=== PATIENT | male | born 1990 ===

== ENCOUNTER 2021-11-15 22:27 | Emergency (ER) | payer MEDICAID, SELFPAY ==
--- NOTE | ~2021-11-15 | XR_ITS ---
EXAMINATION: XR FOOT, RIGHT CLINICAL INFORMATION: Pain. Rule out osteomyelitis. COMPARISON: None TECHNIQUE: AP, lateral, and oblique views of the right foot. FINDINGS: No fracture or malalignment. Soft tissue swelling is evident at the fourth toe in the first. No radiographic findings of acute osteomyelitis. Bone mineralization is normal. Joint spaces are well-preserved. No radiodense foreign bodies. XR/XR foot RT min 3V IMPRESSION: No acute osseous findings. No radiographic findings of acute osteomyelitis.
[2021-11-15 22:41] VITALS: BP 135/72; PULSE 81; RESP 17; TEMP 36.7; O2SAT 96; BMI 26.9
--- NOTE | 2021-11-16 00:49 | ED_ITS ---
HPI - Extremity Problem General Chief complaint: Extremity Problem Stated complaint: foot inj Time Seen by Provider: 11/16/21 00:14 Source: patient Mode of arrival: ambulatory History of Present Illness HPI Narrative: 30-year-old male with past medical history of AFib presenting to the ED complaining of swollen, sore feet with open sores to 4-5th toes x weeks from shoes being a size too small and walking around for long periods of time in wet socks. Patient reports he is homeless & walking around a lot and feet always getting wet. Denies fever, chills, numbness/tingling, drainage from area MD Complaint: extremity pain Onset (ago): week(s) Pain Consistency: constant Related Data Previous Rx's Medication Instructions Recorded cephalexin 500 mg capsule 500 mg PO QID 7 Days #28 cap 11/16/21 Allergies Allergy/AdvReac Type Severity Reaction Status Date / Time amoxicillin [AMOXICILLIN] Allergy Severe HIVES Unverified 05/12/20 15:58 Penicillins [PENICILLINS] Allergy Severe HIVES Unverified 05/12/20 15:58 acetaminophen [From TYLENOL] Allergy Unknown LIVER Unverified 05/12/20 15:58 PROBLEMS Review of Systems Review of Systems: Constitutional: No Weight loss, No Fever, No Chills ENT/Mouth: No Ear Pain, No Nasal Congestion, No sore throat, No Rhinorrhea, No Swallowing Difficulty Cardiovascular: No Chest Pain, No SOB Respiratory: No Cough, No Sputum, No Wheezing Gastrointestinal: No Nausea, No Vomiting, No Diarrhea, No Constipation, No Abdominal pain Genitourinary: No Hematuria, No Urinary Incontinence, No Flank Pain Musculoskeletal: + joint pain, No Myalgias, + Joint Swelling Skin: + Skin Lesions, No rash Neuro: No Weakness, No Numbness, No Paresthesias Yes all other systems are reviewed and are negative [facility] Past Medical History Attestation statement: The following information was validated with the patient. Medical History A-fib Social History Social History Advance Directives: No Advance Directives Information Provided: Yes Physical Exam Vital Signs: Vital Signs: Last Vital Signs Temp 98.1 F 11/15/21 22:41 Pulse 81 11/15/21 22:41 Resp 17 11/15/21 22:41 BP 135/72 11/15/21 22:41 Pulse Ox 96 11/15/21 22:41 BMI result Body Mass Index 26.9 Const: General: cooperative, healthy appearing and no acute distress Orientation/consciousness: patient oriented x3 Limitations: no limitations HEENT: Head: Yes normal to inspection and Yes atraumatic Ears: hearing maxi ssly normal bilaterally General nose exam: Normal external nose present Face and sinus: Yes normal facial exam Eyes: General: appearance normal, both eyes and all related structures EOM: EOMs intact bilaterally Neck: Neck: Yes normal visual inspection Resp: Effort & Inspection: normal respiratory effort and no respiratory distress Auscultation: clear to auscultation bilaterally Cardio: Rate: regular rate Heart sounds: S1 normal heart sound present and S2 normal heart sound present Peripheral pulses: dorsalis pedis present Skin: Rashes: no rashes Neuro: General: patient oriented x3 Gait exam (Neuro): Normal gait present Extrem: Other: Bilateral feet with malodor, swelling, and skin breakdown to 4th and 5th toes. +open wounds/pressure wounds between 4/5th toes bilaterally worse on the right. Appear clean, no erythema, no warmth, no drainage. NV intact Course Course Course Narrative: -99--ED care transferred to [facility]al[facility] pending x-ray and dispo per results MDM - Extremity (Nontraumatic) MDM Narrative Medical decision making narrative: 30-year-old male with past medical history of AFib presenting to the ED complaining of swollen, sore feet with open sores to 4-5th toes x weeks from shoes being a size too small and walking around. On exam VSS, NAD, physical exam as above consistent with pressure wounds/ulcerations to bilateral feet. No evidence of active cellulitis. No drainage from wounds. Lower concern for osteomyelitis but will obtain XR to right foot due to depth of ulcer Plan: Foot x-ray, apply dressing for barrier & give dry socks Medical Records Attestation: I reviewed the patient's medical records. Lab Data Attestation: I reviewed the patient's lab results. Discharge Plan Discharge Clinical Impression: Pressure ulcer Patient Disposition: Home, Self-Care Instructions: Pressure Injury (ED) Additional Instructions: You need to keep you feet dry and clean Change socks daily Keep a barrier between 4th and 5th toes to prevent skin breakdown Please follow-up with your primary care doctor Please also follow-up with wound care Keflex as an antibiotic please take as prescribed If symptoms persist or worsen, he develops redness, drainage from area, fever please return to the ED Prescriptions: New cephalexin 500 mg capsule 500 mg PO QID 7 Days Qty: 28 0RF Referrals: [facility]Outside] - 2 days [facility] [Primary Care Provider] - 2 days
== END 2021-11-16 02:03 | disposition home or self-care (01) ==
PROVIDERS: Emergency Provider Emergency Medicine
DX: L89.891 Pressure ulcer of other site, stage 1 (principal); M79.672 Pain in left foot; M79.671 Pain in right foot; I48.91 Unspecified atrial fibrillation
CPT/HCPCS: 73630; 99283

== ENCOUNTER 2022-05-04 23:57 | Inpatient (IN) | payer OTHER, SELFPAY ==
--- NOTE | 2022-05-05 | ECG_ITS ---
Test Reason : med clearance Blood Pressure : / mmHG Vent. Rate : 073 BPM Atrial Rate : 073 BPM P-R Int : 140 ms QRS Dur : 114 ms QT Int : 396 ms P-R-T Axes : 020 059 041 degrees QTc Int : 436 ms Normal sinus rhythm Incomplete right bundle branch block Borderline ECG When compared with ECG of 23-MAR-2020 00:48, No significant change was found Referred By: Bolivar Villagomez Electronically Signed By:JULIETTE MINAYA
--- NOTE | 2022-05-05 00:18 | ED_ITS ---
HPI - Psych General Chief Complaint: Psychiatric Symptoms Stated Complaint: crisis Time Seen by Provider: 05/05/22 00:17 Source: patient Mode of arrival: ambulatory Limitations: no limitations History of Present Illness MD complaint: feels depressed, anxiety, substance abuse and hallucinations Onset (ago): week(s) Duration: getting worse History of same: Yes Relieving factors: none Exacerbating factors: drug use Context: recent drug abuse and not taking psychiatric medications Associated psychiatric symptoms: depression and auditory hallucinations Associated symptoms: denies other symptoms Treatments prior to arrival: none If self harm: admits thoughts of self harm Related Data Home Medications Medication Instructions Recorded Confirmed buprenorphine 8 mg-naloxone 2 mg 1 strip sublingual BID 05/05/22 05/05/22 sublingual film (Suboxone) Allergies Allergy/AdvReac Type Severity Reaction Status Date / Time amoxicillin [AMOXICILLIN] Allergy Severe HIVES Unverified 05/12/20 15:58 Penicillins [PENICILLINS] Allergy Severe HIVES Unverified 05/12/20 15:58 acetaminophen [From TYLENOL] Allergy Unknown LIVER Unverified 05/12/20 15:58 PROBLEMS Review of Systems Review of Systems: Constitutional : No Fever, No Chills ENT/Mouth : No Ear Pain, No Nasal Congestion, No sore throat Eyes: No Eye Pain, No Swelling, No Redness Cardiovascular : No Chest Pain, No SOB Respiratory : No Cough, No Sputum, No Dyspnea Gastrointestinal : No Nausea, No Vomiting, No Diarrhea, No Hematochezia, No Melena Genitourinary : No Dysuria, No Urinary Frequency, No Hematuria Musculoskeletal : No Myalgias Skin : No Skin Lesions, No rash Neuro : No Weakness, No Numbness, No Paresthesias, No Dizziness, No Headache Psych : positive Anxiety, positive Depression, no SI/HI, pos AH, no VH Heme/Lymph: No Lymphadenopathy Endocrine : No Polyuria, No Polydipsia All other systems reviewed and are negative [facility] Past Medical History Attestation statement: The following information was validated with the patient. Medical History A-fib Depression Opiate abuse, continuous Social History Social History (Updated 05/05/22 @ 00:27 by Genna Davila DO) Patient Tobacco Use Status: Current everyday Tobacco user Substance Use Type: Crack/Cocaine and Heroin Advance Directives: No Advance Directives Information Provided: No Physical Exam Vital Signs: Vital Signs: Last Vital Signs Temp 97.8 F 05/05/22 00:21 Pulse 65 05/05/22 00:21 Resp 17 05/05/22 00:21 BP 104/58 L 05/05/22 00:21 Pulse Ox 98 05/05/22 00:21 O2 Del Method 05/05/22 00:21 BMI result Body Mass Index 24.3 Appearance: Alert. Oriented X3. No acute distress. Eyes: Pupils equal, round and reactive to light. ENT: Pharynx normal. Neck: Normal inspection. Neck supple. CVS: Normal heart rate and rhythm. Pulses normal. Respiratory: No respiratory distress. Breath sounds normal. Abdomen: Soft and nontender. Skin: Skin warm and dry. Normal skin color. Normal skin turgor. Extremities: No lower extremity edema. No calf ttp Neuro: Oriented X 3. No motor deficit. No sensory deficit. CN2-12 intact Course Course Course Narrative: Physician observation started at 2am. Patient placed in physician observation because the patient needed more time for [facility] to assess r the need for psych admission. At the time observation was started the patient's vitals were stable, patient is alert and oriented, Neuro: nonfocal, CV RRR, Lungs clear MDM - Psych MDM Narrative Medical decision making narrative: 31 yo male with hx of depression, OUD on suboxone, also reports he is schizophrenic presents with depression, AH, drug abuse, not taking his medications and some vague thoughts of self harm. At this time will obtain labs, COVID swab and refer to N. He denies medical complaints. Lab Data Labs: Lab Results 05/05/22 05/05/22 Range/Units 01:15 01:15 Urine Opiates Screen POSITIVE H (Not Detect) Urine Fentanyl Screen POSITIVE H (Not Detect) Ur Barbiturates Screen Not Detected (Not Detect) Ur Phencyclidine Scrn Not Detected (Not Detect) Ur Amphetamines Screen Not Detected (Not Detect) U Benzodiazepines Scrn Not Detected (Not Detect) Urine Cocaine Screen POSITIVE H (Not Detect) U Marijuana (THC) Screen POSITIVE H (Not Detect) COVID-19 ([facility]) Negative (Negative) COVID-19 Clin Com See Note Discharge Plan Discharge Clinical Impression: Polysubstance abuse Depression Qualifiers: Depression Type: unspecified Qualified Code(s): F32.A - Depression, unspecified Patient Disposition: Still a Patient Prescriptions: No Action buprenorphine-naloxone [Suboxone] 8-2 mg film 1 strip sublingual BID
[2022-05-05 00:21] VITALS: BP 104/58; PULSE 65; RESP 17; TEMP 36.6; O2SAT 98; BMI 24.3
[2022-05-05 01:46] LABS: Amphetamine Screen Urine Not Detected (Not Detect); Barbiturates, Urine Not Detected (Not Detect); Benzodiazepines Screen Urine Not Detected (Not Detect); Cannabinoid Screen Urine POSITIVE (Not Detect); Cocaine Screen Urine POSITIVE (Not Detect); Fentanyl, urine POSITIVE (Not Detect); Opiate Screen Urine POSITIVE (Not Detect); Phencyclidine Screen Urine Not Detected (Not Detect)
[2022-05-05 01:54] LABS: COVID-19 Test Negative (Negative)
[2022-05-05 02:32] LABS: MANUAL DIFF FLAG NO
[2022-05-05 02:35] LABS: Basophils Percent Auto 0.3 % (0-2); Eosinophils Absolute Auto 0.2 X10*3/uL (0.0-0.4); Eosinophils Percent Auto 2.5 % (0-4); Hematocrit 37.7 % (42.0-52.0); Imm Gran Abs Auto 0.01 X10*3/uL (0.00-0.03); Imm Gran Pct Auto 0.2 % (0.0-0.4); Lymphocytes Absolute Auto 3.3 X10*3/uL (1.2-4.9); Lymphocytes Percent Auto 55.8 % (20-40); Mean Corpuscular HGB Conc 31.8 g/dl (31.0-36.0); Mean Corpuscular Hemoglobin 24.6 pg (27.0-33.0); Mean Corpuscular Volume 77.3 fL (80.0-98.0); Mean Platelet Volume 10.7 fL (9.4-12.4); Monocytes Absolute Auto 0.5 X10*3/uL (0.1-1.2); Monocytes Percent Auto 8.7 % (2-11); Neutrophils Absolute Auto 1.9 x10*3/uL (2.0-8.3); Neutrophils Percent Auto 32.5 % (45-73); Platelet Count 170 X10*3/uL (160-400); Red Blood Count 4.88 X10*6/uL (4.60-5.80); Red Cell Distribution Width 14.1 % (11.0-16.0)
[2022-05-05 02:51] LABS: Alanine Aminotransferase 23 U/L (0-40); Alkaline Phosphatase 73 U/L (39-117); Anion Gap 13 (12-20); Aspartate Amino Transferase 20 U/L (5-37); Bilirubin Direct 0.2 mg/dL (0.0-0.5); Bilirubin Total 0.5 mg/dL (0.0-1.0); Blood Urea Nitrogen 17 mg/dL (9-16); Calcium 9.1 mg/dL (8.4-10.2); Carbon Dioxide 30 mmol/L (22-29); Chloride 103 mmol/L (96-108); Creatinine Clr Calc Pharmacy 135.4; Estimated Glomerular Filt Rate > 60; Ethanol < 10 mg/dL; Glucose Random 108 mg/dL (60-115); Potassium 3.4 mmol/L (3.3-5.1); Sodium 143 mmol/L (135-145); Total Protein 6.9 g/dL (6.5-8.0)
--- NOTE | 2022-05-05 06:44 | PC.NURSE ---
Patient slept through the night, no distress observed/reported, behavior appropriate and non concerning, med rec completed, patient is currently on Suboxone, only, meds ready to be dispensed, [facility] referral completed/confirmed/pending ETA, will continue to monitor.
--- NOTE | 2022-05-05 07:04 | PC.NURSE ---
patient appeared to remain at rest at present respirations are even and unlabored patient appears in no distress.
[2022-05-05 18:02] VITALS: BP 121/72; PULSE 72; RESP 16; TEMP 37.2; O2SAT 100
--- NOTE | 2022-05-05 21:20 | PC.ADMIT ---
Kevan is a 31-year-old male admitted from [facility] after self-presenting with AH, depression and SI with plan to OD. CV signed. Pt has a hx of polysubstance use and endorses daily cocaine/heroin use. Tox screen positive for opiates, fentanyl, THC, cocaine. Pt reports pending legal charges due to a theft and high pursuit ted. He's also been incarcerated for drug related charges. Crisis eval states that pt lives with the mother of his children, however pt states that he's homeless and doesn't have anywhere to go. Pt reports getting my kids taken away from me last year has been a stressor for him. During admission assessment, pt was alert, oriented, pleasant and cooperative but appeared anxious. Mood is depressed and hopeless with congruent affect. Pt would often avoid eye contact and look at the ground. Pt's affect was flat and he was short with his responses. Pt currently denies SI/HI/VH but does endorse AH all the time. Per crisis eval, pt presents with paranoia and believes that people are following him to kill him. Pt states he feels safe on the unit and will reach out to staff if negative thoughts occur.
[2022-05-06 06:00] VITALS: BP 134/91; PULSE 78; RESP 18; TEMP 36.9; O2SAT 98
[2022-05-06] MEDS: Buprenorphine/Naloxone 8/2 mg FILM 1 FILM SUBLINGUAL ×2 (08:31→20:08)
[2022-05-06] MEDS: OLANZapine 5 MG TABLET PO ×2 (11:21→20:08)
[2022-05-06] MEDS: Sertraline HCL 50 MG TABLET PO (11:21)
--- NOTE | 2022-05-06 11:45 | HO.PSYADMNOT ---
[facility] Date of Service: 05/06/22 Chief Complaint: depression and hallucinations Sources of Information: patient interviewed, chart reviewed and crisis/core team assessment reviewed HPI Subjective Notes: Conditional Voluntary Narrative: Patient self presented to the ED with suicidal thoughts. Reports the last year has been very difficult with associated depression and hallucinations and suicidal thoughts of overdosing. Reports things got worse in the context of illegal case and DCF. Reported driving with his children and there being a high-speed ted. Reported being arrested and next hearing is in May which he hopes will be a plea deal for probation and time served. Reports that the mother of his children who are aged 2 and 5, has started to do the right things and go to rehab so she can have the children. He is unable to live with her and has been homeless for the last 1 year. Reports low mood, poor sleep, poor energy, poor appetite no motivation. Suicidal thoughts. Intermittent substance and relapses with opiates, fentanyl and cocaine. Last used day of admission. Is on Suboxone through [facility] for the last 3-4 months. Social alcohol use. Reports wanting help with mood, hallucinations that have been present since teenage years that can be command in nature. Did have some paranoia prior to admission he is being followed or chased rib. Also open to rehab, which he is never completed in the past. Past psychiatric history 1st inpatient admission. To suicide attempts age 15 and 17. Reports being on Zoloft and Vistaril in the past which was helpful. Socially homeless for the last 1 year. Active legal issues as above. 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 Discussed treatment with Zoloft 50 mg, Vistaril as needed and Zyprexa 5 mg twice daily for hallucinations, poor sleep and anxiety. Risks and benefits discussed including metabolic side effects. Past Psychiatric History: Past psychiatric history 1st inpatient admission. To suicide attempts age 15 and 17. Reports being on Zoloft and Vistaril in the past which was helpful. Medical Evaluation Reviewed: Yes [facility] Medical History A-fib Depression Opiate abuse, continuous Social History: homeless for the last 1 year. Active legal issues as above. 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 Substance History: Opioid and cocaine dependence. Has been in detox in the past. No rehabs. Interested in same now. Diagnostics Vital Signs (24Hr): Vital Signs - 24 hr 05/05/22 18:02 05/06/22 06:00 Temperature 98.9 F 98.5 F Pulse Rate 72 78 Respiratory Rate 16 18 Blood Pressure 121/72 134/91 H Pulse Oximetry 100 98 Oxygen Delivery Method Room Air Room Air BMI result Body Mass Index 24.3 Labs Results: 05/05/22 02:20 05/05/22 02:20 Labs: Laboratory Results - last 48 hr 05/05/22 05/05/22 05/05/22 01:15 01:15 02:20 WBC RBC Hgb Hct MCV MCH MCHC RDW Plt Count MPV Immature Gran % (Auto) Neut % (Auto) Lymph % (Auto) Carroll % (Auto) Eos % (Auto) Baso % (Auto) Lymph # (Auto) Carroll # (Auto) Eos # (Auto) Baso # (Auto) Abs Immat Gran (auto) Absolute Neuts (auto) Absolute Nucleated RBC Nucleated RBC % (auto) Sodium 143 Potassium 3.4 Chloride 103 Carbon Dioxide 30 H Anion Gap 13 BUN 17 H Creatinine 0.91 Estim Creat Clear Calc 135.4 Estimated GFR > 60 Random Glucose 108 Calcium 9.1 Total Bilirubin 0.5 Direct Bilirubin 0.2 AST 20 ALT 23 Alkaline Phosphatase 73 Total Protein 6.9 Albumin 4.0 Urine Opiates Screen POSITIVE H Urine Fentanyl Screen POSITIVE H Ur Barbiturates Screen Not Detected Ur Phencyclidine Scrn Not Detected Ur Amphetamines Screen Not Detected U Benzodiazepines Scrn Not Detected Urine Cocaine Screen POSITIVE H U Marijuana (THC) Screen POSITIVE H Ethyl Alcohol < 10 COVID-19 ([facility]) Negative COVID-19 Clin Com See Note 05/05/22 02:20 WBC 6.0 RBC 4.88 Hgb 12.0 L Hct 37.7 L MCV 77.3 L MCH 24.6 L MCHC 31.8 RDW 14.1 Plt Count 170 MPV 10.7 Immature Gran % (Auto) 0.2 Neut % (Auto) 32.5 L Lymph % (Auto) 55.8 H Carroll % (Auto) 8.7 Eos % (Auto) 2.5 Baso % (Auto) 0.3 Lymph # (Auto) 3.3 Carroll # (Auto) 0.5 Eos # (Auto) 0.2 Baso # (Auto) 0.0 Abs Immat Gran (auto) 0.01 Absolute Neuts (auto) 1.9 L Absolute Nucleated RBC 0.000 Nucleated RBC % (auto) 0.0 Sodium Potassium Chloride Carbon Dioxide Anion Gap BUN Creatinine Estim Creat Clear Calc Estimated GFR Random Glucose Calcium Total Bilirubin Direct Bilirubin AST ALT Alkaline Phosphatase Total Protein Albumin Urine Opiates Screen Urine Fentanyl Screen Ur Barbiturates Screen Ur Phencyclidine Scrn Ur Amphetamines Screen U Benzodiazepines Scrn Urine Cocaine Screen U Marijuana (THC) Screen Ethyl Alcohol COVID-19 ([facility]) COVID-19 Clin Com Meds/Allergies Meds Home Medications Medication Instructions Recorded Confirmed Type buprenorphine 8 mg-naloxone 2 mg 1 strip sublingual BID 05/05/22 05/05/22 History sublingual film (Suboxone) Allergies Allergies Allergy/AdvReac Type Severity Reaction Status Date / Time amoxicillin [AMOXICILLIN] Allergy Severe HIVES Unverified 05/12/20 15:58 Penicillins [PENICILLINS] Allergy Severe HIVES Unverified 05/12/20 15:58 acetaminophen [From TYLENOL] Allergy Unknown LIVER Unverified 05/12/20 15:58 PROBLEMS Mental Status Exam Mental Status Exam Narrative: Pleasant. Engaged. Organized. Depressed. SI. No current plans. Feels supported. Negative auditory hallucinations that are demeaning with occasional commands. No HI. No aggression or agitation. Some paranoia pre-admission. None now. Insight and judgment fair Assessment & Plan Assessment & Plan (1) Polysubstance abuse: Status: Acute Code(s): F19.10 - Other psychoactive substance abuse, uncomplicated (2) Major depression with psychotic features: Status: Acute Code(s): F32.3 - Major depressive disorder, single episode, severe with psychotic features Plan Overall presents with psychosis and depression and opioid dependence. Significant psychosocial stressors. First inpatient admission. Will start Zoloft 50 mg, olanzapine 5 mg twice daily and 5 mg as needed and Vistaril as needed. Risk benefits discussed. Also interested in rehab programming. Patient educated on: diagnosis and medication risk/benefits Informed Consent: understands Reason for continued inpatient stay Substantial Risk for: harm to self
[2022-05-06] MEDS: Buprenorphine/Naloxone 4/1 mg FILM 1 FILM SUBLINGUAL (17:41)
[2022-05-06 18:00] VITALS: BP 142/85; PULSE 58; RESP 16; TEMP 37.5; O2SAT 99
[2022-05-06] MEDS: traZODone HCL 50 MG TABLET PO ×2 (20:08→21:08)
[2022-05-06] MEDS: Magnesium Hydrox/Alum Hydrox 30 ML ORAL.SUSP PO (21:08)
[2022-05-07 06:00] VITALS: BP 132/87; PULSE 63; RESP 16; TEMP 37; O2SAT 100
[2022-05-07] MEDS: Buprenorphine/Naloxone 8/2 mg FILM 1 FILM SUBLINGUAL ×2 (07:57→21:05)
[2022-05-07] MEDS: Sertraline HCL 50 MG TABLET PO (07:57)
[2022-05-07] MEDS: OLANZapine 5 MG TABLET PO (07:57)
--- NOTE | 2022-05-07 16:36 | P.PNPSI_ITS ---
Subjective Subjective Date of Service: 05/07/22 Reason For Visit: depression and hallucinations Interim History: I spoke to pt and his team. Per pt, im having a lot of anxiety, meds havent helped. Sleeps only a couple hours a night, energy is so so. Has nightmares. Sleep is poor, intermittently wakes up. Says in the past he was prescribed xanax and then he was self medicating since it was discontinued with heroin and xanax he buys on the streets. Discussed benzos and heroin withdrawal. He reports lack of efficacy on clonidine. Has withdrawal sx of throwing up yesterday, diarrhea, feels hot and cold, feels crampy. He was taking three suboxone a day on the street- will place addiction consult. Says his depression has been bad. Started on zyprexa, helps a little bit, for AH he reports onset at age 17, hears his friends voices and they conversate about the day and talk about what I should do with my life. The voices bother him and says when he uses heroin he doesnt hear them. Denies SI, feels safe. Medication Compliance: Yes Side effects from medications: No Attending Groups: No Review of Systems Acute medical concerns: No Medical Review of Systems: unchanged Mental Status Exam Mental Status Exam Narrative: Pleasant.? Engaged.? Organized.? Depressed.? SI.? No current plans.? Feels supported.? Negative auditory hallucinations that are demeaning with occasional commands.? No HI.? No aggression or agitation.? Some paranoia pre-admission.? None now.? Insight and judgment fair Diagnostics Vital Signs (24Hr): Vital Signs - 24 hr 05/06/22 18:00 05/07/22 06:00 Temperature 99.5 F 98.6 F Pulse Rate 58 63 Respiratory Rate 16 16 Blood Pressure 142/85 H 132/87 Pulse Oximetry 99 100 Oxygen Delivery Method Room Air BMI result Body Mass Index 24.3 Labs Results: 05/05/22 02:20 05/05/22 02:20 Medications Medications Current Medications Al Hydroxide/Mg Hydroxide (Magnesium Hydrox/Alum Hydrox 30 Ml Oral.Susp) 30 ml PO Q6H PRN PRN Reason: Heartburn/Nausea Last Admin: 05/06/22 21:08 Dose: 30 ml Buprenorphine/Naloxone (Buprenorphine/Naloxone 8/2 Mg Film) 1 film SUBLINGUAL BID COUNT INCLUDES THE [facility] Last Admin: 05/07/22 07:57 Dose: 1 film Hydroxyzine HCl (Hydroxyzine Hcl 50 Mg Tablet) 50 mg PO Q6H PRN PRN Reason: Anxiety Magnesium Hydroxide (Milk Of Magnesia 30 Ml Oral.Susp) 30 ml PO DAILY PRN PRN Reason: Constipation Nicotine (Nicotine 21 Mg Patch.Td24) 21 mg TRANSDERMA DAILY COUNT INCLUDES THE [facility] Last Admin: 05/07/22 11:13 Dose: Not Given Nicotine Polacrilex (Nicotine Polacrilex Lozenge 4 Mg Lozenge) 4 mg BUCCAL Q2H PRN PRN Reason: Nicotine Cravings Olanzapine (Olanzapine 5 Mg Tablet) 5 mg PO BID COUNT INCLUDES THE [facility] Last Admin: 05/07/22 07:57 Dose: 5 mg Olanzapine (Olanzapine 5 Mg Tablet) 5 mg PO Q4H PRN PRN Reason: Psychosis Sertraline HCl (Sertraline Hcl 50 Mg Tablet) 50 mg PO DAILY COUNT INCLUDES THE [facility] Last Admin: 05/07/22 07:57 Dose: 50 mg Trazodone HCl (Trazodone Hcl 50 Mg Tablet) 50 mg PO BEDTIME PRN PRN Reason: Insomnia Last Admin: 05/06/22 21:08 Dose: 50 mg Allergies Allergies Allergy/AdvReac Type Severity Reaction Status Date / Time amoxicillin [AMOXICILLIN] Allergy Severe HIVES Unverified 05/12/20 15:58 Penicillins [PENICILLINS] Allergy Severe HIVES Unverified 05/12/20 15:58 acetaminophen [From TYLENOL] Allergy Unknown LIVER Unverified 05/12/20 15:58 PROBLEMS Assessment & Plan Assessment & Plan (1) Polysubstance abuse: Status: Acute Code(s): F19.10 - Other psychoactive substance abuse, uncomplicated (2) Major depression with psychotic features: Status: Acute Code(s): F32.3 - Major depressive disorder, single episode, severe with psychotic features Plan Overall presents with psychosis and depression and opioid dependence. Significant psychosocial stressors. First inpatient admission. Will start Zoloft 50 mg, olanzapine 5 mg twice daily and 5 mg as needed and Vistaril as needed. Risk benefits discussed. Also interested in rehab programming. 05/07: reports continued anxiety, AH. Will start PRN thorazine 25 mg Q6H PRN and increase vistaril to 50 mg, add comfort meds for withdrawal, place addiction consult I spent minutes with the patient and/or on the patient floor today, greater than?50% of which was spent counseling/coordinating care. Patient educated on: medication risk/benefits and therapeutic strategies Reason for contiued inpatient stay Substantial Risk for: med/psych decompensation
[2022-05-07] MEDS: Loperamide HCl 2 MG CAPSULE 4 MG PO (20:57)
[2022-05-07] MEDS: OLANZapine 10 MG TABLET PO (20:58)
[2022-05-07] MEDS: chlorproMAZINE HCl 25 MG TABLET PO (21:05)
[2022-05-07] MEDS: traZODone HCL 50 MG TABLET PO (21:05)
[2022-05-07] MEDS: Nicotine Polacrilex Lozenge 4 MG LOZENGE BUCCAL (21:20)
[2022-05-08 06:00] VITALS: BP 136/85; PULSE 67; RESP 16; TEMP 36.7; O2SAT 100
[2022-05-08] MEDS: Buprenorphine/Naloxone 8/2 mg FILM 1 FILM SUBLINGUAL ×2 (09:34→20:54)
[2022-05-08] MEDS: Sertraline HCL 50 MG TABLET PO (09:35)
[2022-05-08] MEDS: Nicotine Polacrilex Lozenge 4 MG LOZENGE BUCCAL ×2 (10:15→19:45)
[2022-05-08] MEDS: chlorproMAZINE HCl 25 MG TABLET PO (10:15)
[2022-05-08] MEDS: OLANZapine 5 MG TABLET PO (11:21)
[2022-05-08] MEDS: hydrOXYzine HCL 50 MG TABLET PO (12:48)
--- NOTE | 2022-05-08 17:00 | HO.PSYCHPN ---
Subjective Subjective Date of Service: 05/08/22 Reason For Visit: depression and hallucinations Interim History: I spoke with pt and his team. Says he is feeling better with suboxone increase. Says thorazine helps a lot but it only lasts a couple hours, says his anxiety is bad again. Thorazine and vistaril were increased to 75 mg today by daytime provider but still anxious. Says zyprexa helps a little with voices but not too much with anxiety. Has insomnia but this is a longstanding chronic issue, hx of waking up in the night. Mood is okay. Went to one of the groups today, this is his first day of going. Feels safe. Appetite is good. Diarrhea is resolved. Medication Compliance: Yes Side effects from medications: No Attending Groups: Intermittent Review of Systems Acute medical concerns: No Medical Review of Systems: unchanged Mental Status Exam Mental Status Exam Narrative: Pleasant.? Engaged.? Organized.? Depressed.? SI.? No current plans.? Feels supported.? Negative auditory hallucinations that are demeaning with occasional commands.? No HI.? No aggression or agitation.? Some paranoia pre-admission.? None now.? Insight and judgment fair Diagnostics Vital Signs (24Hr): Vital Signs - 24 hr 05/08/22 06:00 Temperature 98.0 F Pulse Rate 67 Respiratory Rate 16 Blood Pressure 136/85 Pulse Oximetry 100 BMI result Body Mass Index 24.3 Labs Results: 05/05/22 02:20 05/05/22 02:20 Medications Medications Current Medications Al Hydroxide/Mg Hydroxide (Magnesium Hydrox/Alum Hydrox 30 Ml Oral.Susp) 30 ml PO Q6H PRN PRN Reason: Heartburn/Nausea Last Admin: 05/06/22 21:08 Dose: 30 ml Buprenorphine/Naloxone (Buprenorphine/Naloxone 8/2 Mg Film) 1 film SUBLINGUAL BID RICARDO Last Admin: 05/08/22 09:34 Dose: 1 film Buprenorphine/Naloxone (Buprenorphine/Naloxone 4/1 Mg Film) 1 film SUBLINGUAL ONCE ONE Stop: 05/08/22 17:00 Chlorpromazine HCl (Chlorpromazine Hcl 25 Mg Tablet) 50 mg PO Q6H PRN PRN Reason: anxiety, sleep Hydroxyzine HCl (Hydroxyzine Hcl 25 Mg Tablet) 75 mg PO Q6H PRN PRN Reason: Anxiety Loperamide HCl (Loperamide Hcl 2 Mg Capsule) 2 mg PO Q6H PRN PRN Reason: diarrhea Magnesium Hydroxide (Milk Of Magnesia 30 Ml Oral.Susp) 30 ml PO DAILY PRN PRN Reason: Constipation Nicotine (Nicotine 21 Mg Patch.Td24) 21 mg TRANSDERMA DAILY [facility] Last Admin: 05/08/22 09:34 Dose: Not Given Nicotine Polacrilex (Nicotine Polacrilex Lozenge 4 Mg Lozenge) 4 mg BUCCAL Q2H PRN PRN Reason: Nicotine Cravings Last Admin: 05/08/22 10:15 Dose: 4 mg Olanzapine (Olanzapine 10 Mg Tablet) 10 mg PO BEDTIME [facility] Last Admin: 05/07/22 20:58 Dose: 10 mg Olanzapine (Olanzapine 5 Mg Tablet) 5 mg PO Q6H PRN PRN Reason: Psychosis Last Admin: 05/08/22 11:21 Dose: 5 mg Ondansetron HCl (Ondansetron Odt 4 Mg Tab.Rapdis) 4 mg TRANSLINGU Q8H PRN PRN Reason: nausea Sertraline HCl (Sertraline Hcl 50 Mg Tablet) 50 mg PO DAILY [facility] Last Admin: 05/08/22 09:35 Dose: 50 mg Trazodone HCl (Trazodone Hcl 50 Mg Tablet) 50 mg PO BEDTIME PRN PRN Reason: Insomnia Last Admin: 05/07/22 21:05 Dose: 50 mg Allergies Allergies Allergy/AdvReac Type Severity Reaction Status Date / Time amoxicillin [AMOXICILLIN] Allergy Severe HIVES Unverified 05/12/20 15:58 Penicillins [PENICILLINS] Allergy Severe HIVES Unverified 05/12/20 15:58 acetaminophen [From TYLENOL] Allergy Unknown LIVER Unverified 05/12/20 15:58 PROBLEMS Assessment & Plan Assessment & Plan (1) Polysubstance abuse: Status: Acute Code(s): F19.10 - Other psychoactive substance abuse, uncomplicated (2) Major depression with psychotic features: Status: Acute Code(s): F32.3 - Major depressive disorder, single episode, severe with psychotic features Plan Overall presents with psychosis and depression and opioid dependence. Significant psychosocial stressors. First inpatient admission. Will start Zoloft 50 mg, olanzapine 5 mg twice daily and 5 mg as needed and Vistaril as needed.? Risk benefits discussed.? Also interested in rehab programming. 05/07: reports continued anxiety, AH. Will start PRN thorazine 25 mg Q6H PRN and increase vistaril to 50 mg, add comfort meds for withdrawal, place addiction consult 05/08: PRN thorazine and vistaril increased to 75 mg, seen by mechanical service specialist and suboxone increased, much appreciated. Will increase zyprexa to 15 mg HS for AH, poor sleep. I spent minutes with the patient and/or on the patient floor today, greater than?50% of which was spent counseling/coordinating care. Patient educated on: medication risk/benefits and therapeutic strategies Reason for contiued inpatient stay Substantial Risk for: med/psych decompensation
[2022-05-08] MEDS: Buprenorphine/Naloxone 4/1 mg FILM 1 FILM SUBLINGUAL (18:05)
[2022-05-08 20:45] VITALS: BP 121/66; PULSE 87; TEMP 36.2; O2SAT 98
[2022-05-08] MEDS: OLANZapine 7.5 MG TABLET 15 MG PO (20:54)
[2022-05-08] MEDS: chlorproMAZINE HCl 25 MG TABLET 50 MG PO (20:54)
[2022-05-09 07:30] VITALS: BP 106/60; PULSE 77; RESP 16; TEMP 36.8; O2SAT 96
[2022-05-09] MEDS: Sertraline HCL 50 MG TABLET PO (08:19)
[2022-05-09] MEDS: Buprenorphine/Naloxone 8/2 mg FILM 1 FILM SUBLINGUAL ×3 (08:19→19:59)
[2022-05-09] MEDS: Nicotine Polacrilex Lozenge 4 MG LOZENGE BUCCAL ×3 (09:08→18:21)
[2022-05-09] MEDS: chlorproMAZINE HCl 25 MG TABLET 50 MG PO ×2 (09:08→17:20)
[2022-05-09] MEDS: OLANZapine 5 MG TABLET PO (10:02)
--- NOTE | 2022-05-09 18:10 | P.PNPSI_ITS ---
Subjective Subjective Date of Service: 05/09/22 Reason For Visit: depression and hallucinations Interim History: I spoke with pt's team and the pt. Says the PRNs have helped but after 1-2 hours his anxiety returns, still wakes up throughout the night. Says he will try to ask for PRNs if wakes up, as he has not been doing this. Says his hallucinations are getting better a little bit. Asks to trial an increase in thorazine, does not want a benzo. Says he is in a good mood today but overall up and down. Medication Compliance: Yes Side effects from medications: No Attending Groups: Intermittent Review of Systems Acute medical concerns: No Medical Review of Systems: unchanged Mental Status Exam Mental Status Exam Narrative: Pleasant.? Engaged.? Organized.? Depressed.? Denies SI, feels safe.? Feels supported.? Negative auditory hallucinations that are demeaning with occasional commands.? No HI.? No aggression or agitation.? Some paranoia pre-admission.? None now.? Insight and judgment fair Diagnostics Vital Signs (24Hr): Vital Signs - 24 hr 05/08/22 20:45 05/09/22 07:30 Temperature 97.2 F 98.2 F Pulse Rate 87 77 Respiratory Rate 16 Blood Pressure 121/66 106/60 Pulse Oximetry 98 96 Oxygen Delivery Method Room Air Room Air BMI result Body Mass Index 24.3 Labs Results: 05/05/22 02:20 05/05/22 02:20 Medications Medications Current Medications Al Hydroxide/Mg Hydroxide (Magnesium Hydrox/Alum Hydrox 30 Ml Oral.Susp) 30 ml PO Q6H PRN PRN Reason: Heartburn/Nausea Last Admin: 05/06/22 21:08 Dose: 30 ml Buprenorphine/Naloxone (Buprenorphine/Naloxone 8/2 Mg Film) 1 film SUBLINGUAL TID RICARDO Last Admin: 05/09/22 14:58 Dose: 1 film Chlorpromazine HCl (Chlorpromazine Hcl 25 Mg Tablet) 50 mg PO Q6H PRN PRN Reason: anxiety, sleep Last Admin: 05/09/22 17:20 Dose: 50 mg Hydroxyzine HCl (Hydroxyzine Hcl 25 Mg Tablet) 75 mg PO Q6H PRN PRN Reason: Anxiety Loperamide HCl (Loperamide Hcl 2 Mg Capsule) 2 mg PO Q6H PRN PRN Reason: diarrhea Magnesium Hydroxide (Milk Of Magnesia 30 Ml Oral.Susp) 30 ml PO DAILY PRN PRN Reason: Constipation Nicotine (Nicotine 21 Mg Patch.Td24) 21 mg TRANSDERMA DAILY [facility] Last Admin: 05/09/22 08:20 Dose: Not Given Nicotine Polacrilex (Nicotine Polacrilex Lozenge 4 Mg Lozenge) 4 mg BUCCAL Q2H PRN PRN Reason: Nicotine Cravings Last Admin: 05/09/22 16:18 Dose: 4 mg Olanzapine (Olanzapine 5 Mg Tablet) 5 mg PO Q6H PRN PRN Reason: Psychosis Last Admin: 05/09/22 10:02 Dose: 5 mg Olanzapine (Olanzapine 7.5 Mg Tablet) 15 mg PO BEDTIME [facility] Last Admin: 05/08/22 20:54 Dose: 15 mg Ondansetron HCl (Ondansetron Odt 4 Mg Tab.Rapdis) 4 mg TRANSLINGU Q8H PRN PRN Reason: nausea Sertraline HCl (Sertraline Hcl 50 Mg Tablet) 50 mg PO DAILY [facility] Last Admin: 05/09/22 08:19 Dose: 50 mg Trazodone HCl (Trazodone Hcl 50 Mg Tablet) 50 mg PO BEDTIME PRN PRN Reason: Insomnia Last Admin: 05/07/22 21:05 Dose: 50 mg Allergies Allergies Allergy/AdvReac Type Severity Reaction Status Date / Time amoxicillin [AMOXICILLIN] Allergy Severe HIVES Unverified 05/12/20 15:58 Penicillins [PENICILLINS] Allergy Severe HIVES Unverified 05/12/20 15:58 acetaminophen [From TYLENOL] Allergy Unknown LIVER Unverified 05/12/20 15:58 PROBLEMS Assessment & Plan Assessment & Plan (1) Polysubstance abuse: Status: Acute Code(s): F19.10 - Other psychoactive substance abuse, uncomplicated (2) Major depression with psychotic features: Status: Acute Code(s): F32.3 - Major depressive disorder, single episode, severe with psychotic features Plan Overall presents with psychosis and depression and opioid dependence. Significant psychosocial stressors. First inpatient admission. Will start Zoloft 50 mg, olanzapine 5 mg twice daily and 5 mg as needed and Vistaril as needed.? Risk benefits discussed.? Also interested in rehab [facility]. 05/07: reports continued anxiety, AH. Will start PRN thorazine 25 mg Q6H PRN and increase vistaril to 50 mg, add comfort meds for withdrawal, place addiction consult 05/08: PRN thorazine and vistaril increased to 75 mg, seen by collection support specialist and suboxone increased, much appreciated. Will increase zyprexa to 15 mg HS for AH, poor sleep. 05/09: Increase thorazine to 100 mg PRN I spent minutes with the patient and/or on the patient floor today, gre ater than?50% of which was spent counseling/coordinating care. Patient educated on: medication risk/benefits and therapeutic strategies Reason for contiued inpatient stay Substantial Risk for: med/psych decompensation
[2022-05-09] MEDS: OLANZapine 7.5 MG TABLET 15 MG PO (19:59)
[2022-05-09 20:10] VITALS: BP 115/64; PULSE 92; TEMP 36.4; O2SAT 98
--- NOTE | 2022-05-09 21:47 | HO.ADDICTCON ---
History of Present Illness Date of Service: 05/09/2022 Chief Complaint: depression and hallucinations Reason for Consult: increase in buprenorphine Requesting physician: Meredith Salazar HPI Narrative: Patient with OUD and currently prescribed suboxone 8mg BID. Currently admitted to unit with worsening depression. Consult requested as patient was reporting ongoing withdrawal sx and requesting increase in suboxone dose. Patient seen on M5. Awake, alert, and engaged in interview. Yesterday dose was increased by 4mg to total of 20mg. Patient reports this increase helped. He states he was taking up to 24mg of suboxone daily and often would run out of medication early due to taking more than prescribed. He reports he had been vomiting, experiencing chills, nausea, loose stools and worsening anxiety. He reports that prior to admission he was using btwn one to 2 bundles of heroin daily--chu if he was out of suboxone He recently engaged in care at [facility], and plans to continue his care there. Past Psychiatric History: Past psychiatric history 1st inpatient admission. To suicide attempts age 15 and 17. Reports being on Zoloft and Vistaril in the past which was helpful. Review of Systems Constitutional: Reports as per HPI Diagnostics Vital Signs (24Hr): Vital Signs - 24 hr 05/09/22 07:30 05/09/22 20:10 Temperature 98.2 F 97.6 F Pulse Rate 77 92 Respiratory Rate 16 Blood Pressure 106/60 115/64 Pulse Oximetry 96 98 Oxygen Delivery Method Room Air Room Air BMI result Body Mass Index 24.3 Labs Results: 05/05/22 02:20 05/05/22 02:20 Mental Status Exam Mental Status Exam Patient Appearance: Appropriate (blanket wrapped around him) Patient Behavior: Guarded and Cooperative Mood Description: Anxious Affect Description: Anxious Thought Process: Goal Oriented Thought Content: positive for Goal Oriented Judgement: Fair Medications Medications Current Medications Al Hydroxide/Mg Hydroxide (Magnesium Hydrox/Alum Hydrox 30 Ml Oral.Susp) 30 ml PO Q6H PRN PRN Reason: Heartburn/Nausea Last Admin: 05/06/22 21:08 Dose: 30 ml Buprenorphine/Naloxone (Buprenorphine/Naloxone 8/2 Mg Film) 1 film SUBLINGUAL TID RICARDO Last Admin: 05/09/22 19:59 Dose: 1 film Chlorpromazine HCl (Chlorpromazine Hcl 100 Mg Tablet) 100 mg PO Q6H PRN PRN Reason: anxiety, sleep Hydroxyzine HCl (Hydroxyzine Hcl 25 Mg Tablet) 75 mg PO Q6H PRN PRN Reason: Anxiety Loperamide HCl (Loperamide Hcl 2 Mg Capsule) 2 mg PO Q6H PRN PRN Reason: diarrhea Magnesium Hydroxide (Milk Of Magnesia 30 Ml Oral.Susp) 30 ml PO DAILY PRN PRN Reason: Constipation Nicotine (Nicotine 21 Mg Patch.Td24) 21 mg TRANSDERMA DAILY [facility] Last Admin: 05/09/22 08:20 Dose: Not Given Nicotine Polacrilex (Nicotine Polacrilex Lozenge 4 Mg Lozenge) 4 mg BUCCAL Q2H PRN PRN Reason: Nicotine Cravings Last Admin: 05/09/22 18:21 Dose: 4 mg Olanzapine (Olanzapine 5 Mg Tablet) 5 mg PO Q6H PRN PRN Reason: Psychosis Last Admin: 05/09/22 10:02 Dose: 5 mg Olanzapine (Olanzapine 7.5 Mg Tablet) 15 mg PO BEDTIME [facility] Last Admin: 05/09/22 19:59 Dose: 15 mg Ondansetron HCl (Ondansetron Odt 4 Mg Tab.Rapdis) 4 mg TRANSLINGU Q8H PRN PRN Reason: nausea Sertraline HCl (Sertraline Hcl 50 Mg Tablet) 50 mg PO DAILY [facility] Last Admin: 05/09/22 08:19 Dose: 50 mg Trazodone HCl (Trazodone Hcl 50 Mg Tablet) 50 mg PO BEDTIME PRN PRN Reason: Insomnia Last Admin: 05/07/22 21:05 Dose: 50 mg Allergies Allergies Allergy/AdvReac Type Severity Reaction Status Date / Time amoxicillin [AMOXICILLIN] Allergy Severe HIVES Unverified 05/12/20 15:58 Penicillins [PENICILLINS] Allergy Severe HIVES Unverified 05/12/20 15:58 acetaminophen [From TYLENOL] Allergy Unknown LIVER Unverified 05/12/20 15:58 PROBLEMS Assessment & Plan Assessment & Plan (1) Opioid use disorder: Status: Acute Code(s): F11.90 - Opioid use, unspecified, uncomplicated Assessment and Plan: Additional 8mg suboxone in the middle of the day for total of 24mg total daily risk reduction discussion no follow up needed--continue with [facility] once discharged I spent _35____ minutes with the patient and/or on the patient floor today, greater than?50% of which was spent counseling/coordinating care. [facility] Past Medical History Medical History A-fib Depression Opiate abuse, continuous Social History Social History (Updated 05/05/22 @ 00:27 by Genna Davila DO) Household Members: None Housing: Homeless Do you presently have visiting nurse or other home services: No Patient Tobacco Use Status: Current everyday Tobacco user Tobacco use type: Cigarette Cigarette Packs Per Day: 1 Cigarettes Per Day: 20.0 Smoked in Last 30 Days: Yes Frequency of e-Cigarette/Vaping Use: daily Patient Interested in Nicotine Replacement: Yes Patient Given Instructions on How to Stop Smoking: Yes Date Education Initiated: 05/05/22 Second Hand Smoke Exposure: No Use of substances other than those prescribed or required for medical reasons: Yes Substance Use Type: Crack/Cocaine and Heroin Substance Use Frequency: Daily Last Used Substance: Just Prior to Admission Currently Displaying Signs/Symptoms of Drug Intoxication Withdrawal: No Any prior treatment program specific to substance use: No Have you been hit, kicked, punched, or otherwise hurt by someone within the past year? If so, by whom?: No Do you feel safe in your current relationship?: No Current Relationship Is there a partner from a previous relationship who is making you feel unsafe now?: No Are you made to feel afraid or neglected: No Advance Directives: No Advance Directives Information Provided: No Do you have thoughts of harming others: None Do you have a plan to hurt others: No Plan Recently lost weight without trying: No Nutrition Risks: No Nutritional Risk Poor oral hygiene: No service: No Sexual orientation: Straight/Heterosexual
[2022-05-10] MEDS: chlorproMAZINE HCl 100 MG TABLET PO ×3 (04:29→18:58)
[2022-05-10 07:00] VITALS: BMI 24.6
[2022-05-10 08:00] VITALS: BP 100/57; PULSE 74; TEMP 36.8
[2022-05-10] MEDS: Sertraline HCL 50 MG TABLET PO (08:21)
[2022-05-10] MEDS: Buprenorphine/Naloxone 8/2 mg FILM 1 FILM SUBLINGUAL ×3 (08:21→20:37)
[2022-05-10] MEDS: Nicotine Polacrilex Lozenge 4 MG LOZENGE BUCCAL ×2 (09:13→18:58)
[2022-05-10] MEDS: OLANZapine 5 MG TABLET PO (13:59)
[2022-05-10 18:00] VITALS: BP 104/55; PULSE 91; RESP 16; TEMP 36.2; O2SAT 98
--- NOTE | 2022-05-10 18:35 | P.PNPSI_ITS ---
Subjective Subjective Date of Service: 05/10/22 Reason For Visit: depression and hallucinations Interim History: I spoke with pt's team. Per pt, he has VH of the end of world since age 17, thinks this is due to using LSD, sees images of it but denies that this bothers him as he uses distraction. He hasnt had nightmares in past few days. Says his AH are not bothersome. Reports good effect on thorazine, asks to use it more frequently, lasts 3-4 hours at most. Will obtain new EKG. Sleep is okay, waking up at night but PRNs are helping. Mood is good, feels a little bit better. SW is looking into [facility] referral. Medication Compliance: Yes Side effects from medications: No Attending Groups: Intermittent Review of Systems Acute medical concerns: No Medical Review of Systems: unchanged Mental Status Exam Mental Status Exam Narrative: Pleasant.? Engaged.? Organized.? Depressed.? SI.? No current plans.? Feels supported.? Negative auditory hallucinations that are demeaning with occasional commands.? No HI.? No aggression or agitation.? Some paranoia pre-admission.? None now.? Insight and judgment fair Diagnostics Vital Signs (24Hr): Vital Signs - 24 hr 05/09/22 20:10 05/10/22 08:00 05/10/22 18:00 Temperature 97.6 F 98.2 F 97.2 F Pulse Rate 92 74 91 Respiratory Rate 16 Blood Pressure 115/64 100/57 L 104/55 L Pulse Oximetry 98 98 Oxygen Delivery Method Room Air Room Air BMI result Body Mass Index 24.6 Labs Results: 05/05/22 02:20 05/05/22 02:20 Medications Medications Current Medications Al Hydroxide/Mg Hydroxide (Magnesium Hydrox/Alum Hydrox 30 Ml Oral.Susp) 30 ml PO Q6H PRN PRN Reason: Heartburn/Nausea Last Admin: 05/06/22 21:08 Dose: 30 ml Buprenorphine/Naloxone (Buprenorphine/Naloxone 8/2 Mg Film) 1 film SUBLINGUAL TID RICARDO Last Admin: 05/10/22 16:56 Dose: 1 film Chlorpromazine HCl (Chlorpromazine Hcl 100 Mg Tablet) 100 mg PO Q6H PRN PRN Reason: anxiety, sleep Last Admin: 05/10/22 10:36 Dose: 100 mg Hydroxyzine HCl (Hydroxyzine Hcl 25 Mg Tablet) 75 mg PO Q6H PRN PRN Reason: Anxiety Loperamide HCl (Loperamide Hcl 2 Mg Capsule) 2 mg PO Q6H PRN PRN Reason: diarrhea Magnesium Hydroxide (Milk Of Magnesia 30 Ml Oral.Susp) 30 ml PO DAILY PRN PRN Reason: Constipation Nicotine (Nicotine 21 Mg Patch.Td24) 21 mg TRANSDERMA DAILY [facility] Last Admin: 05/10/22 08:22 Dose: Not Given Nicotine Polacrilex (Nicotine Polacrilex Lozenge 4 Mg Lozenge) 4 mg BUCCAL Q2H PRN PRN Reason: Nicotine Cravings Last Admin: 05/10/22 09:13 Dose: 4 mg Olanzapine (Olanzapine 5 Mg Tablet) 5 mg PO Q6H PRN PRN Reason: Psychosis Last Admin: 05/10/22 13:59 Dose: 5 mg Olanzapine (Olanzapine 7.5 Mg Tablet) 15 mg PO BEDTIME [facility] Last Admin: 05/09/22 19:59 Dose: 15 mg Ondansetron HCl (Ondansetron Odt 4 Mg Tab.Rapdis) 4 mg TRANSLINGU Q8H PRN PRN Reason: nausea Sertraline HCl (Sertraline Hcl 50 Mg Tablet) 50 mg PO DAILY [facility] Last Admin: 05/10/22 08:21 Dose: 50 mg Trazodone HCl (Trazodone Hcl 50 Mg Tablet) 50 mg PO BEDTIME PRN PRN Reason: Insomnia Last Admin: 05/07/22 21:05 Dose: 50 mg Allergies Allergies Allergy/AdvReac Type Severity Reaction Status Date / Time amoxicillin [AMOXICILLIN] Allergy Severe HIVES Unverified 05/12/20 15:58 Penicillins [PENICILLINS] Allergy Severe HIVES Unverified 05/12/20 15:58 acetaminophen [From TYLENOL] Allergy Unknown LIVER Unverified 05/12/20 15:58 PROBLEMS Assessment & Plan Assessment & Plan (1) Opioid use disorder: Status: Acute Code(s): F11.90 - Opioid use, unspecified, uncomplicated Assessment and Plan: * Additional 8mg suboxone in the middle of the day for total of 24mg total daily * risk reduction discussion * no follow up needed--continue with [facility] once discharged Plan Overall presents with psychosis and depression and opioid dependence.? Significant psychosocial stressors.? First inpatient admission.? Will start Zoloft 50 mg, olanzapine 5 mg twice daily and 5 mg as needed and Vistaril as needed.? Risk benefits discussed.? Also interested in rehab programming. 05/07: reports continued anxiety, AH. Will start PRN thorazine 25 mg Q6H PRN and increase vistaril to 50 mg, add comfort meds for withdrawal, place addiction consult 05/08: PRN thorazine and vistaril increased to 75 mg, seen by drilling fluids specialist and suboxone increased, much appreciated. Will increase zyprexa to 15 mg HS for AH, poor sleep. 05/09: Increase thorazine to 100 mg PRN 05/10: Increase thorazine PRN to Q4H, obtain new EKG I spent minutes with the patient and/or on the patient floor today, greater than?50% of which was spent counseling/coordinating care. Patient educated on: diagnosis, medication risk/benefits and therapeutic st rategies Reason for contiued inpatient stay Substantial Risk for: inability to function and med/psych decompensation
[2022-05-10] MEDS: OLANZapine 7.5 MG TABLET 15 MG PO (20:36)
[2022-05-10] MEDS: traZODone HCL 50 MG TABLET PO (20:37)
[2022-05-11 06:00] VITALS: BP 103/61; PULSE 79; RESP 16; TEMP 36.6; O2SAT 98
--- NOTE | 2022-05-11 09:00 | ECG_ITS ---
Test Reason : check qtc Blood Pressure : / mmHG Vent. Rate : 072 BPM Atrial Rate : 072 BPM P-R Int : 136 ms QRS Dur : 102 ms QT Int : 362 ms P-R-T Axes : 031 049 046 degrees QTc Int : 396 ms Normal sinus rhythm Normal ECG When compared with ECG of 05-MAY-2022 18:24, Incomplete right bundle branch block is no longer Present Referred By: Meredith Salazar Electronically Signed By:JULIETTE MINAYA
[2022-05-11] MEDS: chlorproMAZINE HCl 100 MG TABLET PO ×3 (09:11→19:26)
[2022-05-11] MEDS: Sertraline HCL 50 MG TABLET PO (09:11)
[2022-05-11] MEDS: Nicotine Polacrilex Lozenge 4 MG LOZENGE BUCCAL ×5 (09:11→21:22)
[2022-05-11] MEDS: Buprenorphine/Naloxone 8/2 mg FILM 1 FILM SUBLINGUAL ×3 (09:11→21:22)
[2022-05-11] MEDS: OLANZapine 5 MG TABLET PO ×2 (10:11→16:32)
[2022-05-11] MEDS: hydrOXYzine HCL 25 MG TABLET 75 MG PO (16:32)
[2022-05-11 16:54] VITALS: BP 120/64; PULSE 94; RESP 18; TEMP 36.6; O2SAT 97
--- NOTE | 2022-05-11 17:10 | HO.PSYCHPN ---
Subjective Subjective Date of Service: 05/11/22 Reason For Visit: depression and hallucinations Interim History: Pt still has some anxiety but says thorazine helps with both sleep and anxiety. Says his voices are on and off, can ignore them. [facility] referral in the works. Denies SI/SIB, feels safe. Went to group. Medication Compliance: Yes Side effects from medications: No Attending Groups: Yes Review of Systems Acute medical concerns: No Medical Review of Systems: unchanged Mental Status Exam Mental Status Exam Narrative: Pleasant.? Engaged.? Organized.? Depressed.? Denies SI, feels safe.? Feels supported.? Negative auditory hallucinations that are demeaning with occasional commands.? No HI.? No aggression or agitation.? Some paranoia pre-admission.? None now.? Insight and judgment fair Diagnostics Vital Signs (24Hr): Vital Signs - 24 hr 05/10/22 18:00 05/11/22 06:00 05/11/22 16:54 Temperature 97.2 F 97.8 F 97.8 F Pulse Rate 91 79 94 Respiratory Rate 16 16 18 Blood Pressure 104/55 L 103/61 120/64 Pulse Oximetry 98 98 97 Oxygen Delivery Method Room Air Room Air Room Air BMI result Body Mass Index 24.6 Labs Results: 05/05/22 02:20 05/05/22 02:20 Medications Medications Current Medications Al Hydroxide/Mg Hydroxide (Magnesium Hydrox/Alum Hydrox 30 Ml Oral.Susp) 30 ml PO Q6H PRN PRN Reason: Heartburn/Nausea Last Admin: 05/06/22 21:08 Dose: 30 ml Buprenorphine/Naloxone (Buprenorphine/Naloxone 8/2 Mg Film) 1 film SUBLINGUAL TID RIC[facility]O Last Admin: 05/11/22 15:03 Dose: 1 film Chlorpromazine HCl (Chlorpromazine Hcl 100 Mg Tablet) 100 mg PO Q4H PRN PRN Reason: anxiety, sleep Last Admin: 05/11/22 13:23 Dose: 100 mg Hydroxyzine HCl (Hydroxyzine Hcl 25 Mg Tablet) 75 mg PO Q6H PRN PRN Reason: Anxiety Last Admin: 05/11/22 16:32 Dose: 75 mg Loperamide HCl (Loperamide Hcl 2 Mg Capsule) 2 mg PO Q6H PRN PRN Reason: diarrhea Magnesium Hydroxide (Milk Of Magnesia 30 Ml Oral.Susp) 30 ml PO DAILY PRN PRN Reason: Constipation Nicotine (Nicotine 21 Mg Patch.Td24) 21 mg TRANSDERMA DAILY [facility] Last Admin: 05/11/22 09:49 Dose: Not Given Nicotine Polacrilex (Nicotine Polacrilex Lozenge 4 Mg Lozenge) 4 mg BUCCAL Q2H PRN PRN Reason: Nicotine Cravings Last Admin: 05/11/22 16:32 Dose: 4 mg Olanzapine (Olanzapine 5 Mg Tablet) 5 mg PO Q6H PRN PRN Reason: Psychosis Last Admin: 05/11/22 16:32 Dose: 5 mg Olanzapine (Olanzapine 7.5 Mg Tablet) 15 mg PO BEDTIME [facility] Last Admin: 05/10/22 20:36 Dose: 15 mg Ondansetron HCl (Ondansetron Odt 4 Mg Tab.Rapdis) 4 mg TRANSLINGU Q8H PRN PRN Reason: nausea Sertraline HCl (Sertraline Hcl 50 Mg Tablet) 50 mg PO DAILY [facility] Last Admin: 05/11/22 09:11 Dose: 50 mg Trazodone HCl (Trazodone Hcl 50 Mg Tablet) 50 mg PO BEDTIME PRN PRN Reason: Insomnia Last Admin: 05/10/22 20:37 Dose: 50 mg Allergies Allergies Allergy/AdvReac Type Severity Reaction Status Date / Time amoxicillin [AMOXICILLIN] Allergy Severe HIVES Unverified 05/12/20 15:58 Penicillins [PENICILLINS] Allergy Severe HIVES Unverified 05/12/20 15:58 acetaminophen [From TYLENOL] Allergy Unknown LIVER Unverified 05/12/20 15:58 PROBLEMS Assessment & Plan Assessment & Plan (1) Opioid use disorder: Status: Acute Code(s): F11.90 - Opioid use, unspecified, uncomplicated Assessment and Plan: Additional 8mg suboxone in the middle of the day for total of 24mg total daily risk reduction discussion no follow up needed--continue with [facility] once discharged Plan Overall presents with psychosis and depression and opioid dependence. Significant psychosocial stressors. First inpatient admission. Will start Zoloft 50 mg, olanzapine 5 mg twice daily and 5 mg as needed and Vistaril as needed.? Risk benefits discussed.? Also interested in rehab programming. 05/07: reports continued anxiety, AH. Will start PRN thorazine 25 mg Q6H PRN and increase vistaril to 50 mg, add comfort meds for withdrawal, place addiction consult 05/08: PRN thorazine and vistaril increased to 75 mg, seen by process control specialist and suboxone increased, much appreciated. Will increase zyprexa to 15 mg HS for AH, poor sleep. 05/09: Increase thorazine to 100 mg PRN 05/10: Increase thorazine PRN to Q4H, obtain new EKG 05/11: Continue meds due to reported benefit I spent minutes with the patient and/or on the patient floor today, greater than?50% of which was spent counseling/coordinating care. Patient educated on: therapeutic strategies Reason for contiued inpatient stay Substantial Risk for: med/psych decompensation
[2022-05-11] MEDS: OLANZapine 7.5 MG TABLET 15 MG PO (21:21)
[2022-05-12 06:00] VITALS: BP 107/59; PULSE 105; RESP 16; TEMP 36.4; O2SAT 98
[2022-05-12] MEDS: chlorproMAZINE HCl 100 MG TABLET PO ×3 (06:01→19:12)
[2022-05-12] MEDS: Sertraline HCL 50 MG TABLET PO (10:06)
[2022-05-12] MEDS: Buprenorphine/Naloxone 8/2 mg FILM 1 FILM SUBLINGUAL ×3 (10:06→19:11)
[2022-05-12] MEDS: Nicotine Polacrilex Lozenge 4 MG LOZENGE BUCCAL ×3 (11:06→19:12)
[2022-05-12] MEDS: OLANZapine 5 MG TABLET PO (13:55)
[2022-05-12 18:00] VITALS: BP 109/64; PULSE 67; RESP 16; TEMP 36.4; O2SAT 99
--- NOTE | 2022-05-12 18:56 | HO.PSYCHPN ---
Subjective Subjective Date of Service: 05/12/22 Reason For Visit: depression and hallucinations Interim History: Patient seen and discussed with RN. He is generally doing well. He is still reporting some AH. Signed a 3 day. He is isolative.Thorazine helps with both sleep and anxiety. Says his voices are on and off, can ignore them. [facility] referral in the works. Denies SI/SIB, feels safe. Went to group. Review of Systems Review of Systems Constitutional : No Fever, No Chills ENT/Mouth : No Ear Pain, No Nasal Congestion, No sore throat Eyes: No Eye Pain, No Swelling, No Redness Cardiovascular : No Chest Pain, No SOB Respiratory : No Cough, No Sputum, No Dyspnea Gastrointestinal : No Nausea, No Vomiting, No Diarrhea, No Hematochezia, No Melena Genitourinary : No Dysuria, No Urinary Frequency, No Hematuria Musculoskeletal : No Myalgias Skin : No Skin Lesions, No rash Neuro : No Weakness, No Numbness, No Paresthesias, No Dizziness, No Headache Psych : positive Anxiety, positive Depression, no SI/HI, pos AH, no VH Heme/Lymph: No Lymphadenopathy Endocrine : No Polyuria, No Polydipsia All other systems reviewed and are negative Constitutional: Reports as per HPI Mental Status Exam Mental Status Exam Narrative: Pleasant.? Engaged.? Organized.? Depressed.? Denies SI, feels safe.? Feels supported.? Negative auditory hallucinations that are demeaning with occasional commands.? No HI.? No aggression or agitation.? Some paranoia pre-admission.? None now.? Insight and judgment fair Patient Appearance: Appropriate (blanket wrapped around him) Patient Behavior: Guarded and Cooperative Mood Description: Anxious Affect Description: Anxious Diagnostics Vital Signs (24Hr): Vital Signs - 24 hr 05/12/22 06:00 Temperature 97.6 F Pulse Rate 105 H Respiratory Rate 16 Blood Pressure 107/59 L Pulse Oximetry 98 BMI result Body Mass Index 24.6 Labs Results: 05/05/22 02:20 05/05/22 02:20 Medications Medications Current Medications Al Hydroxide/Mg Hydroxide (Magnesium Hydrox/Alum Hydrox 30 Ml Oral.Susp) 30 ml PO Q6H PRN PRN Reason: Heartburn/Nausea Last Admin: 05/06/22 21:08 Dose: 30 ml Buprenorphine/Naloxone (Buprenorphine/Naloxone 8/2 Mg Film) 1 film SUBLINGUAL TID [facility] Last Admin: 05/12/22 14:18 Dose: 1 film Chlorpromazine HCl (Chlorpromazine Hcl 100 Mg Tablet) 100 mg PO Q4H PRN PRN Reason: anxiety, sleep Last Admin: 05/12/22 10:06 Dose: 100 mg Hydroxyzine HCl (Hydroxyzine Hcl 25 Mg Tablet) 75 mg PO Q6H PRN PRN Reason: Anxiety Last Admin: 05/11/22 16:32 Dose: 75 mg Loperamide HCl (Loperamide Hcl 2 Mg Capsule) 2 mg PO Q6H PRN PRN Reason: diarrhea Magnesium Hydroxide (Milk Of Magnesia 30 Ml Oral.Susp) 30 ml PO DAILY PRN PRN Reason: Constipation Nicotine (Nicotine 21 Mg Patch.Td24) 21 mg TRANSDERMA DAILY [facility] Last Admin: 05/12/22 10:08 Dose: Not Given Nicotine Polacrilex (Nicotine Polacrilex Lozenge 4 Mg Lozenge) 4 mg BUCCAL Q2H PRN PRN Reason: Nicotine Cravings Last Admin: 05/12/22 13:55 Dose: 4 mg Olanzapine (Olanzapine 5 Mg Tablet) 5 mg PO Q6H PRN PRN Reason: Psychosis Last Admin: 05/12/22 13:55 Dose: 5 mg Olanzapine (Olanzapine 7.5 Mg Tablet) 15 mg PO BEDTIME [facility] Last Admin: 05/11/22 21:21 Dose: 15 mg Ondansetron HCl (Ondansetron Odt 4 Mg Tab.Rapdis) 4 mg TRANSLINGU Q8H PRN PRN Reason: nausea Sertraline HCl (Sertraline Hcl 50 Mg Tablet) 50 mg PO DAILY [facility] Last Admin: 05/12/22 10:06 Dose: 50 mg Trazodone HCl (Trazodone Hcl 50 Mg Tablet) 50 mg PO BEDTIME PRN PRN Reason: Insomnia Last Admin: 05/10/22 20:37 Dose: 50 mg Allergies Allergies Allergy/AdvReac Type Severity Reaction Status Date / Time amoxicillin [AMOXICILLIN] Allergy Severe HIVES Unverified 05/12/20 15:58 Penicillins [PENICILLINS] Allergy Severe HIVES Unverified 05/12/20 15:58 acetaminophen [From TYLENOL] Allergy Unknown LIVER Unverified 05/12/20 15:58 PROBLEMS Assessment & Plan Assessment & Plan (1) Opioid use disorder: Status: Acute Code(s): F11.90 - Opioid use, unspecified, uncomplicated Assessment and Plan: Additional 8mg suboxone in the middle of the day for total of 24mg total daily risk reduction discussion no follow up needed--continue with [facility] once discharged Plan Overall presents with psychosis and depression and opioid dependence. Significant psychosocial stressors. First inpatient admission. Will start Zoloft 50 mg, olanzapine 5 mg twice daily and 5 mg as needed and Vistaril as needed.? Risk benefits discussed.? Also interested in rehab programming. 05/07: reports continued anxiety, AH. Will start PRN thorazine 25 mg Q6H PRN and increase vistaril to 50 mg, add comfort meds for withdrawal, place addiction consult 05/08: PRN thorazine and vistaril increased to 75 mg, seen by resident program specialist and suboxone increased, much appreciated. Will increase zyprexa to 15 mg HS for AH, poor sleep. 05/09: Increase thorazine to 100 mg PRN 05/10: Increase thorazine PRN to Q4H, obtain new EKG 05/11: Continue meds due to reported benefit 05/12: Continue current treatment plan. I spent minutes with the patient and/or on the patient floor today, greater than?50% of which was spent counseling/coordinating care. Reason for contiued inpatient stay Substantial Risk for: harm to self, inability to function and rapid decompensation
[2022-05-12] MEDS: OLANZapine 7.5 MG TABLET 15 MG PO (19:11)
--- NOTE | 2022-05-13 | ECG_ITS ---
Test Reason : cp Blood Pressure : / mmHG Vent. Rate : 084 BPM Atrial Rate : 084 BPM P-R Int : 132 ms QRS Dur : 104 ms QT Int : 358 ms P-R-T Axes : 037 044 040 degrees QTc Int : 423 ms Normal sinus rhythm Normal ECG When compared with ECG of 11-MAY-2022 13:45, No significant change was found Referred By: Silvestre Stephenson Electronically Signed By:JULIETTE MINAYA
[2022-05-13] MEDS: chlorproMAZINE HCl 100 MG TABLET PO ×4 (01:38→19:24)
[2022-05-13] MEDS: Nicotine Polacrilex Lozenge 4 MG LOZENGE BUCCAL ×6 (01:38→20:45)
[2022-05-13] MEDS: traZODone HCL 50 MG TABLET PO ×2 (01:38→20:45)
[2022-05-13 06:00] VITALS: BP 110/62; PULSE 96; RESP 16; TEMP 36.6; O2SAT 98
[2022-05-13] MEDS: Buprenorphine/Naloxone 8/2 mg FILM 1 FILM SUBLINGUAL ×3 (08:27→20:05)
[2022-05-13] MEDS: Sertraline HCL 50 MG TABLET PO (08:27)
[2022-05-13] MEDS: OLANZapine 5 MG TABLET PO (10:53)
--- NOTE | 2022-05-13 14:11 | HO.PSYCHPN ---
Subjective Subjective Date of Service: 05/13/22 Reason For Visit: depression and hallucinations Interim History: Patient seen and discussed with RN. Mostly isolative. He says he is feeling pretty good . He is hoping be able to find a program for substance use once he is discharged from the hospital. when asked about hallucinations he says not today . He denies suicidal ideation. He feels safe in the hospital. attending some groups Signed a 3 day. .Thorazine helps with both sleep and anxiety. Review of Systems Review of Systems Constitutional : No Fever, No Chills ENT/Mouth : No Ear Pain, No Nasal Congestion, No sore throat Eyes: No Eye Pain, No Swelling, No Redness Cardiovascular : No Chest Pain, No SOB Respiratory : No Cough, No Sputum, No Dyspnea Gastrointestinal : No Nausea, No Vomiting, No Diarrhea, No Hematochezia, No Melena Genitourinary : No Dysuria, No Urinary Frequency, No Hematuria Musculoskeletal : No Myalgias Skin : No Skin Lesions, No rash Neuro : No Weakness, No Numbness, No Paresthesias, No Dizziness, No Headache Psych : positive Anxiety, positive Depression, no SI/HI, pos AH, no VH Heme/Lymph: No Lymphadenopathy Endocrine : No Polyuria, No Polydipsia All other systems reviewed and are negative Constitutional: Reports as per HPI Mental Status Exam Mental Status Exam Narrative: Pleasant.? Engaged.? Organized.? Depressed.? Denies SI, feels safe.? Feels supported.? Negative auditory hallucinations that are demeaning with occasional commands.? No HI.? No aggression or agitation.? Some paranoia pre-admission.? None now.? Insight and judgment fair Patient Appearance: Appropriate (blanket wrapped around him) Patient Behavior: Guarded and Cooperative Mood Description: Anxious Affect Description: Anxious Diagnostics Vital Signs (24Hr): Vital Signs - 24 hr 05/13/22 06:00 Temperature 97.8 F Pulse Rate 96 Respiratory Rate 16 Blood Pressure 110/62 Pulse Oximetry 98 BMI result Body Mass Index 24.6 Labs Results: 05/05/22 02:20 05/05/22 02:20 Medications Medications Current Medications Al Hydroxide/Mg Hydroxide (Magnesium Hydrox/Alum Hydrox 30 Ml Oral.Susp) 30 ml PO Q6H PRN PRN Reason: Heartburn/Nausea Last Admin: 05/06/22 21:08 Dose: 30 ml Buprenorphine/Naloxone (Buprenorphine/Naloxone 8/2 Mg Film) 1 film SUBLINGUAL TID [facility] Last Admin: 05/13/22 14:29 Dose: 1 film Chlorpromazine HCl (Chlorpromazine Hcl 100 Mg Tablet) 100 mg PO Q4H PRN PRN Reason: anxiety, sleep Last Admin: 05/13/22 14:44 Dose: 100 mg Hydroxyzine HCl (Hydroxyzine Hcl 25 Mg Tablet) 75 mg PO Q6H PRN PRN Reason: Anxiety Last Admin: 05/11/22 16:32 Dose: 75 mg Loperamide HCl (Loperamide Hcl 2 Mg Capsule) 2 mg PO Q6H PRN PRN Reason: diarrhea Magnesium Hydroxide (Milk Of Magnesia 30 Ml Oral.Susp) 30 ml PO DAILY PRN PRN Reason: Constipation Nicotine (Nicotine 21 Mg Patch.Td24) 21 mg TRANSDERMA DAILY [facility] Last Admin: 05/13/22 08:29 Dose: Not Given Nicotine Polacrilex (Nicotine Polacrilex Lozenge 4 Mg Lozenge) 4 mg BUCCAL Q2H PRN PRN Reason: Nicotine Cravings Last Admin: 05/13/22 18:38 Dose: 4 mg Olanzapine (Olanzapine 5 Mg Tablet) 5 mg PO Q6H PRN PRN Reason: Psychosis Last Admin: 05/13/22 10:53 Dose: 5 mg Olanzapine (Olanzapine 7.5 Mg Tablet) 15 mg PO BEDTIME [facility] Last Admin: 05/12/22 19:11 Dose: 15 mg Ondansetron HCl (Ondansetron Odt 4 Mg Tab.Rapdis) 4 mg TRANSLINGU Q8H PRN PRN Reason: nausea Sertraline HCl (Sertraline Hcl 50 Mg Tablet) 50 mg PO DAILY [facility] Last Admin: 05/13/22 08:27 Dose: 50 mg Trazodone HCl (Trazodone Hcl 50 Mg Tablet) 50 mg PO BEDTIME PRN PRN Reason: Insomnia Last Admin: 05/13/22 01:38 Dose: 50 mg Allergies Allergies Allergy/AdvReac Type Severity Reaction Status Date / Time amoxicillin [AMOXICILLIN] Allergy Severe HIVES Unverified 05/12/20 15:58 Penicillins [PENICILLINS] Allergy Severe HIVES Unverified 05/12/20 15:58 acetaminophen [From TYLENOL] Allergy Unknown LIVER Unverified 05/12/20 15:58 PROBLEMS Assessment & Plan Assessment & Plan (1) Opioid use disorder: Status: Acute Code(s): F11.90 - Opioid use, unspecified, uncomplicated Assessment and Plan: Additional 8mg suboxone in the middle of the day for total of 24mg total daily risk reduction discussion no follow up needed--continue with [facility] once discharged Plan Overall presents with psychosis and depression and opioid dependence. Significant psychosocial stressors. First inpatient admission. Will start Zoloft 50 mg, olanzapine 5 mg twice daily and 5 mg as needed and Vistaril as needed.? Risk benefits discussed.? Also interested in rehab programming. 05/07: reports continued anxiety, AH. Will start PRN thorazine 25 mg Q6H PRN and increase vistaril to 50 mg, add comfort meds for withdrawal, place addiction consult 05/08: PRN thorazine and vistaril increased to 75 mg, seen by radiation control specialist and suboxone increased, much appreciated. Will increase zyprexa to 15 mg HS for AH, poor sleep. 05/09: Increase thorazine to 100 mg PRN 05/10: Increase thorazine PRN to Q4H, obtain new EKG 05/11: Continue meds due to reported benefit 05/12: Continue current treatment plan. 05/13: Continue current treatment plan. I spent minutes with the patient and/or on the patient floor today, greater than?50% of which was spent counseling/coordinating care. Reason for contiued inpatient stay Substantial Risk for: inability to function and rapid decompensation
[2022-05-13 18:00] VITALS: BP 90/54; PULSE 122; TEMP 36.8; O2SAT 98
[2022-05-13] MEDS: OLANZapine 7.5 MG TABLET 15 MG PO (20:05)
--- NOTE | 2022-05-13 21:14 | PC.NURSE ---
Pt had elevated pulses ranging from 120's to 150's when assessing VS at 1925. Pulses were difficult to palpate manually. Pt had BP 90/54 w/ O2 98% on RA. Pt reported to this medical technical writer having a history of afibrillation and said had been on Cardizem for this. Pt denied chest pain or SOB. Dr Stephenson was informed and an order was obtained for an EKG/Urgent, which showed NSR.
[2022-05-14] MEDS: hydrOXYzine HCL 25 MG TABLET 75 MG PO (03:36)
[2022-05-14] MEDS: Nicotine Polacrilex Lozenge 4 MG LOZENGE BUCCAL ×6 (03:36→20:55)
[2022-05-14] MEDS: chlorproMAZINE HCl 100 MG TABLET PO ×4 (03:36→18:55)
[2022-05-14 06:00] VITALS: BP 97/59; PULSE 109; RESP 16; TEMP 36.6; O2SAT 99
[2022-05-14] MEDS: Sertraline HCL 50 MG TABLET PO (09:03)
[2022-05-14] MEDS: Buprenorphine/Naloxone 8/2 mg FILM 1 FILM SUBLINGUAL ×3 (09:03→20:42)
[2022-05-14] MEDS: OLANZapine 5 MG TABLET PO (10:32)
[2022-05-14 16:13] VITALS: BP 118/59; PULSE 78; TEMP 36.6; O2SAT 95
--- NOTE | 2022-05-14 17:17 | HO.PSYCHPN ---
Subjective Subjective Date of Service: 05/14/22 Reason For Visit: depression and hallucinations Subjective Notes: Reid Warning Interim History: I spoke with pt and his team. Per pt, I think im doing good. Pt is now advocating to discharge home to a female friend of his, says she's like a mom to me. Says he wants to leave because, I have to catch up with DCF, money is important, wants to get back to his life. Does not want med changes. Medication Compliance: Yes Side effects from medications: No Attending Groups: Intermittent Review of Systems Acute medical concerns: No Medical Review of Systems: unchanged Mental Status Exam Mental Status Exam Narrative: Pleasant.? Engaged.? Organized.? Depressed.? Denies SI, feels safe.? Feels supported.? Negative auditory hallucinations that are demeaning with occasional commands.? No HI.? No aggression or agitation.? Some paranoia pre-admission.? None now.? Insight and judgment fair Diagnostics Vital Signs (24Hr): Vital Signs - 24 hr 05/13/22 18:00 05/14/22 06:00 05/14/22 16:13 Temperature 98.2 F 97.9 F 97.9 F Pulse Rate 122 H 109 H 78 Respiratory Rate 16 Blood Pressure 90/54 L 97/59 L 118/59 L Pulse Oximetry 98 99 95 Oxygen Delivery Method Room Air Room Air BMI result Body Mass Index 24.6 Labs Results: 05/05/22 02:20 05/05/22 02:20 Medications Medications Current Medications Al Hydroxide/Mg Hydroxide (Magnesium Hydrox/Alum Hydrox 30 Ml Oral.Susp) 30 ml PO Q6H PRN PRN Reason: Heartburn/Nausea Last Admin: 05/06/22 21:08 Dose: 30 ml Buprenorphine/Naloxone (Buprenorphine/Naloxone 8/2 Mg Film) 1 film SUBLINGUAL TID [facility] Last Admin: 05/14/22 14:22 Dose: 1 film Chlorpromazine HCl (Chlorpromazine Hcl 100 Mg Tablet) 100 mg PO Q4H PRN PRN Reason: anxiety, sleep Last Admin: 05/14/22 13:48 Dose: 100 mg Hydroxyzine HCl (Hydroxyzine Hcl 25 Mg Tablet) 75 mg PO Q6H PRN PRN Reason: Anxiety Last Admin: 05/14/22 03:36 Dose: 75 mg Loperamide HCl (Loperamide Hcl 2 Mg Capsule) 2 mg PO Q6H PRN PRN Reason: diarrhea Magnesium Hydroxide (Milk Of Magnesia 30 Ml Oral.Susp) 30 ml PO DAILY PRN PRN Reason: Constipation Nicotine (Nicotine 21 Mg Patch.Td24) 21 mg TRANSDERMA DAILY [facility] Last Admin: 05/14/22 09:06 Dose: Not Given Nicotine Polacrilex (Nicotine Polacrilex Lozenge 4 Mg Lozenge) 4 mg BUCCAL Q2H PRN PRN Reason: Nicotine Cravings Last Admin: 05/14/22 13:48 Dose: 4 mg Olanzapine (Olanzapine 5 Mg Tablet) 5 mg PO Q6H PRN PRN Reason: Psychosis Last Admin: 05/14/22 10:32 Dose: 5 mg Olanzapine (Olanzapine 7.5 Mg Tablet) 15 mg PO BEDTIME [facility] Last Admin: 05/13/22 20:05 Dose: 15 mg Ondansetron HCl (Ondansetron Odt 4 Mg Tab.Rapdis) 4 mg TRANSLINGU Q8H PRN PRN Reason: nausea Sertraline HCl (Sertraline Hcl 50 Mg Tablet) 50 mg PO DAILY [facility] Last Admin: 05/14/22 09:03 Dose: 50 mg Trazodone HCl (Trazodone Hcl 50 Mg Tablet) 50 mg PO BEDTIME PRN PRN Reason: Insomnia Last Admin: 05/13/22 20:45 Dose: 50 mg Allergies Allergies Allergy/AdvReac Type Severity Reaction Status Date / Time amoxicillin [AMOXICILLIN] Allergy Severe HIVES Unverified 05/12/20 15:58 Penicillins [PENICILLINS] Allergy Severe HIVES Unverified 05/12/20 15:58 acetaminophen [From TYLENOL] Allergy Unknown LIVER Unverified 05/12/20 15:58 PROBLEMS Assessment & Plan Assessment & Plan (1) Opioid use disorder: Status: Inactive Code(s): F11.90 - Opioid use, unspecified, uncomplicated Assessment and Plan: Additional 8mg suboxone in the middle of the day for total of 24mg total daily risk reduction discussion no follow up needed--continue with [facility] once discharged Plan Overall presents with psychosis and depression and opioid dependence. Significant psychosocial stressors. First inpatient admission. Will start Zoloft 50 mg, olanzapine 5 mg twice daily and 5 mg as needed and Vistaril as needed.? Risk benefits discussed.? Also interested in rehab programming. 05/07: reports continued anxiety, AH. Will start PRN thorazine 25 mg Q6H PRN and increase vistaril to 50 mg, add comfort meds for withdrawal, place addiction consult 05/08: PRN thorazine and vistaril increased to 75 mg, seen by community support specialist and suboxone increased, much appreciated. Will increase zyprexa to 15 mg HS for AH, poor sleep. 05/09: Increase thorazine to 100 mg PRN 05/10: Increase thorazine PRN to Q4H, obtain new EKG 05/11: Continue meds due to reported benefit 05/12: Continue current treatment plan. 05/13: Continue current treatment plan. 05/14: Continue current treatment plan. I spent minutes with the patient and/or on the patient floor today, greater than?50% of which was spent counseling/coordinating care. Patient educated on: therapeutic strategies Reason for contiued inpatient stay Substantial Risk for: med/psych decompensation
[2022-05-14] MEDS: traZODone HCL 50 MG TABLET PO (18:55)
[2022-05-14] MEDS: OLANZapine 7.5 MG TABLET 15 MG PO (20:42)
--- NOTE | 2022-05-15 | ECG_ITS ---
Test Reason : elevated hr Blood Pressure : / mmHG Vent. Rate : 080 BPM Atrial Rate : 080 BPM P-R Int : 152 ms QRS Dur : 102 ms QT Int : 370 ms P-R-T Axes : 025 055 040 degrees QTc Int : 426 ms Normal sinus rhythm Normal ECG When compared with ECG of 13-MAY-2022 19:57, No significant change was found Referred By: Mars Mason Electronically Signed By:JULIETTE MINAYA
--- NOTE | 2022-05-15 01:23 | PC.NURSE ---
Patient had signed a 3 day notice on 05/13/22 which will be up 05/16/22.
[2022-05-15] MEDS: chlorproMAZINE HCl 100 MG TABLET PO ×4 (05:08→19:15)
[2022-05-15] MEDS: Nicotine Polacrilex Lozenge 4 MG LOZENGE BUCCAL ×5 (05:08→19:24)
[2022-05-15 05:46] VITALS: BP 99/58; PULSE 135; RESP 18; TEMP 36.6; O2SAT 98
--- NOTE | 2022-05-15 05:52 | PC.NURSE ---
Patient up to request Thorazine and Nicorette lozenge at 0508 a.m. Vitals were taken at that time. T 97.6 BP 88/54 O2 98% P 146. Patient was given meds and returned to room. Vitals taken again at 0545. BP 99/58 and P 135. Patient INAD. Encouraged to increase fluid intake. Will continue to monitor.
[2022-05-15] MEDS: Sertraline HCL 50 MG TABLET PO (08:36)
[2022-05-15] MEDS: Buprenorphine/Naloxone 8/2 mg FILM 1 FILM SUBLINGUAL ×3 (08:36→19:15)
[2022-05-15 10:34] VITALS: BP 100/58; PULSE 119; TEMP 36.3
[2022-05-15] MEDS: OLANZapine 5 MG TABLET PO (11:08)
[2022-05-15 18:00] VITALS: BP 118/82; PULSE 88; RESP 16; TEMP 35.9; O2SAT 98
[2022-05-15] MEDS: OLANZapine 7.5 MG TABLET 15 MG PO (19:15)
--- NOTE | 2022-05-15 19:25 | P.PNPSI_ITS ---
Subjective Subjective Date of Service: 05/15/22 Reason For Visit: depression and hallucinations Interim History: I spoke with pt and his team. Per pt, he is going home tomorrow. Says hydrox yzine helps with sleep, olanzapine helps with anxiety throughout the day, thorazine helps with both anxiety and sleep and in fact helps more than the other PRNs- says he uses zyprexa more for breakthrough anxiety. Reviewed EKG, wnl. Says he will follow up with OP referrals at [facility] Medication Compliance: Yes Side effects from medications: No Attending Groups: Intermittent Review of Systems Acute medical concerns: No Medical Review of Systems: unchanged Mental Status Exam Mental Status Exam Narrative: Pleasant.? Engaged.? Organized.? Depressed.? Denies SI, feels safe.? Feels supported.? Negative auditory hallucinations that are demeaning with occasional commands.? No HI.? No aggression or agitation.? Some paranoia pre-admission.? None now.? Insight and judgment fair Diagnostics Vital Signs (24Hr): Vital Signs - 24 hr 05/15/22 05:46 05/15/22 10:34 Temperature 97.8 F 97.4 F Pulse Rate 135 H 119 H Respiratory Rate 18 Blood Pressure 99/58 L 100/58 L Pulse Oximetry 98 Oxygen Delivery Method Room Air BMI result Body Mass Index 24.6 Labs Results: 05/05/22 02:20 05/05/22 02:20 Medications Medications Current Medications Al Hydroxide/Mg Hydroxide (Magnesium Hydrox/Alum Hydrox 30 Ml Oral.Susp) 30 ml PO Q6H PRN PRN Reason: Heartburn/Nausea Last Admin: 05/06/22 21:08 Dose: 30 ml Buprenorphine/Naloxone (Buprenorphine/Naloxone 8/2 Mg Film) 1 film SUBLINGUAL TID RICARDO Last Admin: 05/15/22 19:15 Dose: 1 film Chlorpromazine HCl (Chlorpromazine Hcl 100 Mg Tablet) 100 mg PO Q4H PRN PRN Reason: anxiety, sleep Last Admin: 05/15/22 19:15 Dose: 100 mg Hydroxyzine HCl (Hydroxyzine Hcl 25 Mg Tablet) 75 mg PO Q6H PRN PRN Reason: Anxiety Last Admin: 05/14/22 03:36 Dose: 75 mg Loperamide HCl (Loperamide Hcl 2 Mg Capsule) 2 mg PO Q6H PRN PRN Reason: diarrhea Magnesium Hydroxide (Milk Of Magnesia 30 Ml Oral.Susp) 30 ml PO DAILY PRN PRN Reason: Constipation Nicotine (Nicotine 21 Mg Patch.Td24) 21 mg TRANSDERMA DAILY [facility] Last Admin: 05/15/22 09:11 Dose: Not Given Nicotine Polacrilex (Nicotine Polacrilex Lozenge 4 Mg Lozenge) 4 mg BUCCAL Q2H PRN PRN Reason: Nicotine Cravings Last Admin: 05/15/22 19:24 Dose: 4 mg Olanzapine (Olanzapine 5 Mg Tablet) 5 mg PO Q6H PRN PRN Reason: Psychosis Last Admin: 05/15/22 11:08 Dose: 5 mg Olanzapine (Olanzapine 7.5 Mg Tablet) 15 mg PO BEDTIME [facility] Last Admin: 05/15/22 19:15 Dose: 15 mg Ondansetron HCl (Ondansetron Odt 4 Mg Tab.Rapdis) 4 mg TRANSLINGU Q8H PRN PRN Reason: nausea Sertraline HCl (Sertraline Hcl 50 Mg Tablet) 50 mg PO DAILY [facility] Last Admin: 05/15/22 08:36 Dose: 50 mg Trazodone HCl (Trazodone Hcl 50 Mg Tablet) 50 mg PO BEDTIME PRN PRN Reason: Insomnia Last Admin: 05/14/22 18:55 Dose: 50 mg Allergies Allergies Allergy/AdvReac Type Severity Reaction Status Date / Time amoxicillin [AMOXICILLIN] Allergy Severe HIVES Unverified 05/12/20 15:58 Penicillins [PENICILLINS] Allergy Severe HIVES Unverified 05/12/20 15:58 acetaminophen [From TYLENOL] Allergy Unknown LIVER Unverified 05/12/20 15:58 PROBLEMS Assessment & Plan Assessment & Plan (1) Opioid use disorder: Status: Inactive Code(s): F11.90 - Opioid use, unspecified, uncomplicated Assessment and Plan: * Additional 8mg suboxone in the middle of the day for total of 24mg total daily * risk reduction discussion * no follow up needed--continue with [facility] once discharged Plan Overall presents with psychosis and depression and opioid dependence. Signifi cant psychosocial stressors. First inpatient admission. Will start Zoloft 50 mg, olanzapine 5 mg twice daily and 5 mg as needed and Vistaril as needed.? Risk benefits discussed.? Also interested in rehab programming. 05/07: reports continued anxiety, AH. Will start PRN thorazine 25 mg Q6H PRN and increase vistaril to 50 mg, add comfort meds for withdrawal, place addiction consult 05/08: PRN thorazine and vistaril increased to 75 mg, seen by [employer] senior specialist and suboxone increased, much appreciated. Will increase zyprexa to 15 mg HS for AH, poor sleep. 05/09: Increase thorazine to 100 mg PRN 05/10: Increase thorazine PRN to Q4H, obtain new EKG 05/11: Continue meds due to reported benefit 05/12: Continue current treatment plan. 05/13: Continue current treatment plan. 05/14: Continue current treatment plan. 05/15: No med changes I spent minutes with the patient and/or on the patient floor today, greater than?50% of which was spent counseling/coordinating care. Patient educated on: therapeutic strategies Reason for contiued inpatient stay Substantial Risk for: med/psych decompensation
[2022-05-15] MEDS: traZODone HCL 50 MG TABLET PO (20:18)
[2022-05-16] MEDS: chlorproMAZINE HCl 100 MG TABLET PO ×2 (04:43→09:05)
[2022-05-16 05:23] VITALS: BP 110/65; PULSE 100; RESP 16; TEMP 37.1; O2SAT 96
--- NOTE | 2022-05-16 06:37 | PM.PSYDC ---
DS: Providers Provider Date of Service: 05/16/22 Date of admission: 05/05/22 20:00 Date of discharge: 05/16/22 Primary care physician: None Physician Admitting clinician: Ta Fletcher Attending physician on admission: Ta Fletcher Consults: 05/07/22 18:37 Addiction Medicine Routine Consulting Provider: Cassandra Zaragoza Reason for consultation: was using three suboxone [address], asking for increase Attending physician on discharge: Norris Coburn Discharging clinician: Meredith Salazar DS: Diagnosis Discharge Diagnosis (1) Opioid use disorder: Status: Inactive DS: Medications Discharge Medications Home Medications: Previous Rx's Medication Instructions Recorded chlorpromazine 100 mg tablet 100 mg PO Q4H PRN anxiety, sleep 05/16/22 #120 tabs hydroxyzine HCl 25 mg tablet 75 mg PO Q6H PRN Anxiety #90 tabs 05/16/22 nicotine (polacrilex) 4 mg buccal 4 mg buccal Q2H PRN Nicotine 05/16/22 lozenge Cravings #24 ea olanzapine 5 mg tablet 5 mg PO Q6H PRN Psychosis #60 tabs 05/16/22 olanzapine 7.5 mg tablet 15 mg PO BEDTIME #60 tabs 05/16/22 sertraline 50 mg tablet 50 mg PO DAILY #30 tabs 05/16/22 trazodone 50 mg tablet 50 mg PO BEDTIME PRN Insomnia #30 05/16/22 tabs Mental Status Exam Mental Status Exam Narrative: Pleasant.? Engaged.? Organized.? Depressed.? Denies SI, feels safe.? Feels supported.? Negative auditory hallucinations that are demeaning with occasional commands.? No HI.? No aggression or agitation.? Some paranoia pre-admission.? None now.? Insight and judgment fair DS: Summary Hospital Course Hospital Course: Patient self presented to the ED with suicidal thoughts.? Reports the last year has been very difficult with associated depression and hallucinations and suicidal thoughts of overdosing.? Reports things got worse in the context of illegal case and DCF.? Reported driving with his children and there being a high-speed ted.? Reported being arrested and next hearing is in May which he hopes will be a plea deal for probation and time served.? Reports that the mother of his children who are aged 2 and 5, has started to do the right things and go to rehab so she can have the children.? He is unable to live with her and has been homeless for the last 1 year.? Reports low mood, poor sleep, poor energy, poor appetite no motivation.? Suicidal thoughts.? Intermittent substance and relapses with opiates, fentanyl and cocaine.? Last used day of admission.? Is on Suboxone through [facility] for the last 3-4 months.? Social alcohol use.? Reports wanting help with mood, hallucinations that have been present since teenage years that can be command in nature.? Did have some paranoia prior to admission he is being followed or chased rib.? Also open to rehab, which he is never completed in the past. Past psychiatric history 1st inpatient admission.? To suicide attempts age 15 and 17.? Reports being on Zoloft and Vistaril in the past which was helpful. Socially homeless for the last 1 year.? Active legal issues as above.? Six children in total ranging in age from 2 years old to 12 years old.? 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 GED group. Discussed treatment with Zoloft 50 mg, Vistaril as needed and Zyprexa 5 mg twice daily for hallucinations, poor sleep and anxiety.? Risks and benefits discussed including metabolic side effects. Overall presents with psychosis and depression and opioid dependence. Significant psychosocial stressors. First inpatient admission. 05/06: Will start Zoloft 50 mg, olanzapine 5 mg twice daily and 5 mg as needed and Vistaril as needed.? Risk benefits discussed.? Also interested in rehab programming. 05/07: reports continued anxiety, AH. Will start PRN thorazine 25 mg Q6H PRN and increase vistaril to 50 mg, add comfort meds for withdrawal, place addiction consult 05/08: PRN thorazine and vistaril increased to 75 mg, seen by community education specialist and suboxone increased, much appreciated. Will increase zyprexa to 15 mg HS for AH, poor sleep. 05/09: Increase thorazine to 100 mg PRN 05/10: Increase thorazine PRN to Q4H, obtain new EKG 05/11: Continue meds due to reported benefit 05/12: Continue current treatment plan. 05/13: Continue current treatment plan. 05/14: Continue current treatment plan. 05/15: No med changes, pt is stable and progressing to baseline 05/16: stable for discharge Time spent discussing smoking cessation with patient: 3 to 10 minutes Status at Discharge Functional status at discharge: independent ambulation Overall status at discharge: patient is back to baseline Time Spent with Patient Time attestation: Total time spent providing and/or coordinating discharge services: Time spent: Less than 30 minutes Discharge Plan Discharge Anticipated Discharge Date/Time: 05/17/22 10:00 Patient Disposition: Home, Self-Care Discharge Diagnosis: MDD with psychotic features Opioid Use DO Referrals: Mishel Bhatt [Other] - 05/18/22 11:00 am (Initial Diagnostic Evaluation for therapy and Psychiatry (medication management) through [facility] [place]. Patient needs to attend initial intake to receive medication management services. If you do not attend appointment case may be closed.) [facility] [Other] - 05/17/22 2:15 pm (Follow-up discharge appointment for medication assisted treatment (Suboxone) ) Discharge Medications: New nicotine (polacrilex) 4 mg Lozenge 4 mg buccal Q2H PRN (Reason: Nicotine Cravings) Qty: 24 0RF chlorpromazine 100 mg Tablet 100 mg PO Q4H PRN (Reason: anxiety, sleep) Qty: 120 0RF hydroxyzine HCl 25 mg Tablet 75 mg PO Q6H PRN (Reason: Anxiety) Qty: 90 0RF olanzapine 5 mg Tablet 5 mg PO Q6H PRN (Reason: Psychosis) Qty: 60 0RF olanzapine 7.5 mg Tablet 15 mg PO BEDTIME Qty: 60 0RF sertraline 50 mg Tablet 50 mg PO DAILY Qty: 30 0RF trazodone 50 mg Tablet 50 mg PO BEDTIME PRN (Reason: Insomnia) Qty: 30 0RF Discontinued buprenorphine-naloxone [Suboxone] 8-2 mg film 1 strip sublingual BID Discharge Orders: Discharge Order (Routine); Ordered 05/16/22 Ordered By: Meredith Salazar Diet: Advance to usual diet Activity on Discharge: As tolerated Stand Alone Forms: Patient Portal Discharge page, Community Support Care Plan Goals: Continue psychiatric medications as prescribed and follow up with outpatient referrals and PCP. Health Concerns: Sobriety Depression Anxiety Plan of Treatment: Attend follow up appointments with OP psych services and PCP Patient will continue on psychotropic medication regimen for mood stability and sobriety Take medications as directed A one month supply of medication has been sent to your pharmacy Crisis Team if needed [phone] Call and or return if needed Assessment: Risk assessment at time of discharge:? Patient was interviewed prior to discharge and found to be fully oriented and without any SI or HI. Patient has insight and demonstrates good judgment in terms of wanting to pursue treatment. Patient is not in imminent risk of harm to self or others and has a safety plan that includes presenting to the closest ER or calling 911 if feeling unsafe.? Patient has been observed closely by nursing and unit staff throughout admission; patient has not engaged in any behaviors that suggest dangerousness to self or others and has demonstrated appropriate behaviors and impulse control Discharge Date/Time: 05/16/22 10:17
[2022-05-16] MEDS: Sertraline HCL 50 MG TABLET PO (08:14)
[2022-05-16] MEDS: Buprenorphine/Naloxone 8/2 mg FILM 1 FILM SUBLINGUAL (08:14)
== END 2022-05-16 10:17 | disposition home or self-care (01) | DRG 751 ==
LOC: HO.ED 05-05 01:44 → HO.PM5 05-05 20:08
PROVIDERS: Admitting Provider Psychiatry & Neurology Psychiatry; Emergency Provider Emergency Medicine; Visit Provider Registered Nurse
DX: F32.3 Major depressive disorder, single episode, severe with psychotic features (principal); F11.20 Opioid dependence, uncomplicated; I48.91 Unspecified atrial fibrillation; F17.210 Nicotine dependence, cigarettes, uncomplicated; Z20.822 Contact with and (suspected) exposure to COVID-19; Z71.6 Tobacco abuse counseling; Z88.0 Allergy status to penicillin; Z88.5 Allergy status to narcotic agent; Z79.899 Other long term (current) drug therapy
CPT/HCPCS: 36415; 80048; 80076; 80307; 82077; 85025; 87635; 93005; 99285

== ENCOUNTER 2022-06-16 11:24 | Inpatient (IN) | payer OTHER, SELFPAY ==
--- NOTE | 2022-06-16 | ECG_ITS ---
Test Reason : CHEST PAIN Blood Pressure : / mmHG Vent. Rate : 081 BPM Atrial Rate : 081 BPM P-R Int : 160 ms QRS Dur : 102 ms QT Int : 370 ms P-R-T Axes : 024 063 031 degrees QTc Int : 429 ms Normal sinus rhythm RSR' or QR pattern in V1 suggests right ventricular conduction delay Intra-ventricular conduction delay Borderline ECG When compared with ECG of 15-MAY-2022 11:30, No significant change was found Referred By: Genna Davila Electronically Signed By:CHRISTINE PEREZ MD
--- NOTE | ~2022-06-16 | XR_ITS ---
EXAMINATION: XR CHEST CLINICAL INFORMATION: Chest pain. COMPARISON: 09/14/2019 chest radiograph. TECHNIQUE: Frontal view of the chest was obtained. FINDINGS: No significant abnormality is noted involving the heart, lungs, mediastinum, bony thorax or soft tissues. XR/XR chest 1V IMPRESSION: No acute cardiopulmonary process.
--- NOTE | ~2022-06-16 | CT_ITS ---
EXAMINATION: CT ANGIOGRAM OF THE CHEST WITH AND WITHOUT CONTRAST (CT PULMONARY ANGIOGRAM FOR PE) CLINICAL INFORMATION: Reason for Exam pleuritic chest pain COMPARISON: None TECHNIQUE: Prior to contrast administration, noncontrast localization images were obtained. Subsequently, multidetector volumetric imaging was performed from the thoracic inlet to below the diaphragms following the administration of 80 mL Omnipaque 350 intravenous contrast. No contrast reaction reported Sagittal, coronal, and MIP oblique sagittal reformatted images were obtained on the CT workstation, uploaded to PACS, and reviewed. This CT examination was performed using dose optimization techniques as appropriate, variously including the following: *Automated exposure control *Adjustment of mA and/or kV according to patient size (this includes techniques or standardized protocols for targeted exams where dose is matched to indication/reason for exam; i.e. extremities or head) *Use of iterative reconstruction technique Total exam dose-length product 381 mGy-cm FINDINGS: QUALITY OF STUDY/CONTRAST BOLUS: Satisfactory. PULMONARY ARTERIES: No central or segmental pulmonary emboli. Misregistration artifact distally limits assessment but no gross subsegmental pulmonary emboli. THORACIC AORTA: No aneurysm or dissection. LUNG: No focal consolidation, nodules or masses. PLEURA: No pleural effusion or pneumothorax. MEDIASTINUM: Normal heart size. No pericardial effusion. No hilar or mediastinal lymphadenopathy. No evidence of septal bowing or right heart strain. CHEST WALL/AXILLA: No axillary or internal mammary lymphadenopathy. OSSEOUS STRUCTURES: No acute or suspicious osseous abnormality. UPPER ABDOMEN: Unremarkable. No reflux of contrast into the hepatic veins to suggest elevated right heart pressures. CT/CT angio chest PE protocol IMPRESSION: No evidence for any pulmonary embolism. VTE: negative
[2022-06-16 11:36] VITALS: BP 111/68; BP 142/80; PULSE 85; PULSE 90; RESP 18; TEMP 36.8; O2SAT 97; O2SAT 99; BMI 25.7
--- NOTE | 2022-06-16 11:51 | ED_ITS ---
HPI - Chest Pain General Chief Complaint: Chest Pain Stated Complaint: CP,DIFF BREATHING 97% Time Seen by Provider: 06/16/22 11:29 Source: patient Mode of arrival: EMS Limitations: no limitations History of Present Illness HPI narrative: 31 yo male with hx of IVDA - heroin and cocaine normally on suboxone 8/2 TID last used 12 hours ago notes onset of sharp pleuritic chest pain yesterday at rest with mild cough. No fever no other symptoms MD complaint: chest pain Onset (ago): hour(s) (> 12) Timing of current episode: constant Prior episodes: No Onset: during rest Pain location: left chest and right chest Pain radiation: none Severity: moderate Quality: sharp Relieving factors: nothing Exacerbating factors: inspiration Associated symptoms: dyspnea Treatment prior to arrival: none Related Data Previous Rx's Medication Instructions Recorded chlorpromazine 100 mg tablet 100 mg PO Q4H PRN anxiety, sleep 05/16/22 #120 tabs hydroxyzine HCl 25 mg tablet 75 mg PO Q6H PRN Anxiety #90 tabs 05/16/22 nicotine (polacrilex) 4 mg buccal 4 mg buccal Q2H PRN Nicotine 05/16/22 lozenge Cravings #24 ea olanzapine 5 mg tablet 5 mg PO Q6H PRN Psychosis #60 tabs 05/16/22 olanzapine 7.5 mg tablet 15 mg PO BEDTIME #60 tabs 05/16/22 sertraline 50 mg tablet 50 mg PO DAILY #30 tabs 05/16/22 trazodone 50 mg tablet 50 mg PO BEDTIME PRN Insomnia #30 05/16/22 tabs Allergies Allergy/AdvReac Type Severity Reaction Status Date / Time amoxicillin [AMOXICILLIN] Allergy Severe HIVES Unverified 05/12/20 15:58 Penicillins [PENICILLINS] Allergy Severe HIVES Unverified 05/12/20 15:58 acetaminophen [From TYLENOL] Allergy Unknown LIVER Unverified 05/12/20 15:58 PROBLEMS Review of Systems Review of Systems: Constitutional : No Weight loss, No Fever, No Chills ENT/Mouth : No sore throat, No Rhinorrhea Eyes: No Eye Pain, No Swelling Cardiovascular : pos Chest Pain, pos SOB, no Dyspnea on Exertion, No Orthopnea, No Edema, No Palpitations Respiratory : No Cough, No Sputum Gastrointestinal : no Nausea, No Vomiting, No Diarrhea, No abdominal Pain, No Hematochezia, No Melena Genitourinary : No Dysuria, No Urinary Frequency Musculoskeletal : No joint pain, No Myalgias, No Joint Swelling Skin : No Skin Lesions, No rash Neuro : No Weakness, No Numbness, No Dizziness, No Headache Psych : No Anxiety/Panic, No Depression Heme/Lymph: No Bruising, No Lymphadenopathy Endocrine : No Polyuria, No Polydipsia All other systems reviewed and are negative PMFSH Past Medical History Attestation statement: The following information was validated with the patient. Medical History A-fib Depression Depression Major depression with psychotic features Opiate abuse, continuous Opioid use disorder Polysubstance abuse Social History Social History Household Members: None Housing: Homeless Do you presently have visiting nurse or other home services: No Patient Tobacco Use Status: Current everyday Tobacco user Tobacco use type: Cigarette Cigarette Packs Per Day: 1 Cigarettes Per Day: 20.0 Smoked in Last 30 Days: Yes Second Hand Smoke Exposure: No Use of substances other than those prescribed or required for medical reasons: Yes Substance Use Type: Crack/Cocaine, Heroin and IV Drugs Advance Directives: No Advance Directives Information Provided: Yes service: No Sexual orientation: Straight/Heterosexual Physical Exam Vital Signs: Vital Signs: Last Vital Signs Temp 98.2 F 06/16/22 15:21 Pulse 79 06/16/22 15:21 Resp 16 06/16/22 15:21 BP 107/56 L 06/16/22 15:21 Pulse Ox 96 06/16/22 15:21 O2 Del Method 06/16/22 15:21 BMI result Body Mass Index 25.7 Appearance: Alert. Oriented X3. No acute distress. Eyes: Pupils equal, round and reactive to light. ENT: Pharynx normal. Neck: Normal inspection. Neck supple. CVS: Normal heart rate and rhythm. Pulses normal. I do not hear a murmur Respiratory: No respiratory distress. Breath sounds normal. Abdomen: Soft and nontender. Skin: Skin warm and dry. Normal skin color. Normal skin turgor. Extremities: No lower extremity edema. No calf ttp Neuro: Oriented X 3. No motor deficit. No sensory deficit. Course Course Course Narrative: trop negative, no WBC count, COVID negative, CRP mildly elevated, plts negative, procalcitonin negative, if CTA negative for PE can be DC home - endocarditis seems unlikely given labs, VS. CTA negative at this time stable for DC can be sent home on discharge patient now wants to talk to crisis and states he is suicidal physician observation started for [facility] consult 411pm. MDM - Chest Pain MDM Narrative Medical decision making narrative: 31 yo male with hx of substance abuse and mental illness, prior afib here with c/o pleuritic chest pain he denies fevers - at this time symptoms seem atypical for ACS, will need labs, infl markers, cultures, ddimer for PE, CXR for pneumonia, endocarditis would be on list given IVDA but no fevers and without increase in CBC or CRP/ESR may be unlikely. Dispo per results and findings. Lab Data Result diagrams: 06/16/22 11:55 06/16/22 13:53 Labs: Lab Results 06/16/22 06/16/22 06/16/22 Range/Units 11:43 11:55 11:55 WBC 6.3 (4.8-10.8) X10*3/uL RBC 5.18 (4.60-5.80) X10*6/uL Hgb 12.7 L (14.0-18.0) g/dl Hct 40.3 L (42.0-52.0) % MCV 77.8 L (80.0-98.0) fL MCH 24.5 L (27.0-33.0) pg MCHC 31.5 (31.0-36.0) g/dl RDW 14.7 (11.0-16.0) % Plt Count 222 D (160-400) X10*3/uL MPV 9.9 (9.4-12.4) fL Immature Gran % (Auto) 0.2 (0.0-0.4) % Neut % (Auto) 58.2 (45-73) % Lymph % (Auto) 30.2 (20-40) % Ritchie % (Auto) 8.7 (2-11) % Eos % (Auto) 2.2 (0-4) % Baso % (Auto) 0.5 (0-2) % Lymph # (Auto) 1.9 (1.2-4.9) X10*3/uL Ritchie # (Auto) 0.6 (0.1-1.2) X10*3/uL Eos # (Auto) 0.1 (0.0-0.4) X10*3/uL Baso # (Auto) 0.0 (0.0-0.2) X10*3/uL Abs Immat Gran (auto) 0.01 (0.00-0.03) X10*3/uL Absolute Neuts (auto) 3.7 (2.0-8.3) x10*3/uL Absolute Nucleated RBC 0.000 (0.0-0.012) X10*3/uL Nucleated RBC % (auto) 0.0 (0.0-0.2) /100WBC ESR 4 (0-15) MM/HR D-Dimer High Sensitivty NG/ML Sodium (135-145) mmol/L Potassium (3.3-5.1) mmol/L Chloride (96-108) mmol/L Carbon Dioxide (22-29) mmol/L Anion Gap (12-20) BUN (9-16) mg/dL Creatinine (0.5-1.4) mg/dL Estim Creat Clear Calc Estimated GFR Random Glucose (60-115) mg/dL Lactic Acid (0.5-2.0) mmol/L Calcium (8.4-10.2) mg/dL Magnesium (1.6-2.6) mg/dL Total Bilirubin (0.0-1.0) mg/dL Direct Bilirubin (0.0-0.5) mg/dL AST (5-37) U/L ALT (0-40) U/L Alkaline Phosphatase (39-117) U/L Troponin I High Sens (<3.5-35.0) ng/L C-Reactive Protein (< or = 0.50) mg/dL Total Protein (6.5-8.0) g/dL Albumin (3.5-5.0) g/dL Procalcitonin ng/mL COVID-19 ([facility]) Negative (Negative) COVID-19 Clin Com See Note 06/16/22 06/16/22 06/16/22 Range/Units 11:55 11:55 11:55 WBC (4.8-10.8) X10*3/uL RBC (4.60-5.80) X10*6/uL Hgb (14.0-18.0) g/dl Hct (42.0-52.0) % MCV (80.0-98.0) fL MCH (27.0-33.0) pg MCHC (31.0-36.0) g/dl RDW (11.0-16.0) % Plt Count (160-400) X10*3/uL MPV (9.4-12.4) fL Immature Gran % (Auto) (0.0-0.4) % Neut % (Auto) (45-73) % Lymph % (Auto) (20-40) % Ritchie % (Auto) (2-11) % Eos % (Auto) (0-4) % Baso % (Auto) (0-2) % Lymph # (Auto) (1.2-4.9) X10*3/uL Ritchie # (Auto) (0.1-1.2) X10*3/uL Eos # (Auto) (0.0-0.4) X10*3/uL Baso # (Auto) (0.0-0.2) X10*3/uL Abs Immat Gran (auto) (0.00-0.03) X10*3/uL Absolute Neuts (auto) (2.0-8.3) x10*3/uL Absolute Nucleated RBC (0.0-0.012) X10*3/uL Nucleated RBC % (auto) (0.0-0.2) /100WBC ESR (0-15) MM/HR D-Dimer High Sensitivty 293 NG/ML Sodium (135-145) mmol/L Potassium (3.3-5.1) mmol/L Chloride (96-108) mmol/L Carbon Dioxide (22-29) mmol/L Anion Gap (12-20) BUN (9-16) mg/dL Creatinine (0.5-1.4) mg/dL Estim Creat Clear Calc Estimated GFR Random Glucose (60-115) mg/dL Lactic Acid 1.2 (0.5-2.0) mmol/L Calcium (8.4-10.2) mg/dL Magnesium (1.6-2.6) mg/dL Total Bilirubin (0.0-1.0) mg/dL Direct Bilirubin (0.0-0.5) mg/dL AST (5-37) U/L ALT (0-40) U/L Alkaline Phosphatase (39-117) U/L Troponin I High Sens < 3.5 (<3.5-35.0) ng/L C-Reactive Protein (< or = 0.50) mg/dL Total Protein (6.5-8.0) g/dL Albumin (3.5-5.0) g/dL Procalcitonin ng/mL COVID-19 ([facility]) (Negative) COVID-19 Clin Com 06/16/22 06/16/22 Range/Units 11:55 13:53 WBC (4.8-10.8) X10*3/uL RBC (4.60-5.80) X10*6/uL Hgb (14.0-18.0) g/dl Hct (42.0-52.0) % MCV (80.0-98.0) fL MCH (27.0-33.0) pg MCHC (31.0-36.0) g/dl RDW (11.0-16.0) % Plt Count (160-400) X10*3/uL MPV (9.4-12.4) fL Immature Gran % (Auto) (0.0-0.4) % Neut % (Auto) (45-73) % Lymph % (Auto) (20-40) % Ritchie % (Auto) (2-11) % Eos % (Auto) (0-4) % Baso % (Auto) (0-2) % Lymph # (Auto) (1.2-4.9) X10*3/uL Ritchie # (Auto) (0.1-1.2) X10*3/uL Eos # (Auto) (0.0-0.4) X10*3/uL Baso # (Auto) (0.0-0.2) X10*3/uL Abs Immat Gran (auto) (0.00-0.03) X10*3/uL Absolute Neuts (auto) (2.0-8.3) x10*3/uL Absolute Nucleated RBC (0.0-0.012) X10*3/uL Nucleated RBC % (auto) (0.0-0.2) /100WBC ESR (0-15) MM/HR D-Dimer High Sensitivty NG/ML Sodium 140 (135-145) mmol/L Potassium 4.6 D (3.3-5.1) mmol/L Chloride 107 (96-108) mmol/L Carbon Dioxide 24 (22-29) mmol/L Anion Gap 14 (12-20) BUN 19 H (9-16) mg/dL Creatinine 0.82 (0.5-1.4) mg/dL Estim Creat Clear Calc 150.3 Estimated GFR > 60 Random Glucose 131 H (60-115) mg/dL Lactic Acid (0.5-2.0) mmol/L Calcium 8.9 (8.4-10.2) mg/dL Magnesium 1.9 (1.6-2.6) mg/dL Total Bilirubin 0.4 (0.0-1.0) mg/dL Direct Bilirubin < 0.2 (0.0-0.5) mg/dL AST 27 (5-37) U/L ALT 27 (0-40) U/L Alkaline Phosphatase 67 (39-117) U/L Troponin I High Sens (<3.5-35.0) ng/L C-Reactive Protein 0.55 H (< or = 0.50) mg/dL Total Protein 6.6 (6.5-8.0) g/dL Albumin 3.8 (3.5-5.0) g/dL Procalcitonin 0.02 ng/mL COVID-19 ([facility]) (Negative) COVID-19 Clin Com ECG Data ECG #1: Attestation: I personally reviewed and interpreted this ECG as follows: ECG interpretation date: 06/16/22 ECG interpretation time: 11:57 Interpretation: Rate: 81 Rhythm: NSR [place]: normal Normal P waves. Normal JOVANNA. Normal QRS complex. ST T wave : normal no WALLY qTC: normal prior studies: no acute ischemia The study has been interpreted contemporaneously by me. . Discharge Plan Discharge Clinical Impression: Chest pain, pleuritic, Suicidal ideation Patient Disposition: Still a Patient Additional Instructions: return to ED for any worsening symptoms or concerns tests for heart normal, CT scan of chest negative for pneumonia and blood clot Prescriptions: No Action nicotine (polacrilex) 4 mg Lozenge 4 mg buccal Q2H PRN (Reason: Nicotine Cravings) Qty: 24 0RF chlorpromazine 100 mg Tablet 100 mg PO Q4H PRN (Reason: anxiety, sleep) Qty: 120 0RF hydroxyzine HCl 25 mg Tablet 75 mg PO Q6H PRN (Reason: Anxiety) Qty: 90 0RF olanzapine 5 mg Tablet 5 mg PO Q6H PRN (Reason: Psychosis) Qty: 60 0RF olanzapine 7.5 mg Tablet 15 mg PO BEDTIME Qty: 60 0RF sertraline 50 mg Tablet 50 mg PO DAILY Qty: 30 0RF trazodone 50 mg Tablet 50 mg PO BEDTIME PRN (Reason: Insomnia) Qty: 30 0RF
[2022-06-16] MEDS: 0.9 % Sodium Chloride 1,000 ML 999 ML IVCONT (12:05)
[2022-06-16] MEDS: Ketorolac Tromethamine 15 MG/ML VIAL 30 MG IVPUSH (12:05)
[2022-06-16 12:07] LABS: MANUAL DIFF FLAG NO
[2022-06-16 12:08] LABS: Basophils Percent Auto 0.5 % (0-2); Eosinophils Absolute Auto 0.1 X10*3/uL (0.0-0.4); Eosinophils Percent Auto 2.2 % (0-4); Hematocrit 40.3 % (42.0-52.0); Hemoglobin 12.7 g/dl (14.0-18.0); Imm Gran Abs Auto 0.01 X10*3/uL (0.00-0.03); Imm Gran Pct Auto 0.2 % (0.0-0.4); Lymphocytes Absolute Auto 1.9 X10*3/uL (1.2-4.9); Lymphocytes Percent Auto 30.2 % (20-40); Mean Corpuscular HGB Conc 31.5 g/dl (31.0-36.0); Mean Corpuscular Hemoglobin 24.5 pg (27.0-33.0); Mean Corpuscular Volume 77.8 fL (80.0-98.0); Mean Platelet Volume 9.9 fL (9.4-12.4); Monocytes Absolute Auto 0.6 X10*3/uL (0.1-1.2); Monocytes Percent Auto 8.7 % (2-11); Neutrophils Absolute Auto 3.7 x10*3/uL (2.0-8.3); Neutrophils Percent Auto 58.2 % (45-73); Platelet Count 222 X10*3/uL (160-400); Red Blood Count 5.18 X10*6/uL (4.60-5.80); Red Cell Distribution Width 14.7 % (11.0-16.0); White Blood Count 6.3 X10*3/uL (4.8-10.8)
[2022-06-16 12:22] LABS: D Dimer High Sensitivity 293 NG/ML
[2022-06-16 12:23] LABS: Lactic Acid 1.2 mmol/L (0.5-2.0)
[2022-06-16 12:24] LABS: COVID-19 Test Negative (Negative)
[2022-06-16 12:37] LABS: Troponin-I High Sensitivity < 3.5 ng/L (<3.5-35.0)
[2022-06-16 12:58] LABS: Procalcitonin 0.02 ng/mL
[2022-06-16 13:28] LABS: Erythrocyte Sedimentation Rate 4 MM/HR (0-15)
[2022-06-16 15:13] LABS: Alanine Aminotransferase 27 U/L (0-40); Albumin Level 3.8 g/dL (3.5-5.0); Alkaline Phosphatase 67 U/L (39-117); Anion Gap 14 (12-20); Aspartate Amino Transferase 27 U/L (5-37); Bilirubin Direct < 0.2 mg/dL (0.0-0.5); Bilirubin Total 0.4 mg/dL (0.0-1.0); Blood Urea Nitrogen 19 mg/dL (9-16); C Reactive Protein 0.55 mg/dL (< or = 0.50); Calcium 8.9 mg/dL (8.4-10.2); Carbon Dioxide 24 mmol/L (22-29); Chloride 107 mmol/L (96-108); Creatinine Clr Calc Pharmacy 150.3; Estimated Glomerular Filt Rate > 60; Glucose Random 131 mg/dL (60-115); Magnesium 1.9 mg/dL (1.6-2.6); Potassium 4.6 mmol/L (3.3-5.1); Sodium 140 mmol/L (135-145); Total Protein 6.6 g/dL (6.5-8.0)
[2022-06-16 15:21] VITALS: BP 107/56; PULSE 79; RESP 16; TEMP 36.8; O2SAT 96
[2022-06-16] MEDS: iohexoL 350 MG/ML 100 ML INFUS..BTL 65 ML IV (15:45)
[2022-06-16 17:06] LABS: Amphetamine Screen Urine Not Detected (Not Detect); Barbiturates, Urine Not Detected (Not Detect); Benzodiazepines Screen Urine Not Detected (Not Detect); Cannabinoid Screen Urine Not Detected (Not Detect); Cocaine Screen Urine POSITIVE (Not Detect); Fentanyl, urine Not Detected (Not Detect); Opiate Screen Urine POSITIVE (Not Detect); Phencyclidine Screen Urine Not Detected (Not Detect)
[2022-06-16 18:43] VITALS: BP 120/66; PULSE 88; RESP 18; TEMP 36.9; O2SAT 98
[2022-06-17 00:13] VITALS: BP 143/86; PULSE 94; RESP 18; TEMP 36.4; O2SAT 99
--- NOTE | 2022-06-17 00:55 | PC.ADMIT ---
31 y/o male admitted to M5 from [facility] emergency BH POD. He came to ED expressing chest pain. Upon arrival he stated he was experiencing suicidal ideation secondary to life circumstances, including having two of his seven children taken into DCF custody. He denies having a plan. According to H he has a history of on previous suicide attempt, as a teenager: by drinking bleach. He further stated that he has no mental health providers nor does he have a PCP. He has a recent history of medication assisted treatment for his substance abuse. He said that hears voices of a female and sometimes a male. He says he is not sure if they are auditory hallucinations. Upon arrival he refused to participate in the formal admission process vital signs were taken and patient went to bed.
[2022-06-17 06:00] VITALS: BP 148/99; PULSE 93; RESP 18; TEMP 36.8; O2SAT 99
[2022-06-17] MEDS: Buprenorphine/Naloxone 8/2 mg FILM 1 FILM SUBLINGUAL ×3 (09:25→20:31)
[2022-06-17] MEDS: chlorproMAZINE HCl 25 MG TABLET 50 MG PO ×2 (09:25→14:14)
[2022-06-17] MEDS: Nicotine Polacrilex Lozenge 4 MG LOZENGE BUCCAL ×3 (10:08→15:15)
[2022-06-17] MEDS: hydrOXYzine HCL 25 MG TABLET 75 MG PO (10:08)
--- NOTE | 2022-06-17 13:04 | HO.PSYADMNOT ---
HPI Date of Service: 06/17/22 Chief Complaint: Depression Sources of Information: patient interviewed, chart reviewed and crisis/core team assessment reviewed HPI Subjective Notes: Reid Warning and Conditional Voluntary Healthcare Proxy: No Guardianship: No Medical Problems Affecting Mental Status: No Narrative: Kevan is a 31 y.o. Male who carries a dx of opioid use disorder, schizoaffective disorder depressive type. Pt presented to [facility] ED 06/16/2022 via EMS due to experiencing chest pain. EKG showed NSR, QTc 429. He then endorsed SI without plan and worsening depression, AH. Precipitating fx include that 2 of his children were removed by DCF. Also has legal issues. Recently admitted to [facility] M5 05/15 due to similar presentation. He does not have current OP psych providers, as he did not follow up with referrals. Utox positive for opiates and cocaine. Pt reports he ended up relapsing upon discharge, unable to say why, says he stopped taking his suboxone and sold it. Does not want to take thorazine anymore due to sunburn. Has been med adherent, taking the zoloft and zyprexa. Still says zyprexa is helping a little bit with voices, hears them on and off. Says the voices are bothering him a good amount. Has court on the 16th, feeling good about it. Sleep is not good, however this is a long standing issue. Trazodone does not help. Appetite is higher on zyprexa. Has been able to eat and drink. Denies being in withdrawal, reports benefit on suboxone. Says zoloft has helped with depression, interested in increasing it. Anxiety has been bad. Daytime energy is good. Denies SI/SIB. Feels safe. Past Psychiatric History: -Per chart, pt had 2 suicide attempts in adolescence, once by drinking bleach -Hx of IPLOC, last admission 04/2022 on M5 due to similar presentation. -Past med trials: vistaril, zoloft, thorazine, zyprexa Medical Evaluation Reviewed: Yes [facility] Medical History (Updated 06/18/22 @ 01:00 by Meredith Salazar NP) A-fib Depression Depression Major depression with psychotic features Opiate abuse, continuous Opioid use disorder Polysubstance abuse Social History: -Pt resides with Chika Vazquez, a close friend of his. Otherwise homeless x 1 year. -Receives [employer] [place] Assistance -Pt has 6 children in total from 2 relationships. DCF removed 2 of his children, the others reside with their mother. -Pt raised in [place], lived with his father for the first half of his life and then with his mother. Has siblings. -Has his GED. He has done juan/ construction work. -Legal: has upcoming court date 07/11/2022 due to larceny and high pursuit ted. Hx of incarceration for drug related charges. Substance History: -Heroin: onset age 17 -Cocaine: onset age 12 -Nicotine: 1 ppd -Hx of detox, [facility]. -Hx of MAT, on suboxone Diagnostics Vital Signs (24Hr): Vital Signs - 24 hr 06/16/22 15:21 06/16/22 18:43 06/17/22 00:13 Temperature 98.2 F 98.4 F 97.5 F Pulse Rate 79 88 94 Respiratory Rate 16 18 18 Blood Pressure 107/56 L 120/66 143/86 H Pulse Oximetry 96 98 99 Oxygen Delivery Method Room Air Room Air Room Air 06/17/22 06:00 Temperature 98.3 F Pulse Rate 93 Respiratory Rate 18 Blood Pressure 148/99 H Pulse Oximetry 99 Oxygen Delivery Method Room Air BMI result Body Mass Index 25.7 Labs Results: 06/16/22 11:55 06/16/22 13:53 Labs: Laboratory Results - last 48 hr 06/16/22 06/16/22 06/16/22 11:43 11:55 11:55 WBC 6.3 RBC 5.18 Hgb 12.7 L Hct 40.3 L MCV 77.8 L MCH 24.5 L MCHC 31.5 RDW 14.7 Plt Count 222 D MPV 9.9 Immature Gran % (Auto) 0.2 Neut % (Auto) 58.2 Lymph % (Auto) 30.2 [place] % (Auto) 8.7 Eos % (Auto) 2.2 Baso % (Auto) 0.5 Lymph # (Auto) 1.9 [place] # (Auto) 0.6 Eos # (Auto) 0.1 Baso # (Auto) 0.0 Abs Immat Gran (auto) 0.01 Absolute Neuts (auto) 3.7 Absolute Nucleated RBC 0.000 Nucleated RBC % (auto) 0.0 ESR 4 D-Dimer High Sensitivty Sodium Potassium Chloride Carbon Dioxide Anion Gap BUN Creatinine Estim Creat Clear Calc Estimated GFR Random Glucose Lactic Acid Calcium Magnesium Total Bilirubin Direct Bilirubin AST ALT Alkaline Phosphatase Troponin I High Sens C-Reactive Protein Total Protein Albumin Procalcitonin Urine Opiates Screen Urine Fentanyl Screen Ur Barbiturates Screen Ur Phencyclidine Scrn Ur Amphetamines Screen U Benzodiazepines Scrn Urine Cocaine Screen U Marijuana (THC) Screen COVID-19 ([facility]) Negative COVID-19 Clin Com See Note 06/16/22 06/16/22 06/16/22 11:55 11:55 11:55 WBC RBC Hgb Hct MCV MCH MCHC RDW Plt Count MPV Immature Gran % (Auto) Neut % (Auto) Lymph % (Auto) [place] % (Auto) Eos % (Auto) Baso % (Auto) Lymph # (Auto) [place] # (Auto) Eos # (Auto) Baso # (Auto) Abs Immat Gran (auto) Absolute Neuts (auto) Absolute Nucleated RBC Nucleated RBC % (auto) ESR D-Dimer High Sensitivty 293 Sodium Potassium Chloride Carbon Dioxide Anion Gap BUN Creatinine Estim Creat Clear Calc Estimated GFR Random Glucose Lactic Acid 1.2 Calcium Magnesium Total Bilirubin Direct Bilirubin AST ALT Alkaline Phosphatase Troponin I High Sens < 3.5 C-Reactive Protein Total Protein Albumin Procalcitonin Urine Opiates Screen Urine Fentanyl Screen Ur Barbiturates Screen Ur Phencyclidine Scrn Ur Amphetamines Screen U Benzodiazepines Scrn Urine Cocaine Screen U Marijuana (THC) Screen COVID-19 ([facility]) COVID-19 [employer] Com 06/16/22 06/16/22 06/16/22 11:55 13:53 16:45 WBC RBC Hgb Hct MCV MCH MCHC RDW Plt Count MPV Immature Gran % (Auto) Neut % (Auto) Lymph % (Auto) [place] % (Auto) Eos % (Auto) Baso % (Auto) Lymph # (Auto) [place] # (Auto) Eos # (Auto) Baso # (Auto) Abs Immat Gran (auto) Absolute Neuts (auto) Absolute Nucleated RBC Nucleated RBC % (auto) ESR D-Dimer High Sensitivty Sodium 140 Potassium 4.6 D Chloride 107 Carbon Dioxide 24 Anion Gap 14 BUN 19 H Creatinine 0.82 Estim Creat Clear Calc 150.3 Estimated GFR > 60 Random Glucose 131 H Lactic Acid Calcium 8.9 Magnesium 1.9 Total Bilirubin 0.4 Direct Bilirubin < 0.2 AST 27 ALT 27 Alkaline Phosphatase 67 Troponin I High Sens C-Reactive Protein 0.55 H Total Protein 6.6 Albumin 3.8 Procalcitonin 0.02 Urine Opiates Screen POSITIVE H Urine Fentanyl Screen Not Detected Ur Barbiturates Screen Not Detected Ur Phencyclidine Scrn Not Detected Ur Amphetamines Screen Not Detected U Benzodiazepines Scrn Not Detected Urine Cocaine Screen POSITIVE H U Marijuana (THC) Screen Not Detected COVID-19 ([facility]) COVID-19 Clin Com Imaging Radiology Impressions: ITS Impressions Chest X-Ray 06/16/22 12:02 IMPRESSION: No acute cardiopulmonary process. Chest CTA 06/16/22 15:46 IMPRESSION: No evidence for any pulmonary embolism. VTE: negative Meds/Allergies Meds Home Medications Medication Instructions Recorded Confirmed Type olanzapine 5 mg tablet 1 tab PO Q6H PRN psychosis 06/16/22 06/16/22 History olanzapine 7.5 mg tablet 2 tab PO BEDTIME 06/16/22 06/16/22 History Allergies Allergies Allergy/AdvReac Type Severity Reaction Status Date / Time amoxicillin [AMOXICILLIN] Allergy Severe HIVES Unverified 05/12/20 15:58 Penicillins [PENICILLINS] Allergy Severe HIVES Unverified 05/12/20 15:58 acetaminophen [From TYLENOL] Allergy Unknown LIVER Unverified 05/12/20 15:58 PROBLEMS Mental Status Exam Mental Status Exam Narrative: A&O. In hospital attire, unkempt. Poor eye contact, inattentive. No Tics or Tremors. No abnormal involuntary movements. Calm, guarded, difficult to engage. Non-pressured speech, spontaneous with regular rate and rhythm, normal volume and prosody. No prolonged speech latency or dysarthria. Mood is ?anxious,? depressed, affect is constricted. Denies SI/SIB/HI upon inquiry. Endorses AH. Denies VH. Appears internally preoccupied. Thoughts are distracted. No known cognitive or memory impairment. Insight/ Judgment fair and adequate. Assessment & Plan Assessment & Plan (1) Opioid use disorder: Status: Acute Code(s): F11.90 - Opioid use, unspecified, uncomplicated (2) Major depression with psychotic features: Status: Acute Code(s): F32.3 - Major depressive disorder, single episode, severe with psychotic features Jannette Mathur is a 31 y.o. Male who carries a dx of opioid use disorder, schizoaffective disorder depressive type. Pt presented to [facility] ED 06/16/2022 via EMS due to experiencing chest pain. EKG showed NSR, QTc 429. He then endorsed SI without plan and worsening depression, AH. Precipitating fx include that 2 of his children were removed by DCF. Also has legal issues. Recently admitted to [facility] M5 05/15 due to similar presentation. He does not have current OP psych providers, as he did not follow up with referrals. Utox positive for opiates and cocaine. Plan: Will increase zyprexa to 20 mg HS for AH, mood stability. Increase sertraline to 100 mg for depression, anxiety. Increase clonidine to 0.2 mg TID PRN for hyperarousal, anxiety. D/C thorazine. Will start klonopin 1 mg BID for anxiety, agitation as bridge for increase in sertraline and zyprexa. Q15 min safety checks, CV Monitor response to medications. Monitor for safety in the milieu. Discharge on stabilization. Patient seen. Chart reviewed. Discussed with team. Obtain collateral contact info?as needed Patient educated on: diagnosis, medication risk/benefits and therapeutic strategies Reason for continued inpatient stay Substantial Risk for: harm to self, rapid decompensation and med/psych decompensation
[2022-06-17] MEDS: OLANZapine 5 MG TABLET PO (13:06)
[2022-06-17] MEDS: Sertraline HCL 100 MG TABLET PO (15:15)
[2022-06-17] MEDS: cloNIDine HCL 0.2 MG TABLET PO (15:38)
[2022-06-17] MEDS: Ondansetron ODT 4 MG TAB.RAPDIS TRANSLINGU (15:41)
[2022-06-17 17:05] LABS: COVID-19 Test Negative (Negative); IDNOW Serial# 16C4AD1C
[2022-06-17 17:36] VITALS: BP 119/82; PULSE 98; TEMP 37.8; O2SAT 96
[2022-06-17] MEDS: clonazePAM 1 MG TABLET PO (20:31)
[2022-06-17] MEDS: OLANZapine 10 MG TABLET 20 MG PO (20:31)
[2022-06-18 06:00] VITALS: BP 136/92; PULSE 87; RESP 18
[2022-06-18] MEDS: Nicotine Polacrilex Lozenge 4 MG LOZENGE BUCCAL ×3 (08:19→16:41)
[2022-06-18] MEDS: HaloperidoL 5 MG TABLET PO (08:20)
[2022-06-18] MEDS: Sertraline HCL 100 MG TABLET PO (08:20)
[2022-06-18] MEDS: clonazePAM 1 MG TABLET PO ×2 (08:20→20:51)
[2022-06-18] MEDS: Buprenorphine/Naloxone 8/2 mg FILM 1 FILM SUBLINGUAL ×3 (08:20→20:51)
[2022-06-18] MEDS: OLANZapine 5 MG TABLET PO (14:19)
[2022-06-18] MEDS: cloNIDine HCL 0.2 MG TABLET PO (16:41)
[2022-06-18 16:43] VITALS: BP 122/67; PULSE 112; RESP 16; TEMP 37.2; O2SAT 97
--- NOTE | 2022-06-18 16:55 | P.PNPSI_ITS ---
Subjective Subjective Date of Service: 06/18/22 Reason For Visit: Depression Subjective Notes: Reid Warning and Conditional Voluntary Interim History: Discussed with team. Met with pt. Says his anxiety is not too bad, klonopin helps but I dont have anything in middle of the day. Says it has been helping me sleep. Says Zyprexa helps with anxiety, clonidine also helps a little bit. Sleep is a little better. Feels safe. Im feeling good with withdrawal. Un able to say why he is anxious.? Medication Compliance: Yes Side effects from medications: No Attending Groups: No Review of Systems Acute medical concerns: No Medical Review of Systems: unchanged Mental Status Exam Mental Status Exam Narrative: A&O. In hospital attire, unkempt. Poor eye contact, inattentive. No Tics or Tremors. No abnormal involuntary movements. Calm, guarded, difficult to engage. Non-pressured speech, spontaneous with regular rate and rhythm, normal volume and prosody. No prolonged speech latency or dysarthria. Mood is ?anxious,? depressed, affect is constricted. Denies SI/SIB/HI upon inquiry. Endorses AH. Denies VH. Appears internally preoccupied. Thoughts are distracted. No known cognitive or memory impairment. Insight/ Judgment fair and adequate. Diagnostics Vital Signs (24Hr): Vital Signs - 24 hr 06/17/22 17:36 06/18/22 06:00 06/18/22 16:43 Temperature 100.1 F 99.0 F Pulse Rate 98 87 112 H Respiratory Rate 18 16 Blood Pressure 119/82 136/92 H 122/67 Pulse Oximetry 96 97 Oxygen Delivery Method Room Air BMI result Body Mass Index 25.7 Labs Results: 06/16/22 11:55 06/16/22 13:53 Labs: Laboratory Results - last 48 hr 06/16/22 06/17/22 16:45 16:28 Urine Opiates Screen POSITIVE H Urine Fentanyl Screen Not Detected Ur Barbiturates Screen Not Detected Ur Phencyclidine Scrn Not Detected Ur Amphetamines Screen Not Detected U Benzodiazepines Scrn Not Detected Urine Cocaine Screen POSITIVE H U Marijuana (THC) Screen Not Detected COVID-19 ([facility]) Negative COVID-19 Clin Com See Note Imaging Radiology Impressions: ITS Impressions Chest X-Ray 06/16/22 12:02 IMPRESSION: No acute cardiopulmonary process. Chest CTA 06/16/22 15:46 IMPRESSION: No evidence for any pulmonary embolism. VTE: negative Medications Medications Current Medications Al Hydroxide/Mg Hydroxide (Magnesium Hydrox/Alum Hydrox 30 Ml Oral.Susp) 30 ml PO Q6H PRN PRN Reason: Heartburn/Nausea Buprenorphine/Naloxone (Buprenorphine/Naloxone 8/2 Mg Film) 1 film SUBLINGUAL TID [facility] Last Admin: 06/18/22 14:19 Dose: 1 film Clonazepam (Clonazepam 1 Mg Tablet) 1 mg PO BID [facility] Last Admin: 06/18/22 08:20 Dose: 1 mg Clonidine HCl (Clonidine Hcl 0.2 Mg Tablet) 0.2 mg PO TID PRN; Protocol PRN Reason: hyperarousal Last Admin: 06/18/22 16:41 Dose: 0.2 mg Haloperidol (Haloperidol 5 Mg Tablet) 5 mg PO DAILY [facility] Last Admin: 06/18/22 08:20 Dose: 5 mg Hydroxyzine HCl (Hydroxyzine Hcl 25 Mg Tablet) 75 mg PO Q6H PRN PRN Reason: Anxiety Last Admin: 06/17/22 10:08 Dose: 75 mg Magnesium Hydroxide (Milk Of Magnesia 30 Ml Oral.Susp) 30 ml PO DAILY PRN PRN Reason: Constipation Nicotine (Nicotine 14 Mg Patch.Td24) 14 mg TRANSDERMA DAILY PRN PRN Reason: anxiety/restlessness Nicotine Polacrilex (Nicotine Polacrilex Lozenge 4 Mg Lozenge) 4 mg BUCCAL Q2H PRN PRN Reason: Nicotine Cravings Last Admin: 06/18/22 16:41 Dose: 4 mg Olanzapine (Olanzapine 5 Mg Tablet) 5 mg PO Q6H PRN PRN Reason: psychosis Last Admin: 06/18/22 14:19 Dose: 5 mg Olanzapine (Olanzapine 10 Mg Tablet) 20 mg PO BEDTIME [facility] Last Admin: 06/17/22 20:31 Dose: 20 mg Ondansetron HCl (Ondansetron Odt 4 Mg Tab.Rapdis) 4 mg TRANSLINGU Q6H PRN PRN Reason: nausea Last Admin: 06/17/22 15:41 Dose: 4 mg Polyethylene Glycol (Polyethylene Glycol 3350 17 Gm Powd.Pack) 17 gm PO DAILY PRN PRN Reason: constipation Sertraline HCl (Sertraline Hcl 100 Mg Tablet) 100 mg PO DAILY [facility] Last Admin: 06/18/22 08:20 Dose: 100 mg Trazodone HCl (Trazodone Hcl 50 Mg Tablet) 50 mg PO BEDTIME PRN PRN Reason: Insomnia Allergies Allergies Allergy/AdvReac Type Severity Reaction Status Date / Time amoxicillin [AMOXICILLIN] Allergy Severe HIVES Unverified 05/12/20 15:58 Penicillins [PENICILLINS] Allergy Severe HIVES Unverified 05/12/20 15:58 acetaminophen [From TYLENOL] Allergy Unknown LIVER Unverified 05/12/20 15:58 PROBLEMS Assessment & Plan Assessment & Plan (1) Opioid use disorder: Status: Acute Code(s): F11.90 - Opioid use, unspecified, uncomplicated (2) Major depression with psychotic features: Status: Acute Code(s): F32.3 - Major depressive disorder, single episode, severe with psychotic features Plan Kevan is a 31 y.o. Male who carries a dx of opioid use disorder, schizoaffective disorder depressive type. Pt presented to [facility] ED 06/16/2022 via EMS due to experiencing chest pain. EKG showed NSR, QTc 429. He then endorsed SI without plan and worsening depression, AH. Precipitating fx include that 2 of his children were removed by DCF. Also has legal issues. Recently admitted to [facility] M5 05/15 due to similar presentation. He does not have current OP psych providers, as he did not follow up with referrals. Utox positive for opiates and cocaine. Plan: Will increase zyprexa to 20 mg HS for AH, mood stability. Increase sertraline to 100 mg for depression, anxiety. Increase clonidine to 0.2 mg TID PRN for hyperarousal, anxiety. D/C thorazine. Will start klonopin 1 mg BID for anxiety, agitation as bridge for increase in sertraline and zyprexa. 06/18: start buspar 20 mg at noon for anxiety, may increase to BID or TID as tolerated and if efficacious. Q15 min safety checks, CV Monitor response to medications. Monitor for safety in the milieu. Discharge on stabilization. Patient seen. Chart reviewed. Discussed with team. Obtain collateral contact info?as needed I spent minutes with the patient and/or on the patient floor today, greater than?50% of which was spent counseling/coordinating care. Patient educated on: diagnosis, medication risk/benefits and therapeutic strategies Reason for contiued inpatient stay Substantial Risk for: rapid decompensation and med/psych decompensation
[2022-06-18] MEDS: hydrOXYzine HCL 25 MG TABLET 75 MG PO (17:55)
[2022-06-18] MEDS: Ondansetron ODT 4 MG TAB.RAPDIS TRANSLINGU (17:55)
[2022-06-18] MEDS: OLANZapine 10 MG TABLET 20 MG PO (20:51)
[2022-06-19 08:09] VITALS: BP 107/72; PULSE 89; RESP 16; TEMP 37.2; O2SAT 96
[2022-06-19] MEDS: Sertraline HCL 100 MG TABLET PO (08:58)
[2022-06-19] MEDS: Buprenorphine/Naloxone 8/2 mg FILM 1 FILM SUBLINGUAL ×3 (08:58→19:26)
[2022-06-19] MEDS: clonazePAM 1 MG TABLET PO ×2 (08:58→19:26)
[2022-06-19] MEDS: HaloperidoL 5 MG TABLET PO (08:58)
[2022-06-19] MEDS: Nicotine Polacrilex Lozenge 4 MG LOZENGE BUCCAL ×6 (09:34→19:26)
[2022-06-19] MEDS: OLANZapine 5 MG TABLET PO (09:34)
[2022-06-19] MEDS: cloNIDine HCL 0.2 MG TABLET PO ×2 (11:37→15:57)
[2022-06-19] MEDS: busPIRone HCl 10 MG TABLET 20 MG PO (11:38)
[2022-06-19] MEDS: Ondansetron ODT 4 MG TAB.RAPDIS TRANSLINGU (13:21)
[2022-06-19 17:13] VITALS: BP 107/68; PULSE 107; RESP 16; TEMP 36.6; O2SAT 98
--- NOTE | 2022-06-19 18:30 | HO.PSYCHPN ---
Subjective Subjective Date of Service: 06/19/22 Reason For Visit: Depression Interim History: Discussed with team. Met with pt. Says he is tolerating buspar, it helps a little. Says the morning time meds seem to work the best for anxiety and voices. Asks to have haldol in the middle of the day. Sleep is not too bad. No physical health complaints. Going to groups. Daytime energy is better. No questions or concerns. Denies SI/SIB. Feels safe. Medication Compliance: Yes Side effects from medications: No Attending Groups: Intermittent Review of Systems Acute medical concerns: No Medical Review of Systems: unchanged Mental Status Exam Mental Status Exam Narrative: A&O. In hospital attire, unkempt. Poor eye contact, inattentive. No Tics or Tremors. No abnormal involuntary movements. Calm, guarded, difficult to engage. Non-pressured speech, spontaneous with regular rate and rhythm, normal volume and prosody. No prolonged speech latency or dysarthria. Mood is ?anxious,? affect is constricted. Denies SI/SIB/HI upon inquiry. Endorses AH. Denies VH. Appears internally preoccupied. Thoughts are distracted. No known cognitive or memory impairment. Insight/ Judgment fair and adequate. Diagnostics Vital Signs (24Hr): Vital Signs - 24 hr 06/19/22 08:09 06/19/22 17:13 Temperature 99 F 98 F Pulse Rate 89 107 H Respiratory Rate 16 16 Blood Pressure 107/72 107/68 Pulse Oximetry 96 98 Oxygen Delivery Method Room Air Room Air BMI result Body Mass Index 25.7 Labs Results: 06/16/22 11:55 06/16/22 13:53 Imaging Radiology Impressions: ITS Impressions Chest X-Ray 06/16/22 12:02 IMPRESSION: No acute cardiopulmonary process. Chest CTA 06/16/22 15:46 IMPRESSION: No evidence for any pulmonary embolism. VTE: negative Medications Medications Current Medications Al Hydroxide/Mg Hydroxide (Magnesium Hydrox/Alum Hydrox 30 Ml Oral.Susp) 30 ml PO Q6H PRN PRN Reason: Heartburn/Nausea Buprenorphine/Naloxone (Buprenorphine/Naloxone 8/2 Mg Film) 1 film SUBLINGUAL TID [facility] Last Admin: 06/19/22 14:52 Dose: 1 film Buspirone HCl (Buspirone Hcl 10 Mg Tablet) 20 mg PO DAILY@12 [facility] Last Admin: 06/19/22 11:38 Dose: 20 mg Clonazepam (Clonazepam 1 Mg Tablet) 1 mg PO BID [facility] Last Admin: 06/19/22 08:58 Dose: 1 mg Clonidine HCl (Clonidine Hcl 0.2 Mg Tablet) 0.2 mg PO TID PRN; Protocol PRN Reason: hyperarousal Last Admin: 06/19/22 15:57 Dose: 0.2 mg Haloperidol (Haloperidol 5 Mg Tablet) 5 mg PO DAILY [facility] Last Admin: 06/19/22 08:58 Dose: 5 mg Hydroxyzine HCl (Hydroxyzine Hcl 25 Mg Tablet) 75 mg PO Q6H PRN PRN Reason: Anxiety Last Admin: 06/18/22 17:55 Dose: 75 mg Magnesium Hydroxide (Milk Of Magnesia 30 Ml Oral.Susp) 30 ml PO DAILY PRN PRN Reason: Constipation Nicotine (Nicotine 14 Mg Patch.Td24) 14 mg TRANSDERMA DAILY PRN PRN Reason: anxiety/restlessness Nicotine Polacrilex (Nicotine Polacrilex Lozenge 4 Mg Lozenge) 4 mg BUCCAL Q2H PRN PRN Reason: Nicotine Cravings Last Admin: 06/19/22 17:27 Dose: 4 mg Olanzapine (Olanzapine 5 Mg Tablet) 5 mg PO Q6H PRN PRN Reason: psychosis Last Admin: 06/19/22 09:34 Dose: 5 mg Olanzapine (Olanzapine 10 Mg Tablet) 20 mg PO BEDTIME [facility] Last Admin: 06/18/22 20:51 Dose: 20 mg Ondansetron HCl (Ondansetron Odt 4 Mg Tab.Rapdis) 4 mg TRANSLINGU Q6H PRN PRN Reason: nausea Last Admin: 06/19/22 13:21 Dose: 4 mg Polyethylene Glycol (Polyethylene Glycol 3350 17 Gm Powd.Pack) 17 gm PO DAILY PRN PRN Reason: constipation Sertraline HCl (Sertraline Hcl 100 Mg Tablet) 100 mg PO DAILY [facility] Last Admin: 06/19/22 08:58 Dose: 100 mg Trazodone HCl (Trazodone Hcl 50 Mg Tablet) 50 mg PO BEDTIME PRN PRN Reason: Insomnia Allergies Allergies Allergy/AdvReac Type Severity Reaction Status Date / Time amoxicillin [AMOXICILLIN] Allergy Severe HIVES Unverified 05/12/20 15:58 Penicillins [PENICILLINS] Allergy Severe HIVES Unverified 05/12/20 15:58 acetaminophen [From TYLENOL] Allergy Unknown LIVER Unverified 05/12/20 15:58 PROBLEMS Assessment & Plan Assessment & Plan (1) Opioid use disorder: Status: Acute Code(s): F11.90 - Opioid use, unspecified, uncomplicated (2) Major depression with psychotic features: Status: Acute Code(s): F32.3 - Major depressive disorder, single episode, severe with psychotic features Plan Kevan is a 31 y.o. Male who carries a dx of opioid use disorder, schizoaffective disorder depressive type. Pt presented to [facility] [place] [facility] 06/16/2022 via EMS due to experiencing chest pain. EKG showed NSR, QTc 429. He then endorsed SI without plan and worsening depression, AH. Precipitating fx include that 2 of his children were removed by DCF. Also has legal issues. Recently admitted to [facility] [place] M5 05/15 due to similar presentation. He does not have current OP psych providers, as he did not follow up with referrals. Utox positive for opiates and cocaine. Plan: Will increase zyprexa to 20 mg HS for AH, mood stability. Increase sertraline to 100 mg for depression, anxiety. Increase clonidine to 0.2 mg TID PRN for hyperarousal, anxiety. D/C thorazine. Will start klonopin 1 mg BID for anxiety, agitation as bridge for increase in sertraline and zyprexa. 06/18: start buspar 20 mg at noon for anxiety, may increase to BID or TID as tolerated and if efficacious. 06/19: Continue buspar 20 mg at noon for anxiety and add haldol 5 mg at noon for AH due to reported benefit in the morning. Monitor for akathisia. Q15 min safety checks, CV Monitor response to medications. Monitor for safety in the milieu. Discharge on stabilization. Patient seen. Chart reviewed. Discussed with team. Obtain collateral contact info?as needed I spent minutes with the patient and/or on the patient floor today, greater than?50% of which was spent counseling/coordinating care. Patient educated on: diagnosis, medication risk/benefits and therapeutic strategies Reason for contiued inpatient stay Substantial Risk for: rapid decompensation and med/psych decompensation
[2022-06-19] MEDS: OLANZapine 10 MG TABLET 20 MG PO (19:26)
[2022-06-19] MEDS: traZODone HCL 50 MG TABLET PO (19:26)
[2022-06-20] MEDS: clonazePAM 1 MG TABLET PO ×2 (07:48→18:38)
[2022-06-20] MEDS: Sertraline HCL 100 MG TABLET PO (07:48)
[2022-06-20] MEDS: HaloperidoL 5 MG TABLET PO ×2 (07:48→11:44)
[2022-06-20] MEDS: Buprenorphine/Naloxone 8/2 mg FILM 1 FILM SUBLINGUAL ×3 (07:48→18:38)
[2022-06-20 08:16] VITALS: BP 110/70; PULSE 82; RESP 18; TEMP 37.1; O2SAT 98
[2022-06-20 09:27] LABS: Estimated Average Glucose 100 mg/dL; Hemoglobin A1c % 5.1 %
[2022-06-20 09:43] LABS: Cholesterol 151 mg/dL; HDL Cholesterol 34 mg/dL; LDL Cholesterol Calculated 85 mg/dl; Magnesium 1.9 mg/dL (1.6-2.6); Triglycerides 164 mg/dL
[2022-06-20 10:39] LABS: Folate 8.8 ng/mL (> or = 4.0); Vitamin B12 384 pg/mL (200-900)
[2022-06-20] MEDS: busPIRone HCl 10 MG TABLET 20 MG PO (11:44)
[2022-06-20] MEDS: OLANZapine 5 MG TABLET PO (11:54)
[2022-06-20] MEDS: Nicotine Polacrilex Lozenge 4 MG LOZENGE BUCCAL ×3 (11:54→18:38)
[2022-06-20] MEDS: cloNIDine HCL 0.2 MG TABLET PO (13:18)
[2022-06-20 13:21] VITALS: BP 106/64; PULSE 84
[2022-06-20] MEDS: hydrOXYzine HCL 25 MG TABLET 75 MG PO (14:37)
--- NOTE | 2022-06-20 16:58 | HO.PSYCHPN ---
Subjective Subjective Date of Service: 06/20/22 Reason For Visit: Depression Subjective Notes: Reid Warning Interim History: Discussed with team, met with pt. Says his meds are helping, I like them, no side effects. Sleep is a little better. No questions or concerns. Appetite is good. Says his voices are on and off, feeling better, able to ignore them. Mood is good. Anxiety is getting a little better. Feels safe. Medication Compliance: Yes Side effects from medications: No Attending Groups: Yes Review of Systems Acute medical concerns: No Medical Review of Systems: unchanged Mental Status Exam Mental Status Exam Narrative: A&O. In hospital attire, unkempt. Poor eye contact, inattentive. No Tics or Tremors. No abnormal involuntary movements. Calm, guarded, difficult to engage. Non-pressured speech, spontaneous with regular rate and rhythm, normal volume and prosody. No prolonged speech latency or dysarthria. Mood is ?better,? affect is constricted. Denies SI/SIB/HI upon inquiry. Endorses AH. Denies VH. Appears internally preoccupied. Thoughts are distracted. No known cognitive or memory impairment. Insight/ Judgment fair and adequate. Diagnostics Vital Signs (24Hr): Vital Signs - 24 hr 06/19/22 17:13 06/20/22 08:16 06/20/22 13:21 Temperature 98 F 98.8 F Pulse Rate 107 H 82 84 Respiratory Rate 16 18 Blood Pressure 107/68 110/70 106/64 Pulse Oximetry 98 98 Oxygen Delivery Method Room Air Room Air BMI result Body Mass Index 25.7 Labs Results: 06/16/22 11:55 06/16/22 13:53 Labs: Laboratory Results - last 48 hr 06/20/22 06/20/22 06/20/22 08:20 08:20 08:20 Estimat Average Glucose 100 Hemoglobin A1c % 5.1 Magnesium 1.9 Triglycerides 164 Cholesterol 151 LDL Cholesterol, Calc 85 HDL Cholesterol 34 Vitamin B12 384 Folate 8.8 Imaging Radiology Impressions: ITS Impressions Chest X-Ray 06/16/22 12:02 IMPRESSION: No acute cardiopulmonary process. Chest CTA 06/16/22 15:46 IMPRESSION: No evidence for any pulmonary embolism. VTE: negative Medications Medications Current Medications Al Hydroxide/Mg Hydroxide (Magnesium Hydrox/Alum Hydrox 30 Ml Oral.Susp) 30 ml PO Q6H PRN PRN Reason: Heartburn/Nausea Benztropine Mesylate (Benztropine Mesylate 0.5 Mg Tablet) 0.5 mg PO TID PRN PRN Reason: Extrapyramidal Effects Buprenorphine/Naloxone (Buprenorphine/Naloxone 8/2 Mg Film) 1 film SUBLINGUAL TID [facility] Last Admin: 06/20/22 14:27 Dose: 1 film Buspirone HCl (Buspirone Hcl 10 Mg Tablet) 20 mg PO DAILY@12 [facility] Last Admin: 06/20/22 11:44 Dose: 20 mg Clonazepam (Clonazepam 1 Mg Tablet) 1 mg PO BID [facility] Last Admin: 06/20/22 07:48 Dose: 1 mg Clonidine HCl (Clonidine Hcl 0.2 Mg Tablet) 0.2 mg PO TID PRN; Protocol PRN Reason: hyperarousal Last Admin: 06/20/22 13:18 Dose: 0.2 mg Haloperidol (Haloperidol 5 Mg Tablet) 5 mg PO DAILY [facility] Last Admin: 06/20/22 07:48 Dose: 5 mg Haloperidol (Haloperidol 5 Mg Tablet) 5 mg PO DAILY@12 [facility] Last Admin: 06/20/22 11:44 Dose: 5 mg Hydroxyzine HCl (Hydroxyzine Hcl 25 Mg Tablet) 75 mg PO Q6H PRN PRN Reason: Anxiety Last Admin: 06/20/22 14:37 Dose: 75 mg Magnesium Hydroxide (Milk Of Magnesia 30 Ml Oral.Susp) 30 ml PO DAILY PRN PRN Reason: Constipation Nicotine (Nicotine 14 Mg Patch.Td24) 14 mg TRANSDERMA DAILY PRN PRN Reason: anxiety/restlessness Nicotine Polacrilex (Nicotine Polacrilex Lozenge 4 Mg Lozenge) 4 mg BUCCAL Q2H PRN PRN Reason: Nicotine Cravings Last Admin: 06/20/22 14:37 Dose: 4 mg Olanzapine (Olanzapine 5 Mg Tablet) 5 mg PO Q6H PRN PRN Reason: psychosis Last Admin: 06/20/22 11:54 Dose: 5 mg Olanzapine (Olanzapine 10 Mg Tablet) 20 mg PO BEDTIME [facility] Last Admin: 06/19/22 19:26 Dose: 20 mg Ondansetron HCl (Ondansetron Odt 4 Mg Tab.Rapdis) 4 mg TRANSLINGU Q6H PRN PRN Reason: nausea Last Admin: 06/19/22 13:21 Dose: 4 mg Polyethylene Glycol (Polyethylene Glycol 3350 17 Gm Powd.Pack) 17 gm PO DAILY PRN PRN Reason: constipation Sertraline HCl (Sertraline Hcl 100 Mg Tablet) 100 mg PO DAILY [facility] Last Admin: 06/20/22 07:48 Dose: 100 mg Trazodone HCl (Trazodone Hcl 50 Mg Tablet) 50 mg PO BEDTIME PRN PRN Reason: Insomnia Last Admin: 06/19/22 19:26 Dose: 50 mg Allergies Allergies Allergy/AdvReac Type Severity Reaction Status Date / Time amoxicillin [AMOXICILLIN] Allergy Severe HIVES Unverified 05/12/20 15:58 Penicillins [PENICILLINS] Allergy Severe HIVES Unverified 05/12/20 15:58 acetaminophen [From TYLENOL] Allergy Unknown LIVER Unverified 05/12/20 15:58 PROBLEMS Assessment & Plan Assessment & Plan (1) Opioid use disorder: Status: Acute Code(s): F11.90 - Opioid use, unspecified, uncomplicated (2) Major depression with psychotic features: Status: Acute Code(s): F32.3 - Major depressive disorder, single episode, severe with psychotic features Plan Kevan is a 31 y.o. Male who carries a dx of opioid use disorder, schizoaffective disorder depressive type. Pt presented to [facility] [place] [facility] 06/16/2022 via EMS due to experiencing chest pain. EKG showed NSR, QTc 429. He then endorsed SI without plan and worsening depression, AH. Precipitating fx include that 2 of his children were removed by DCF. Also has legal issues. Recently admitted to [facility] [place] M5 05/15 due to similar presentation. He does not have current OP psych providers, as he did not follow up with referrals. Utox positive for opiates and cocaine. Plan: Will increase zyprexa to 20 mg HS for AH, mood stability. Increase sertraline to 100 mg for depression, anxiety. Increase clonidine to 0.2 mg TID PRN for hyperarousal, anxiety. D/C thorazine. Will start klonopin 1 mg BID for anxiety, agitation as bridge for increase in sertraline and zyprexa. 06/18: start buspar 20 mg at noon for anxiety, may increase to BID or TID as tolerated and if efficacious. 06/19: Continue buspar 20 mg at noon for anxiety and add haldol 5 mg at noon for AH due to reported benefit in the morning. Monitor for akathisia. 06/20: No med changes, pt is doing better with anxiety, depression, and AH are quieter, able to ignore. Sleep is better. Q15 min safety checks, CV Monitor response to medications. Monitor for safety in the milieu. Discharge on stabilization. Patient seen. Chart reviewed. Discussed with team. Obtain collateral contact info?as needed I spent minutes with the patient and/or on the patient floor today, greater than?50% of which was spent counseling/coordinating care. Patient educated on: diagnosis, medication risk/benefits and therapeutic strategies Reason for contiued inpatient stay Substantial Risk for: rapid decompensation and med/psych decompensation
[2022-06-20 18:00] VITALS: BP 131/75; PULSE 96; RESP 16
[2022-06-20] MEDS: traZODone HCL 50 MG TABLET PO (18:39)
[2022-06-21 07:00] VITALS: BMI 26.7
[2022-06-21 07:50] VITALS: BP 112/76; PULSE 109; RESP 18; TEMP 36.5; O2SAT 98
[2022-06-21] MEDS: Buprenorphine/Naloxone 8/2 mg FILM 1 FILM SUBLINGUAL ×3 (07:59→18:41)
[2022-06-21] MEDS: clonazePAM 1 MG TABLET PO ×2 (07:59→18:42)
[2022-06-21] MEDS: Sertraline HCL 100 MG TABLET PO (07:59)
[2022-06-21] MEDS: HaloperidoL 5 MG TABLET PO ×2 (07:59→11:27)
--- NOTE | 2022-06-21 09:10 | P.PNPSI_ITS ---
Subjective Subjective Date of Service: 06/21/22 Reason For Visit: Depression Interim History: Patient reports that he is feeling better than on admission. Still depressed but better. No SI and no HI. Still has intermittent auditory hallucinations but they are less bothersome. He continues to work on challenging psychotic symptoms with reality testing. Feels like this is due to Zyprexa. He agrees to discontinue extra Haldol doses in favor of adding extra Zyprexa during the day either scheduled or p.r.n.. Patient reports that he has significant social anxiety which is exacerbated by his schizophrenic paranoid thinking. He says he naturally is anxious around people however he'lll also have paranoid thoughts that they can read his mind which only makes it worse. On admission, Patient was started on clonazepam which he said has been very helpful. Strategy Consultant discussed risks of this medication including addiction and risk of combining it with substance abuse which patient understands but very much wants to remain on it saying he will be very careful. Strategy Consultant also discussed that this medication was initially started by admitting him provider with the understanding that as other medications become therapeutic this could be reduced. He agrees to increased in Zoloft dose. Patient reports sleeping well. Discussed substance abuse and patient says he has been on Suboxone before which was helpful. Discussed making it increased dose in the morning to better protect him throughout the day and he will consider. Mental Status Exam Mental Status Exam Narrative: Pt is alert and oriented; behavior is cooperative, calm; patient is not in distress; dressed in casual attire/hospital pants with unkempt hair but adequate hygiene; mood is described as ok and affect congruent blunted; eye contact a blank stare; Speech is slowed rate; normal volume and prosody and not pressured; psychomotor retardation present; thought process is goal directed; Thought content is on tx, challenging psychotic symptoms w/ reality testing; otherwise pertinent to relevant topics; intermittent delusional, paranoid ideations; denies any SI/HI. Intermittent AH; Patients insight and judgment are impaired but adequate Diagnostics Vital Signs (24Hr): Vital Signs - 24 hr 06/20/22 13:21 06/20/22 18:00 06/21/22 07:50 Temperature 97.7 F Pulse Rate 84 96 109 H Respiratory Rate 16 18 Blood Pressure 106/64 131/75 112/76 Pulse Oximetry 98 Oxygen Delivery Method Room Air BMI result Body Mass Index 26.7 Labs Results: 06/16/22 11:55 06/16/22 13:53 Labs: Laboratory Results - last 48 hr 06/20/22 06/20/22 06/20/22 08:20 08:20 08:20 Estimat Average Glucose 100 Hemoglobin A1c % 5.1 Magnesium 1.9 Triglycerides 164 Cholesterol 151 LDL Cholesterol, Calc 85 HDL Cholesterol 34 Vitamin B12 384 Folate 8.8 Imaging Radiology Impressions: ITS Impressions Chest X-Ray 06/16/22 12:02 IMPRESSION: No acute cardiopulmonary process. Chest CTA 06/16/22 15:46 IMPRESSION: No evidence for any pulmonary embolism. VTE: negative Medications Medications Current Medications Al Hydroxide/Mg Hydroxide (Magnesium Hydrox/Alum Hydrox 30 Ml Oral.Susp) 30 ml PO Q6H PRN PRN Reason: Heartburn/Nausea Benztropine Mesylate (Benztropine Mesylate 0.5 Mg Tablet) 0.5 mg PO TID PRN PRN Reason: Extrapyramidal Effects Buprenorphine/Naloxone (Buprenorphine/Naloxone 8/2 Mg Film) 1 film SUBLINGUAL TID [facility] Last Admin: 06/21/22 07:59 Dose: 1 film Buspirone HCl (Buspirone Hcl 10 Mg Tablet) 20 mg PO DAILY@12 [facility] Last Admin: 06/20/22 11:44 Dose: 20 mg Clonazepam (Clonazepam 1 Mg Tablet) 1 mg PO BID [facility] Last Admin: 06/21/22 07:59 Dose: 1 mg Clonidine HCl (Clonidine Hcl 0.2 Mg Tablet) 0.2 mg PO TID PRN; Protocol PRN Reason: hyperarousal Last Admin: 06/20/22 13:18 Dose: 0.2 mg Haloperidol (Haloperidol 5 Mg Tablet) 5 mg PO DAILY [facility] [place] Last Admin: 06/21/22 07:59 Dose: 5 mg Haloperidol (Haloperidol 5 Mg Tablet) 5 mg PO DAILY@12 [facility] Last Admin: 06/20/22 11:44 Dose: 5 mg Hydroxyzine HCl (Hydroxyzine Hcl 25 Mg Tablet) 75 mg PO Q6H PRN PRN Reason: Anxiety Last Admin: 06/20/22 14:37 Dose: 75 mg Magnesium Hydroxide (Milk Of Magnesia 30 Ml Oral.Susp) 30 ml PO DAILY PRN PRN Reason: Constipation Nicotine (Nicotine 14 Mg Patch.Td24) 14 mg TRANSDERMA DAILY PRN PRN Reason: anxiety/restlessness Nicotine Polacrilex (Nicotine Polacrilex Lozenge 4 Mg Lozenge) 4 mg BUCCAL Q2H PRN PRN Reason: Nicotine Cravings Last Admin: 06/20/22 18:38 Dose: 4 mg Olanzapine (Olanzapine 5 Mg Tablet) 5 mg PO Q6H PRN PRN Reason: psychosis Last Admin: 06/20/22 11:54 Dose: 5 mg Olanzapine (Olanzapine 10 Mg Tablet) 20 mg PO BEDTIME [facility] Last Admin: 06/20/22 19:53 Dose: Not Given Ondansetron HCl (Ondansetron Odt 4 Mg Tab.Rapdis) 4 mg TRANSLINGU Q6H PRN PRN Reason: nausea Last Admin: 06/19/22 13:21 Dose: 4 mg Polyethylene Glycol (Polyethylene Glycol 3350 17 Gm Powd.Pack) 17 gm PO DAILY PRN PRN Reason: constipation Sertraline HCl (Sertraline Hcl 100 Mg Tablet) 100 mg PO DAILY [facility] Last Admin: 06/21/22 07:59 Dose: 100 mg Trazodone HCl (Trazodone Hcl 50 Mg Tablet) 50 mg PO BEDTIME PRN PRN Reason: Insomnia Last Admin: 06/20/22 18:39 Dose: 50 mg Allergies Allergies Allergy/AdvReac Type Severity Reaction Status Date / Time amoxicillin [AMOXICILLIN] Allergy Severe HIVES Unverified 05/12/20 15:58 Penicillins [PENICILLINS] Allergy Severe HIVES Unverified 05/12/20 15:58 acetaminophen [From TYLENOL] Allergy Unknown LIVER Unverified 05/12/20 15:58 PROBLEMS Assessment & Plan Assessment & Plan (1) Schizoaffective disorder: Status: Acute Code(s): F25.9 - Schizoaffective disorder, unspecified (2) Opioid use disorder: Status: Acute Code(s): F11.90 - Opioid use, unspecified, uncomplicated Plan Kevan is a 31 y.o. Male who carries a dx of opioid use disorder, schizoaffective disorder depressive type. Pt presented [place] [facility] [place]/16/2022 via EMS due to experiencing chest pain. EKG showed NSR, QTc 429. He then endorsed SI without plan and worsening depression, AH. Precipitating fx include that 2 of his children were removed by DCF. Also has legal issues. Recently admitted [place] [facility] 05/15 due to similar presentation. He does not have current OP psych providers, as he did not follow up with referrals. Utox positive for opiates and cocaine. 06/21 patient reports that he is doing better, mood is better, no SI or HI. AH is lessening though still remains; patient challenges paranoid thinking with reality testing however it remains intermittently bothersome. Patient is open to medication adjustments and will DC Haldol in favor of maximizing Zyprexa to limit risks of TD. Discussed risks of benzodiazepines and the initial plan to use this only as a bridge mechanism for anxiety; however patient very much wants to remain on it. PLAN: Q15 min safety checks, CV -Discontinue Haldol; instead will add Zyprexa to see if this can help with breakthrough psychotic symptoms (Zyprexa has been effective; adding 2nd psychotic to regimen increases risk of TD) -Added Zyprexa p.r.n. for breakthrough symptoms; if patient does not need them he will not take them, but they are available -Increase Zoloft to 125 mg will most likely further titrate to 150 mg for anxiety/depression -Changed Klonopin 1 mg b.i.d. to morning and afternoon at patient's request; health technical writer wants to lower these medications as other meds increase effectiveness; patient wants to remain on them. It was started on admission. At this point health technical writer agrees to continue these medications as patient is getting significant benefit from it; of course it does carry risks both of addiction and if combined with substance abuse; patient understands risks -Discontinue clonidine for now. Patient says not helping that much; blood pressures are mostly within normal limits. Will monitor blood pressure -continue Suboxone 8/2 mg t.i.d.; patient likes it t.i.d.; health technical writer discussed potential benefits of making more of it in the morning which would cover more of patient's receptors throughout the day, lowering cravings/risks -Continue buspar Monitor response to medications. Monitor for safety in the milieu. Discharge on stabilization. Patient seen. Chart reviewed. Discussed with team. Obtain collateral contact info?as needed I spent minutes with the patient and/or on the patient floor today, greater than?50% of which was spent counseling/coordinating care. Patient educated on: diagnosis, medication risk/benefits and substance abuse Informed Consent: understands Reason for contiued inpatient stay Substantial Risk for: rapid decompensation
[2022-06-21] MEDS: Nicotine Polacrilex Lozenge 4 MG LOZENGE BUCCAL ×5 (09:26→18:42)
[2022-06-21] MEDS: OLANZapine 5 MG TABLET PO (09:26)
[2022-06-21] MEDS: hydrOXYzine HCL 25 MG TABLET 75 MG PO (10:43)
[2022-06-21] MEDS: busPIRone HCl 10 MG TABLET 20 MG PO (11:27)
[2022-06-21] MEDS: cloNIDine HCL 0.2 MG TABLET PO (13:48)
[2022-06-21] MEDS: Sertraline HCL 25 MG TABLET PO (16:12)
[2022-06-21 18:00] VITALS: BP 114/54; BP 114/64; PULSE 83; RESP 16; TEMP 36.6; O2SAT 97
[2022-06-21] MEDS: traZODone HCL 50 MG TABLET PO (18:42)
[2022-06-21] MEDS: OLANZapine 10 MG TABLET 20 MG PO (18:42)
--- NOTE | 2022-06-22 08:24 | HO.PSYCHPN ---
Subjective Subjective Date of Service: 06/22/22 Reason For Visit: Depression Interim History: Patient says that he is good that depression remains resolved and he denies any SI or HI. He says he has on and off auditory hallucinations but is able to ignore them. Anxiety is also down. He agrees to further titration of Zoloft. Patient would like to keep Suboxone at 8/2 mg t.i.d. he says he put in a 3 day notice and would like to leave next week either to a program or to his friend's house whichever comes 1st Mental Status Exam Mental Status Exam Narrative: Pt is alert and oriented; behavior is cooperative, calm; patient is not in distress; dressed in casual attire/hospital pants with unkempt hair, marginal hygiene; mood is described as ok and affect congruent blunted; eye contact appropriate; Speech is slowed rate; normal volume and prosody and not pressured; no psychomotor retardation; thought process is goal directed; Thought content is on tx, challenging psychotic symptoms w/ reality testing; otherwise pertinent to relevant topics; intermittent delusional, paranoid ideations; denies any SI/HI. Intermittent AH but able to be ignored; Patients insight and judgment are impaired but adequate Diagnostics Vital Signs (24Hr): Vital Signs - 24 hr 06/21/22 18:00 06/21/22 18:00 Temperature 98 F 98 F Pulse Rate 83 83 Respiratory Rate 16 Blood Pressure 114/64 114/54 L Pulse Oximetry 97 97 Oxygen Delivery Method Room Air Room Air BMI result Body Mass Index 26.7 Labs Results: 06/16/22 11:55 06/16/22 13:53 Labs: Laboratory Results - last 48 hr 06/20/22 06/20/22 06/20/22 08:20 08:20 08:20 Estimat Average Glucose 100 Hemoglobin A1c % 5.1 Magnesium 1.9 Triglycerides 164 Cholesterol 151 LDL Cholesterol, Calc 85 HDL Cholesterol 34 Vitamin B12 384 Folate 8.8 Imaging Radiology Impressions: ITS Impressions Chest X-Ray 06/16/22 12:02 IMPRESSION: No acute cardiopulmonary process. Chest CTA 06/16/22 15:46 IMPRESSION: No evidence for any pulmonary embolism. VTE: negative Medications Medications Current Medications Al Hydroxide/Mg Hydroxide (Magnesium Hydrox/Alum Hydrox 30 Ml Oral.Susp) 30 ml PO Q6H PRN PRN Reason: Heartburn/Nausea Benztropine Mesylate (Benztropine Mesylate 0.5 Mg Tablet) 0.5 mg PO TID PRN PRN Reason: Extrapyramidal Effects Buprenorphine/Naloxone (Buprenorphine/Naloxone 8/2 Mg Film) 1 film SUBLINGUAL TID [facility] Last Admin: 06/21/22 18:41 Dose: 1 film Buspirone HCl (Buspirone Hcl 10 Mg Tablet) 20 mg PO DAILY@12 [facility] Last Admin: 06/21/22 11:27 Dose: 20 mg Clonazepam (Clonazepam 1 Mg Tablet) 1 mg PO BID@0900,1400 [facility] Hydroxyzine HCl (Hydroxyzine Hcl 25 Mg Tablet) 75 mg PO Q6H PRN PRN Reason: Anxiety Last Admin: 06/21/22 10:43 Dose: 75 mg Magnesium Hydroxide (Milk Of Magnesia 30 Ml Oral.Susp) 30 ml PO DAILY PRN PRN Reason: Constipation Nicotine (Nicotine 14 Mg Patch.Td24) 14 mg TRANSDERMA DAILY PRN PRN Reason: anxiety/restlessness Nicotine Polacrilex (Nicotine Polacrilex Lozenge 4 Mg Lozenge) 4 mg BUCCAL Q2H PRN PRN Reason: Nicotine Cravings Last Admin: 06/21/22 18:42 Dose: 4 mg Olanzapine (Olanzapine 5 Mg Tablet) 5 mg PO Q6H PRN PRN Reason: psychosis Last Admin: 06/21/22 09:26 Dose: 5 mg Olanzapine (Olanzapine 10 Mg Tablet) 20 mg PO BEDTIME [facility] Last Admin: 06/21/22 18:42 Dose: 20 mg Ondansetron HCl (Ondansetron Odt 4 Mg Tab.Rapdis) 4 mg TRANSLINGU Q6H PRN PRN Reason: nausea Last Admin: 06/19/22 13:21 Dose: 4 mg Polyethylene Glycol (Polyethylene Glycol 3350 17 Gm Powd.Pack) 17 gm PO DAILY PRN PRN Reason: constipation Sertraline HCl (Sertraline Hcl 25 Mg Tablet) 125 mg PO DAILY [facility] Trazodone HCl (Trazodone Hcl 50 Mg Tablet) 50 mg PO BEDTIME PRN PRN Reason: Insomnia Last Admin: 06/21/22 18:42 Dose: 50 mg Allergies Allergies Allergy/AdvReac Type Severity Reaction Status Date / Time amoxicillin [AMOXICILLIN] Allergy Severe HIVES Unverified 05/12/20 15:58 Penicillins [PENICILLINS] Allergy Severe HIVES Unverified 05/12/20 15:58 acetaminophen [From TYLENOL] Allergy Unknown LIVER Unverified 05/12/20 15:58 PROBLEMS Assessment & Plan Assessment & Plan (1) Schizoaffective disorder: Status: Acute Code(s): F25.9 - Schizoaffective disorder, unspecified (2) Opioid use disorder: Status: Acute Code(s): F11.90 - Opioid use, unspecified, uncomplicated Plan Kevan is a 31 y.o. Male who carries a dx of opioid use disorder, schizoaffective disorder depressive type. Pt presented to [facility] 06/16/2022 via EMS due to experiencing chest pain. EKG showed NSR, QTc 429. He then endorsed SI without plan and worsening depression, AH. Precipitating fx include that 2 of his children were removed by DCF. Also has legal issues. Recently admitted to [facility] 05/15 due to similar presentation. He does not have current OP psych providers, as he did not follow up with referrals. Utox positive for opiates and cocaine. 06/21 patient reports that he is doing better, mood is better, no SI or HI. AH is lessening though still remains; patient challenges paranoid thinking with reality testing however it remains intermittently bothersome. Patient is open to medication adjustments and will DC Haldol in favor of maximizing Zyprexa to limit risks of TD. Discussed risks of benzodiazepines and the initial plan to use this only as a bridge mechanism for anxiety; however patient very much wants to remain on it. 06/22 remains in good mood, no SI and no HI; AH manageable. Put in 3 day notice said he wants to go to a program worse friends whichever comes 1st. Anxiety doing better; Agrees to further increase in Zoloft; patient wants to remain on clonazepam at current dose; while telegraphic typewriter repairer agrees it is helping, patient does report that anxiety is improving and it seems at this point it is in patient's best interest to lower the dose as much as possible, especially given that he may not be going to the structured environment of her program. PLAN: 3 day notice Q15 min safety checks, -Discontinue Haldol; instead will add Zyprexa to see if this can help with breakthrough psychotic symptoms (Zyprexa has been effective; adding 2nd psychotic to regimen increases risk of TD) -Added Zyprexa p.r.n. for breakthrough symptoms; if patient does not need them he will not take them, but they are available -INCREASE to Zoloft to 150 mg will most likely further titrate to 150 mg for anxiety/depression -Klonopin 1 mg b.i.d.0900/1400; Will likely lower; plan has been to lower these medications as other meds increase effectiveness; patient wants to remain on them. It was started on admission. At this point telegraphic typewriter repairer agrees to continue these medications as patient is getting significant benefit from it; of course it does carry risks both of addiction and if combined with substance abuse; patient understands risks -Discontinue clonidine for now. Patient says not helping that much; blood pressures are mostly within normal limits. Will monitor blood pressure -continue Suboxone 8/2 mg t.i.d.; patient likes it t.i.d.; telegraphic typewriter repairer discussed potential benefits of making more of it in the morning which would cover more of patient's receptors throughout the day, lowering cravings/risks -Continue buspar Monitor response to medications. Monitor for safety in the milieu. Discharge on stabilization. Patient seen. Chart reviewed. Discussed with team. Obtain collateral contact info?as needed I spent minutes with the patient and/or on the patient floor today, greater than?50% of which was spent counseling/coordinating care. Patient educated on: diagnosis, medication risk/benefits and substance abuse Informed Consent: understands Reason for contiued inpatient stay Substantial Risk for: stable for discharge
[2022-06-22] MEDS: Buprenorphine/Naloxone 8/2 mg FILM 1 FILM SUBLINGUAL ×3 (08:36→18:33)
[2022-06-22] MEDS: clonazePAM 1 MG TABLET PO ×2 (08:37→13:46)
[2022-06-22] MEDS: Sertraline HCL 25 MG TABLET 125 MG PO (08:37)
[2022-06-22 08:39] VITALS: BP 126/74; PULSE 84; RESP 16; TEMP 36.4; O2SAT 100
[2022-06-22] MEDS: OLANZapine 5 MG TABLET PO (09:46)
[2022-06-22] MEDS: Nicotine Polacrilex Lozenge 4 MG LOZENGE BUCCAL ×3 (09:47→18:33)
[2022-06-22] MEDS: busPIRone HCl 10 MG TABLET 20 MG PO (11:41)
[2022-06-22] MEDS: hydrOXYzine HCL 25 MG TABLET 75 MG PO (12:22)
--- NOTE | 2022-06-22 12:25 | PC.NURSE ---
Pt signed 3-day notice. Up on Sat06/27/22. , DISHA, UR aware.
[2022-06-22 17:13] VITALS: BP 118/74; PULSE 78; RESP 16; TEMP 36.6; O2SAT 98
[2022-06-22] MEDS: traZODone HCL 50 MG TABLET PO (18:32)
[2022-06-22] MEDS: OLANZapine 10 MG TABLET 20 MG PO (18:33)
[2022-06-23] MEDS: clonazePAM 0.5 MG TABLET PO ×2 (09:31→14:53)
[2022-06-23] MEDS: Sertraline HCL 50 MG TABLET 150 MG PO (09:31)
[2022-06-23] MEDS: Buprenorphine/Naloxone 8/2 mg FILM 1 FILM SUBLINGUAL ×3 (09:32→19:41)
[2022-06-23 09:33] VITALS: BP 123/82; PULSE 84; RESP 16; TEMP 36.8; O2SAT 98
[2022-06-23] MEDS: OLANZapine 5 MG TABLET PO ×2 (10:24→18:17)
[2022-06-23] MEDS: Nicotine Polacrilex Lozenge 4 MG LOZENGE BUCCAL ×3 (10:24→19:44)
[2022-06-23] MEDS: busPIRone HCl 10 MG TABLET 20 MG PO (11:31)
[2022-06-23] MEDS: hydrOXYzine HCL 25 MG TABLET 75 MG PO (12:02)
--- NOTE | 2022-06-23 13:15 | HO.PSYCHPN ---
Subjective Subjective Date of Service: 06/23/22 Reason For Visit: Depression Interim History: Patient seen and discussed. Patient reports he is feeling more anxious since his Klonopin was lowered. He is still having some AH. Says his PRN's helpful but less than the Klonopin. Denies SI. Review of Systems Review of Systems Constitutional : No Weight loss, No Fever, No Chills ENT/Mouth : No sore throat, No Rhinorrhea Eyes: No Eye Pain, No Swelling Cardiovascular : pos Chest Pain, pos SOB, no Dyspnea on Exertion, No Orthopnea, No Edema, No Palpitations Respiratory : No Cough, No Sputum Gastrointestinal : no Nausea, No Vomiting, No Diarrhea, No abdominal Pain, No Hematochezia, No Melena Genitourinary : No Dysuria, No Urinary Frequency Musculoskeletal : No joint pain, No Myalgias, No Joint Swelling Skin : No Skin Lesions, No rash Neuro : No Weakness, No Numbness, No Dizziness, No Headache Psych : No Anxiety/Panic, No Depression Heme/Lymph: No Bruising, No Lymphadenopathy Endocrine : No Polyuria, No Polydipsia All other systems reviewed and are negative Mental Status Exam Mental Status Exam Narrative: Pt is alert and oriented; behavior is cooperative, calm; patient is not in distress; dressed in casual attire/hospital pants with unkempt hair, marginal hygiene; mood is described as ok and affect congruent blunted; eye contact appropriate; Speech is slowed rate; normal volume and prosody and not pressured; no psychomotor retardation; thought process is goal directed; Thought content is on tx, challenging psychotic symptoms w/ reality testing; otherwise pertinent to relevant topics; intermittent delusional, paranoid ideations; denies any SI/HI. Intermittent AH but able to be ignored; Patients insight and judgment are impaired but adequate Diagnostics Vital Signs (24Hr): Vital Signs - 24 hr 06/22/22 17:13 06/23/22 09:33 Temperature 98 F 98.2 F Pulse Rate 78 84 Respiratory Rate 16 16 Blood Pressure 118/74 123/82 Pulse Oximetry 98 98 Oxygen Delivery Method Room Air Room Air BMI result Body Mass Index 26.7 Labs Results: 06/16/22 11:55 06/16/22 13:53 Imaging Radiology Impressions: ITS Impressions Chest X-Ray 06/16/22 12:02 IMPRESSION: No acute cardiopulmonary process. Chest CTA 06/16/22 15:46 IMPRESSION: No evidence for any pulmonary embolism. VTE: negative Medications Medications Current Medications Al Hydroxide/Mg Hydroxide (Magnesium Hydrox/Alum Hydrox 30 Ml Oral.Susp) 30 ml PO Q6H PRN PRN Reason: Heartburn/Nausea Benztropine Mesylate (Benztropine Mesylate 0.5 Mg Tablet) 0.5 mg PO TID PRN PRN Reason: Extrapyramidal Effects Buprenorphine/Naloxone (Buprenorphine/Naloxone 8/2 Mg Film) 1 film SUBLINGUAL TID [facility] Last Admin: 06/23/22 09:32 Dose: 1 film Buspirone HCl (Buspirone Hcl 10 Mg Tablet) 20 mg PO DAILY@12 [facility] Last Admin: 06/23/22 11:31 Dose: 20 mg Clonazepam (Clonazepam 0.5 Mg Tablet) 0.5 mg PO BID@0900,1400 [facility] Last Admin: 06/23/22 09:31 Dose: 0.5 mg Hydroxyzine HCl (Hydroxyzine Hcl 25 Mg Tablet) 75 mg PO Q6H PRN PRN Reason: Anxiety Last Admin: 06/23/22 12:02 Dose: 75 mg Magnesium Hydroxide (Milk Of Magnesia 30 Ml Oral.Susp) 30 ml PO DAILY PRN PRN Reason: Constipation Nicotine (Nicotine 14 Mg Patch.Td24) 14 mg TRANSDERMA DAILY PRN PRN Reason: anxiety/restlessness Nicotine Polacrilex (Nicotine Polacrilex Lozenge 4 Mg Lozenge) 4 mg BUCCAL Q2H PRN PRN Reason: Nicotine Cravings Last Admin: 06/23/22 10:24 Dose: 4 mg Olanzapine (Olanzapine 5 Mg Tablet) 5 mg PO Q6H PRN PRN Reason: psychosis Last Admin: 06/23/22 10:24 Dose: 5 mg Olanzapine (Olanzapine 10 Mg Tablet) 20 mg PO BEDTIME [facility] Last Admin: 06/22/22 18:33 Dose: 20 mg Ondansetron HCl (Ondansetron Odt 4 Mg Tab.Rapdis) 4 mg TRANSLINGU Q6H PRN PRN Reason: nausea Last Admin: 06/19/22 13:21 Dose: 4 mg Polyethylene Glycol (Polyethylene Glycol 3350 17 Gm Powd.Pack) 17 gm PO DAILY PRN PRN Reason: constipation Sertraline HCl (Sertraline Hcl 50 Mg Tablet) 150 mg PO DAILY [facility] Last Admin: 06/23/22 09:31 Dose: 150 mg Trazodone HCl (Trazodone Hcl 50 Mg Tablet) 50 mg PO BEDTIME PRN PRN Reason: Insomnia Last Admin: 06/22/22 18:32 Dose: 50 mg Allergies Allergies Allergy/AdvReac Type Severity Reaction Status Date / Time amoxicillin [AMOXICILLIN] Allergy Severe HIVES Unverified 05/12/20 15:58 Penicillins [PENICILLINS] Allergy Severe HIVES Unverified 05/12/20 15:58 acetaminophen [From TYLENOL] Allergy Unknown LIVER Unverified 05/12/20 15:58 PROBLEMS Assessment & Plan Assessment & Plan (1) Schizoaffective disorder: Status: Acute Code(s): F25.9 - Schizoaffective disorder, unspecified (2) Opioid use disorder: Status: Acute Code(s): F11.90 - Opioid use, unspecified, uncomplicated Plan Kevan is a 31 y.o. Male who carries a dx of opioid use disorder, schizoaffective disorder depressive type. Pt presented to [facility] 06/16/2022 via EMS due to experiencing chest pain. EKG showed NSR, QTc 429. He then endorsed SI without plan and worsening depression, AH. Precipitating fx include that 2 of his children were removed by DCF. Also has legal issues. Recently admitted to [facility] 05/15 due to similar presentation. He does not have current OP psych providers, as he did not follow up with referrals. Utox positive for opiates and cocaine. 06/21 patient reports that he is doing better, mood is better, no SI or HI. AH is lessening though still remains; patient challenges paranoid thinking with reality testing however it remains intermittently bothersome. Patient is open to medication adjustments and will DC Haldol in favor of maximizing Zyprexa to limit risks of TD. Discussed risks of benzodiazepines and the initial plan to use this only as a bridge mechanism for anxiety; however patient very much wants to remain on it. 06/22 remains in good mood, no SI and no HI; AH manageable. Put in 3 day notice said he wants to go to a program worse friends whichever comes 1st. Anxiety doing better; Agrees to further increase in Zoloft; patient wants to remain on clonazepam at current dose; while internal communications writer agrees it is helping, patient does report that anxiety is improving and it seems at this point it is in patient's best interest to lower the dose as much as possible, especially given that he may not be going to the structured environment of her program. 06/23: Continue treatment plan. PLAN: 3 day notice Q15 min safety checks, -Discontinue Haldol; instead will add Zyprexa to see if this can help with breakthrough psychotic symptoms (Zyprexa has been effective; adding 2nd psychotic to regimen increases risk of TD) -Added Zyprexa p.r.n. for breakthrough symptoms; if patient does not need them he will not take them, but they are available -INCREASE to Zoloft to 150 mg will most likely further titrate to 150 mg for anxiety/depression -Klonopin 1 mg b.i.d.0900/1400; Will likely lower; plan has been to lower these medications as other meds increase effectiveness; patient wants to remain on them. It was started on admission. At this point internal communications writer agrees to continue these medications as patient is getting significant benefit from it; of course it does carry risks both of addiction and if combined with substance abuse; patient understands risks -Discontinue clonidine for now. Patient says not helping that much; blood pressures are mostly within normal limits. Will monitor blood pressure -continue Suboxone 8/2 mg t.i.d.; patient likes it t.i.d.; internal communications writer discussed potential benefits of making more of it in the morning which would cover more of patient's receptors throughout the day, lowering cravings/risks -Continue buspar Monitor response to medications. Monitor for safety in the milieu. Discharge on stabilization. Patient seen. Chart reviewed. Discussed with team. Obtain collateral contact info?as needed I spent minutes with the patient and/or on the patient floor today, greater than?50% of which was spent counseling/coordinating care. Reason for contiued inpatient stay Substantial Risk for: harm to self, inability to function and rapid decompensation
[2022-06-23 18:00] VITALS: BP 112/74; PULSE 101; RESP 16; TEMP 36.7
[2022-06-23] MEDS: OLANZapine 10 MG TABLET 20 MG PO (19:42)
[2022-06-23] MEDS: traZODone HCL 50 MG TABLET PO (19:42)
[2022-06-24] MEDS: hydrOXYzine HCL 25 MG TABLET 75 MG PO ×3 (04:15→20:08)
[2022-06-24] MEDS: Nicotine Polacrilex Lozenge 4 MG LOZENGE BUCCAL ×5 (04:20→20:08)
[2022-06-24] MEDS: clonazePAM 0.5 MG TABLET PO ×2 (08:37→13:23)
[2022-06-24] MEDS: Buprenorphine/Naloxone 8/2 mg FILM 1 FILM SUBLINGUAL ×3 (08:37→18:45)
[2022-06-24] MEDS: Sertraline HCL 50 MG TABLET 150 MG PO (08:37)
[2022-06-24 10:30] VITALS: BP 103/70; PULSE 85; RESP 16; TEMP 37.3; O2SAT 96
[2022-06-24] MEDS: busPIRone HCl 10 MG TABLET 20 MG PO (13:23)
--- NOTE | 2022-06-24 14:08 | P.PNPSI_ITS ---
Subjective Subjective Date of Service: 06/24/22 Reason For Visit: Depression Interim History: Patient seen and discussed. Patient reports he continues to feel anxious since his Klonopin was lowered. He is still having some AH. Says his PRN's helpful but less than the Klonopin. Denies SI. Review of Systems Review of Systems Constitutional : No Weight loss, No Fever, No Chills ENT/Mouth : No sore throat, No Rhinorrhea Eyes: No Eye Pain, No Swelling Cardiovascular : pos Chest Pain, pos SOB, no Dyspnea on Exertion, No Orthopnea, No Edema, No Palpitations Respiratory : No Cough, No Sputum Gastrointestinal : no Nausea, No Vomiting, No Diarrhea, No abdominal Pain, No Hematochezia, No Melena Genitourinary : No Dysuria, No Urinary Frequency Musculoskeletal : No joint pain, No Myalgias, No Joint Swelling Skin : No Skin Lesions, No rash Neuro : No Weakness, No Numbness, No Dizziness, No Headache Psych : No Anxiety/Panic, No Depression Heme/Lymph: No Bruising, No Lymphadenopathy Endocrine : No Polyuria, No Polydipsia All other systems reviewed and are negative Mental Status Exam Mental Status Exam Narrative: Pt is alert and oriented; behavior is cooperative, calm; patient is not in distress; dressed in casual attire/hospital pants with unkempt hair, marginal hygiene; mood is described as ok and affect congruent blunted; eye contact appropriate; Speech is slowed rate; normal volume and prosody and not pressured; no psychomotor retardation; thought process is goal directed; Thought content is on tx, challenging psychotic symptoms w/ reality testing; otherwise pertinent to relevant topics; intermittent delusional, paranoid ideations; denies any SI/HI. Intermittent AH but able to be ignored; Patients insight and judgment are impaired but adequate Diagnostics Vital Signs (24Hr): Vital Signs - 24 hr 06/24/22 10:30 Temperature 99.1 F Pulse Rate 85 Respiratory Rate 16 Blood Pressure 103/70 Pulse Oximetry 96 Oxygen Delivery Method Room Air BMI result Body Mass Index 26.7 Labs Results: 06/16/22 11:55 06/16/22 13:53 Imaging Radiology Impressions: ITS Impressions Chest X-Ray 06/16/22 12:02 IMPRESSION: No acute cardiopulmonary process. Chest CTA 06/16/22 15:46 IMPRESSION: No evidence for any pulmonary embolism. VTE: negative Medications Medications Current Medications Al Hydroxide/Mg Hydroxide (Magnesium Hydrox/Alum Hydrox 30 Ml Oral.Susp) 30 ml PO Q6H PRN PRN Reason: Heartburn/Nausea Benztropine Mesylate (Benztropine Mesylate 0.5 Mg Tablet) 0.5 mg PO TID PRN PRN Reason: Extrapyramidal Effects Buprenorphine/Naloxone (Buprenorphine/Naloxone 8/2 Mg Film) 1 film SUBLINGUAL TID [facility] Last Admin: 06/24/22 18:45 Dose: 1 film Buspirone HCl (Buspirone Hcl 10 Mg Tablet) 20 mg PO DAILY@12 [facility] Last Admin: 06/24/22 13:23 Dose: 20 mg Clonazepam (Clonazepam 0.5 Mg Tablet) 0.5 mg PO BID@0900,1400 [facility] Last Admin: 06/24/22 13:23 Dose: 0.5 mg Hydroxyzine HCl (Hydroxyzine Hcl 25 Mg Tablet) 75 mg PO Q6H PRN PRN Reason: Anxiety Last Admin: 06/24/22 13:23 Dose: 75 mg Magnesium Hydroxide (Milk Of Magnesia 30 Ml Oral.Susp) 30 ml PO DAILY PRN PRN Reason: Constipation Nicotine (Nicotine 14 Mg Patch.Td24) 14 mg TRANSDERMA DAILY PRN PRN Reason: anxiety/restlessness Nicotine Polacrilex (Nicotine Polacrilex Lozenge 4 Mg Lozenge) 4 mg BUCCAL Q2H PRN PRN Reason: Nicotine Cravings Last Admin: 06/24/22 18:44 Dose: 4 mg Olanzapine (Olanzapine 5 Mg Tablet) 5 mg PO Q6H PRN PRN Reason: psychosis Last Admin: 06/24/22 16:12 Dose: 5 mg Olanzapine (Olanzapine 10 Mg Tablet) 20 mg PO BEDTIME [facility] Last Admin: 06/24/22 18:45 Dose: 20 mg Ondansetron HCl (Ondansetron Odt 4 Mg Tab.Rapdis) 4 mg TRANSLINGU Q6H PRN PRN Reason: nausea Last Admin: 06/19/22 13:21 Dose: 4 mg Polyethylene Glycol (Polyethylene Glycol 3350 17 Gm Powd.Pack) 17 gm PO DAILY PRN PRN Reason: constipation Sertraline HCl (Sertraline Hcl 50 Mg Tablet) 150 mg PO DAILY [facility] Last Admin: 06/24/22 08:37 Dose: 150 mg Trazodone HCl (Trazodone Hcl 50 Mg Tablet) 50 mg PO BEDTIME PRN PRN Reason: Insomnia Last Admin: 06/23/22 19:42 Dose: 50 mg Allergies Allergies Allergy/AdvReac Type Severity Reaction Status Date / Time amoxicillin [AMOXICILLIN] Allergy Severe HIVES Unverified 05/12/20 15:58 Penicillins [PENICILLINS] Allergy Severe HIVES Unverified 05/12/20 15:58 acetaminophen [From TYLENOL] Allergy Unknown LIVER Unverified 05/12/20 15:58 PROBLEMS Assessment & Plan Assessment & Plan (1) Schizoaffective disorder: Status: Acute Code(s): F25.9 - Schizoaffective disorder, unspecified (2) Opioid use disorder: Status: Acute Code(s): F11.90 - Opioid use, unspecified, uncomplicated Plan Kevan is a 31 y.o. Male who carries a dx of opioid use disorder, schizoaffective disorder depressive type. Pt presented to [facility] ED 06/16/2022 via EMS due to experiencing chest pain. EKG showed NSR, QTc 429. He then endorsed SI without plan and worsening depression, AH. Precipitating fx include that 2 of his children were removed by DCF. Also has legal issues. Recently admitted to [facility] M5 05/15 due to similar presentation. He does not have current OP psych providers, as he did not follow up with referrals. Utox positive for opiates and cocaine. 06/21 patient reports that he is doing better, mood is better, no SI or HI. AH is lessening though still remains; patient challenges paranoid thinking with reality testing however it remains intermittently bothersome. Patient is open to medication adjustments and will DC Haldol in favor of maximizing Zyprexa to limit risks of TD. Discussed risks of benzodiazepines and the initial plan to use this only as a bridge mechanism for anxiety; however patient very much wants to remain on it. 06/22 remains in good mood, no SI and no HI; AH manageable. Put in 3 day notice said he wants to go to a program worse friends whichever comes 1st. Anxiety doing better; Agrees to further increase in Zoloft; patient wants to remain on clonazepam at current dose; while freelance writer agrees it is helping, patient does report that anxiety is improving and it seems at this point it is in patient's best interest to lower the dose as much as possible, especially given that he may not be going to the structured environment of her program. 06/23: Continue treatment plan. 06/24: Continue treatment plan PLAN: 3 day notice Q15 min safety checks, -Discontinue Haldol; instead will add Zyprexa to see if this can help with breakthrough psychotic symptoms (Zyprexa has been effective; adding 2nd psychotic to regimen increases risk of TD) -Added Zyprexa p.r.n. for breakthrough symptoms; if patient does not need them he will not take them, but they are available -INCREASE to Zoloft to 150 mg will most likely further titrate to 150 mg for anxiety/depression -Klonopin 1 mg b.i.d.0900/1400; Will likely lower; plan has been to lower these medications as other meds increase effectiveness; patient wants to remain on them. It was started on admission. At this point freelance writer agrees to continue these medications as patient is getting significant benefit from it; of course it does carry risks both of addiction and if combined with substance abuse; patient understands risks -Discontinue clonidine for now. Patient says not helping that much; blood pressures are mostly within normal limits. Will monitor blood pressure -continue Suboxone 8/2 mg t.i.d.; patient likes it t.i.d.; freelance writer discussed potential benefits of making more of it in the morning which would cover more of patient's receptors throughout the day, lowering cravings/risks -Continue buspar Monitor response to medications. Monitor for safety in the milieu. Discharge on stabilization. Patient seen. Chart reviewed. Discussed with team. Obtain collateral contact info?as needed I spent minutes with the patient and/or on the patient floor today, greater than?50% of which was spent counseling/coordinating care. Reason for contiued inpatient stay Substantial Risk for: inability to function and rapid decompensation
[2022-06-24] MEDS: OLANZapine 5 MG TABLET PO (16:12)
[2022-06-24] MEDS: OLANZapine 10 MG TABLET 20 MG PO (18:45)
--- NOTE | 2022-06-24 20:10 | HO.PSYCHPN ---
Subjective Subjective Reason For Visit: Depression Diagnostics Vital Signs (24Hr): Vital Signs - 24 hr 06/24/22 10:30 Temperature 99.1 F Pulse Rate 85 Respiratory Rate 16 Blood Pressure 103/70 Pulse Oximetry 96 Oxygen Delivery Method Room Air BMI result Body Mass Index 26.7 Labs Results: 06/16/22 11:55 06/16/22 13:53 Imaging Radiology Impressions: ITS Impressions Chest X-Ray 06/16/22 12:02 IMPRESSION: No acute cardiopulmonary process. Chest CTA 06/16/22 15:46 IMPRESSION: No evidence for any pulmonary embolism. VTE: negative Medications Medications Current Medications Al Hydroxide/Mg Hydroxide (Magnesium Hydrox/Alum Hydrox 30 Ml Oral.Susp) 30 ml PO Q6H PRN PRN Reason: Heartburn/Nausea Benztropine Mesylate (Benztropine Mesylate 0.5 Mg Tablet) 0.5 mg PO TID PRN PRN Reason: Extrapyramidal Effects Buprenorphine/Naloxone (Buprenorphine/Naloxone 8/2 Mg Film) 1 film SUBLINGUAL TID [facility] Last Admin: 06/24/22 18:45 Dose: 1 film Buspirone HCl (Buspirone Hcl 10 Mg Tablet) 20 mg PO DAILY@12 [facility] Last Admin: 06/24/22 13:23 Dose: 20 mg Clonazepam (Clonazepam 0.5 Mg Tablet) 0.5 mg PO BID@0900,1400 [facility] Last Admin: 06/24/22 13:23 Dose: 0.5 mg Hydroxyzine HCl (Hydroxyzine Hcl 25 Mg Tablet) 75 mg PO Q6H PRN PRN Reason: Anxiety Last Admin: 06/24/22 20:08 Dose: 75 mg Magnesium Hydroxide (Milk Of Magnesia 30 Ml Oral.Susp) 30 ml PO DAILY PRN PRN Reason: Constipation Nicotine (Nicotine 14 Mg Patch.Td24) 14 mg TRANSDERMA DAILY PRN PRN Reason: anxiety/restlessness Nicotine Polacrilex (Nicotine Polacrilex Lozenge 4 Mg Lozenge) 4 mg BUCCAL Q2H PRN PRN Reason: Nicotine Cravings Last Admin: 06/24/22 20:08 Dose: 4 mg Olanzapine (Olanzapine 5 Mg Tablet) 5 mg PO Q6H PRN PRN Reason: psychosis Last Admin: 06/24/22 16:12 Dose: 5 mg Olanzapine (Olanzapine 10 Mg Tablet) 20 mg PO BEDTIME [facility] Last Admin: 06/24/22 18:45 Dose: 20 mg Ondansetron HCl (Ondansetron Odt 4 Mg Tab.Rapdis) 4 mg TRANSLINGU Q6H PRN PRN Reason: nausea Last Admin: 06/19/22 13:21 Dose: 4 mg Polyethylene Glycol (Polyethylene Glycol 3350 17 Gm Powd.Pack) 17 gm PO DAILY PRN PRN Reason: constipation Sertraline HCl (Sertraline Hcl 50 Mg Tablet) 150 mg PO DAILY [facility] Last Admin: 06/24/22 08:37 Dose: 150 mg Trazodone HCl (Trazodone Hcl 50 Mg Tablet) 50 mg PO BEDTIME PRN PRN Reason: Insomnia Last Admin: 06/23/22 19:42 Dose: 50 mg Allergies Allergies Allergy/AdvReac Type Severity Reaction Status Date / Time amoxicillin [AMOXICILLIN] Allergy Severe HIVES Unverified 05/12/20 15:58 Penicillins [PENICILLINS] Allergy Severe HIVES Unverified 05/12/20 15:58 acetaminophen [From TYLENOL] Allergy Unknown LIVER Unverified 05/12/20 15:58 PROBLEMS Assessment & Plan Assessment & Plan (1) Schizoaffective disorder: Status: Acute Code(s): F25.9 - Schizoaffective disorder, unspecified (2) Opioid use disorder: Status: Acute Code(s): F11.90 - Opioid use, unspecified, uncomplicated Plan Kevan is a 31 y.o. Male who carries a dx of opioid use disorder, schizoaffective disorder depressive type. Pt presented to [facility] 06/16/2022 via EMS due to experiencing chest pain. EKG showed NSR, QTc 429. He then endorsed SI without plan and worsening depression, AH. Precipitating fx include that 2 of his children were removed by DCF. Also has legal issues. Recently admitted to [facility] M5 05/15 due to similar presentation. He does not have current OP psych providers, as he did not follow up with referrals. Utox positive for opiates and cocaine. 06/21 patient reports that he is doing better, mood is better, no SI or HI. AH is lessening though still remains; patient challenges paranoid thinking with reality testing however it remains intermittently bothersome. Patient is open to medication adjustments and will DC Haldol in favor of maximizing Zyprexa to limit risks of TD. Discussed risks of benzodiazepines and the initial plan to use this only as a bridge mechanism for anxiety; however patient very much wants to remain on it. 06/22 remains in good mood, no SI and no HI; AH manageable. Put in 3 day notice said he wants to go to a program [facility] whichever comes 1st. Anxiety doing better; Agrees to further increase in Zoloft; patient wants to remain on clonazepam at current dose; while marketing underwriter agrees it is helping, patient does report that anxiety is improving and it seems at this point it is in patient's best interest to lower the dose as much as possible, especially given that he may not be going to the structured environment of her program. 06/23: Continue treatment plan. 06/24: Continue treatment plan PLAN: 3 day notice Q15 min safety checks, -Discontinue Haldol; instead will add Zyprexa to see if this can help with breakthrough psychotic symptoms (Zyprexa has been effective; adding 2nd psychotic to regimen increases risk of TD) -Added Zyprexa p.r.n. for breakthrough symptoms; if patient does not need them he will not take them, but they are available -INCREASE to Zoloft to 150 mg will most likely further titrate to 150 mg for anxiety/depression -Klonopin 1 mg b.i.d.0900/1400; Will likely lower; plan has been to lower these medications as other meds increase effectiveness; patient wants to remain on them. It was started on admission. At this point marketing underwriter agrees to continue these medications as patient is getting significant benefit from it; of course it does carry risks both of addiction and if combined with substance abuse; patient understands risks -Discontinue clonidine for now. Patient says not helping that much; blood pressures are mostly within normal limits. Will monitor blood pressure -continue Suboxone 8/2 mg t.i.d.; patient likes it t.i.d.; marketing underwriter discussed potential benefits of making more of it in the morning which would cover more of patient's receptors throughout the day, lowering cravings/risks -Continue buspar Monitor response to medications. Monitor for safety in the milieu. Discharge on stabilization. Patient seen. Chart reviewed. Discussed with team. Obtain collateral contact info?as needed I spent minutes with the patient and/or on the patient floor today, greater than?50% of which was spent counseling/coordinating care.
[2022-06-25] MEDS: Buprenorphine/Naloxone 8/2 mg FILM 1 FILM SUBLINGUAL ×3 (09:04→18:25)
[2022-06-25] MEDS: Sertraline HCL 50 MG TABLET 150 MG PO (09:04)
[2022-06-25] MEDS: clonazePAM 0.5 MG TABLET PO ×2 (09:04→14:02)
[2022-06-25 09:07] VITALS: BP 119/93; PULSE 103; RESP 18; TEMP 36.8; O2SAT 98
[2022-06-25] MEDS: Nicotine Polacrilex Lozenge 4 MG LOZENGE BUCCAL ×3 (09:31→20:21)
[2022-06-25] MEDS: OLANZapine 5 MG TABLET PO (09:31)
--- NOTE | 2022-06-25 09:41 | P.PNPSI_ITS ---
Subjective Subjective Date of Service: 06/25/22 Reason For Visit: Depression Interim History: Good mood but patient reports increased anxiety with clonazepam having been reduced. No SI or HI. AH mostly under control with some breakthrough moments during which he uses prns. Patient says he would like discharge; Initially he was hoping to get into a program but says he really does not care if he goes To a program or his friend's house And decided he might as well go to his friends. Pt says he has a suboxone appointment and a meeting with his motor coach bus driver which he would like to make. 3 day notice due on Sat. Mental Status Exam Mental Status Exam Narrative: Pt is alert and oriented; behavior is cooperative, calm; patient is not in distress; dressed in casual attire/hospital pants with unkempt hair, marginal hygiene; mood is described as ok and affect congruent blunted; eye contact appropriate; Speech is slowed rate; normal volume and prosody and not pressured; no psychomotor retardation; thought process is goal directed; Thought content is on tx, discharge; otherwise pertinent to relevant topics; intermittent delusional, paranoid ideations; denies any SI/HI. Intermittent AH but able to be ignored; Patients insight and judgment are impaired but adequate Diagnostics Vital Signs (24Hr): Vital Signs - 24 hr 06/24/22 10:30 06/25/22 09:07 Temperature 99.1 F 98.3 F Pulse Rate 85 103 H Respiratory Rate 16 18 Blood Pressure 103/70 119/93 H Pulse Oximetry 96 98 Oxygen Delivery Method Room Air Room Air BMI result Body Mass Index 26.7 Labs Results: 06/16/22 11:55 06/16/22 13:53 Imaging Radiology Impressions: ITS Impressions Chest X-Ray 06/16/22 12:02 IMPRESSION: No acute cardiopulmonary process. Chest CTA 06/16/22 15:46 IMPRESSION: No evidence for any pulmonary embolism. VTE: negative Medications Medications Current Medications Al Hydroxide/Mg Hydroxide (Magnesium Hydrox/Alum Hydrox 30 Ml Oral.Susp) 30 ml PO Q6H PRN PRN Reason: Heartburn/Nausea Benztropine Mesylate (Benztropine Mesylate 0.5 Mg Tablet) 0.5 mg PO TID PRN PRN Reason: Extrapyramidal Effects Buprenorphine/Naloxone (Buprenorphine/Naloxone 8/2 Mg Film) 1 film SUBLINGUAL T ID [facility] Last Admin: 06/25/22 09:04 Dose: 1 film Buspirone HCl (Buspirone Hcl 10 Mg Tablet) 20 mg PO DAILY@12 [facility] Last Admin: 06/24/22 13:23 Dose: 20 mg Clonazepam (Clonazepam 0.5 Mg Tablet) 0.5 mg PO BID@0900,1400 [facility] Last Admin: 06/25/22 09:04 Dose: 0.5 mg Hydroxyzine HCl (Hydroxyzine Hcl 25 Mg Tablet) 75 mg PO Q6H PRN PRN Reason: Anxiety Last Admin: 06/24/22 20:08 Dose: 75 mg Magnesium Hydroxide (Milk Of Magnesia 30 Ml Oral.Susp) 30 ml PO DAILY PRN PRN Reason: Constipation Nicotine (Nicotine 14 Mg Patch.Td24) 14 mg TRANSDERMA DAILY PRN PRN Reason: anxiety/restlessness Nicotine Polacrilex (Nicotine Polacrilex Lozenge 4 Mg Lozenge) 4 mg BUCCAL Q2H PRN PRN Reason: Nicotine Cravings Last Admin: 06/25/22 09:31 Dose: 4 mg Olanzapine (Olanzapine 5 Mg Tablet) 5 mg PO Q6H PRN PRN Reason: psychosis Last Admin: 06/25/22 09:31 Dose: 5 mg Olanzapine (Olanzapine 10 Mg Tablet) 20 mg PO BEDTIME [facility] Last Admin: 06/24/22 18:45 Dose: 20 mg Ondansetron HCl (Ondansetron Odt 4 Mg Tab.Rapdis) 4 mg TRANSLINGU Q6H PRN PRN Reason: nausea Last Admin: 06/19/22 13:21 Dose: 4 mg Polyethylene Glycol (Polyethylene Glycol 3350 17 Gm Powd.Pack) 17 gm PO DAILY PRN PRN Reason: constipation Sertraline HCl (Sertraline Hcl 50 Mg Tablet) 150 mg PO DAILY [facility] Last Admin: 06/25/22 09:04 Dose: 150 mg Trazodone HCl (Trazodone Hcl 50 Mg Tablet) 50 mg PO BEDTIME PRN PRN Reason: Insomnia Last Admin: 06/23/22 19:42 Dose: 50 mg Allergies Allergies Allergy/AdvReac Type Severity Reaction Status Date / Time amoxicillin [AMOXICILLIN] Allergy Severe HIVES Unverified 05/12/20 15:58 Penicillins [PENICILLINS] Allergy Severe HIVES Unverified 05/12/20 15:58 acetaminophen [From TYLENOL] Allergy Unknown LIVER Unverified 05/12/20 15:58 PROBLEMS Assessment & Plan Assessment & Plan (1) Schizoaffective disorder: Status: Acute Code(s): F25.9 - Schizoaffective disorder, unspecified (2) Opioid use disorder: Status: Acute Code(s): F11.90 - Opioid use, unspecified, uncomplicated Plan Kevan is a 31 y.o. Male who carries a dx of opioid use disorder, schizoaffective disorder depressive type. Pt presented to [facility] ED 06/16/2022 via EMS due to experiencing chest pain. EKG showed NSR, QTc 429. He then endorsed SI without plan and worsening depression, AH. Precipitating fx include that 2 of his children were removed by DCF. Also has legal issues. Recently admitted to [facility] M5 05/15 due to similar presentation. He does not have current OP psych providers, as he did not follow up with referrals. Utox positive for opiates and cocaine. 06/21 patient reports that he is doing better, mood is better, no SI or HI. AH is lessening though still remains; patient challenges paranoid thinking with reality testing however it remains intermittently bothersome. Patient is open to medication adjustments and will DC Haldol in favor of maximizing Zyprexa to limit risks of TD. Discussed risks of benzodiazepines and the initial plan to use this only as a bridge mechanism for anxiety; however patient very much wants to remain on it. 06/22 remains in good mood, no SI and no HI; AH manageable. Put in 3 day notice said he wants to go to a program [facility] whichever comes 1st. Anxiety doing better; Agrees to further increase in Zoloft; patient wants to remain on clonazepam at current dose; while entry writer agrees it is helping, patient does report that anxiety is improving and it seems at this point it is in patient's best interest to lower the dose as much as possible, especially given that he may not be going to the structured environment of her program. 06/23: Continue treatment plan. 06/24: Continue treatment plan 06/25 remains in good mood and no SI/HI; AH mostly able to be ignored; c/o increased anxiety w/ clonazepam lowered; decided he would like to dc to friends house instead of program. Has meeting tomorrow with motor coach bus driver which he wants to attend . Patient is not in imminent risk of harm to self or others PLAN: 3 day notice Q15 min safety checks, -Discontinue Haldol; instead will add Zyprexa to see if this can help with breakthrough psychotic symptoms (Zyprexa has been effective; adding 2nd psychotic to regimen increases risk of TD) -Added Zyprexa p.r.n. for breakthrough symptoms; if patient does not need them he will not take them, but they are available Zoloft to 150 mg will most likely further titrate to 150 mg for anxiety/depression -Klonopin 0.5 mg b.i.d.0900/1400; plan has been to lower these medications as other meds increase effectiveness; patient wants to remain on them. It was started on admission. At this point entry writer agrees to continue these medications as patient is getting significant benefit from it; of course it does carry risks both of addiction and if combined with substance abuse; patient understands risks -Discontinue clonidine for now. Patient says not helping that much; blood pressures are mostly within normal limits. Will monitor blood pressure -continue Suboxone 8/2 mg t.i.d.; patient likes it t.i.d.; entry writer discussed potential benefits of making more of it in the morning which would cover more of patient's receptors throughout the day, lowering cravings/risks -Continue buspar Monitor response to medications. Monitor for safety in the milieu. Discharge on stabilization. Patient seen. Chart reviewed. Discussed with team. Obtain collateral contact info?as needed I spent minutes with the patient and/or on the patient floor today, greater than?50% of which was spent counseling/coordinating care. Patient educated on: diagnosis, medication risk/benefits and substance abuse Informed Consent: understands Reason for contiued inpatient stay Substantial Risk for: stable for discharge
[2022-06-25] MEDS: hydrOXYzine HCL 25 MG TABLET 75 MG PO ×2 (11:09→18:25)
[2022-06-25] MEDS: busPIRone HCl 10 MG TABLET 20 MG PO (11:09)
[2022-06-25 18:00] VITALS: RESP 16
[2022-06-25] MEDS: OLANZapine 10 MG TABLET 20 MG PO (18:25)
[2022-06-25] MEDS: Benztropine Mesylate 0.5 MG TABLET PO (18:25)
[2022-06-26] MEDS: OLANZapine 5 MG TABLET PO ×2 (03:43→12:26)
[2022-06-26] MEDS: Nicotine Polacrilex Lozenge 4 MG LOZENGE BUCCAL ×3 (03:44→12:26)
[2022-06-26] MEDS: Sertraline HCL 50 MG TABLET 150 MG PO (08:31)
[2022-06-26] MEDS: clonazePAM 0.5 MG TABLET PO (08:31)
[2022-06-26] MEDS: Buprenorphine/Naloxone 8/2 mg FILM 1 FILM SUBLINGUAL (08:31)
[2022-06-26 08:32] VITALS: BP 118/73; PULSE 107; RESP 18; TEMP 36.4; O2SAT 97
--- NOTE | 2022-06-26 09:22 | PM.PSYDC ---
DS: Providers Provider Date of Service: 06/26/22 Date of admission: 06/16/22 22:16 Date of discharge: 06/26/22 Primary care physician: Unknown Physician Admitting clinician: Meredith Salazar Attending physician on discharge: Mars Mason DS: Diagnosis Discharge Diagnosis (1) Schizoaffective disorder: Status: Acute (2) Opioid use disorder: Status: Acute DS: Medications Discharge Medications Home Medications: Previous Rx's Medication Instructions Recorded buprenorphine 8 mg-naloxone 2 mg 1 film sublingual TID #0 ea 06/26/22 sublingual film (Suboxone) buspirone 15 mg tablet 15 mg PO BID 30 days #60 tabs 06/26/22 clonazepam 0.5 mg tablet 0.5 mg PO BID@0900,1400 7 days #14 06/26/22 tabs hydroxyzine HCl 25 mg tablet 75 mg PO Q6H PRN Anxiety 30 days 06/26/22 #90 tabs nicotine (polacrilex) 4 mg buccal 4 mg buccal Q2H PRN Nicotine 06/26/22 lozenge Cravings 30 days #72 ea olanzapine 20 mg tablet 20 mg PO BEDTIME 30 days #30 tabs 06/26/22 olanzapine 5 mg tablet 5 mg PO BID PRN psychosis 30 days 06/26/22 #60 tabs sertraline 50 mg tablet 150 mg PO DAILY 30 days #90 tabs 06/26/22 trazodone 50 mg tablet 50 mg PO BEDTIME PRN Insomnia 30 06/26/22 days #30 tabs Mental Status Exam Mental Status Exam Narrative: Pt is alert and oriented; behavior is cooperative, calm; patient is not in distress; dressed in casual attire/hospital pants with unkempt hair, marginal hygiene; mood is described as ok and affect congruent blunted; eye contact appropriate; Speech is slowed rate; normal volume and prosody and not pressured; no psychomotor retardation; thought process is goal directed; Thought content is on tx, discharge; otherwise pertinent to relevant topics; intermittent delusional, paranoid ideations; denies any SI/HI. Intermittent AH but able to be ignored; Patients insight and judgment are impaired but adequate Data Data Completed and Pending Completed studies during hospitalization [Text1]: 06/20/22 06/20/22 06/20/22 08:20 08:20 08:20 Estimat Average Glucose 100 Hemoglobin A1c % 5.1 Magnesium 1.9 Triglycerides 164 Cholesterol 151 LDL Cholesterol, Calc 85 HDL Cholesterol 34 Vitamin B12 384 Folate 8.8 06/16/22 12:06 Blood - Venous Blood Culture - Final No growth after 5 days. 06/16/22 11:55 Blood - Venous Blood Culture - Final No growth after 5 days. Imaging Diagnostic Imaging Impressions Chest X-Ray 06/16/22 12:02 IMPRESSION: No acute cardiopulmonary process. Chest CTA 06/16/22 15:46 IMPRESSION: No evidence for any pulmonary embolism. VTE: negative DS: Summary Hospital Course Hospital Course: HPI: Kevan is a 31 y.o. Male who carries a dx of opioid use disorder, schizoaffective disorder depressive type. Pt presented to [facility] ED 06/16/2022 via EMS due to experiencing chest pain. EKG showed NSR, QTc 429 (trop negative, no WBC count, COVID negative, CRP mildly elevated, plts negative, procalcitonin negative, if CTA negative for PE) He then endorsed SI without plan and worsening depression, AH. Precipitating fx include relapse, that 2 of his children were removed by DCF. Also has legal issues. Recently admitted to [facility] M5 05/15 due to similar presentation. He does not have current OP psych providers, as he did not follow up with referrals; says he stopped taking his suboxone and sold it. Utox positive for opiates and cocaine. Hospital course: On admission patient was depressed but without SI. He had been taking his psychiatric medications however did not want Thorazine anymore (caused sunburn?). Admitting provider increased his Zyprexa for bothersome AH, Zoloft and clonidine. He was also started on clonazepam which provider explained was being used as a bridge for anxiety until Zyprexa and Zoloft became therapeutic; patient also started on BuSpar. Patient's mood improved on the unit and auditory hallucinations significantly decreased to the point where they were almost no longer bothersome and able to be ignored. He did have breakthrough auditory hallucinations during the day and agreed to trial of Zyprexa as a p.r.n. rather than increasing standing dose. Sleep was difficult form however is was is a chronic issue for him. Patient continued to improve and he was eating and drinking well; no withdrawal symptoms and restarted on Suboxone. Patient remained in improved mood, without any SI or HI; AH intermittently broke through but patient was able to cope with it and utilized reality testing to challenge any paranoid thinking. Patient needed to be prompted to shower but was otherwise with organized behavior. He was appropriate with peers and staff and continually demonstrated good behavior and impulse control. Patient would intermittently attend groups though did not engage much. Radio Engineer lowered clonazepam dose explaining that it was initially started with the plan to discontinue once Zoloft and Zyprexa became therapeutic. Patient wanted to continue on this medication however given his struggles with addiction and history of PTSD, expert medical writer considered it best for patient to continue approaching his anxiety issues with non addictive medications as there remained room to titrate both Zoloft and BuSpar. He was ambivalent about whether or not to go to a program post discharge or to go to his friend's house. Patient put in a 3 day notice and ultimately decided he rather go to his friend's house, feeling stable enough. He remained without any SI, future oriented, in a good mood and AH minimal. While patient remains at risk for relapse or decompensation, these struggles are chronic and will not resolve with longer stay on inpatient unit. Patient's 3 day notice coming due. Patient was not in imminent risk for harm to self or others and his request for discharge honored. Time spent discussing smoking cessation with patient: 3 to 10 minutes Status at Discharge Functional status at discharge: independent ambulation Overall status at discharge: patient is back to baseline Time Spent with Patient Time attestation: Total time spent providing and/or coordinating discharge services: Time spent: Less than 30 minutes Discharge Plan Discharge Anticipated Discharge Date/Time: 06/26/22 13:00 Patient Disposition: Home, Self-Care Discharge Diagnosis: schizoaffective disorder, depressed type Referrals: Physician,Unknown J [Primary Care Provider] - 1 Week Discharge Medications: New buprenorphine-naloxone [Suboxone] 8-2 mg Film 1 film sublingual TID Qty: 0 0RF buspirone 15 mg tablet 15 mg PO BID 30 Days Qty: 60 0RF clonazepam 0.5 mg Tablet 0.5 mg PO BID@0900,1400 7 Days Qty: 14 0RF olanzapine 20 mg tablet 20 mg PO BEDTIME 30 Days Qty: 30 0RF sertraline 50 mg Tablet 150 mg PO DAILY 30 Days Qty: 90 0RF Continued trazodone 50 mg Tablet 50 mg PO BEDTIME PRN (Reason: Insomnia) 30 Days Qty: 30 0RF hydroxyzine HCl 25 mg Tablet 75 mg PO Q6H PRN (Reason: Anxiety) 30 Days Qty: 90 0RF nicotine (polacrilex) 4 mg Lozenge 4 mg buccal Q2H PRN (Reason: Nicotine Cravings) 30 Days Qty: 72 0RF Changed olanzapine 5 mg tablet 5 mg PO BID PRN (Reason: psychosis) 30 Days Qty: 60 0RF Discontinued olanzapine 7.5 mg tablet 2 tab PO BEDTIME chlorpromazine 100 mg Tablet 100 mg PO Q4H PRN (Reason: anxiety, sleep) Qty: 120 0RF sertraline 50 mg Tablet 50 mg PO DAILY Qty: 30 0RF Discharge Orders: Discharge Order (Routine); Ordered 06/26/22 Ordered By: Mars Mason Diet: Regular diet Activity on Discharge: As tolerated Stand Alone Forms: Patient Portal Discharge page Care Plan Goals: Maintain mood and safe behaviors Take medications as prescribed Continue to pursue sobriety Practice coping skills Continue with outpatient providers and reach out to them as needed Health Concerns: Mood stability and behaviors Sobriety Plan of Treatment: Follow up with your PCP, psychiatric provider and other outpatient providers regarding above concerns Take medications as prescribed Assessment: Risk assessment at time of discharge:? Patient was interviewed prior to discharge and found to be fully oriented and without any SI or HI. Patient has insight and demonstrates good judgment in terms of wanting to pursue treatment. Patient is not in imminent risk of harm to self or others and has a safety plan that includes presenting to the closest ER or calling 911 if feeling unsafe.? Patient has been observed closely by nursing and unit staff throughout admission; patient has not engaged in any behaviors that suggest dangerousness to self or others and has demonstrated appropriate behaviors and impulse control
[2022-06-26] MEDS: busPIRone HCl 10 MG TABLET 20 MG PO (12:26)
[2022-06-26] MEDS: Naloxone HCl Nasal TAKE HOME 4 MG SPRAY NOSTRILALT (12:38)
== END 2022-06-26 13:30 | disposition home or self-care (01) | DRG 750 ==
LOC: HO.ED 16:29 → HO.PM5 22:19
PROVIDERS: Registered Nurse; Admitting Provider Psychiatry & Neurology Psychiatry; Emergency Provider Emergency Medicine; Visit Provider Psychiatry & Neurology Psychiatry
DX: F25.1 Schizoaffective disorder, depressive type (principal); R45.851 Suicidal ideations; Z91.14 Patient's other noncompliance with medication regimen; F11.20 Opioid dependence, uncomplicated; F17.210 Nicotine dependence, cigarettes, uncomplicated; Z20.822 Contact with and (suspected) exposure to COVID-19; Z71.6 Tobacco abuse counseling; Z88.0 Allergy status to penicillin; Z88.6 Allergy status to analgesic agent; Z79.899 Other long term (current) drug therapy
CPT/HCPCS: 36415; 71045; 71275; 80048; 80061; 80076; 80307; 82607; 82746; 83036; 83605; 83735; 84145; 84484; 85025; 85379; 85652; 86140; 87040; 87635; 90792; 93005; 99285; J1885; Q9967

== ENCOUNTER 2022-08-04 01:43 | Emergency (ER) | payer MEDICAID, SELFPAY ==
--- NOTE | ~2022-08-04 | US_ITS ---
EXAMINATION: US VENOUS ULTRASOUND WITH DOPPLER LOWER EXTREMITY, LEFT CLINICAL INFORMATION: Pain. Swelling. COMPARISON: None TECHNIQUE: Ultrasound of the deep veins is performed from the hip to the calf with compression sonography and color and pulse Doppler assessment. Spectral analysis with color-flow imaging is performed. FINDINGS: There is normal venous compression and respiratory variation and augmented flow. The visualized common femoral vein, superficial femoral vein, profunda femoral vein, popliteal vein, and the trifurcation region shows no evidence of deep venous thrombosis. A 2.4 cm x 0.4 cm anechoic ovoid fluid collection is present in the popliteal fossa. Normal color flow noted in the right common femoral vein. If the patient's symptoms persist, followup ultrasound in 5 days 7 days might be of value to exclude proximal propagation from a non-visualized calf vein. US/US venous duplex LE IMPRESSION: No DVT demonstrated in the left lower extremity. Left popliteal fossa Manzo's cyst.
[2022-08-04 02:11] VITALS: BP 125/82; PULSE 81; RESP 18; TEMP 36.9; O2SAT 98; BMI 25.7
--- NOTE | 2022-08-04 02:43 | ED_ITS ---
HPI - Psych General Chief Complaint: Psychiatric Symptoms Stated Complaint: crisis Time Seen by Provider: 08/04/22 02:42 Source: patient Mode of arrival: ambulatory Limitations: no limitations History of Present Illness MD complaint: suicidal ideation, feels depressed, anxiety and substance abuse Onset (ago): day(s) (3) Duration: getting worse History of same: Yes Relieving factors: none Exacerbating factors: drug use Context: recent drug abuse and not taking psychiatric medications Associated psychiatric symptoms: depression and suicidal ideation Associated symptoms: other (also notes 3 days of LLE swelling - no trauma, no injection he only smokes his drugs, unsure if he has a skin infection, no prior blood clots) Treatments prior to arrival: none If self harm: admits thoughts of self harm Related Data Previous Rx's Medication Instructions Recorded buprenorphine 8 mg-naloxone 2 mg 1 film sublingual TID #0 ea 06/26/22 sublingual film (Suboxone) buspirone 15 mg tablet 15 mg PO BID 30 days #60 tabs 06/26/22 clonazepam 0.5 mg tablet 0.5 mg PO BID@0900,1400 7 days #14 06/26/22 tabs hydroxyzine HCl 25 mg tablet 75 mg PO Q6H PRN Anxiety 30 days 06/26/22 #90 tabs nicotine (polacrilex) 4 mg buccal 4 mg buccal Q2H PRN Nicotine 06/26/22 lozenge Cravings 30 days #72 ea olanzapine 20 mg tablet 20 mg PO BEDTIME 30 days #30 tabs 06/26/22 olanzapine 5 mg tablet 5 mg PO BID PRN psychosis 30 days 06/26/22 #60 tabs sertraline 50 mg tablet 150 mg PO DAILY 30 days #90 tabs 06/26/22 trazodone 50 mg tablet 50 mg PO BEDTIME PRN Insomnia 30 06/26/22 days #30 tabs Allergies Allergy/AdvReac Type Severity Reaction Status Date / Time amoxicillin [AMOXICILLIN] Allergy Severe HIVES Verified 08/04/22 02:23 Penicillins [PENICILLINS] Allergy Severe HIVES Verified 08/04/22 02:23 acetaminophen [From TYLENOL] Allergy Unknown LIVER Verified 08/04/22 02:23 PROBLEMS Review of Systems Review of Systems: Constitutional : No Fever, No Chills ENT/Mouth : No Ear Pain, No Nasal Congestion, No sore throat Eyes: No Eye Pain, No Swelling, No Redness Cardiovascular : No Chest Pain, No SOB Respiratory : No Cough, No Sputum, No Dyspnea Gastrointestinal : No Nausea, No Vomiting, No Diarrhea, No Hematochezia, No Melena Genitourinary : No Dysuria, No Urinary Frequency, No Hematuria Musculoskeletal : No Myalgias , pos edema Skin : No Skin Lesions, No rash Neuro : No Weakness, No Numbness, No Paresthesias, No Dizziness, No Headache Psych : positive Anxiety, positive Depression, positive SI no HI Heme/Lymph: No Lymphadenopathy Endocrine : No Polyuria, No Polydipsia All other systems reviewed and are negative [facility] Past Medical History Attestation statement: The following information was validated with the patient. Medical History A-fib Depression Depression Major depression with psychotic features Opiate abuse, continuous Opioid use disorder Polysubstance abuse Schizoaffective disorder Social History Social History Household Members: Significant Other Housing: Unknown / Unable to assess Do you presently have visiting nurse or other home services: No Unable to assess alcohol history related to: Refusing to respond Patient Tobacco Use Status: Current everyday Tobacco user Tobacco use type: Cigarette Cigarette Packs Per Day: 1 Cigarettes Per Day: 20.0 Substance Use Type: Crack/Cocaine and Heroin Advance Directives: No Advance Directives Information Provided: No service: No Sexual orientation: Straight/Heterosexual Physical Exam Vital Signs: Vital Signs: Last Vital Signs Temp 98.4 F 08/04/22 02:11 Pulse 81 08/04/22 02:11 Resp 18 08/04/22 02:11 BP 125/82 08/04/22 02:11 Pulse Ox 98 08/04/22 02:11 O2 Del Method 08/04/22 02:11 BMI result Body Mass Index 25.7 Appearance: Alert. Oriented X3. No acute distress. Eyes: Pupils equal, round and reactive to light. ENT: Pharynx normal. Neck: Normal inspection. Neck supple. CVS: Normal heart rate and rhythm. Pulses normal. Respiratory: No respiratory distress. Breath sounds normal. Abdomen: Soft and non-tender. Skin: Skin warm and dry. Normal skin color. Normal skin turgor. Extremities:left leg 1 to 2+ pitting lower extremity edema mild erythema noted. distal NV intact Neuro: Oriented X 3. No motor deficit. No sensory deficit. Course Course Course Narrative: Physician observation started at 335am Patient placed in physician observation because the patient needed more time for BHN to assess the need for psych ad mission. At the time observation was started the patient's vitals were stable, patient is alert and oriented but slightly anxious, Neuro: nonfocal, CV RRR, Lungs clear Medications Administered Generic Name Dose Route Start Last Admin Trade Name Freq PRN Reason Stop Dose Admin Doxycycline Monohydrate 100 mg 08/04/22 03:05 08/04/22 03:31 Doxycycline Monohydrate 100 Mg Capsule PO 100 mg BID RICARDO Administration Medical Decision Making Medical Decision Making MDM Narrative: 31 yo male with hx of substance abuse and schizoaffective disorder comes with c/o SI and not taking his medications - will need labs and N consult. He also has LLE mild swelling and likely cellulitis without systemic symptoms - he denies CP/SOB will obtain basic labs and DVT study start on doxycycline for cellulitis given his allergies. Dispo per N input. Differential Diagnoses: Differential diagnosis (for left leg cellulitis, DVT) Lab Attestation: I reviewed the patient's lab results. Non-ED record review: Review of External (Non-ED) Record External record reviewed:: Inpatient record (psychiatric notes) Discharge Plan Discharge Clinical Impression: Suicidal ideation, Cellulitis of left leg Patient Disposition: Still a Patient Prescriptions: No Action buprenorphine-naloxone [Suboxone] 8-2 mg Film 1 film sublingual TID Qty: 0 0RF buspirone 15 mg tablet 15 mg PO BID 30 Days Qty: 60 0RF trazodone 50 mg Tablet 50 mg PO BEDTIME PRN (Reason: Insomnia) 30 Days Qty: 30 0RF olanzapine 5 mg tablet 5 mg PO BID PRN (Reason: psychosis) 30 Days Qty: 60 0RF hydroxyzine HCl 25 mg Tablet 75 mg PO Q6H PRN (Reason: Anxiety) 30 Days Qty: 90 0RF nicotine (polacrilex) 4 mg Lozenge 4 mg buccal Q2H PRN (Reason: Nicotine Cravings) 30 Days Qty: 72 0RF clonazepam 0.5 mg Tablet 0.5 mg PO BID@0900,1400 7 Days Qty: 14 0RF olanzapine 20 mg tablet 20 mg PO BEDTIME 30 Days Qty: 30 0RF sertraline 50 mg Tablet 150 mg PO DAILY 30 Days Qty: 90 0RF
--- NOTE | 2022-08-04 02:43 | PC.NURSE ---
pt is having labs drawn and is a difficult stick, when labs are drawn pt will be brought to the pod, Remberto is aware of this.
[2022-08-04 02:48] LABS: MANUAL DIFF FLAG NO
[2022-08-04 02:50] LABS: Basophils Percent Auto 0.4 % (0-2); Eosinophils Absolute Auto 0.2 X10*3/uL (0.0-0.4); Eosinophils Percent Auto 1.9 % (0-4); Hematocrit 43.2 % (42.0-52.0); Hemoglobin 13.6 g/dl (14.0-18.0); Imm Gran Abs Auto 0.02 X10*3/uL (0.00-0.03); Imm Gran Pct Auto 0.2 % (0.0-0.4); Lymphocytes Absolute Auto 3.4 X10*3/uL (1.2-4.9); Lymphocytes Percent Auto 32.8 % (20-40); Mean Corpuscular HGB Conc 31.5 g/dl (31.0-36.0); Mean Corpuscular Hemoglobin 24.3 pg (27.0-33.0); Mean Corpuscular Volume 77.3 fL (80.0-98.0); Mean Platelet Volume 9.9 fL (9.4-12.4); Monocytes Absolute Auto 0.9 X10*3/uL (0.1-1.2); Monocytes Percent Auto 8.1 % (2-11); Neutrophils Absolute Auto 5.9 x10*3/uL (2.0-8.3); Neutrophils Percent Auto 56.6 % (45-73); Platelet Count 209 X10*3/uL (160-400); Red Blood Count 5.59 X10*6/uL (4.60-5.80); Red Cell Distribution Width 14.5 % (11.0-16.0); White Blood Count 10.5 X10*3/uL (4.8-10.8)
[2022-08-04 03:07] LABS: Appearance Urine Clear; Color Urine Yellow; Glucose Urine UA Negative (Negative); Leukocyte Esterase Urine Negative (Negative); Nitrite Urine Negative (Negative); Specific Gravity - Urine >= 1.030 (1.005-1.025); Urine Blood Negative (Negative); Urine Ketones 40 mg/dL (Negative); Urine Protein Negative (Neg-Trace)
[2022-08-04 03:17] LABS: Amphetamine Screen Urine Not Detected (Not Detect); Barbiturates, Urine Not Detected (Not Detect); Benzodiazepines Screen Urine Not Detected (Not Detect); Cannabinoid Screen Urine POSITIVE (Not Detect); Cocaine Screen Urine POSITIVE (Not Detect); Fentanyl, urine POSITIVE (Not Detect); Opiate Screen Urine POSITIVE (Not Detect); Phencyclidine Screen Urine Not Detected (Not Detect)
[2022-08-04 03:22] LABS: Alanine Aminotransferase 24 U/L (0-40); Albumin Level 4.7 g/dL (3.5-5.0); Alkaline Phosphatase 95 U/L (39-117); Anion Gap 16 (12-20); Aspartate Amino Transferase 31 U/L (5-37); Bilirubin Total 0.5 mg/dL (0.0-1.0); Blood Urea Nitrogen 17 mg/dL (9-16); Calcium 9.9 mg/dL (8.4-10.2); Carbon Dioxide 23 mmol/L (22-29); Chloride 102 mmol/L (96-108); Creatinine Clr Calc Pharmacy 140.1; Estimated Glomerular Filt Rate > 60; Ethanol < 10 mg/dL; Glucose Random 77 mg/dL (60-115); Potassium 4.8 mmol/L (3.3-5.1); Sodium 136 mmol/L (135-145); Total Protein 8.2 g/dL (6.5-8.0)
[2022-08-04 03:28] LABS: Influenza A PCR NEGATIVE (Negative); Influenza B PCR NEGATIVE (Negative); Resp Syncy Virus RNA Qual PCR NEGATIVE (Negative); SARS COV2 PCR INHOUSE NEGATIVE (Negative)
[2022-08-04] MEDS: Doxycycline Monohydrate 100 MG CAPSULE PO ×2 (03:31→21:42)
[2022-08-04 05:29] VITALS: BP 104/60; PULSE 66; RESP 16; TEMP 36.6; O2SAT 96
--- NOTE | 2022-08-04 06:37 | PC.NURSE ---
Patient slept intermittently, no distress observed/reported, LLE ultrasound negative for DVT, Doxy 100 mg BID initiated for LLE cellulites, med rec completed/continued by the provider, behavior non concerning, [facility] referral completed/pending ETA, VSS, will continue to monitor.
[2022-08-04 07:44] VITALS: BP 116/67; PULSE 75; RESP 19; TEMP 36.4; O2SAT 97
[2022-08-04 07:47] VITALS: RESP 16
[2022-08-04] MEDS: busPIRone HCl 5 MG TABLET 15 MG PO ×2 (08:15→21:42)
[2022-08-04] MEDS: Sertraline HCL 50 MG TABLET 150 MG PO (08:15)
--- NOTE | 2022-08-04 11:18 | PC.NURSE ---
Per N: cleared, ? detox placement at this time.
[2022-08-04] MEDS: OLANZapine 10 MG TABLET 20 MG PO (21:42)
[2022-08-05 02:05] VITALS: BP 155/95; PULSE 71; RESP 16; TEMP 36.4; O2SAT 99
--- NOTE | 2022-08-05 05:41 | PC.NURSE ---
Patient slept through the night, no distress observed/reported, medication compliant, behavior non concerning, disposition per recovery team is detox bed search, VSS, will continue to monitor.
[2022-08-05 07:45] VITALS: BP 137/90; PULSE 86; RESP 16; TEMP 36.9; O2SAT 98
[2022-08-05] MEDS: Sertraline HCL 50 MG TABLET 150 MG PO (08:28)
[2022-08-05] MEDS: Doxycycline Monohydrate 100 MG CAPSULE PO ×2 (08:28→21:16)
[2022-08-05] MEDS: busPIRone HCl 5 MG TABLET 15 MG PO ×2 (08:28→21:15)
[2022-08-05] MEDS: hydrOXYzine HCL 25 MG TABLET 75 MG PO ×2 (08:30→14:28)
[2022-08-05] MEDS: Nicotine Polacrilex Lozenge 4 MG LOZENGE BUCCAL (11:14)
[2022-08-05] MEDS: OLANZapine 5 MG TABLET PO (11:14)
[2022-08-05] MEDS: Buprenorphine/Naloxone 4/1 mg FILM 1 FILM SUBLINGUAL (12:36)
--- NOTE | 2022-08-05 13:58 | PC.NURSE ---
During intake with [facility]-pt endorsed SI. Cleared by Prashant yesterday. Darío zavala.
[2022-08-05 14:13] VITALS: BP 141/89; PULSE 92; RESP 16; TEMP 37.7; O2SAT 97
--- NOTE | 2022-08-05 14:23 | MHC.RECOVSUP ---
Recovery Support note: Patient is a 31 year old Bulgarian speaking male who presented to [facility] ED early in the morning on 08/04 due to being off his medications and having SI and AH.. Patient was evaluated by [facility] and referred to this sheet writer for assistance getting into detox. Patient reports he has been using half a bundle of heroin daily and reported withdrawal symptoms today with interest in getting back on Suboxone. Patient was previously taking three, 8mg films daily, one with each meal. Patient was given 4mg and reported improvement in withdrawal symptoms. Plan for patient to receive an additional 16mg today and to resume his regular schedule tomorrow. Patient was willing to go to detox however not interested in being referred out of the area. Due to current AH and a desire to restart medications, patient would benefit most from EATS and is unlikely to be accepted to ATS level of care. Patient was referred to [facility] today however reported current SI and thoughts to harm himself. [facility] is unable to accept patient at this time due to not having a provider in the building to oversee his care. Plan for patient to be referred again to [facility] tomorrow. Patient was also referred to [facility] for possible EATS admission on 08/06. Patient discharged from on 06/26/22 however did not attend his follow up appointments. Patient was restarted on his psychiatric medications while in the ED and is interested in continuing them. Patient may need prescriptions for his medications sent to a pharmacy that the EATS staff can access. Patient aware that the ED will not be able to continue prescribing his medications and that he needs to find a prescriber immediately. Patient does not have a PCP. Patient acknowledged. Patient reported to this sheet writer that he does not have an ID, a phone, or access to transportation. Discussed case with ED provider, RN and CARE Team. Recovery Team will follow up with [facility] and [facility] tomorrow for possible EATS admission.
[2022-08-05] MEDS: Buprenorphine/Naloxone 8/2 mg FILM 1 FILM SUBLINGUAL ×2 (14:28→21:15)
[2022-08-05] MEDS: OLANZapine 10 MG TABLET 20 MG PO (21:16)
[2022-08-05] MEDS: traZODone HCL 50 MG TABLET PO (21:16)
--- NOTE | 2022-08-06 05:21 | PC.NURSE ---
Patient slept through the night, no distress observed/reported, medication compliant, behavior non concerning, disposition per recovery team is detox bed search, VSS, will continue to monitor.
[2022-08-06 06:23] VITALS: BP 126/85; PULSE 78; RESP 16; TEMP 36.9; O2SAT 96
--- NOTE | 2022-08-06 08:25 | MHC.RECOVRN ---
Spoke with Ana María at [facility], awaiting clinical supervisor microbiology technologists to review pt. Unsure if EATS bed will be available.
--- NOTE | 2022-08-06 08:48 | MHC.RECOVRN ---
Updated information sent to [facility]. Awaiting review.
--- NOTE | 2022-08-06 08:49 | MHC.RECOVRN ---
[facility] declined pt due to acuity on the unit and inability to manage pt with AH.
[2022-08-06] MEDS: Buprenorphine/Naloxone 8/2 mg FILM 1 FILM SUBLINGUAL (09:10)
[2022-08-06] MEDS: Doxycycline Monohydrate 100 MG CAPSULE PO (09:10)
[2022-08-06] MEDS: busPIRone HCl 5 MG TABLET 15 MG PO (09:10)
[2022-08-06] MEDS: Sertraline HCL 50 MG TABLET 150 MG PO (09:10)
--- NOTE | 2022-08-06 09:51 | PC.NURSE ---
routine morning medications administered, pt calm and cooperative. ambulating around the unit with strong steady gait. able to make needs known
--- NOTE | 2022-08-06 11:09 | MHC.RECOVRN ---
Pt accepted to [facility] for EATS admission. Medications being sent to [facility] by Cassandra Zaragoza APRN. Pt will be transported via [employer].
== END 2022-08-06 11:27 | disposition home or self-care (01) ==
PROVIDERS: Emergency Medicine; Emergency Provider Emergency Medicine Emergency Medical Services
DX: R45.851 Suicidal ideations (principal); L03.116 Cellulitis of left lower limb; Z20.822 Contact with and (suspected) exposure to COVID-19; R60.0 Localized edema; F11.20 Opioid dependence, uncomplicated; F32.A Depression, unspecified; F41.9 Anxiety disorder, unspecified; F25.9 Schizoaffective disorder, unspecified; F19.10 Other psychoactive substance abuse, uncomplicated; F17.210 Nicotine dependence, cigarettes, uncomplicated; Z79.899 Other long term (current) drug therapy
CPT/HCPCS: 0241U; 36415; 80053; 80307; 81003; 82077; 85025; 93971; 99285

== ENCOUNTER 2022-09-12 22:36 | Emergency (ER) | payer MEDICAID, SELFPAY ==
--- NOTE | ~2022-09-12 | CT_ITS ---
EXAMINATION: CT FEMUR WITH CONTRAST, LEFT CLINICAL INFORMATION: Leg crepitus, abscess. IV drug use. COMPARISON: None TECHNIQUE: Multidetector volumetric imaging of the left femur performed after administration of 85 mL of Omnipaque 350 IV contrast. Coronal and sagittal reformatted images are obtained and reviewed. This CT examination was performed using dose optimization techniques as appropriate, variously including the following: *Automated exposure control *Adjustment of mA and/or kV according to patient size (this includes techniques or standardized protocols for targeted exams where dose is matched to indication/reason for exam; i.e. extremities or head) *Use of iterative reconstruction technique DLP: 400 mGy-cm FINDINGS: Soft tissue swelling superficially along the lateral thigh. No fluid collection. No soft tissue gas. The musculature appears unremarkable. No fracture. Appropriate alignment of the knee and hip. No joint effusion. The visualized intrapelvic structures show no acute abnormality. CT/CT femur LT w IV con IMPRESSION: Superficial soft tissue swelling along the lateral thigh. No fluid collection. No soft tissue gas.
[2022-09-12 22:46] VITALS: BP 134/84; BP 138/70; PULSE 102; PULSE 111; RESP 16; TEMP 36.3; O2SAT 99; BMI 25.7
--- NOTE | 2022-09-12 22:58 | ED.WOUNDLAC ---
HPI - Wound/Laceration General Chief Complaint: Wound/Laceration Stated Complaint: Poss spider bite infect,substance/ETOH use per EMS Time Seen by Provider: 09/12/22 22:51 Source: patient Mode of arrival: ambulatory Limitations: no limitations History of Present Illness HPI narrative: Patient comes to the emergency room complaining of ulcerations and cellulitis to the thigh posteriorly of the left leg. Patient states that they have gradually been getting more painful, bigger, and he has notice that pus came out. Patient admits to using heroin and drinking alcohol earlier today. Patient denies fever chills. Related Data Home Medications Medication Instructions Recorded Confirmed buspirone 15 mg tablet 1 tab PO BID 08/04/22 08/04/22 hydroxyzine HCl 25 mg tablet 3 tab PO Q6H PRN anxiety 08/04/22 08/04/22 nicotine (polacrilex) 4 mg buccal 1 mitzy PO Q2H PRN nicotine cravings 08/04/22 08/04/22 lozenge olanzapine 20 mg tablet 1 tab PO BEDTIME 08/04/22 08/04/22 olanzapine 5 mg tablet 1 tab PO BID PRN psychosis 08/04/22 08/04/22 sertraline 50 mg tablet 3 tab PO DAILY 08/04/22 08/04/22 trazodone 50 mg tablet 1 tab PO BEDTIME PRN insomnia 08/04/22 08/04/22 Previous Rx's Medication Instructions Recorded buspirone 15 mg tablet 15 mg PO BID #14 tabs 08/04/22 doxycycline monohydrate 100 mg 100 mg PO DAILY #14 caps 08/04/22 capsule (Monodox) olanzapine 20 mg tablet 20 mg PO BEDTIME #7 tabs 08/04/22 sertraline 50 mg tablet 150 mg PO DAILY 7 days #21 tabs 08/04/22 buprenorphine 8 mg-naloxone 2 mg 1 film sublingual TID #42 ea 08/06/22 sublingual film (Suboxone) buspirone 15 mg tablet 15 mg PO BID #28 tabs 08/06/22 doxycycline monohydrate 100 mg 100 mg PO BID 5 days #10 caps 08/06/22 capsule hydroxyzine HCl 50 mg tablet 50 mg PO TID PRN anxiety #42 tabs 08/06/22 olanzapine 20 mg tablet (Zyprexa) 20 mg PO BEDTIME #14 tabs 08/06/22 olanzapine 5 mg tablet (Zyprexa) 5 mg PO BID PRN psychosis #28 tabs 08/06/22 sertraline 100 mg tablet (Zoloft) 150 mg PO DAILY #21 tabs 08/06/22 trazodone 50 mg tablet 50 mg PO BEDTIME PRN sleep #14 tabs 08/06/22 buprenorphine 8 mg-naloxone 2 mg 1 film buccal DAILY 10 days #10 ea 09/13/22 sublingual film (Suboxone) sulfamethoxazole 800 1 tab PO BID #20 tabs 09/13/22 mg-trimethoprim 160 mg tablet (Bactrim DS) Allergies Allergy/AdvReac Type Severity Reaction Status Date / Time amoxicillin [AMOXICILLIN] Allergy Severe HIVES Verified 08/04/22 02:23 Penicillins [PENICILLINS] Allergy Severe HIVES Verified 08/04/22 02:23 acetaminophen [From TYLENOL] Allergy Unknown LIVER Verified 08/04/22 02:23 PROBLEMS Review of Systems Review of Systems: Constitutional : No Weight loss, No Fever, No Chills, No Night Sweats, No Fatigue, No Malaise ENT/Mouth : No Hearing loss, No Ear Pain, No Nasal Congestion, No Sinus Pain, No Hoarseness, No sore throat, No Rhinorrhea, No Swallowing Difficulty Eyes: No Eye Pain, No Swelling, No Redness, No Foreign Body, No Discharge, No Vision Changes Cardiovascular : No Chest Pain, No SOB, No Dyspnea on Exertion, No Orthopnea, No Edema, No Palpitations Respiratory : No Cough, No Sputum, No Wheezing, No Smoke Exposure, No Dyspnea Gastrointestinal : No Nausea, No Vomiting, No Diarrhea, No Constipation, No abdominal Pain, No Hematochezia, No Melena Genitourinary : no irregular bleeding, No Dysuria, No Urinary Frequency, No Hematuria, No Urinary Incontinence, No Urgency, No Flank Pain, No Urinary Flow Changes, No Hesitancy Musculoskeletal : No joint pain, No Myalgias, No Joint Swelling Skin : Complaining of skin ulcers/lesions in the back of the left thigh Neuro : No Weakness, No Numbness, No Paresthesias, No Loss of Consciousness, No Dizziness, No Headache Psych : No Anxiety/Panic, No Depression, No SI/HI/AH/VH, No Social Issues, Heme/Lymph: No Bruising, No Bleeding,No Lymphadenopathy Endocrine : No Polyuria, No Polydipsia, No Temperature Intolerance [facility] Past Medical History Medical History A-fib Depression Depression Major depression with psychotic features Opiate abuse, continuous Opioid use disorder Polysubstance abuse Schizoaffective disorder Social History Social History Household Members: Significant Other Housing: Unknown / Unable to assess Do you presently have visiting nurse or other home services: No Unable to assess alcohol history related to: Refusing to respond Alcohol intake: current Alcohol intake frequency: does not drink Patient Tobacco Use Status: Current everyday Tobacco user Tobacco use type: Cigarette Cigarette Packs Per Day: 1 Cigarettes Per Day: 20.0 Substance Use Type: Crack/Cocaine and Heroin Advance Directives: No Advance Directives Information Provided: Yes service: No Sexual orientation: Straight/Heterosexual Physical Exam Vital Signs: Vital Signs: Last Vital Signs Temp 97.4 F 09/12/22 22:46 Pulse 102 H 09/12/22 22:46 Resp 16 09/12/22 22:46 BP 138/70 09/12/22 22:46 Pulse Ox 99 09/12/22 22:46 O2 Del Method 09/12/22 22:46 BMI result Body Mass Index 25.7 Const: Other: Appearance: Alert. Oriented X3. No acute distress. Eyes: Pupils equal, round and reactive to light. ENT: Pharynx normal. Neck: Normal inspection. Neck supple. No lymph nodes noted. No crepitus CVS: Normal heart rate and rhythm. Pulses normal. Normal S1 and S2 Respiratory: No respiratory distress. Breath sounds normal. No Wheezing. No rales Abdomen: Soft and nontender. No rigidity. No distention. Skin: Skin warm and dry. 3 skin ulcers in the left thigh posteriorly, there is mild crepitus around the ulceration Extremities: No lower extremity edema. No Lacerations. No Rash Neuro: Oriented X 3. No motor deficit. No sensory deficit. Moving all extremities. No slurred speech. CN 2 through 12 grossly intact Psych: calm, cooperative, normal affect Course Course Course Narrative: -patient is well-appearing. No fever or chills. -patient has 3 ulcerations in the posterior aspect of the thigh. However, there is some crepitation around. We will go ahead and get a CT scan Medications Administered Discontinued Medications Generic Name Dose Route Start Last Admin Trade Name Miroslava PRN Reason Stop Dose Admin Sodium Chloride 1,000 mls @ 999 mls/hr 09/12/22 22:56 09/13/22 01:16 Ns IVCONT 09/12/22 23:56 Infused .Q1H1M ONE Infusion Iohexol 85 ml 09/13/22 00:31 09/13/22 00:32 Iohexol 350 Mg/Ml 100 Ml Infus..Btl IV 09/13/22 00:32 85 ml ONCE ONE Administration Medical Decision Making Medical Decision Making [facility] Narrative: -CT scan shows superficial swelling, no fluid collection, no soft tissue gas. -patient given 1 dose of p.o. Bactrim. And will be giving a prescription for home. -patient requesting a prescription for Suboxone, patient is trying to get into a program. Patient declined assistance at this time, he is doing his own research and states that hopefully by Saturday he will find a clinic which will take him in -prior checked [facility], patient was prescribed Suboxone the last time on August 21, seems that patient has been getting it consistently. -patient wishes to continue treatment, states that it helps him a lot to fight addiction Differential Diagnosis Differential Diagnoses: The differential diagnosis associated with the presentation includes (Cellulitis, abscess, gangrene) Lab Data [facility] Lab Attestation statement: I reviewed the patient's lab results. 09/12/22 23:44 09/12/22 23:44 Labs: Lab Results 09/12/22 09/12/22 09/12/22 Range/Units 23:44 23:44 23:44 WBC 6.8 (4.8-10.8) X10*3/uL RBC 5.33 (4.60-5.80) X10*6/uL Hgb 12.8 L (14.0-18.0) g/dl Hct 40.7 L (42.0-52.0) % MCV 76.4 L (80.0-98.0) fL MCH 24.0 L (27.0-33.0) pg MCHC 31.4 (31.0-36.0) g/dl RDW 14.7 (11.0-16.0) % Plt Count 242 (160-400) X10*3/uL MPV 9.8 (9.4-12.4) fL Immature Gran % (Auto) 0.1 (0.0-0.4) % Neut % (Auto) 52.8 (45-73) % Lymph % (Auto) 34.2 (20-40) % [place] % (Auto) 10.6 (2-11) % Eos % (Auto) 1.9 (0-4) % Baso % (Auto) 0.4 (0-2) % Lymph # (Auto) 2.3 (1.2-4.9) X10*3/uL [place] # (Auto) 0.7 (0.1-1.2) X10*3/uL Eos # (Auto) 0.1 (0.0-0.4) X10*3/uL Baso # (Auto) 0.0 (0.0-0.2) X10*3/uL Abs Immat Gran (auto) 0.01 (0.00-0.03) X10*3/uL Absolute Neuts (auto) 3.6 (2.0-8.3) x10*3/uL Absolute Nucleated RBC 0.000 (0.0-0.012) X10*3/uL Nucleated RBC % (auto) 0.0 (0.0-0.2) /100WBC ESR 7 (0-15) MM/HR Sodium 139 (135-145) mmol/L Potassium 4.3 (3.3-5.1) mmol/L Chloride 102 (96-108) mmol/L Carbon Dioxide 30 H (22-29) mmol/L Anion Gap 11 L (12-20) BUN 23 H (9-16) mg/dL Creatinine 0.84 (0.5-1.4) mg/dL Estim Creat Clear Calc 138.5 Estimated GFR > 60 Random Glucose 87 (60-115) mg/dL Lactic Acid (0.5-2.0) mmol/L Calcium 9.8 (8.4-10.2) mg/dL Total Bilirubin 0.5 (0.0-1.0) mg/dL Direct Bilirubin 0.2 (0.0-0.5) mg/dL AST 52 H (5-37) U/L ALT 49 H (0-40) U/L Alkaline Phosphatase 98 (39-117) U/L C-Reactive Protein 3.97 H (< or = 0.50) mg/dL Total Protein 7.8 (6.5-8.0) g/dL Albumin 4.5 (3.5-5.0) g/dL COVID-19 ([facility]) (Negative) COVID-19 Clin Com 09/12/22 09/13/22 Range/Units 23:44 00:03 WBC (4.8-10.8) X10*3/uL RBC (4.60-5.80) X10*6/uL Hgb (14.0-18.0) g/dl Hct (42.0-52.0) % MCV (80.0-98.0) fL MCH (27.0-33.0) pg MCHC (31.0-36.0) g/dl RDW (11.0-16.0) % Plt Count (160-400) X10*3/uL MPV (9.4-12.4) fL Immature Gran % (Auto) (0.0-0.4) % Neut % (Auto) (45-73) % Lymph % (Auto) (20-40) % [place] % (Auto) (2-11) % Eos % (Auto) (0-4) % Baso % (Auto) (0-2) % Lymph # (Auto) (1.2-4.9) X10*3/uL [place] # (Auto) (0.1-1.2) X10*3/uL Eos # (Auto) (0.0-0.4) X10*3/uL Baso # (Auto) (0.0-0.2) X10*3/uL Abs Immat Gran (auto) (0.00-0.03) X10*3/uL Absolute Neuts (auto) (2.0-8.3) x10*3/uL Absolute Nucleated RBC (0.0-0.012) X10*3/uL Nucleated RBC % (auto) (0.0-0.2) /100WBC ESR (0-15) MM/HR Sodium (135-145) mmol/L Potassium (3.3-5.1) mmol/L Chloride (96-108) mmol/L Carbon Dioxide (22-29) mmol/L Anion Gap (12-20) BUN (9-16) mg/dL Creatinine (0.5-1.4) mg/dL Estim Creat Clear Calc Estimated GFR Random Glucose (60-115) mg/dL Lactic Acid 1.2 (0.5-2.0) mmol/L Calcium (8.4-10.2) mg/dL Total Bilirubin (0.0-1.0) mg/dL Direct Bilirubin (0.0-0.5) mg/dL AST (5-37) U/L ALT (0-40) U/L Alkaline Phosphatase (39-117) U/L C-Reactive Protein (< or = 0.50) mg/dL Total Protein (6.5-8.0) g/dL Albumin (3.5-5.0) g/dL COVID-19 ([facility]) Negative (Negative) COVID-19 Clin Com See Note Independent Interpretation I performed an independent interpretation of an: CT Scan (My interpretation: No abscess visualized) Radiology Impression Discussion of test interpretation with radiology: I have reviewed the radiologist's reading. Radiologist Impression: FINDINGS: Soft tissue swelling superficially along the lateral thigh. No fluid collection. No soft tissue gas. The musculature appears unremarkable. No fracture. Appropriate alignment of the knee and hip. No joint effusion. The visualized intrapelvic structures show no acute abnormality.? CT/CT femur LT w IV con IMPRESSION: Superficial soft tissue swelling along the lateral thigh. No fluid collection. No soft tissue gas. Discharge Plan Discharge Clinical Impression: Cellulitis, Opiate addiction Patient Disposition: Home, Self-Care Instructions: Cellulitis (ED) Additional Instructions: Please follow-up with your primary care physician tomorrow. If you have any worsening or new symptoms, please return to the emergency room or call 911 Prescriptions: New sulfamethoxazole-trimethoprim [Bactrim DS] 800-160 mg tablet 1 tab PO BID Qty: 20 0RF buprenorphine-naloxone [Suboxone] 8-2 mg film 1 film buccal DAILY 10 Days Qty: 10 0RF No Action trazodone 50 mg tablet 1 tab PO BEDTIME PRN (Reason: insomnia) olanzapine 5 mg tablet 1 tab PO BID PRN (Reason: psychosis) hydroxyzine HCl 25 mg tablet 3 tab PO Q6H PRN (Reason: anxiety) sertraline 50 mg tablet 3 tab PO DAILY olanzapine 20 mg tablet 1 tab PO BEDTIME buspirone 15 mg tablet 1 tab PO BID nicotine (polacrilex) 4 mg lozenge 1 mitzy PO Q2H PRN (Reason: nicotine cravings) doxycycline monohydrate [Monodox] 100 mg capsule 100 mg PO DAILY Qty: 14 0RF olanzapine 20 mg tablet 20 mg PO BEDTIME Qty: 7 0RF buspirone 15 mg tablet 15 mg PO BID Qty: 14 0RF sertraline 50 mg tablet 150 mg PO DAILY 7 Days Qty: 21 0RF buspirone 15 mg tablet 15 mg PO BID Qty: 28 1RF olanzapine [Zyprexa] 20 mg tablet 20 mg PO BEDTIME Qty: 14 1RF olanzapine [Zyprexa] 5 mg tablet 5 mg PO BID PRN (Reason: psychosis) Qty: 28 1RF sertraline [Zoloft] 100 mg tablet 150 mg PO DAILY Qty: 21 1RF buprenorphine-naloxone [Suboxone] 8-2 mg film 1 film sublingual TID Qty: 42 1RF trazodone 50 mg tablet 50 mg PO BEDTIME PRN (Reason: sleep) Qty: 14 1RF hydroxyzine HCl 50 mg tablet 50 mg PO TID PRN (Reason: anxiety) Qty: 42 1RF doxycycline monohydrate 100 mg capsule 100 mg PO BID 5 Days Qty: 10 0RF
[2022-09-12] MEDS: 0.9 % Sodium Chloride 1,000 ML 999 ML IVCONT (23:50)
[2022-09-12 23:53] LABS: Basophils Percent Auto 0.4 % (0-2); Eosinophils Absolute Auto 0.1 X10*3/uL (0.0-0.4); Eosinophils Percent Auto 1.9 % (0-4); Hematocrit 40.7 % (42.0-52.0); Hemoglobin 12.8 g/dl (14.0-18.0); Imm Gran Abs Auto 0.01 X10*3/uL (0.00-0.03); Imm Gran Pct Auto 0.1 % (0.0-0.4); Lymphocytes Absolute Auto 2.3 X10*3/uL (1.2-4.9); Lymphocytes Percent Auto 34.2 % (20-40); MANUAL DIFF FLAG NO; Mean Corpuscular HGB Conc 31.4 g/dl (31.0-36.0); Mean Corpuscular Volume 76.4 fL (80.0-98.0); Mean Platelet Volume 9.8 fL (9.4-12.4); Monocytes Absolute Auto 0.7 X10*3/uL (0.1-1.2); Monocytes Percent Auto 10.6 % (2-11); Neutrophils Absolute Auto 3.6 x10*3/uL (2.0-8.3); Neutrophils Percent Auto 52.8 % (45-73); Platelet Count 242 X10*3/uL (160-400); Red Blood Count 5.33 X10*6/uL (4.60-5.80); Red Cell Distribution Width 14.7 % (11.0-16.0); White Blood Count 6.8 X10*3/uL (4.8-10.8)
[2022-09-13 00:05] LABS: Lactic Acid 1.2 mmol/L (0.5-2.0)
[2022-09-13 00:12] LABS: Alanine Aminotransferase 49 U/L (0-40); Albumin Level 4.5 g/dL (3.5-5.0); Alkaline Phosphatase 98 U/L (39-117); Anion Gap 11 (12-20); Aspartate Amino Transferase 52 U/L (5-37); Bilirubin Direct 0.2 mg/dL (0.0-0.5); Bilirubin Total 0.5 mg/dL (0.0-1.0); Blood Urea Nitrogen 23 mg/dL (9-16); C Reactive Protein 3.97 mg/dL (< or = 0.50); Calcium 9.8 mg/dL (8.4-10.2); Carbon Dioxide 30 mmol/L (22-29); Chloride 102 mmol/L (96-108); Creatinine Clr Calc Pharmacy 138.5; Estimated Glomerular Filt Rate > 60; Glucose Random 87 mg/dL (60-115); Potassium 4.3 mmol/L (3.3-5.1); Sodium 139 mmol/L (135-145); Total Protein 7.8 g/dL (6.5-8.0)
[2022-09-13 00:20] LABS: COVID-19 Test Negative (Negative); IDNOW Serial# 6674DD1D
[2022-09-13 00:29] LABS: Erythrocyte Sedimentation Rate 7 MM/HR (0-15)
[2022-09-13] MEDS: iohexoL 350 MG/ML 100 ML INFUS..BTL 85 ML IV (00:32)
[2022-09-13] MEDS: Sulfamethox/Trimeth 800/160 TABLET 1 TAB PO (01:54)
== END 2022-09-13 02:04 | disposition home or self-care (01) ==
PROVIDERS: Emergency Provider Emergency Medicine
DX: L03.116 Cellulitis of left lower limb (principal); F11.20 Opioid dependence, uncomplicated; F25.9 Schizoaffective disorder, unspecified; F17.210 Nicotine dependence, cigarettes, uncomplicated; Z79.899 Other long term (current) drug therapy
CPT/HCPCS: 73701; 80048; 80076; 83605; 85025; 85652; 86140; 87040; 87635; 96360; 99283; 99284; Q9967

== ENCOUNTER 2022-09-16 23:49 | Emergency (ER) | payer OTHER, SELFPAY ==
[2022-09-17 00:02] VITALS: BP 119/75; PULSE 104; RESP 20; TEMP 37.2; O2SAT 95; BMI 25.7
[2022-09-17 00:11] VITALS: BP 119/75; PULSE 104; PULSE 94; RESP 22; TEMP 37.2; O2SAT 95
--- NOTE | 2022-09-17 00:29 | ED_ITS ---
HPI - Psych General Chief Complaint: Psychiatric Symptoms <YOVANI Reyes - Last Filed: 09/17/22 01:24> Stated Complaint: Crisis <YOVANI Reyes Last Filed: 09/17/22 01:24> Time Seen by Provider: 09/17/22 00:09 <YOVANI Reyes Last Filed: 09/17/22 01:24> Source: patient <YOVANI Reyes - Last Filed: 09/17/22 01:24> Mode of arrival: ambulatory <YOVANI Reyes Last Filed: 09/17/22 01:24> Limitations: no limitations <YOVANI Reyes Last Filed: 09/17/22 01:24> History of Present Illness HPI Narrative: This is a 31-year-old male presenting with suicidal ideation, command auditory hallucination times a few days worsening. Patient tells me that he has been feeling off due to non med compliance, patient tells me he just has not wanted to take his medications recently and he is starting to feel bad. He tells me he is suicidal with plan to overdose. Denies visual hallucinations and tactile hallucinations. Denies homicidal ideation. Reports daily heroin use last use today, he tells me he smokes it. No other drugs. Denies alcohol, tobacco. Patient also complaining that he has lesions on his left thigh which she was seen here for and had a CT scan and a full workup he is on p.o. Bactrim which she would like to continue he tells me he feels like they are not getting better. I explained to him sometimes antibiotics take time to act. Denies Fevers chills nausea, vomiting, chest pain, shortness of breath, headache, vision changes, dizziness, weakness. <YOVANI Reyes Last Filed: 09/17/22 01:24> Related Data Home Medications: Previous Rx's Medication Instructions Recorded buprenorphine 8 mg-naloxone 2 mg 1 film sublingual TID #42 ea 08/06/22 sublingual film (Suboxone) sulfamethoxazole 800 1 tab PO BID #20 tabs 09/13/22 mg-trimethoprim 160 mg tablet (Bactrim DS) olanzapine 10 mg tablet 10 mg PO DAILY #30 tabs 09/18/22 olanzapine 20 mg tablet 20 mg PO BEDTIME #30 tabs 09/18/22 <YOVANI Reyes Last Filed: 09/17/22 01:24> Allergies/Adverse Reactions: Allergies Allergy/AdvReac Type Severity Reaction Status Date / Time amoxicillin [AMOXICILLIN] Allergy Severe HIVES Verified 08/04/22 02:23 Penicillins [PENICILLINS] Allergy Severe HIVES Verified 08/04/22 02:23 acetaminophen [From TYLENOL] Allergy Unknown LIVER Verified 08/04/22 02:23 PROBLEMS <YOVANI Reyes Last Filed: 09/17/22 01:24> Review of Systems Review of Systems: Constitutional : No Weight loss, No Fever, No Chills, No Fatigue, No Malaise ENT/Mouth : No sore throat, No Rhinorrhea Eyes: No Eye Pain, No Swelling, No Redness Cardiovascular : No Chest Pain, No SOB, No Dyspnea on Exertion, No Orthopnea, No Edema, No Palpitations Respiratory : No Cough, No Sputum, No Wheezing Gastrointestinal : No Nausea, No Vomiting, No Diarrhea, No Constipation, No abdominal Pain, No Hematochezia, No Melena Genitourinary : No Dysuria, No Urinary Frequency, No Hematuria, Musculoskeletal : No joint pain, No Myalgias, No Joint Swelling Skin : + Skin Lesions, No rash Neuro : No Weakness, No Numbness, No Dizziness, No Headache Psych : No Anxiety/Panic, No Depression All other systems reviewed and are negative <YOVANI Reyes Last Filed: 09/17/22 01:24> Yes all other systems are reviewed and are negative <YOVANI Reyes Last Filed: 09/17/22 01:24> [facility] Past Medical History Attestation statement: The following information was validated with the patient. <YOVANI Reyes Last Filed: 09/17/22 01:24> Source: old records reviewed and nursing notes reviewed <YOVANI Reyes Last Filed: 09/17/22 01:24> Medical History: Medical History A-fib Depression Depression Major depression with psychotic features Opiate abuse, continuous Opioid use disorder Polysubstance abuse Schizoaffective disorder <YOVANI Reyes - Last Filed: 09/17/22 01:24> Social History Social History: Social History Household Members: Significant Other Housing: Unknown / Unable to assess Do you presently have visiting nurse or other home services: No Unable to assess alcohol history related to: Refusing to respond Alcohol intake: current Alcohol intake frequency: does not drink Patient Tobacco Use Status: Current everyday Tobacco user Tobacco use type: Cigarette Cigarette Packs Per Day: 1 Cigarettes Per Day: 20.0 Smoked in Last 30 Days: Yes Use of substances other than those prescribed or required for medical reasons: Yes Substance Use Type: Crack/Cocaine and Marijuana Advance Directives: No service: No Sexual orientation: Straight/Heterosexual <YOVANI Reyes - Last Filed: 09/17/22 01:24> Physical Exam Vital Signs: Vital Signs: Last Vital Signs Temp 98.5 F 09/18/22 07:27 Pulse 86 09/18/22 07:27 Resp 17 09/18/22 07:27 BP 143/91 H 09/18/22 07:27 Pulse Ox 96 09/18/22 07:27 O2 Del Method 09/18/22 07:27 BMI result Body Mass Index 25.7 Patient tachycardic and tachypneic likely secondary to anxiety. <YOVANI Reyes - Last Filed: 09/17/22 01:24> Vital Signs: Last Vital Signs Temp 98.5 F 09/18/22 07:27 Pulse 86 09/18/22 07:27 Resp 17 09/18/22 07:27 BP 143/91 H 09/18/22 07:27 Pulse Ox 96 09/18/22 07:27 O2 Del Method 09/18/22 07:27 BMI result Body Mass Index 25.7 <Tay Díaz MD - Last Filed: 09/17/22 07:41> Vital Signs: Last Vital Signs Temp 98.5 F 09/18/22 07:27 Pulse 86 09/18/22 07:27 Resp 17 09/18/22 07:27 BP 143/91 H 09/18/22 07:27 Pulse Ox 96 09/18/22 07:27 O2 Del Method 09/18/22 07:27 BMI result Body Mass Index 25.7 <Baldomero Correa MD - Last Filed: 09/18/22 16:44> Appearance: Alert.? Oriented X3.? No acute distress.? Head: Normocephalic, atraumatic, no step-offs or deformities Eyes: Pupils equal, round and reactive to light.? ENT: Pharynx normal.? Neck: Normal inspection.? Neck supple.? CVS: Normal heart rate and rhythm.? Pulses normal.? Respiratory: No respiratory distress.? Breath sounds normal.? Abdomen: Soft and nontender.? Skin: Skin warm and dry.? Normal skin color.? Normal skin turgor.?3 skin ulcers in the left thigh posteriorly, there is mild crepitus around the ulceration and erythema. Extremities: No lower extremity edema.? No calf ttp. 5/5 strength to bilateral upper and lower extremities Neuro: Oriented X 3.? No motor deficit.? No sensory deficit. CN 2-12 intact <YOVANI Reyes - Last Filed: 09/17/22 01:24> Course Reevaluation(s) Reevaluation #1: Patient's UA without infection. Urine toxicology positive for opiates, fentanyl, cocaine, marijuana. Labs pending patient very difficult stick, refusing at this time. Nursing staff will keep trying when patient allows. At this time patient will be placed into physician observation to allow more time to be evaluated by the behavioral health team. At time observation was started patient common cooperative no acute distress will continue to monitor <YOVANI Reyes - Last Filed: 09/17/22 01:24> Time: 01:22 <YOVANI Reyes - Last Filed: 09/17/22 01:24> Reevaluation #2: Physician observation: patient is suicidal with a plan he is awaiting crisis evaluation, currently resting comfortably <Tay Díaz MD - Last Filed: 09/17/22 07:41> Time: 07:11 <Tay Díaz MD - Last Filed: 09/17/22 07:41> Reevaluation #3: [id number]: Continue physician observation: Patient was seen by the psychiatric nurse practitioner, Liliya Neves who felt that the patient did not meet inpatient criteria for psychiatric admission but would benefit from outpatient detox care . Patient's tox screen was positive for opiates, fentanyl, cocaine and marijuana/THC. The patient did have auditory hallucinations and apparently he has benefitted from Zyprexa in the past the nurse practitioner did prescribe this medication for him. The plan is that the patient will stay in the emergency department overnight and then be re-evaluated by the recovery auditor and presented to [facility] for detox. The patient will be started on Zyprexa 10 mg in the morning and 20 mg at night. Patient will be kept in physician observation until a disposition can be determined. <Baldomero Correa MD - Last Filed: 09/18/22 16:44> Time: 16:38 <Baldomero Correa MD - Last Filed: 09/18/22 16:44> Medications Administered Generic Name Dose Route Start Last Admin Trade Name Freq PRN Reason Stop Dose Admin Buprenorphine/Naloxone 1 film 09/17/22 09:00 09/18/22 14:32 Buprenorphine/Naloxone 8/2 Mg Film SUBLINGUAL 1 film TID RICARDO Administration Doxycycline Monohydrate 100 mg 09/17/22 09:00 09/18/22 08:15 Doxycycline Monohydrate 100 Mg Capsule PO 100 mg BID RICARDO Administration Trimethoprim/Sulfamethoxazole 1 tab 09/17/22 09:00 09/18/22 08:15 Sulfamethox/Trimeth 800/160 Tablet PO 1 tab BID RICARDO Administration Discontinued Medications Generic Name Dose Route Start Last Admin Trade Name Freq PRN Reason Stop Dose Admin Doxycycline Monohydrate 100 mg 09/17/22 00:41 09/17/22 00:57 Doxycycline Monohydrate 100 Mg Capsule PO 09/17/22 00:42 100 mg ONCE ONE Administration Lorazepam 1 mg 09/17/22 00:28 09/17/22 00:34 Lorazepam 1 Mg Tablet PO 09/17/22 00:29 1 mg ONCE ONE Administration <YOVANI Reyes - Last Filed: 09/17/22 01:24> Medications Administered Generic Name Dose Route Start Last Admin Trade Name Freq PRN Reason Stop Dose Admin Buprenorphine/Naloxone 1 film 09/17/22 09:00 09/18/22 14:32 Buprenorphine/Naloxone 8/2 Mg Film SUBLINGUAL 1 film TID RICARDO Administration Doxycycline Monohydrate 100 mg 09/17/22 09:00 09/18/22 08:15 Doxycycline Monohydrate 100 Mg Capsule PO 100 mg BID RICARDO Administration Trimethoprim/Sulfamethoxazole 1 tab 09/17/22 09:00 09/18/22 08:15 Sulfamethox/Trimeth 800/160 Tablet PO 1 tab BID RICARDO Administration Discontinued Medications Generic Name Dose Route Start Last Admin Trade Name Freq PRN Reason Stop Dose Admin Doxycycline Monohydrate 100 mg 09/17/22 00:41 09/17/22 00:57 Doxycycline Monohydrate 100 Mg Capsule PO 09/17/22 00:42 100 mg ONCE ONE Administration Lorazepam 1 mg 09/17/22 00:28 09/17/22 00:34 Lorazepam 1 Mg Tablet PO 09/17/22 00:29 1 mg ONCE ONE Administration <Tay Díaz MD - Last Filed: 09/17/22 07:41> Medications Administered Generic Name Dose Route Start Last Admin Trade Name Meloq PRN Reason Stop Dose Admin Buprenorphine/Naloxone 1 film 09/17/22 09:00 09/18/22 14:32 Buprenorphine/Naloxone 8/2 Mg Film SUBLINGUAL 1 film TID RICARDO Administration Doxycycline Monohydrate 100 mg 09/17/22 09:00 09/18/22 08:15 Doxycycline Monohydrate 100 Mg Capsule PO 100 mg BID RICARDO Administration Trimethoprim/Sulfamethoxazole 1 tab 09/17/22 09:00 09/18/22 08:15 Sulfamethox/Trimeth 800/160 Tablet PO 1 tab BID RICARDO Administration Discontinued Medications Generic Name Dose Route Start Last Admin Trade Name Miroslava PRN Reason Stop Dose Admin Doxycycline Monohydrate 100 mg 09/17/22 00:41 09/17/22 00:57 Doxycycline Monohydrate 100 Mg Capsule PO 09/17/22 00:42 100 mg ONCE ONE Administration Lorazepam 1 mg 09/17/22 00:28 09/17/22 00:34 Lorazepam 1 Mg Tablet PO 09/17/22 00:29 1 mg ONCE ONE Administration <Baldomero Correa MD - Last Filed: 09/18/22 16:44> Medical Decision Making Medical Decision Making [facility] Narrative: 0032 31-year-old male presents with anxiety, depression, command auditory hallucinations, suicidal ideation with plan and not resolving skin ulcers. Physical examination with 3 skin ulcers in the left thigh posteriorly with some crepitus in erythema around them. Otherwise benign. Patient is noted to be tachycardic and tachypneic likely secondary to anxiety. Upon chart review it is noted that patient was seen in the emergency department on 09/12/2022, CT scan showed superficial swelling however no fluid collection, no soft tissue gas. Patient was sent home on p.o. Bactrim which he has been taking. However reports little to no improvement. Likely skin ulcerations with overlying cellulitis, unlikely sepsis, necrotizing infection. Patient's suicidal ideation likely secondary to non med compliance. I do not suspect metabolic disturbances. Plan at this time is medical clearance evaluation by the behavioral health team. <YOVANI Reyes - Last Filed: 09/17/22 01:24> Differential Diagnosis Differential Diagnoses: The differential diagnosis associated with the presentation includes <YOVANI Reyes - Last Filed: 09/17/22 01:24> Likely skin ulcerations with overlying cellulitis, unlikely sepsis, necrotizing infection. Patient's suicidal ideation likely secondary to non med compliance. I do not suspect metabolic disturbances. <YOVANI Reyes - Last Filed: 09/17/22 01:24> Admission/Observation Consideration of admission/observation: Escalation of care including admission/observation considered <YOVANI Reyes - Last Filed: 09/17/22 01:24> At this point patient needs to be admitted for suicidal ideation, admission considered <Tay Díaz MD - Last Filed: 09/17/22 07:41> Lab Data MDM Lab Attestation statement: I reviewed the patient's lab results. <YOVANI Reyes - Last Filed: 09/17/22 01:24> Result Diagrams: 09/17/22 01:33 09/17/22 01:33 <YOVANI Reyes - Last Filed: 09/17/22 01:24> Labs: Lab Results 09/17/22 09/17/22 09/17/22 Range/Units 00:32 00:32 00:33 WBC (4.8-10.8) X10*3/uL RBC (4.60-5.80) X10*6/uL Hgb (14.0-18.0) g/dl Hct (42.0-52.0) % MCV (80.0-98.0) fL MCH (27.0-33.0) pg MCHC (31.0-36.0) g/dl RDW (11.0-16.0) % Plt Count (160-400) X10*3/uL MPV (9.4-12.4) fL Immature Gran % (Auto) (0.0-0.4) % Neut % (Auto) (45-73) % Lymph % (Auto) (20-40) % [place] % (Auto) (2-11) % Eos % (Auto) (0-4) % Baso % (Auto) (0-2) % Lymph # (Auto) (1.2-4.9) X10*3/uL Sutter # (Auto) (0.1-1.2) X10*3/uL Eos # (Auto) (0.0-0.4) X10*3/uL Baso # (Auto) (0.0-0.2) X10*3/uL Abs Immat Gran (auto) (0.00-0.03) X10*3/uL Absolute Neuts (auto) (2.0-8.3) x10*3/uL Absolute Nucleated RBC (0.0-0.012) X10*3/uL Nucleated RBC % (auto) (0.0-0.2) /100WBC Sodium (135-145) mmol/L Potassium (3.3-5.1) mmol/L Chloride (96-108) mmol/L Carbon Dioxide (22-29) mmol/L Anion Gap (12-20) BUN (9-16) mg/dL Creatinine (0.5-1.4) mg/dL Estim Creat Clear Calc Estimated GFR Random Glucose (60-115) mg/dL Calcium (8.4-10.2) mg/dL Total Bilirubin (0.0-1.0) mg/dL AST (5-37) U/L ALT (0-40) U/L Alkaline Phosphatase (39-117) U/L Total Protein (6.5-8.0) g/dL Albumin (3.5-5.0) g/dL Lipase (8-78) U/L Urine Color Yellow Urine Appearance Clear Urine pH 5.5 (5.0-9.0) Ur Specific [place] >= 1.030 H (1.005-1.025) Urine Protein Negative (Neg-Trace) mg/dL Urine Glucose (UA) Negative (Negative) mg/dL Urine Ketones Negative (Negative) mg/dL Urine Blood Negative (Negative) Urine Nitrite Negative (Negative) Ur Leukocyte Esterase Negative (Negative) Salicylates (15-30) mg/dL Urine Opiates Screen POSITIVE H (Not Detect) Urine Fentanyl Screen POSITIVE H (Not Detect) Acetaminophen (<30) mcg/mL Ur Barbiturates Screen Not Detected (Not Detect) Ur Phencyclidine Scrn Not Detected (Not Detect) Ur Amphetamines Screen Not Detected (Not Detect) U Benzodiazepines Scrn Not Detected (Not Detect) Urine Cocaine Screen POSITIVE H (Not Detect) U Marijuana (THC) Screen POSITIVE H (Not Detect) Ethyl Alcohol mg/dL COVID-19 ([facility]) Negative (Negative) COVID-19 Clin Com See Note 09/17/22 09/17/22 09/17/22 Range/Units 01:33 01:33 01:33 WBC 14.6 H (4.8-10.8) X10*3/uL RBC 5.20 (4.60-5.80) X10*6/uL Hgb 12.6 L (14.0-18.0) g/dl Hct 39.8 L (42.0-52.0) % MCV 76.5 L (80.0-98.0) fL MCH 24.2 L (27.0-33.0) pg MCHC 31.7 (31.0-36.0) g/dl RDW 14.7 (11.0-16.0) % Plt Count 281 (160-400) X10*3/uL MPV 9.7 (9.4-12.4) fL Immature Gran % (Auto) 0.3 (0.0-0.4) % Neut % (Auto) 76.7 H (45-73) % Lymph % (Auto) 14.1 L (20-40) % Sutter % (Auto) 7.9 (2-11) % Eos % (Auto) 0.8 (0-4) % Baso % (Auto) 0.2 (0-2) % Lymph # (Auto) 2.1 (1.2-4.9) X10*3/uL Sutter # (Auto) 1.2 (0.1-1.2) X10*3/uL Eos # (Auto) 0.1 (0.0-0.4) X10*3/uL Baso # (Auto) 0.0 (0.0-0.2) X10*3/uL Abs Immat Gran (auto) 0.04 H (0.00-0.03) X10*3/uL Absolute Neuts (auto) 11.2 H (2.0-8.3) x10*3/uL Absolute Nucleated RBC 0.000 (0.0-0.012) X10*3/uL Nucleated RBC % (auto) 0.0 (0.0-0.2) /100WBC Sodium 140 (135-145) mmol/L Potassium 4.7 (3.3-5.1) mmol/L Chloride 105 (96-108) mmol/L Carbon Dioxide 22 (22-29) mmol/L Anion Gap 18 (12-20) BUN 20 H (9-16) mg/dL Creatinine 0.98 (0.5-1.4) mg/dL Estim Creat Clear Calc 125.8 Estimated GFR > 60 Random Glucose 79 (60-115) mg/dL Calcium 9.6 (8.4-10.2) mg/dL Total Bilirubin 0.2 (0.0-1.0) mg/dL AST 36 (5-37) U/L ALT 44 H (0-40) U/L Alkaline Phosphatase 93 (39-117) U/L Total Protein 7.4 (6.5-8.0) g/dL Albumin 4.2 (3.5-5.0) g/dL Lipase 16 (8-78) U/L Urine Color Urine Appearance Urine pH (5.0-9.0) Ur Specific [place] (1.005-1.025) Urine Protein (Neg-Trace) mg/dL Urine Glucose (UA) (Negative) mg/dL Urine Ketones (Negative) mg/dL Urine Blood (Negative) Urine Nitrite (Negative) Ur Leukocyte Esterase (Negative) Salicylates < 5.0 L (15-30) mg/dL Urine Opiates Screen (Not Detect) Urine Fentanyl Screen (Not Detect) Acetaminophen < 17 (<30) mcg/mL Ur Barbiturates Screen (Not Detect) Ur Phencyclidine Scrn (Not Detect) Ur Amphetamines Screen (Not Detect) U Benzodiazepines Scrn (Not Detect) Urine Cocaine Screen (Not Detect) U Marijuana (THC) Screen (Not Detect) Ethyl Alcohol < 10 mg/dL COVID-19 ([facility]) (Negative) COVID-19 Clin Com <YOVANI Reyes - Last Filed: 09/17/22 01:24> Lab Results 09/17/22 09/17/22 09/17/22 Range/Units 00:32 00:32 00:33 WBC (4.8-10.8) X10*3/uL RBC (4.60-5.80) X10*6/uL Hgb (14.0-18.0) g/dl Hct (42.0-52.0) % MCV (80.0-98.0) fL MCH (27.0-33.0) pg MCHC (31.0-36.0) g/dl RDW (11.0-16.0) % Plt Count (160-400) X10*3/uL MPV (9.4-12.4) fL Immature Gran % (Auto) (0.0-0.4) % Neut % (Auto) (45-73) % Lymph % (Auto) (20-40) % Sutter % (Auto) (2-11) % Eos % (Auto) (0-4) % Baso % (Auto) (0-2) % Lymph # (Auto) (1.2-4.9) X10*3/uL Sutter # (Auto) (0.1-1.2) X10*3/uL Eos # (Auto) (0.0-0.4) X10*3/uL Baso # (Auto) (0.0-0.2) X10*3/uL Abs Immat Gran (auto) (0.00-0.03) X10*3/uL Absolute Neuts (auto) (2.0-8.3) x10*3/uL Absolute Nucleated RBC (0.0-0.012) X10*3/uL Nucleated RBC % (auto) (0.0-0.2) /100WBC Sodium (135-145) mmol/L Potassium (3.3-5.1) mmol/L Chloride (96-108) mmol/L Carbon Dioxide (22-29) mmol/L Anion Gap (12-20) BUN (9-16) mg/dL Creatinine (0.5-1.4) mg/dL Estim Creat Clear Calc Estimated GFR Random Glucose (60-115) mg/dL Calcium (8.4-10.2) mg/dL Total Bilirubin (0.0-1.0) mg/dL AST (5-37) U/L ALT (0-40) U/L Alkaline Phosphatase (39-117) U/L Total Protein (6.5-8.0) g/dL Albumin (3.5-5.0) g/dL Lipase (8-78) U/L Urine Color Yellow Urine Appearance Clear Urine pH 5.5 (5.0-9.0) Ur Specific [place] >= 1.030 H (1.005-1.025) Urine Protein Negative (Neg-Trace) mg/dL Urine Glucose (UA) Negative (Negative) mg/dL Urine Ketones Negative (Negative) mg/dL Urine Blood Negative (Negative) Urine Nitrite Negative (Negative) Ur Leukocyte Esterase Negative (Negative) Salicylates (15-30) mg/dL Urine Opiates Screen POSITIVE H (Not Detect) Urine Fentanyl Screen POSITIVE H (Not Detect) Acetaminophen (<30) mcg/mL Ur Barbiturates Screen Not Detected (Not Detect) Ur Phencyclidine Scrn Not Detected (Not Detect) Ur Amphetamines Screen Not Detected (Not Detect) U Benzodiazepines Scrn Not Detected (Not Detect) Urine Cocaine Screen POSITIVE H (Not Detect) U Marijuana (THC) Screen POSITIVE H (Not Detect) Ethyl Alcohol mg/dL COVID-19 ([facility]) Negative (Negative) COVID-19 Clin Com See Note 09/17/22 09/17/22 09/17/22 Range/Units 01:33 01:33 01:33 WBC 14.6 H (4.8-10.8) X10*3/uL RBC 5.20 (4.60-5.80) X10*6/uL Hgb 12.6 L (14.0-18.0) g/dl Hct 39.8 L (42.0-52.0) % MCV 76.5 L (80.0-98.0) fL MCH 24.2 L (27.0-33.0) pg MCHC 31.7 (31.0-36.0) g/dl RDW 14.7 (11.0-16.0) % Plt Count 281 (160-400) X10*3/uL MPV 9.7 (9.4-12.4) fL Immature Gran % (Auto) 0.3 (0.0-0.4) % Neut % (Auto) 76.7 H (45-73) % Lymph % (Auto) 14.1 L (20-40) % Sutter % (Auto) 7.9 (2-11) % Eos % (Auto) 0.8 (0-4) % Baso % (Auto) 0.2 (0-2) % Lymph # (Auto) 2.1 (1.2-4.9) X10*3/uL Sutter # (Auto) 1.2 (0.1-1.2) X10*3/uL Eos # (Auto) 0.1 (0.0-0.4) X10*3/uL Baso # (Auto) 0.0 (0.0-0.2) X10*3/uL Abs Immat Gran (auto) 0.04 H (0.00-0.03) X10*3/uL Absolute Neuts (auto) 11.2 H (2.0-8.3) x10*3/uL Absolute Nucleated RBC 0.000 (0.0-0.012) X10*3/uL Nucleated RBC % (auto) 0.0 (0.0-0.2) /100WBC Sodium 140 (135-145) mmol/L Potassium 4.7 (3.3-5.1) mmol/L Chloride 105 (96-108) mmol/L Carbon Dioxide 22 (22-29) mmol/L Anion Gap 18 (12-20) BUN 20 H (9-16) mg/dL Creatinine 0.98 (0.5-1.4) mg/dL Estim Creat Clear Calc 125.8 Estimated GFR > 60 Random Glucose 79 (60-115) mg/dL Calcium 9.6 (8.4-10.2) mg/dL Total Bilirubin 0.2 (0.0-1.0) mg/dL AST 36 (5-37) U/L ALT 44 H (0-40) U/L Alkaline Phosphatase 93 (39-117) U/L Total Protein 7.4 (6.5-8.0) g/dL Albumin 4.2 (3.5-5.0) g/dL Lipase 16 (8-78) U/L Urine Color Urine Appearance Urine pH (5.0-9.0) Ur Specific [place] (1.005-1.025) Urine Protein (Neg-Trace) mg/dL Urine Glucose (UA) (Negative) mg/dL Urine Ketones (Negative) mg/dL Urine Blood (Negative) Urine Nitrite (Negative) Ur Leukocyte Esterase (Negative) Salicylates < 5.0 L (15-30) mg/dL Urine Opiates Screen (Not Detect) Urine Fentanyl Screen (Not Detect) Acetaminophen < 17 (<30) mcg/mL Ur Barbiturates Screen (Not Detect) Ur Phencyclidine Scrn (Not Detect) Ur Amphetamines Screen (Not Detect) U Benzodiazepines Scrn (Not Detect) Urine Cocaine Screen (Not Detect) U Marijuana (THC) Screen (Not Detect) Ethyl Alcohol < 10 mg/dL COVID-19 ([facility]) (Negative) COVID-19 Clin Com <Tay Díaz MD - Last Filed: 09/17/22 07:41> Lab Results 09/17/22 09/17/22 09/17/22 Range/Units 00:32 00:32 00:33 WBC (4.8-10.8) X10*3/uL RBC (4.60-5.80) X10*6/uL Hgb (14.0-18.0) g/dl Hct (42.0-52.0) % MCV (80.0-98.0) fL MCH (27.0-33.0) pg MCHC (31.0-36.0) g/dl RDW (11.0-16.0) % Plt Count (160-400) X10*3/uL MPV (9.4-12.4) fL Immature Gran % (Auto) (0.0-0.4) % Neut % (Auto) (45-73) % Lymph % (Auto) (20-40) % Sutter % (Auto) (2-11) % Eos % (Auto) (0-4) % Baso % (Auto) (0-2) % Lymph # (Auto) (1.2-4.9) X10*3/uL Sutter # (Auto) (0.1-1.2) X10*3/uL Eos # (Auto) (0.0-0.4) X10*3/uL Baso # (Auto) (0.0-0.2) X10*3/uL Abs Immat Gran (auto) (0.00-0.03) X10*3/uL Absolute Neuts (auto) (2.0-8.3) x10*3/uL Absolute Nucleated RBC (0.0-0.012) X10*3/uL Nucleated RBC % (auto) (0.0-0.2) /100WBC Sodium (135-145) mmol/L Potassium (3.3-5.1) mmol/L Chloride (96-108) mmol/L Carbon Dioxide (22-29) mmol/L Anion Gap (12-20) BUN (9-16) mg/dL Creatinine (0.5-1.4) mg/dL Estim Creat Clear Calc Estimated GFR Random Glucose (60-115) mg/dL Calcium (8.4-10.2) mg/dL Total Bilirubin (0.0-1.0) mg/dL AST (5-37) U/L ALT (0-40) U/L Alkaline Phosphatase (39-117) U/L Total Protein (6.5-8.0) g/dL Albumin (3.5-5.0) g/dL Lipase (8-78) U/L Urine Color Yellow Urine Appearance Clear Urine pH 5.5 (5.0-9.0) Ur Specific [place] >= 1.030 H (1.005-1.025) Urine Protein Negative (Neg-Trace) mg/dL Urine Glucose (UA) Negative (Negative) mg/dL Urine Ketones Negative (Negative) mg/dL Urine Blood Negative (Negative) Urine Nitrite Negative (Negative) Ur Leukocyte Esterase Negative (Negative) Salicylates (15-30) mg/dL Urine Opiates Screen POSITIVE H (Not Detect) Urine Fentanyl Screen POSITIVE H (Not Detect) Acetaminophen (<30) mcg/mL Ur Barbiturates Screen Not Detected (Not Detect) Ur Phencyclidine Scrn Not Detected (Not Detect) Ur Amphetamines Screen Not Detected (Not Detect) U Benzodiazepines Scrn Not Detected (Not Detect) Urine Cocaine Screen POSITIVE H (Not Detect) U Marijuana (THC) Screen POSITIVE H (Not Detect) Ethyl Alcohol mg/dL COVID-19 (SREEDHAR) Negative (Negative) COVID-19 Clin Com See Note 09/17/22 09/17/22 09/17/22 Range/Units 01:33 01:33 01:33 WBC 14.6 H (4.8-10.8) X10*3/uL RBC 5.20 (4.60-5.80) X10*6/uL Hgb 12.6 L (14.0-18.0) g/dl Hct 39.8 L (42.0-52.0) % MCV 76.5 L (80.0-98.0) fL MCH 24.2 L (27.0-33.0) pg MCHC 31.7 (31.0-36.0) g/dl RDW 14.7 (11.0-16.0) % Plt Count 281 (160-400) X10*3/uL MPV 9.7 (9.4-12.4) fL Immature Gran % (Auto) 0.3 (0.0-0.4) % Neut % (Auto) 76.7 H (45-73) % Lymph % (Auto) 14.1 L (20-40) % [place] % (Auto) 7.9 (2-11) % Eos % (Auto) 0.8 (0-4) % Baso % (Auto) 0.2 (0-2) % Lymph # (Auto) 2.1 (1.2-4.9) X10*3/uL [place] # (Auto) 1.2 (0.1-1.2) X10*3/uL Eos # (Auto) 0.1 (0.0-0.4) X10*3/uL Baso # (Auto) 0.0 (0.0-0.2) X10*3/uL Abs Immat Gran (auto) 0.04 H (0.00-0.03) X10*3/uL Absolute Neuts (auto) 11.2 H (2.0-8.3) x10*3/uL Absolute Nucleated RBC 0.000 (0.0-0.012) X10*3/uL Nucleated RBC % (auto) 0.0 (0.0-0.2) /100WBC Sodium 140 (135-145) mmol/L Potassium 4.7 (3.3-5.1) mmol/L Chloride 105 (96-108) mmol/L Carbon Dioxide 22 (22-29) mmol/L Anion Gap 18 (12-20) BUN 20 H (9-16) mg/dL Creatinine 0.98 (0.5-1.4) mg/dL Estim Creat Clear Calc 125.8 Estimated GFR > 60 Random Glucose 79 (60-115) mg/dL Calcium 9.6 (8.4-10.2) mg/dL Total Bilirubin 0.2 (0.0-1.0) mg/dL AST 36 (5-37) U/L ALT 44 H (0-40) U/L Alkaline Phosphatase 93 (39-117) U/L Total Protein 7.4 (6.5-8.0) g/dL Albumin 4.2 (3.5-5.0) g/dL Lipase 16 (8-78) U/L Urine Color Urine Appearance Urine pH (5.0-9.0) Ur Specific [place] (1.005-1.025) Urine Protein (Neg-Trace) mg/dL Urine Glucose (UA) (Negative) mg/dL Urine Ketones (Negative) mg/dL Urine Blood (Negative) Urine Nitrite (Negative) Ur Leukocyte Esterase (Negative) Salicylates < 5.0 L (15-30) mg/dL Urine Opiates Screen (Not Detect) Urine Fentanyl Screen (Not Detect) Acetaminophen < 17 (<30) mcg/mL Ur Barbiturates Screen (Not Detect) Ur Phencyclidine Scrn (Not Detect) Ur Amphetamines Screen (Not Detect) U Benzodiazepines Scrn (Not Detect) Urine Cocaine Screen (Not Detect) U Marijuana (THC) Screen (Not Detect) Ethyl Alcohol < 10 mg/dL COVID-19 (SREEDHAR) (Negative) COVID-19 Clin Com <Baldomero Correa MD - Last Filed: 09/18/22 16:44> Independent Interpretation I performed an independent interpretation of an: EKG <Tay Díaz MD - Last Filed: 09/17/22 07:41> Interpretation: sinu 76, no st or twave changes <Tay Díaz MD - Last Filed: 09/17/22 07:41> Core Measures AMI core measures followed: Yes <YOVANI Reyes - Last Filed: 09/17/22 01:24> Measure exclusions: not indicated <YOVANI Reyes - Last Filed: 09/17/22 01:24> Critical Care Time Critical Care Time Critical Care Time: No <YOVANI Reyes - Last Filed: 09/17/22 01:24> Discharge Plan Discharge Clinical Impression: Opioid use disorder, Cellulitis, Suicidal ideations <YOVANI Reyes - Last Filed: 09/17/22 01:24> Patient Disposition: Still a Patient <YOVANI Reyes - Last Filed: 09/17/22 01:24> Prescriptions: New olanzapine 20 mg tablet 20 mg PO BEDTIME Qty: 30 0RF olanzapine 10 mg tablet 10 mg PO DAILY Qty: 30 0RF No Action buprenorphine-naloxone [Suboxone] 8-2 mg film 1 film sublingual TID Qty: 42 1RF sulfamethoxazole-trimethoprim [Bactrim DS] 800-160 mg tablet 1 tab PO BID Qty: 20 0RF Rx Instructions: LAST DOSE WILL BE 09/21 <YOVANI Reyes - Last Filed: 09/17/22 01:24> Interventions: [place]-Suicide Risk Severity Scale Last Done: 09/18/22 06:06 <YOVANI Reyes - Last Filed: 09/17/22 01:24>
[2022-09-17] MEDS: LORazepam 1 MG TABLET PO (00:34)
[2022-09-17 00:44] LABS: Appearance Urine Clear; Color Urine Yellow; Glucose Urine UA Negative (Negative); Leukocyte Esterase Urine Negative (Negative); Nitrite Urine Negative (Negative); PH 5.5 (5.0-9.0); Specific Gravity - Urine >= 1.030 (1.005-1.025); Urine Blood Negative (Negative); Urine Ketones Negative (Negative); Urine Protein Negative (Neg-Trace)
[2022-09-17 00:52] LABS: Amphetamine Screen Urine Not Detected (Not Detect); Barbiturates, Urine Not Detected (Not Detect); Benzodiazepines Screen Urine Not Detected (Not Detect); Cannabinoid Screen Urine POSITIVE (Not Detect); Cocaine Screen Urine POSITIVE (Not Detect); Fentanyl, urine POSITIVE (Not Detect); Opiate Screen Urine POSITIVE (Not Detect); Phencyclidine Screen Urine Not Detected (Not Detect)
[2022-09-17] MEDS: Doxycycline Monohydrate 100 MG CAPSULE PO ×3 (00:57→20:54)
[2022-09-17 00:59] LABS: COVID-19 Test Negative (Negative); IDNOW Serial# BCCEAD1C
[2022-09-17 01:37] LABS: Basophils Percent Auto 0.2 % (0-2); Eosinophils Absolute Auto 0.1 X10*3/uL (0.0-0.4); Eosinophils Percent Auto 0.8 % (0-4); Hematocrit 39.8 % (42.0-52.0); Hemoglobin 12.6 g/dl (14.0-18.0); Imm Gran Abs Auto 0.04 X10*3/uL (0.00-0.03); Imm Gran Pct Auto 0.3 % (0.0-0.4); Lymphocytes Absolute Auto 2.1 X10*3/uL (1.2-4.9); Lymphocytes Percent Auto 14.1 % (20-40); MANUAL DIFF FLAG NO; Mean Corpuscular HGB Conc 31.7 g/dl (31.0-36.0); Mean Corpuscular Hemoglobin 24.2 pg (27.0-33.0); Mean Corpuscular Volume 76.5 fL (80.0-98.0); Mean Platelet Volume 9.7 fL (9.4-12.4); Monocytes Absolute Auto 1.2 X10*3/uL (0.1-1.2); Monocytes Percent Auto 7.9 % (2-11); Neutrophils Absolute Auto 11.2 x10*3/uL (2.0-8.3); Neutrophils Percent Auto 76.7 % (45-73); Platelet Count 281 X10*3/uL (160-400); Red Cell Distribution Width 14.7 % (11.0-16.0); White Blood Count 14.6 X10*3/uL (4.8-10.8)
[2022-09-17 01:52] LABS: Ethanol < 10 mg/dL
[2022-09-17 02:01] LABS: Alanine Aminotransferase 44 U/L (0-40); Albumin Level 4.2 g/dL (3.5-5.0); Alkaline Phosphatase 93 U/L (39-117); Anion Gap 18 (12-20); Aspartate Amino Transferase 36 U/L (5-37); Bilirubin Total 0.2 mg/dL (0.0-1.0); Blood Urea Nitrogen 20 mg/dL (9-16); Calcium 9.6 mg/dL (8.4-10.2); Carbon Dioxide 22 mmol/L (22-29); Chloride 105 mmol/L (96-108); Creatinine Clr Calc Pharmacy 125.8; Estimated Glomerular Filt Rate > 60; Glucose Random 79 mg/dL (60-115); Lipase 16 U/L (8-78); Potassium 4.7 mmol/L (3.3-5.1); Salicylate < 5.0 mg/dL (15-30); Sodium 140 mmol/L (135-145); Total Protein 7.4 g/dL (6.5-8.0)
[2022-09-17 02:27] LABS: Acetaminophen LAB < 17 mcg/mL (<30)
--- NOTE | 2022-09-17 06:04 | ECG_ITS ---
Test Reason : + cocaine Blood Pressure : / mmHG Vent. Rate : 076 BPM Atrial Rate : 076 BPM P-R Int : 148 ms QRS Dur : 102 ms QT Int : 378 ms P-R-T Axes : 022 050 043 degrees QTc Int : 425 ms Normal sinus rhythm cannot exclude old Septal infarct , age undetermined Abnormal ECG When compared with ECG of 16-JUN-2022 11:34, No significant change was found Referred By: Cb Camilo Electronically Signed By:MILO PLAMER
--- NOTE | 2022-09-17 07:16 | PC.NURSE ---
assumed care of patient, pt resting comfortably in bed, voluntary/no sec 12, awaiting eval this AM
[2022-09-17 07:48] VITALS: BP 100/50; PULSE 76; RESP 19; TEMP 37.1; O2SAT 97
[2022-09-17] MEDS: Buprenorphine/Naloxone 8/2 mg FILM 1 FILM SUBLINGUAL ×2 (08:44→20:54)
[2022-09-17] MEDS: Sulfamethox/Trimeth 800/160 TABLET 1 TAB PO ×2 (08:44→20:54)
--- NOTE | 2022-09-17 10:56 | MHC.CARE ---
CARE Team completed a referral for dual diagnosis admission. Pt referral faxed to [facility].
[2022-09-17 21:10] VITALS: BP 129/84; PULSE 83; RESP 16; TEMP 36.6; O2SAT 98
[2022-09-18 05:44] VITALS: BP 140/92; PULSE 90; RESP 18; TEMP 36.3; O2SAT 98
--- NOTE | 2022-09-18 06:07 | PC.NURSE ---
Patient slept through the night, no distress observed/reported, disposition per care team is voluntary EATS bed search, medication compliant, behavior non concerning, VSS, will continue to monitor.
[2022-09-18 07:27] VITALS: BP 143/91; PULSE 86; RESP 17; TEMP 36.9; O2SAT 96
[2022-09-18] MEDS: Buprenorphine/Naloxone 8/2 mg FILM 1 FILM SUBLINGUAL ×3 (08:15→20:28)
[2022-09-18] MEDS: Doxycycline Monohydrate 100 MG CAPSULE PO ×2 (08:15→20:28)
[2022-09-18] MEDS: Sulfamethox/Trimeth 800/160 TABLET 1 TAB PO ×2 (08:15→20:28)
--- NOTE | 2022-09-18 10:53 | MHC.CARE ---
Statewide dual dx bedsearch exhausted.
--- NOTE | 2022-09-18 14:05 | MHC.RECOVRN ---
This freelance copywriter reviewed detox request with Case Management, detox bedsearch started, referral sent to [facility].
--- NOTE | 2022-09-18 15:06 | P.CNPS_ITS ---
History of Present Illness Date of Service: 09/18/2022 Chief Complaint: Crisis Reason for Consult: AH on no meds. Discussed with referring provider: Yes Sources of Information: patient interviewed, chart reviewed and crisis/core team assessment reviewed HPI Narrative: Mr. Moura is a 31 year-old male with hx of substance use and mood disorder, AH. Pt self presented to [facility] Ed reporting SI, AH. Pt later denied any suicidal or homicidal ideation and agreed to be referred to detox and further dual dx treatment. Pt reports he has been off his medications since he was discharged from on olanzapine. In the ED- utox opioid, fentanyl, cocaine and cannabinoids. Pt seen in the ED. He is in bed. Pleasant on approach. Pt reports hearing voices on and off, exacerbated when using cocaine. Pt adamantly denies SI/HI. He reports he wants to continue dual dx treatment at residential substance use treatment. He reports he was on olanzapine with good effect for AH. He reports fair sleep. Past Psychiatric History: -Per chart, pt had 2 suicide attempts in adolescence, once by drinking bleach -Hx of IPLOC, last admission 04/2022 on due to similar presentation. -Past med trials: vistaril, zoloft, thorazine, zyprexa [facility] Medical History A-fib Depression Depression Major depression with psychotic features Opiate abuse, continuous Opioid use disorder Polysubstance abuse Schizoaffective disorder Social History: -Pt resides with Chika Vazquez, a close friend of his. Otherwise homeless x 1 year. -Receives [employer] [place] [employer] -Pt has 6 children in total from 2 relationships. DCF removed 2 of his children, the others reside with their mother. -Pt raised in [place], lived with his father for the first half of his life and then with his mother. Has siblings. -Has his GED. He has done juan/ construction work. -Legal: has upcoming court date 07/11/2022 due to larceny and high pursuit ted. Hx of incarceration for drug related charges. Diagnostics Vital Signs (24Hr): Vital Signs - 24 hr 09/17/22 21:10 09/18/22 05:44 09/18/22 07:27 Temperature 97.8 F 97.3 F 98.5 F Pulse Rate 83 90 86 Respiratory Rate 16 18 17 Blood Pressure 129/84 140/92 H 143/91 H Pulse Oximetry 98 98 96 Oxygen Delivery Method Room Air Room Air Room Air BMI result Body Mass Index 25.7 Labs 09/17/22 01:33 09/17/22 01:33 Labs: Laboratory Results - last 48 hr 09/17/22 09/17/22 09/17/22 00:32 00:32 00:33 WBC RBC Hgb Hct MCV MCH MCHC RDW Plt Count MPV Immature Gran % (Auto) Neut % (Auto) Lymph % (Auto) [place] % (Auto) Eos % (Auto) Baso % (Auto) Lymph # (Auto) [place] # (Auto) Eos # (Auto) Baso # (Auto) Abs Immat Gran (auto) Absolute Neuts (auto) Absolute Nucleated RBC Nucleated RBC % (auto) Sodium Potassium Chloride Carbon Dioxide Anion Gap BUN Creatinine Estim Creat Clear Calc Estimated GFR Random Glucose Calcium Total Bilirubin AST ALT Alkaline Phosphatase Total Protein Albumin Lipase Urine Color Yellow Urine Appearance Clear Urine pH 5.5 Ur Specific [place] >= 1.030 H Urine Protein Negative Urine Glucose (UA) Negative Urine Ketones Negative Urine Blood Negative Urine Nitrite Negative Ur Leukocyte Esterase Negative Salicylates Urine Opiates Screen POSITIVE H Urine Fentanyl Screen POSITIVE H Acetaminophen Ur Barbiturates Screen Not Detected Ur Phencyclidine Scrn Not Detected Ur Amphetamines Screen Not Detected U Benzodiazepines Scrn Not Detected Urine Cocaine Screen POSITIVE H U Marijuana (THC) Screen POSITIVE H Ethyl Alcohol COVID-19 (SREEDHAR) Negative COVID-19 Clin Com See Note 09/17/22 09/17/22 09/17/22 01:33 01:33 01:33 WBC 14.6 H RBC 5.20 Hgb 12.6 L Hct 39.8 L MCV 76.5 L MCH 24.2 L MCHC 31.7 RDW 14.7 Plt Count 281 MPV 9.7 Immature Gran % (Auto) 0.3 Neut % (Auto) 76.7 H Lymph % (Auto) 14.1 L [place] % (Auto) 7.9 Eos % (Auto) 0.8 Baso % (Auto) 0.2 Lymph # (Auto) 2.1 [place] # (Auto) 1.2 Eos # (Auto) 0.1 Baso # (Auto) 0.0 Abs Immat Gran (auto) 0.04 H Absolute Neuts (auto) 11.2 H Absolute Nucleated RBC 0.000 Nucleated RBC % (auto) 0.0 Sodium 140 Potassium 4.7 Chloride 105 Carbon Dioxide 22 Anion Gap 18 BUN 20 H Creatinine 0.98 Estim Creat Clear Calc 125.8 Estimated GFR > 60 Random Glucose 79 Calcium 9.6 Total Bilirubin 0.2 AST 36 ALT 44 H Alkaline Phosphatase 93 Total Protein 7.4 Albumin 4.2 Lipase 16 Urine Color Urine Appearance Urine pH Ur Specific [place] Urine Protein Urine Glucose (UA) Urine Ketones Urine Blood Urine Nitrite Ur Leukocyte Esterase Salicylates < 5.0 L Urine Opiates Screen Urine Fentanyl Screen Acetaminophen < 17 Ur Barbiturates Screen Ur Phencyclidine Scrn Ur Amphetamines Screen U Benzodiazepines Scrn Urine Cocaine Screen U Marijuana (THC) Screen Ethyl Alcohol < 10 COVID-19 (SREEDHAR) COVID-19 Clin Com Mental Status Exam Mental Status Exam Narrative: Appearance: wearing hospital gown, fair hygiene, in NAD Behavior: cooperative Psychomotor: no agitation or retardation noted Speech: clear, normal rate/rhythm/volume, spontaneous TP: linear TC: without psychosis or delusions, wanting to continue dual dx tx and restart meds Mood: better Affect: brightens at times SI: none HI: none AH:intermittent, not at the moment VH: none Delusions: no overt delusional content noted or reported. Insight/judgment: fair x 2. Memory/cog: alert, oriented x 3. grossly intact to conversational testing. Medications Medications Current Medications Buprenorphine/Naloxone (Buprenorphine/Naloxone 8/2 Mg Film) 1 film SUBLINGUAL TID [facility] Last Admin: 09/18/22 14:32 Dose: 1 film Doxycycline Monohydrate (Doxycycline Monohydrate 100 Mg Capsule) 100 mg PO BID [facility] Last Admin: 09/18/22 08:15 Dose: 100 mg Trimethoprim/Sulfamethoxazole (Sulfamethox/Trimeth 800/160 Tablet) 1 tab PO BID [facility] Last Admin: 09/18/22 08:15 Dose: 1 tab Allergies Allergies Allergy/AdvReac Type Severity Reaction Status Date / Time amoxicillin [AMOXICILLIN] Allergy Severe HIVES Verified 08/04/22 02:23 Penicillins [PENICILLINS] Allergy Severe HIVES Verified 08/04/22 02:23 acetaminophen [From TYLENOL] Allergy Unknown LIVER Verified 08/04/22 02:23 PROBLEMS Assessment & Plan Assessment & Plan (1) Opioid use disorder: Status: Acute Code(s): F11.90 - Opioid use, unspecified, uncomplicated (2) Cocaine-induced psychotic disorder: Status: Acute Code(s): F14.959 - Cocaine use, unspecified with cocaine-induced psychotic disorder, unspecified Plan Mr. Moura is a 31 year-old male with hx of cocaine use, opioid use, self presented to [facility] ED reporting AH, suicidal ideation. Utox positive for cocaine, fentanyl, opioids and cannabinoids. Pt later adamantly denies suicidal ideation and asks to be referred to dual dx programming. Pt reports olanzapine has been helpful in past for AH. He asks for refill and will follow up with [facility]. PLAN 1. No need for inpatient psych admission as pt does not have any imminent safety concerns 2. restart olanzapine 20mg po qhs and 10mg po daily. Total time managing care of this patient today ____ minutes.
--- NOTE | 2022-09-18 16:20 | MHC.RECOVRN ---
This automobile service writer spoke with Ysabel RN at [facility] Detox, Ysabel reviewed patients chart, request that patient be started on Zyprexa tonite. Patient detox referral would then need to be resubmitted to [facility] for review x's 2, per Ysabel's instruction. Ysabel reports that patient was at [facility] 08/27/22, had psychotic episode/features while on detox. CM aware.
[2022-09-18] MEDS: OLANZapine 10 MG TABLET 20 MG PO (20:28)
[2022-09-19 06:14] VITALS: BP 141/89; PULSE 78; RESP 16; TEMP 36.3; O2SAT 97
--- NOTE | 2022-09-19 06:18 | PC.NURSE ---
Patient slept through the night, no distress observed/reported, disposition per care team is voluntary inpatient dual bed search, medication compliant, behavior non concerning, VSS, will continue to monitor.
[2022-09-19 08:00] VITALS: BP 114/74; PULSE 82; RESP 13; TEMP 36.8; O2SAT 95
--- NOTE | 2022-09-19 08:24 | MHC.RECOVRN ---
Pts referral resubmitted to [facility]. Awaiting review.
[2022-09-19] MEDS: Sulfamethox/Trimeth 800/160 TABLET 1 TAB PO (08:44)
[2022-09-19] MEDS: Doxycycline Monohydrate 100 MG CAPSULE PO (08:44)
[2022-09-19] MEDS: Buprenorphine/Naloxone 8/2 mg FILM 1 FILM SUBLINGUAL (08:44)
[2022-09-19] MEDS: OLANZapine 10 MG TABLET PO (08:44)
--- NOTE | 2022-09-19 09:39 | PC.NURSE ---
Per debo from [facility]-Pt to be d/c to [facility] for [id number]
--- NOTE | 2022-09-19 10:19 | MHC.RECOVRN ---
Pt dc to to [facility]. Transported via [facility].
--- NOTE | 2022-09-19 10:20 | MHC.CARE ---
Dual bed search was exhausted, mental status update done and disposition was changed to detox level of care. Bed secured at [facility] on 09/19/22.
--- NOTE | 2022-09-20 13:09 | MHC.CARE ---
Pt referral to [facility] completed.
== END 2022-09-19 10:00 | disposition home or self-care (01) ==
PROVIDERS: Physician Assistant; Emergency Provider Internal Medicine
DX: F11.20 Opioid dependence, uncomplicated (principal); R45.851 Suicidal ideations; L03.116 Cellulitis of left lower limb; L97.129 Non-pressure chronic ulcer of left thigh with unspecified severity; F41.9 Anxiety disorder, unspecified; R00.0 Tachycardia, unspecified; Z20.822 Contact with and (suspected) exposure to COVID-19; F32.A Depression, unspecified; F25.9 Schizoaffective disorder, unspecified; F14.959 Cocaine use, unspecified with cocaine-induced psychotic disorder, unspecified; F19.10 Other psychoactive substance abuse, uncomplicated; I48.91 Unspecified atrial fibrillation; Z91.14 Patient's other noncompliance with medication regimen; F17.210 Nicotine dependence, cigarettes, uncomplicated; Z79.899 Other long term (current) drug therapy
CPT/HCPCS: 36415; 80053; 80143; 80179; 80307; 81003; 82077; 83690; 85025; 87635; 93005; 99285; S9485

== ENCOUNTER 2022-10-04 23:49 | Emergency (ER) | payer MEDICAID, SELFPAY ==
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
[2022-10-04 23:57] VITALS: BP 114/69; PULSE 85; RESP 20; TEMP 36.1; O2SAT 95; BMI 25.7
[2022-10-05 00:30] VITALS: BP 116/70; PULSE 90; RESP 18; O2SAT 96
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
[2022-10-05] MEDS: Ibuprofen 600 MG TABLET PO (01:07)
[2022-10-05 02:31] VITALS: BP 111/60; PULSE 75; RESP 16; O2SAT 94
== END 2022-10-05 03:19 | disposition home or self-care (01) ==
PROVIDERS: Emergency Provider Emergency Medicine
DX: S13.4XXA Sprain of ligaments of cervical spine, initial encounter (principal); M54.2 Cervicalgia; R51.9 Headache, unspecified; M54.50 Low back pain, unspecified; V43.52XA Car driver injured in collision with other type car in traffic accident, initial encounter; Y93.9 Activity, unspecified; Y92.410 Unspecified street and highway as the place of occurrence of the external cause; Y99.9 Unspecified external cause status
CPT/HCPCS: 72040; 72070; 99283; 99284

== ENCOUNTER 2023-03-29 23:06 | Inpatient (IN) | payer OTHER, MEDICAID, SELFPAY ==
[2023-03-29 23:49] VITALS: BP 136/89; PULSE 124; RESP 16; TEMP 36.8; O2SAT 96; BMI 23.2
--- NOTE | 2023-03-30 | ECG_ITS ---
Test Reason : POLYSUBSTANCE Blood Pressure : / mmHG Vent. Rate : 077 BPM Atrial Rate : 077 BPM P-R Int : 168 ms QRS Dur : 102 ms QT Int : 380 ms P-R-T Axes : 070 073 062 degrees QTc Int : 430 ms Normal sinus rhythm cannot exclude old Septal infarct (cited on or before ; can also be from body habitus/lead placement Abnormal ECG When compared with ECG of 17-SEP-2022 07:37, No significant change was found Referred By: Saturnino Strange Electronically Signed By:MILO PALMER
[2023-03-30 00:42] LABS: Amphetamine Screen Urine Not Detected (Not Detect); Barbiturates, Urine Not Detected (Not Detect); Benzodiazepines Screen Urine Not Detected (Not Detect); Cannabinoid Screen Urine Not Detected (Not Detect); Cocaine Screen Urine POSITIVE (Not Detect); Fentanyl, urine POSITIVE (Not Detect); Opiate Screen Urine Not Detected (Not Detect); Phencyclidine Screen Urine Not Detected (Not Detect)
[2023-03-30 00:45] LABS: MANUAL DIFF FLAG NO
[2023-03-30 00:53] LABS: Basophils Percent Auto 0.1 % (0-2); Eosinophils Percent Auto 0.1 % (0-4); Hematocrit 40.4 % (42.0-52.0); Hemoglobin 12.9 g/dl (14.0-18.0); Imm Gran Abs Auto 0.04 X10*3/uL (0.00-0.03); Imm Gran Pct Auto 0.5 % (0.0-0.4); Lymphocytes Absolute Auto 1.5 X10*3/uL (1.2-4.9); Lymphocytes Percent Auto 17.7 % (20-40); Mean Corpuscular HGB Conc 31.9 g/dl (31.0-36.0); Mean Corpuscular Hemoglobin 24.6 pg (27.0-33.0); Mean Corpuscular Volume 77.1 fL (80.0-98.0); Mean Platelet Volume 10.9 fL (9.4-12.4); Monocytes Absolute Auto 0.6 X10*3/uL (0.1-1.2); Monocytes Percent Auto 7.3 % (2-11); Neutrophils Absolute Auto 6.3 x10*3/uL (2.0-8.3); Neutrophils Percent Auto 74.3 % (45-73); Platelet Count 116 X10*3/uL (160-400); Red Blood Count 5.24 X10*6/uL (4.60-5.80); Red Cell Distribution Width 13.5 % (11.0-16.0); White Blood Count 8.5 X10*3/uL (4.8-10.8)
[2023-03-30 01:02] LABS: Alanine Aminotransferase 20 U/L (0-40); Albumin Level 4.5 g/dL (3.5-5.0); Alkaline Phosphatase 85 U/L (39-117); Anion Gap 18 (12-20); Aspartate Amino Transferase 17 U/L (5-37); Bilirubin Total 0.4 mg/dL (0.0-1.0); Blood Urea Nitrogen 18 mg/dL (9-16); Carbon Dioxide 23 mmol/L (22-29); Chloride 109 mmol/L (96-108); Creatinine Clr Calc Pharmacy 120.5; Estimated Glomerular Filt Rate > 60; Ethanol < 10 mg/dL; Glucose Random 106 mg/dL (60-115); Potassium 4.6 mmol/L (3.3-5.1); Sodium 145 mmol/L (135-145); Total Protein 7.6 g/dL (6.5-8.0)
--- NOTE | 2023-03-30 01:02 | ED_ITS ---
HPI - Psych General Chief Complaint: Psychiatric Symptoms Stated Complaint: Hallucinations? Time Seen by Provider: 03/30/23 00:52 Source: patient and old records reviewed Mode of arrival: ambulatory Limitations: no limitations History of Present Illness HPI Narrative: 32 yo male with depression, polysubstance abuse, schizoaffective disoder who presents with being off his medications since June but just got out of residential states he has access to his clonidine and methadone. He states he has not taken his olanzapine in a while. He has no SI/HI but is having AH and wants to talk to crisis. He has safe housing. He has no therapist or prescribers right now after leaving residential. MD complaint: feels depressed and hallucinations Onset (ago): day(s) (2) Duration: constant History of same: Yes Relieving factors: none Exacerbating factors: drug use Context: recent drug abuse, not taking psychiatric medications and significant life stressor Associated psychiatric symptoms: depression and auditory hallucinations Associated symptoms: denies other symptoms Treatments prior to arrival: none Related Data Home Medications Medication Instructions Recorded Confirmed clonidine HCl 0.1 mg tablet 0.1 mg PO DAILY 03/30/23 03/30/23 clonidine HCl 0.2 mg tablet 0.2 mg PO BEDTIME 03/30/23 03/30/23 methadone 5 mg tablet 30 mg PO DAILY 03/30/23 03/30/23 Allergies Allergy/AdvReac Type Severity Reaction Status Date / Time amoxicillin [AMOXICILLIN] Allergy Severe HIVES Verified 10/05/22 00:01 Penicillins [PENICILLINS] Allergy Severe HIVES Verified 10/05/22 00:01 acetaminophen [From TYLENOL] Allergy Unknown LIVER Verified 10/05/22 00:01 PROBLEMS Review of Systems Review of Systems: Constitutional : No Fever, No Chills ENT/Mouth : No Ear Pain, No Nasal Congestion, No sore throat Eyes: No Eye Pain, No Swelling, No Redness Cardiovascular : No Chest Pain, No SOB Respiratory : No Cough, No Sputum, No Dyspnea Gastrointestinal : No Nausea, No Vomiting, No Diarrhea, No Hematochezia, No Melena Genitourinary : No Dysuria, No Urinary Frequency, No Hematuria Musculoskeletal : No Myalgias Skin : No Skin Lesions, No rash Neuro : No Weakness, No Numbness, No Paresthesias, No Dizziness, No Headache Psych : positive Anxiety, positive Depression, no SI/HI, pos AH no VH Heme/Lymph: No Lymphadenopathy Endocrine : No Polyuria, No Polydipsia All other systems reviewed and are negative PMFSH Past Medical History Attestation statement: The following information was validated with the patient. Medical History A-fib Depression Depression Major depression with psychotic features Opiate abuse, continuous Opioid use disorder Polysubstance abuse Schizoaffective disorder Social History Social History Household Members: Significant Other Housing: Unknown / Unable to assess Do you presently have visiting nurse or other home services: No Unable to assess alcohol history related to: Refusing to respond Alcohol intake: never Patient Tobacco Use Status: Current everyday Tobacco user Tobacco use type: Cigarette Cigarette Packs Per Day: 1 Cigarettes Per Day: 20.0 Substance Use Type: Heroin Advance Directives: No Advance Directives Information Provided: No service: No Sexual orientation: Straight/Heterosexual Physical Exam Vital Signs: Vital Signs: Last Vital Signs Temp 98.2 F 03/29/23 23:49 Pulse 124 H 03/29/23 23:49 Resp 16 03/29/23 23:49 BP 136/89 03/29/23 23:49 Pulse Ox 96 03/29/23 23:49 O2 Del Method Room Air 03/29/23 23:49 BMI result Body Mass Index 23.2 Appearance: Alert. Oriented X3. No acute distress. Calm and cooperative Eyes: Pupils equal, round and reactive to light. ENT: Pharynx normal. Neck: Normal inspection. Neck supple. CVS: Normal heart rate and rhythm. Pulses normal. Respiratory: No respiratory distress. Breath sounds normal. Abdomen: Soft and non-tender. Skin: Skin warm and dry. Normal skin color. Normal skin turgor. Extremities: No lower extremity edema. No calf ttp Neuro: Oriented X 3. No motor deficit. No sensory deficit. CN2-12 intact Course Course Course Narrative: Patient placed in physician observation at 131am. The indication for observation is that the patient needs more time to see CARE team given symptoms and complaints. At this time the patient is well developed well nourished, lungs clear, CV RRR, abd nontender, neuro is intact. Medical Decision Making Medical Decision Making MDM Narrative: 32 yo male with depression, polysubstance abuse, schizoaffective disoder here with c/o AH and not on medications at this time will need basic labs and CARE team consult he is not having SI/HI and he reports he has no access to medications/therapist but was given resources to a methadone clinic. He has no medical complaints. Differential Diagnosis Differential Diagnoses: The differential diagnosis associated with the presentation includes substance abuse, depression, medication non-compliance, schizoaffective disorder Consult Healthcare Provider Management of the patient was discussed with: Behavioral Health Provider Lab Data MDM Lab Attestation statement: I reviewed the patient's lab results. 03/30/23 00:40 03/30/23 00:40 Labs: Lab Results 03/30/23 03/30/23 03/30/23 Range/Units 00:26 00:40 00:40 WBC 8.5 (4.8-10.8) X10*3/uL RBC 5.24 (4.60-5.80) X10*6/uL Hgb 12.9 L (14.0-18.0) g/dl Hct 40.4 L (42.0-52.0) % MCV 77.1 L (80.0-98.0) fL MCH 24.6 L (27.0-33.0) pg MCHC 31.9 (31.0-36.0) g/dl RDW 13.5 (11.0-16.0) % Plt Count 116 L D (160-400) X10*3/uL MPV 10.9 (9.4-12.4) fL Immature Gran % (Auto) 0.5 H (0.0-0.4) % Neut % (Auto) 74.3 H (45-73) % Lymph % (Auto) 17.7 L (20-40) % [place] % (Auto) 7.3 (2-11) % Eos % (Auto) 0.1 (0-4) % Baso % (Auto) 0.1 (0-2) % Lymph # (Auto) 1.5 (1.2-4.9) X10*3/uL [place] # (Auto) 0.6 (0.1-1.2) X10*3/uL Eos # (Auto) 0.0 (0.0-0.4) X10*3/uL Baso # (Auto) 0.0 (0.0-0.2) X10*3/uL Abs Immat Gran (auto) 0.04 H (0.00-0.03) X10*3/uL Absolute Neuts (auto) 6.3 (2.0-8.3) x10*3/uL Absolute Nucleated RBC 0.000 (0.0-0.012) X10*3/uL Nucleated RBC % (auto) 0.0 (0.0-0.2) /100WBC Sodium 145 (135-145) mmol/L Potassium 4.6 (3.3-5.1) mmol/L Chloride 109 H (96-108) mmol/L Carbon Dioxide 23 (22-29) mmol/L Anion Gap 18 (12-20) BUN 18 H (9-16) mg/dL Creatinine 1.01 (0.5-1.4) mg/dL Estim Creat Clear Calc 120.5 Estimated GFR > 60 Random Glucose 106 (60-115) mg/dL Calcium 10.0 (8.4-10.2) mg/dL Total Bilirubin 0.4 (0.0-1.0) mg/dL AST 17 (5-37) U/L ALT 20 (0-40) U/L Alkaline Phosphatase 85 (39-117) U/L Total Protein 7.6 (6.5-8.0) g/dL Albumin 4.5 (3.5-5.0) g/dL Salicylates (15-30) mg/dL Urine Opiates Screen Not Detected (Not Detect) Urine Fentanyl Screen POSITIVE H (Not Detect) Acetaminophen (<30) mcg/mL Ur Barbiturates Screen Not Detected (Not Detect) Ur Phencyclidine Scrn Not Detected (Not Detect) Ur Amphetamines Screen Not Detected (Not Detect) U Benzodiazepines Scrn Not Detected (Not Detect) Urine Cocaine Screen POSITIVE H (Not Detect) U Marijuana (THC) Screen Not Detected (Not Detect) Ethyl Alcohol < 10 mg/dL 03/30/23 Range/Units 00:40 WBC (4.8-10.8) X10*3/uL RBC (4.60-5.80) X10*6/uL Hgb (14.0-18.0) g/dl Hct (42.0-52.0) % MCV (80.0-98.0) fL MCH (27.0-33.0) pg MCHC (31.0-36.0) g/dl RDW (11.0-16.0) % Plt Count (160-400) X10*3/uL MPV (9.4-12.4) fL Immature Gran % (Auto) (0.0-0.4) % Neut % (Auto) (45-73) % Lymph % (Auto) (20-40) % [place] % (Auto) (2-11) % Eos % (Auto) (0-4) % Baso % (Auto) (0-2) % Lymph # (Auto) (1.2-4.9) X10*3/uL [place] # (Auto) (0.1-1.2) X10*3/uL Eos # (Auto) (0.0-0.4) X10*3/uL Baso # (Auto) (0.0-0.2) X10*3/uL Abs Immat Gran (auto) (0.00-0.03) X10*3/uL Absolute Neuts (auto) (2.0-8.3) x10*3/uL Absolute Nucleated RBC (0.0-0.012) X10*3/uL Nucleated RBC % (auto) (0.0-0.2) /100WBC Sodium (135-145) mmol/L Potassium (3.3-5.1) mmol/L Chloride (96-108) mmol/L Carbon Dioxide (22-29) mmol/L Anion Gap (12-20) BUN (9-16) mg/dL Creatinine (0.5-1.4) mg/dL Estim Creat Clear Calc Estimated GFR Random Glucose (60-115) mg/dL Calcium (8.4-10.2) mg/dL Total Bilirubin (0.0-1.0) mg/dL AST (5-37) U/L ALT (0-40) U/L Alkaline Phosphatase (39-117) U/L Total Protein (6.5-8.0) g/dL Albumin (3.5-5.0) g/dL Salicylates < 5.0 L (15-30) mg/dL Urine Opiates Screen (Not Detect) Urine Fentanyl Screen (Not Detect) Acetaminophen < 1 (<30) mcg/mL Ur Barbiturates Screen (Not Detect) Ur Phencyclidine Scrn (Not Detect) Ur Amphetamines Screen (Not Detect) U Benzodiazepines Scrn (Not Detect) Urine Cocaine Screen (Not Detect) U Marijuana (THC) Screen (Not Detect) Ethyl Alcohol mg/dL External Record Review External record reviewed: Inpatient record Social Determinants Patient?s care significantly limited by Social Determinants of Health including: Problems related to primary support group Discharge Plan Discharge Clinical Impression: Polysubstance abuse Schizoaffective disorder Qualifiers: Schizoaffective disorder type: unspecified Qualified Code(s): F25.9 - Schizoaffective disorder, unspecified Patient Disposition: Still a Patient Prescriptions: No Action methadone 5 mg Tablet 30 mg PO DAILY Rx Instructions: Last dose letter from [facility]. 03/29/23 @ 0700 clonidine HCl 0.2 mg Tablet 0.2 mg PO BEDTIME clonidine HCl 0.1 mg Tablet 0.1 mg PO DAILY Interventions: [place]-Suicide Risk Severity Scale Last Done: 03/30/23 00:04
[2023-03-30 01:19] LABS: Salicylate < 5.0 mg/dL (15-30)
[2023-03-30 01:22] LABS: Acetaminophen LAB < 1 mcg/mL (<30)
--- NOTE | 2023-03-30 01:53 | PC.NURSE ---
Patient is off his medication since June 2022, patient was discharged from [facility] yesterday, med rec completed based on med list faxed from the [facility] including methadone last dose letter, Urine pending for UA and CTNG, patient engaged well with care team disposition is section 12 inpatient bed search, behavior appropriate, VSS, will continue to monitor.
[2023-03-30 02:20] LABS: COVID-19 Test Negative (Negative); IDNOW Serial# 6674DD1D
[2023-03-30 06:09] VITALS: RESP 19
--- NOTE | 2023-03-30 06:15 | HE.PHANOTE ---
RE METHADONE [facility], 30MG GIVEN @03/29/23 @0700 MARAH
[2023-03-30] MEDS: methADONE HCl 10 MG TABLET 30 MG PO (09:31)
[2023-03-30] MEDS: cloNIDine HCL 0.1 MG TABLET PO (09:31)
[2023-03-30 13:19] LABS: Appearance Urine Clear; Color Urine Yellow; Glucose Urine UA Negative (Negative); Leukocyte Esterase Urine Negative (Negative); Nitrite Urine Negative (Negative); PH 8.5 (5.0-9.0); Specific Gravity - Urine 1.025 (1.005-1.025); Urine Blood Negative (Negative); Urine Ketones Negative (Negative); Urine Protein Trace mg/dL (Neg-Trace)
[2023-03-30 14:00] VITALS: BP 104/64; PULSE 60; RESP 16; TEMP 36.6; O2SAT 97
[2023-03-30 16:04] VITALS: BP 139/91; PULSE 65; RESP 18; TEMP 36.8; O2SAT 99
--- NOTE | 2023-03-30 16:38 | PC.ADMIT ---
Kevan was admitted to M3 at 1600 from the Pod on a CV for treatment of Schizoaffective d/o, Antisocial personality d/o, cocaine use d/o, opioid use d/o. .? Precipitants of admission include AH of voices speaking to him and VH of seeing various peoples faces popping up in front of him. Crisis assessment reports that he has been off his meds for about 6 months. Patient was released from [facility] on 03/28/23. Patient was incarcerated for stealing a car for 3 weeks. Patient is alert and oriented x4. Declined to participate in the admission process and requested to go to his room immediately upon arrival to the unit. Assessment completed via crisis assessment.? Mood is depressed w/ a congruent affect. Patient Auditory, visual, tactile, other hallucinations. Does not appear to be internally preoccupied or responding to internal stimuli. No expressed delusions.? Thought process is linear and within normal limits. No overt psychosis noted or reported.? Crisis assessment reports that his appetite is good. Sleep is reported to be poor. Utox positive for cocaine and fentanyl.? No acute complaints at this time. 15 minute safety checks initiated.?
[2023-03-30 21:54] VITALS: BP 109/61; PULSE 51; RESP 18; TEMP 36.4; O2SAT 99
[2023-03-30] MEDS: cloNIDine HCL 0.2 MG TABLET PO (21:57)
[2023-03-30] MEDS: hydrOXYzine HCL 25 MG TABLET PO (21:57)
[2023-03-31 06:00] VITALS: BP 131/65; PULSE 110; RESP 16; TEMP 36.7; O2SAT 97
[2023-03-31 06:40] LABS: CT PCR NOT DETECTED (Not Detect.); NG PCR NOT DETECTED (Not Detect.)
--- NOTE | 2023-03-31 08:38 | HO.PSYADMNOT ---
HPI Date of Service: 03/31/23 Chief Complaint: psychosis Sources of Information: patient interviewed, chart reviewed and crisis/core team assessment reviewed HPI Subjective Notes: Conditional Voluntary Healthcare Proxy: No Guardianship: No Medical Problems Affecting Mental Status: No Narrative: Kevan is a 32-year-old, white, single, unemployed, father of 6. He was discharged from 3 weeks of incarceration in [facility] for stealing a car, last week. He has history of schizoaffective disorder with both depressive, hypomanic symptoms accompanied by psychotic symptoms, auditory and visual hallucinations. He also has history of opiate, cocaine dependence/abuse. Last week he was started on methadone 30 mg. He states that he has not taken any medications in the past 6 months and did not want to take any while in custodial but since his discharge he states that he continues to be quite symptomatic with a lot of anxiety, auditory and visual hallucinations which are not command in nature. They have been command in nature in the past, telling him to kill himself. And some of his episodes of decompensation have been quite severe. He self-referred for getting help to get restate able iced in order to be able to be part of his family again. In the past he has been on SSRIs, Zyprexa with questionable benefits. He has never been on a mood stabilizer. Since his discharge she has used cocaine once and his U tox was positive for cocaine, fentanyl and marijuana. He states that clonidine in the past has not been that helpful to him. We discussed options and I will leave the p.r.n. clonidine and place, add Seroquel 50 mg p.r.n. and hydroxyzine 50 mg p.r.n.. I also started him on Trileptal 300 mg daily. Side effects discussed. He denies any suicidal or homicidal ideations. Past Psychiatric History: -Per chart, pt had 2 suicide attempts in adolescence, once by drinking bleach -Hx of [facility], last admission 04/2022 on M5 due to similar presentation. -Past med trials: vistaril, zoloft, thorazine, zyprexa Medical Evaluation Reviewed: Yes (Reviewed) Abnormal EKG [facility] Medical History A-fib Depression Depression Major depression with psychotic features Opiate abuse, continuous Opioid use disorder Polysubstance abuse Schizoaffective disorder Narrative: He also has been diagnosed with hep C with no treatment Family History: Unknown Social History: -Pt resides with Chika Vazquez, a close friend of his. Otherwise homeless x 1 year. -Receives [employer] [place] [employer] -Pt has 6 children in total from 2 relationships. DCF removed 2 of his children, the others reside with their mother. -Pt raised in [place], lived with his father for the first half of his life and then with his mother. Has siblings. -Has his GED. He has done juan/ construction work. -Legal: has upcoming court date 07/11/2022 due to larceny and high pursuit ted. Hx of incarceration for drug related charges. Substance History: Opiates including smoking heroin, cocaine, marijuana Trauma History: Unknown Diagnostics Vital Signs (24Hr): Vital Signs - 24 hr 03/30/23 14:00 03/30/23 16:04 03/30/23 21:54 Temperature 97.8 F 98.2 F 97.6 F Pulse Rate 60 65 51 Respiratory Rate 16 18 18 Blood Pressure 104/64 139/91 H 109/61 Pulse Oximetry 97 99 99 Oxygen Delivery Method Room Air Room Air Room Air BMI result Body Mass Index 23.2 Labs 03/30/23 00:40 03/30/23 00:40 Labs: Laboratory Results - last 48 hr 03/30/23 03/30/23 03/30/23 00:26 00:40 00:40 WBC 8.5 RBC 5.24 Hgb 12.9 L Hct 40.4 L MCV 77.1 L MCH 24.6 L MCHC 31.9 RDW 13.5 Plt Count 116 L D MPV 10.9 Immature Gran % (Auto) 0.5 H Neut % (Auto) 74.3 H Lymph % (Auto) 17.7 L [place]cd[place] % (Auto) 7.3 Eos % (Auto) 0.1 Baso % (Auto) 0.1 Lymph # (Auto) 1.5 [place] # (Auto) 0.6 Eos # (Auto) 0.0 Baso # (Auto) 0.0 Abs Immat Gran (auto) 0.04 H Absolute Neuts (auto) 6.3 Absolute Nucleated RBC 0.000 Nucleated RBC % (auto) 0.0 Sodium 145 Potassium 4.6 Chloride 109 H Carbon Dioxide 23 Anion Gap 18 BUN 18 H Creatinine 1.01 Estim Creat Clear Calc 120.5 Estimated GFR > 60 Random Glucose 106 Calcium 10.0 Total Bilirubin 0.4 AST 17 ALT 20 Alkaline Phosphatase 85 Total Protein 7.6 Albumin 4.5 Urine Color Urine Appearance Urine pH Ur Specific [place] Urine Protein Urine Glucose (UA) Urine Ketones Urine Blood Urine Nitrite Ur Leukocyte Esterase Salicylates Urine Opiates Screen Not Detected Urine Fentanyl Screen POSITIVE H Acetaminophen Ur Barbiturates Screen Not Detected Ur Phencyclidine Scrn Not Detected Ur Amphetamines Screen Not Detected U Benzodiazepines Scrn Not Detected Urine Cocaine Screen POSITIVE H U Marijuana (THC) Screen Not Detected Ethyl Alcohol < 10 Chlam trachomat DNA PCR COVID-19 ([facility]) COVID-19 Clin Com N.gonorrhoeae DNA (PCR) 03/30/23 03/30/23 03/30/23 00:40 02:00 12:16 WBC RBC Hgb Hct MCV MCH MCHC RDW Plt Count MPV Immature Gran % (Auto) Neut % (Auto) Lymph % (Auto) Mcdonough % (Auto) Eos % (Auto) Baso % (Auto) Lymph # (Auto) [place]cd[place] # (Auto) Eos # (Auto) Baso # (Auto) Abs Immat Gran (auto) Absolute Neuts (auto) Absolute Nucleated RBC Nucleated RBC % (auto) Sodium Potassium Chloride Carbon Dioxide Anion Gap BUN Creatinine Estim Creat Clear Calc Estimated GFR Random Glucose Calcium Total Bilirubin AST ALT Alkaline Phosphatase Total Protein Albumin Urine Color Yellow Urine Appearance Clear Urine pH 8.5 Ur Specific [place] 1.025 Urine Protein Trace Urine Glucose (UA) Negative Urine Ketones Negative Urine Blood Negative Urine Nitrite Negative Ur Leukocyte Esterase Negative Salicylates < 5.0 L Urine Opiates Screen Urine Fentanyl Screen Acetaminophen < 1 Ur Barbiturates Screen Ur Phencyclidine Scrn Ur Amphetamines Screen U Benzodiazepines Scrn Urine Cocaine Screen U Marijuana (THC) Screen Ethyl Alcohol Chlam trachomat DNA PCR COVID-19 ([facility]) Negative COVID-19 Clin Com See Note N.gonorrhoeae DNA (PCR) 03/30/23 13:23 WBC RBC Hgb Hct MCV MCH MCHC RDW Plt Count MPV Immature Gran % (Auto) Neut % (Auto) Lymph % (Auto) Mcdonough % (Auto) Eos % (Auto) Baso % (Auto) Lymph # (Auto) [place]cdonough # (Auto) Eos # (Auto) Baso # (Auto) Abs Immat Gran (auto) Absolute Neuts (auto) Absolute Nucleated RBC Nucleated RBC % (auto) Sodium Potassium Chloride Carbon Dioxide Anion Gap BUN Creatinine Estim Creat Clear Calc Estimated GFR Random Glucose Calcium Total Bilirubin AST ALT Alkaline Phosphatase Total Protein Albumin Urine Color Urine Appearance Urine pH Ur Specific [place] Urine Protein Urine Glucose (UA) Urine Ketones Urine Blood Urine Nitrite Ur Leukocyte Esterase Salicylates Urine Opiates Screen Urine Fentanyl Screen Acetaminophen Ur Barbiturates Screen Ur Phencyclidine Scrn Ur Amphetamines Screen U Benzodiazepines Scrn Urine Cocaine Screen U Marijuana (THC) Screen Ethyl Alcohol Chlam trachomat DNA PCR NOT DETECTED COVID-19 ([facility]) COVID-19 Clin Com N.gonorrhoeae DNA (PCR) NOT DETECTED Meds/Allergies Meds Home Medications Medication Instructions Recorded Confirmed Type clonidine HCl 0.1 mg tablet 0.1 mg PO DAILY 03/30/23 03/30/23 History clonidine HCl 0.2 mg tablet 0.2 mg PO BEDTIME 03/30/23 03/30/23 History methadone 5 mg tablet 30 mg PO DAILY 03/30/23 03/30/23 History Allergies Allergies Allergy/AdvReac Type Severity Reaction Status Date / Time amoxicillin [AMOXICILLIN] Allergy Severe HIVES Verified 10/05/22 00:01 Penicillins [PENICILLINS] Allergy Severe HIVES Verified 10/05/22 00:01 acetaminophen [From TYLENOL] Allergy Unknown LIVER Verified 10/05/22 00:01 PROBLEMS Mental Status Exam Mental Status Exam Narrative: Kevan was seen the day after his admission. He was in a hospital attire. He is alert, oriented and pleasant. He is cooperative. Soft-spoken speech. Moderate eye contact. Affect is appropriate and constricted. No overt anxiety but he complains of feeling quite anxious. He denies any suicidal homicidal ideations. He admits to auditory and visual hallucinations. No command hallucinations. No indications of response to internal stimuli. Cognitively he is intact. Judgment is intact Assessment & Plan Assessment & Plan (1) Schizoaffective disorder: Status: Acute Qualifiers: Schizoaffective disorder type: unspecified Qualified Code(s): F25.9 - Schizoaffective disorder, unspecified Code(s): F25.9 - Schizoaffective disorder, unspecified Plan In conclusion Kevan meets criteria for hospital level of care for safety and restate will is a greco. As stated I initiated Trileptal, Seroquel and hydroxyzine p.r.n. and he did not want to take any neuroleptics for the auditory hallucinations on a regular basis at this time. He will meet with his treatment team on 04/01/2023. Outpatient referrals to be made. Patient educated on: diagnosis, medication risk/benefits, substance abuse and therapeutic strategies Reason for continued inpatient stay Substantial Risk for: med/psych decompensation Statement Statement: I have reviewed the history and physical and performed a pertinent examination on my patient. No changes have occurred unless specified. If the History and Physical was not performed prior to admission, the Hospitalist's service will be consulted for completing the admission physical. Time Spent With Patient Time: Total time managing care of this patient today ____ minutes.
[2023-03-31] MEDS: methADONE HCl 20 MG/2 ML ORAL.CONC 30 MG PO (08:44)
[2023-03-31] MEDS: QUEtiapine Fumarate 50 MG TABLET PO (09:15)
[2023-03-31] MEDS: hydrOXYzine HCL 50 MG TABLET PO (09:15)
[2023-03-31] MEDS: OXcarbazepine 300 MG TABLET PO (20:13)
[2023-03-31] MEDS: Acetaminophen 325 MG TABLET 650 MG PO (20:13)
[2023-03-31 20:19] VITALS: BP 97/59; PULSE 73; RESP 14; TEMP 36.3; O2SAT 99
[2023-03-31] MEDS: traZODone HCL 50 MG TABLET PO (22:00)
[2023-04-01 08:10] VITALS: BP 121/68; PULSE 74; RESP 18; TEMP 36.7; O2SAT 99
[2023-04-01] MEDS: hydrOXYzine HCL 50 MG TABLET PO (08:45)
[2023-04-01] MEDS: methADONE HCl 20 MG/2 ML ORAL.CONC 30 MG PO (08:45)
[2023-04-01 11:44] LABS: Alanine Aminotransferase 19 U/L (0-40); Albumin Level 3.9 g/dL (3.5-5.0); Alkaline Phosphatase 80 U/L (39-117); Anion Gap 13 (12-20); Aspartate Amino Transferase 17 U/L (5-37); Bilirubin Total 0.5 mg/dL (0.0-1.0); Blood Urea Nitrogen 18 mg/dL (9-16); Calcium 9.1 mg/dL (8.4-10.2); Carbon Dioxide 24 mmol/L (22-29); Chloride 108 mmol/L (96-108); Creatinine Clr Calc Pharmacy 141.5; Estimated Glomerular Filt Rate > 60; Glucose Random 83 mg/dL (60-115); Potassium 4.3 mmol/L (3.3-5.1); Sodium 141 mmol/L (135-145)
--- NOTE | 2023-04-01 13:13 | P.PNPSI_ITS ---
Subjective Subjective Date of Service: 04/01/23 Reason For Visit: psychosis Interim History: reports seroquel has been helpful for his anxiety as well as racing/negative thoughts. agrees to schedule seroquel 50 TID, with PRNs also available. in addition asks about ADHD meds, agrees to give guanfacine ER a try. per staff, meds and meals compliant. guarded, severe anxiety. active, appropriate. sleeping well. Mental Status Exam Mental Status Exam Narrative: Pleasant. Engaged. Organized. Depressed. Feels supported. improved auditory hallucinations. No HI. No aggression or agitation. Insight and judgment fair Diagnostics Vital Signs (24Hr): Vital Signs - 24 hr 03/31/23 20:19 04/01/23 08:10 Temperature 97.4 F 98.1 F Pulse Rate 73 74 Respiratory Rate 14 18 Blood Pressure 97/59 L 121/68 Pulse Oximetry 99 99 Oxygen Delivery Method Room Air Room Air BMI result Body Mass Index 23.2 Labs 03/30/23 00:40 04/01/23 10:54 Labs: Laboratory Results - last 48 hr 03/30/23 03/30/23 04/01/23 12:16 13:23 10:54 Sodium 141 Potassium 4.3 Chloride 108 Carbon Dioxide 24 Anion Gap 13 BUN 18 H Creatinine 0.86 Estim Creat Clear Calc 141.5 Estimated GFR > 60 Random Glucose 83 Calcium 9.1 D Total Bilirubin 0.5 AST 17 ALT 19 Alkaline Phosphatase 80 Total Protein 7.0 Albumin 3.9 Urine Color Yellow Urine Appearance Clear Urine pH 8.5 Ur Specific [place] 1.025 Urine Protein Trace Urine Glucose (UA) Negative Urine Ketones Negative Urine Blood Negative Urine Nitrite Negative Ur Leukocyte Esterase Negative Chlam trachomat DNA PCR NOT DETECTED N.gonorrhoeae DNA (PCR) NOT DETECTED Medications Medications Current Medications Al Hydroxide/Mg Hydroxide (Magnesium Hydrox/Alum Hydrox 30 Ml Oral.Susp) 30 ml PO Q6H PRN PRN Reason: Heartburn/Nausea Clonidine HCl (Clonidine Hcl 0.1 Mg Tablet) 0.1 mg PO TID PRN; Protocol PRN Reason: Anxiety Guanfacine HCl (Guanfacine Hcl Er 1 Mg Tab.Er.24h) 3 mg PO BEDTIME RICARDO Hydroxyzine HCl (Hydroxyzine Hcl 50 Mg Tablet) 50 mg PO Q6H PRN PRN Reason: Anxiety Last Admin: 04/01/23 08:45 Dose: 50 mg Magnesium Hydroxide (Milk Of Magnesia 30 Ml Oral.Susp) 30 ml PO DAILY PRN PRN Reason: Constipation Methadone HCl (Methadone Hcl 20 Mg/2 Ml Oral.Conc) 30 mg PO DAILY RICARDO Last Admin: 04/01/23 08:45 Dose: 30 mg Oxcarbazepine (Oxcarbazepine 300 Mg Tablet) 300 mg PO BEDTIME RICARDO Last Admin: 03/31/23 20:13 Dose: 300 mg Quetiapine Fumarate (Quetiapine Fumarate 50 Mg Tablet) 50 mg PO QID PRN PRN Reason: anxiety Last Admin: 03/31/23 09:15 Dose: 50 mg Quetiapine Fumarate (Quetiapine Fumarate 50 Mg Tablet) 50 mg PO TID RICARDO Trazodone HCl (Trazodone Hcl 50 Mg Tablet) 50 mg PO BEDTIME MRX1 PRN PRN Reason: Insomnia Last Admin: 03/31/23 22:00 Dose: 50 mg Allergies Allergies Allergy/AdvReac Type Severity Reaction Status Date / Time amoxicillin [AMOXICILLIN] Allergy Severe HIVES Verified 10/05/22 00:01 Penicillins [PENICILLINS] Allergy Severe HIVES Verified 10/05/22 00:01 acetaminophen [From TYLENOL] Allergy Unknown LIVER Verified 10/05/22 00:01 PROBLEMS Assessment & Plan Assessment & Plan (1) Schizoaffective disorder: Qualifiers: Schizoaffective disorder type: unspecified Qualified Code(s): F25.9 - Schizoaffective disorder, unspecified Status: Acute Code(s): F25.9 - Schizoaffective disorder, unspecified Plan 03/31: initiated Trileptal, Seroquel and hydroxyzine p.r.n. and he did not want to take any neuroleptics for the auditory hallucinations on a regular basis at this time. 04/01: helped by seroquel, scheduled seroquel 50 TID today. c/o ADHD Sx, agreed to trial of guanfacine ER today, start at 1 mg tonight. Reason for continued inpatient stay Substantial Risk for: inability to function and rapid decompensation Time Spent With Patient Time: Total time managing care of this patient today _25___ minutes.
[2023-04-01] MEDS: QUEtiapine Fumarate 50 MG TABLET PO ×2 (14:38→21:08)
[2023-04-01 19:40] VITALS: BP 107/64; PULSE 74; RESP 16; TEMP 36.4; O2SAT 99
[2023-04-01] MEDS: guanFACINE HCl ER 1 MG TAB.ER.24H PO (21:08)
[2023-04-01] MEDS: OXcarbazepine 300 MG TABLET PO (21:08)
[2023-04-02 08:00] VITALS: BP 102/65; PULSE 75; RESP 18; TEMP 36.4; O2SAT 98
[2023-04-02] MEDS: QUEtiapine Fumarate 50 MG TABLET PO ×4 (08:08→20:59)
[2023-04-02] MEDS: methADONE HCl 20 MG/2 ML ORAL.CONC 30 MG PO (08:08)
[2023-04-02] MEDS: hydrOXYzine HCL 50 MG TABLET PO ×2 (08:08→18:25)
--- NOTE | 2023-04-02 13:44 | HO.PSYCHPN ---
Subjective Subjective Date of Service: 04/02/23 Reason For Visit: psychosis Interim History: calm, cooperative, appears relaxed. states seroquel has been helpful yet anxiety remains high. slept OK. agrees to increase intuniv to 2 mg tonight. denies side effects including dizziness, lightheadedness. per staff, isolative. racing thoughts. cooperative. med-compliant. slept eves. c/o anxiety. Mental Status Exam Mental Status Exam Narrative: Pleasant. Engaged. Organized. Depressed. Feels supported. improved auditory hallucinations. No HI. No aggression or agitation. Insight and judgment fair Diagnostics Vital Signs (24Hr): Vital Signs - 24 hr 04/01/23 19:40 04/02/23 08:00 Temperature 97.5 F 97.5 F Pulse Rate 74 75 Respiratory Rate 16 18 Blood Pressure 107/64 102/65 Pulse Oximetry 99 98 Oxygen Delivery Method Room Air Room Air BMI result Body Mass Index 23.2 Labs 03/30/23 00:40 04/01/23 10:54 Labs: Laboratory Results - last 48 hr 04/01/23 10:54 Sodium 141 Potassium 4.3 Chloride 108 Carbon Dioxide 24 Anion Gap 13 BUN 18 H Creatinine 0.86 Estim Creat Clear Calc 141.5 Estimated GFR > 60 Random Glucose 83 Calcium 9.1 D Total Bilirubin 0.5 AST 17 ALT 19 Alkaline Phosphatase 80 Total Protein 7.0 Albumin 3.9 Medications Medications Current Medications Al Hydroxide/Mg Hydroxide (Magnesium Hydrox/Alum Hydrox 30 Ml Oral.Susp) 30 ml PO Q6H PRN PRN Reason: Heartburn/Nausea Clonidine HCl (Clonidine Hcl 0.1 Mg Tablet) 0.1 mg PO TID PRN; Protocol PRN Reason: Anxiety Guanfacine HCl (Guanfacine Hcl Er 2 Mg Tab.Er.24h) 2 mg PO BEDTIME RICARDO Hydroxyzine HCl (Hydroxyzine Hcl 50 Mg Tablet) 50 mg PO Q6H PRN PRN Reason: Anxiety Last Admin: 04/02/23 08:08 Dose: 50 mg Magnesium Hydroxide (Milk Of Magnesia 30 Ml Oral.Susp) 30 ml PO DAILY PRN PRN Reason: Constipation Methadone HCl (Methadone Hcl 20 Mg/2 Ml Oral.Conc) 30 mg PO DAILY RICARDO Last Admin: 04/02/23 08:08 Dose: 30 mg Oxcarbazepine (Oxcarbazepine 300 Mg Tablet) 300 mg PO BEDTIME RICARDO Last Admin: 04/01/23 21:08 Dose: 300 mg Quetiapine Fumarate (Quetiapine Fumarate 50 Mg Tablet) 50 mg PO QID PRN PRN Reason: anxiety Last Admin: 03/31/23 09:15 Dose: 50 mg Quetiapine Fumarate (Quetiapine Fumarate 50 Mg Tablet) 50 mg PO TID RICARDO Last Admin: 04/02/23 08:08 Dose: 50 mg Trazodone HCl (Trazodone Hcl 50 Mg Tablet) 50 mg PO BEDTIME MRX1 PRN PRN Reason: Insomnia Last Admin: 03/31/23 22:00 Dose: 50 mg Allergies Allergies Allergy/AdvReac Type Severity Reaction Status Date / Time amoxicillin [AMOXICILLIN] Allergy Severe HIVES Verified 10/05/22 00:01 Penicillins [PENICILLINS] Allergy Severe HIVES Verified 10/05/22 00:01 acetaminophen [From TYLENOL] Allergy Unknown LIVER Verified 10/05/22 00:01 PROBLEMS Assessment & Plan Assessment & Plan (1) Schizoaffective disorder: Qualifiers: Schizoaffective disorder type: unspecified Qualified Code(s): F25.9 - Schizoaffective disorder, unspecified Status: Acute Code(s): F25.9 - Schizoaffective disorder, unspecified Plan 03/31: initiated Trileptal, Seroquel and hydroxyzine p.r.n. and he did not want to take any neuroleptics for the auditory hallucinations on a regular basis at this time. 04/01: helped by seroquel, scheduled seroquel 50 TID today. c/o ADHD Sx, agreed to trial of guanfacine ER today, start at 1 mg tonight. 04/02: slept well last night. seroquel has helped anxiety, but it remains high. agreeable to increase intuniv at HS to 2 mg. Reason for continued inpatient stay Substantial Risk for: harm to self, inability to function and rapid decompensation Time Spent With Patient Time: Total time managing care of this patient today _25___ minutes.
[2023-04-02 20:30] VITALS: BP 119/69; PULSE 87; TEMP 36.6; O2SAT 98
[2023-04-02] MEDS: OXcarbazepine 300 MG TABLET PO (20:59)
[2023-04-02] MEDS: guanFACINE HCl ER 2 MG TAB.ER.24H PO (20:59)
[2023-04-03] MEDS: methADONE HCl 20 MG/2 ML ORAL.CONC 30 MG PO (08:42)
[2023-04-03] MEDS: QUEtiapine Fumarate 50 MG TABLET PO ×6 (08:42→22:03)
[2023-04-03 09:16] VITALS: BP 104/56; PULSE 64; RESP 18; TEMP 36.6; O2SAT 97
--- NOTE | 2023-04-03 13:29 | P.PNPSI_ITS ---
Subjective Subjective Date of Service: 04/03/23 Reason For Visit: psychosis Interim History: calm, cooperative. seated on the edge of his bed rather than lying down in the dark, for the first time. encouraged to attend groups. [facility] feeling anxious but that guanfacine is helpful. agreeable to add guanfacine 1 mg in the morning. also to increase seroquel scheduled to QID, as he had 4 doses yesterday. per staff, isolative, sleeping, no groups. med-compliant. Mental Status Exam Mental Status Exam Narrative: Pleasant. Engaged. Organized. Depressed. Feels supported. no SI/HI/AVH expressed. No aggression or agitation. Insight and judgment fair Diagnostics Vital Signs (24Hr): Vital Signs - 24 hr 04/02/23 20:30 04/03/23 09:16 Temperature 97.9 F 97.9 F Pulse Rate 87 64 Respiratory Rate 18 Blood Pressure 119/69 104/56 L Pulse Oximetry 98 97 Oxygen Delivery Method Room Air Room Air BMI result Body Mass Index 23.2 Labs 03/30/23 00:40 04/01/23 10:54 Medications Medications Current Medications Al Hydroxide/Mg Hydroxide (Magnesium Hydrox/Alum Hydrox 30 Ml Oral.Susp) 30 ml PO Q6H PRN PRN Reason: Heartburn/Nausea Clonidine HCl (Clonidine Hcl 0.1 Mg Tablet) 0.1 mg PO TID PRN; Protocol PRN Reason: Anxiety Guanfacine HCl (Guanfacine Hcl Er 2 Mg Tab.Er.24h) 2 mg PO BEDTIME RICARDO Last Admin: 04/02/23 20:59 Dose: 2 mg Guanfacine HCl (Guanfacine Hcl Er 1 Mg Tab.Er.24h) 1 mg PO DAILY RICARDO Hydroxyzine HCl (Hydroxyzine Hcl 50 Mg Tablet) 50 mg PO Q6H PRN PRN Reason: Anxiety Last Admin: 04/02/23 18:25 Dose: 50 mg Magnesium Hydroxide (Milk Of Magnesia 30 Ml Oral.Susp) 30 ml PO DAILY PRN PRN Reason: Constipation Methadone HCl (Methadone Hcl 20 Mg/2 Ml Oral.Conc) 30 mg PO DAILY RICARDO Last Admin: 04/03/23 08:42 Dose: 30 mg Oxcarbazepine (Oxcarbazepine 300 Mg Tablet) 300 mg PO BEDTIME RICARDO Last Admin: 04/02/23 20:59 Dose: 300 mg Quetiapine Fumarate (Quetiapine Fumarate 50 Mg Tablet) 50 mg PO QID PRN PRN Reason: anxiety Last Admin: 04/03/23 11:26 Dose: 50 mg Quetiapine Fumarate (Quetiapine Fumarate 50 Mg Tablet) 50 mg PO QID RICARDO Last Admin: 04/03/23 13:19 Dose: 50 mg Trazodone HCl (Trazodone Hcl 50 Mg Tablet) 50 mg PO BEDTIME MRX1 PRN PRN Reason: Insomnia Last Admin: 03/31/23 22:00 Dose: 50 mg Allergies Allergies Allergy/AdvReac Type Severity Reaction Status Date / Time amoxicillin [AMOXICILLIN] Allergy Severe HIVES Verified 10/05/22 00:01 Penicillins [PENICILLINS] Allergy Severe HIVES Verified 10/05/22 00:01 acetaminophen [From TYLENOL] Allergy Unknown LIVER Verified 10/05/22 00:01 PROBLEMS Assessment & Plan Assessment & Plan (1) Schizoaffective disorder: Qualifiers: Schizoaffective disorder type: unspecified Qualified Code(s): F25.9 - Schizoaffective disorder, unspecified Status: Acute Code(s): F25.9 - Schizoaffective disorder, unspecified Plan 03/31: initiated Trileptal, Seroquel and hydroxyzine p.r.n. and he did not want to take any neuroleptics for the auditory hallucinations on a regular basis at this time. 04/01: helped by seroquel, scheduled seroquel 50 TID today. c/o ADHD Sx, agreed to trial of guanfacine ER today, start at 1 mg tonight. 04/02: slept well last night. seroquel has helped anxiety, but it remains high. agreeable to increase intuniv at HS to 2 mg. 04/03: slept well again. increase seroquel to QID, add guanfacine 1 in the morning as of tomorrow. planning for DC saturday. awaiting word from [facility]. not attending groups. Reason for continued inpatient stay Substantial Risk for: inability to function and rapid decompensation Time Spent With Patient Time: Total time managing care of this patient today __25__ minutes.
[2023-04-03] MEDS: OXcarbazepine 300 MG TABLET PO (20:25)
[2023-04-03] MEDS: guanFACINE HCl ER 2 MG TAB.ER.24H PO (20:25)
[2023-04-03] MEDS: cloNIDine HCL 0.1 MG TABLET PO (20:26)
[2023-04-03 20:29] VITALS: BP 113/65; PULSE 83; TEMP 36.5; O2SAT 97
[2023-04-03] MEDS: traZODone HCL 50 MG TABLET PO (22:03)
[2023-04-03] MEDS: hydrOXYzine HCL 50 MG TABLET PO (22:04)
[2023-04-04] MEDS: QUEtiapine Fumarate 50 MG TABLET PO ×4 (08:41→20:49)
[2023-04-04] MEDS: methADONE HCl 20 MG/2 ML ORAL.CONC 30 MG PO (08:41)
[2023-04-04] MEDS: guanFACINE HCl ER 1 MG TAB.ER.24H PO (08:41)
[2023-04-04 10:34] VITALS: BP 104/56; PULSE 71; RESP 20; TEMP 36.5; O2SAT 98
--- NOTE | 2023-04-04 12:44 | PM.PSYDC ---
DS: Providers Provider Date of Service: 04/04/23 Date of admission: 03/30/23 14:21 Primary care physician: Unknown Physician Consults: 03/29/23 23:59 Consult to Care Team Stat Comment: Reason for consultation: AH DS: Diagnosis Discharge Diagnosis (1) Schizoaffective disorder: Status: Acute DS: Medications Discharge Medications Home Medications: Home Medications Medication Instructions Recorded Confirmed methadone 5 mg tablet 30 mg PO DAILY 03/30/23 03/30/23 Previous Rx's Medication Instructions Recorded guanfacine 1 mg tablet,extended 1 mg PO DAILY 30 days #30 tabs 04/04/23 release 24 hr guanfacine 2 mg tablet,extended 2 mg PO BEDTIME 30 days #30 tabs 04/04/23 release 24 hr hydroxyzine HCl 50 mg tablet 50 mg PO BID PRN Anxiety 30 days 04/04/23 #60 tabs oxcarbazepine 300 mg tablet 300 mg PO BEDTIME 30 days #30 tabs 04/04/23 quetiapine 50 mg tablet 50 mg PO BEDTIME 30 days #30 tabs 04/04/23 quetiapine 50 mg tablet 50 mg PO QID 30 days #120 tabs 04/04/23 Mental Status Exam Mental Status Exam Narrative: Pleasant. Engaged. Organized. mood anxious and annoyed. Feels supported. no SI/HI/AVH. No aggression or agitation. Insight and judgment fair Data Data Completed and Pending Completed studies during hospitalization [Text1]: 03/30/23 03/30/23 03/30/23 00:26 00:40 00:40 WBC 8.5 RBC 5.24 Hgb 12.9 L Hct 40.4 L MCV 77.1 L MCH 24.6 L MCHC 31.9 RDW 13.5 Plt Count 116 L D MPV 10.9 Immature Gran % (Auto) 0.5 H Neut % (Auto) 74.3 H Lymph % (Auto) 17.7 L [place] % (Auto) 7.3 Eos % (Auto) 0.1 Baso % (Auto) 0.1 Lymph # (Auto) 1.5 [place] # (Auto) 0.6 Eos # (Auto) 0.0 Baso # (Auto) 0.0 Abs Immat Gran (auto) 0.04 H Absolute Neuts (auto) 6.3 Absolute Nucleated RBC 0.000 Nucleated RBC % (auto) 0.0 Sodium 145 Potassium 4.6 Chloride 109 H Carbon Dioxide 23 Anion Gap 18 BUN 18 H Creatinine 1.01 Estim Creat Clear Calc 120.5 Estimated GFR > 60 Random Glucose 106 Calcium 10.0 Total Bilirubin 0.4 AST 17 ALT 20 Alkaline Phosphatase 85 Total Protein 7.6 Albumin 4.5 Urine Color Urine Appearance Urine pH Ur Specific [place] Urine Protein Urine Glucose (UA) Urine Ketones Urine Blood Urine Nitrite Ur Leukocyte Esterase Salicylates Urine Opiates Screen Not Detected Urine Fentanyl Screen POSITIVE H Acetaminophen Ur Barbiturates Screen Not Detected Ur Phencyclidine Scrn Not Detected Ur Amphetamines Screen Not Detected U Benzodiazepines Scrn Not Detected Urine Cocaine Screen POSITIVE H U Marijuana (THC) Screen Not Detected Ethyl Alcohol < 10 Chlam trachomat DNA PCR COVID-19 ([facility]) COVID-19 Clin Com N.gonorrhoeae DNA (PCR) 03/30/23 03/30/23 03/30/23 00:40 02:00 12:16 WBC RBC Hgb Hct MCV MCH MCHC RDW Plt Count MPV Immature Gran % (Auto) Neut % (Auto) Lymph % (Auto) [place] % (Auto) Eos % (Auto) Baso % (Auto) Lymph # (Auto) [place] # (Auto) Eos # (Auto) Baso # (Auto) Abs Immat Gran (auto) Absolute Neuts (auto) Absolute Nucleated RBC Nucleated RBC % (auto) Sodium Potassium Chloride Carbon Dioxide Anion Gap BUN Creatinine Estim Creat Clear Calc Estimated GFR Random Glucose Calcium Total Bilirubin AST ALT Alkaline Phosphatase Total Protein Albumin Urine Color Yellow Urine Appearance Clear Urine pH 8.5 Ur Specific [place] 1.025 Urine Protein Trace Urine Glucose (UA) Negative Urine Ketones Negative Urine Blood Negative Urine Nitrite Negative Ur Leukocyte Esterase Negative Salicylates < 5.0 L Urine Opiates Screen Urine Fentanyl Screen Acetaminophen < 1 Ur Barbiturates Screen Ur Phencyclidine Scrn Ur Amphetamines Screen U Benzodiazepines Scrn Urine Cocaine Screen U Marijuana (THC) Screen Ethyl Alcohol Chlam trachomat DNA PCR COVID-19 ([facility]) Negative COVID-19 Clin Com See Note N.gonorrhoeae DNA (PCR) 03/30/23 04/01/23 13:23 10:54 WBC RBC Hgb Hct MCV MCH MCHC RDW Plt Count MPV Immature Gran % (Auto) Neut % (Auto) Lymph % (Auto) [place] % (Auto) Eos % (Auto) Baso % (Auto) Lymph # (Auto) [place] # (Auto) Eos # (Auto) Baso # (Auto) Abs Immat Gran (auto) Absolute Neuts (auto) Absolute Nucleated RBC Nucleated RBC % (auto) Sodium 141 Potassium 4.3 Chloride 108 Carbon Dioxide 24 Anion Gap 13 BUN 18 H Creatinine 0.86 Estim Creat Clear Calc 141.5 Estimated GFR > 60 Random Glucose 83 Calcium 9.1 D Total Bilirubin 0.5 AST 17 ALT 19 Alkaline Phosphatase 80 Total Protein 7.0 Albumin 3.9 Urine Color Urine Appearance Urine pH Ur Specific [place] Urine Protein Urine Glucose (UA) Urine Ketones Urine Blood Urine Nitrite Ur Leukocyte Esterase Salicylates Urine Opiates Screen Urine Fentanyl Screen Acetaminophen Ur Barbiturates Screen Ur Phencyclidine Scrn Ur Amphetamines Screen U Benzodiazepines Scrn Urine Cocaine Screen U Marijuana (THC) Screen Ethyl Alcohol Chlam trachomat DNA PCR NOT DETECTED COVID-19 ([facility]) COVID-19 Clin Com N.gonorrhoeae DNA (PCR) NOT DETECTED DS: Summary Hospital Course Hospital Course: per 03/31 admission note: Kevan is a 32-year-old, white, single, unemployed, father of 6.? He was discharged from 3 weeks of incarceration in [facility] for stealing a car, last week.? He has history of schizoaffective disorder with both depressive, hypomanic symptoms accompanied by psychotic symptoms, auditory and visual hallucinations.? He also has history of opiate, cocaine dependence/abuse.? Last week he was started on methadone 30 mg.? He states that he has not taken any medications in the past 6 months and did not want to take any while in shelter but since his discharge he states that he continues to be quite symptomatic with a lot of anxiety, auditory and visual hallucinations which are not command in nature.? They have been command in nature in the past, telling him to kill himself.? And some of his episodes of decompensation have been quite severe.? He self-referred for getting help to get restate able iced in order to be able to be part of his family again.? In the past he has been on SSRIs, Zyprexa with questionable benefits.? He has never been on a mood stabilizer.? Since his discharge she has used cocaine once and his U tox was positive for cocaine, fentanyl and marijuana.? He states that clonidine in the past has not been that helpful to him.? We discussed options and I will leave the p.r.n. clonidine and place, add Seroquel 50 mg p.r.n. and hydroxyzine 50 mg p.r.n..? I also started him on Trileptal 300 mg daily.? Side effects discussed.? He denies any suicidal or homicidal ideations. Past Psychiatric History: -Per chart, pt had 2 suicide attempts in adolescence, once by drinking bleach? -Hx of IPLOC, last admission 04/2022 on [facility] due to similar presentation.? -Past med trials: vistaril, zoloft, thorazine, zyprexa Medical Evaluation Reviewed: Yes (Reviewed) Abnormal EKG PMFSH Medical History? A-fib Depression Depression Major depression with psychotic features Opiate abuse, continuous Opioid use disorder Polysubstance abuse Schizoaffective disorder Narrative: He also has been diagnosed with hep C with no treatment Family History: Unknown Social History: -Pt resides with Chika Vazquez, a close friend of his. Otherwise homeless x 1 year. -Receives [facility] -Pt has 6 children in total from 2 relationships. DCF removed 2 of his children, the others reside with their mother.? -Pt raised in [place], lived with his father for the first half of his life and then with his mother. Has siblings. -Has his GED. He has done juan/ construction work. -Legal: has upcoming court date 07/11/2022 due to larceny and high pursuit ted. Hx of incarceration for drug related charges. Substance History: Opiates including smoking heroin, cocaine, marijuana Trauma History: Unknown Precis: 03/31:? initiated Trileptal, Seroquel and hydroxyzine p.r.n. and he did not want to take any neuroleptics for the auditory hallucinations on a regular basis at this time. 04/01:? helped by seroquel, scheduled seroquel 50 TID today.? c/o ADHD Sx, agreed to trial of guanfacine ER today, start at 1 mg tonight. 04/02:? slept well last night.? seroquel has helped anxiety, but it remains high.? agreeable to increase intuniv at HS to 2 mg. 8/9:? slept well again.? increase seroquel to QID, add guanfacine 1 in the morning as of tomorrow.? planning for DC saturday.? awaiting word from [facility].? not attending groups. 04/04: no change in presentation. declined by [facility]. meds reviewed, reconciled, prescribed. discharge arranged for tomorrow. Time Spent with Patient Time attestation: Total time managing care of this patient today ____ minutes. Time spent: Greater than 30 minutes Discharge Plan Discharge Anticipated Discharge Date/Time: 04/05/23 11:00 Patient Disposition: Home, Self-Care Discharge Diagnosis: Schizoaffective Disorder Polysubstance Use Disorder Referrals: [facility] [Other] - 1 Week (Please call the [facility] on Saturday to check on bed availability. You are currently on the waiting list) Therapy & Psychiatry [Other] - 1 Week (-You have been referred to [facility] for therapy and psychiatry. They will reach out to you on your mother's cell phone with the appointment dates and times. If you do not hear from them within the next few days, please call the phone number listed above. ) Physician,Unknown J [Primary Care Provider] - 1 Week Discharge Medications: New hydroxyzine HCl 50 mg Tablet 50 mg PO BID PRN (Reason: Anxiety) 30 Days Qty: 60 0RF oxcarbazepine 300 mg Tablet 300 mg PO BEDTIME 30 Days Qty: 30 0RF quetiapine 50 mg Tablet 50 mg PO BEDTIME 30 Days Qty: 30 0RF quetiapine 50 mg Tablet 50 mg PO QID 30 Days Qty: 120 0RF guanfacine 2 mg Tablet Extended Release 24 Hr 2 mg PO BEDTIME 30 Days Qty: 30 0RF guanfacine 1 mg Tablet Extended Release 24 Hr 1 mg PO DAILY 30 Days Qty: 30 0RF Continued methadone 5 mg Tablet 30 mg PO DAILY Rx Instructions: Last dose letter from [facility]. 03/29/23 @ 0700 Discontinued clonidine HCl 0.2 mg Tablet 0.2 mg PO BEDTIME clonidine HCl 0.1 mg Tablet 0.1 mg PO DAILY Discharge Orders: Discharge Order (Routine); Ordered 04/05/23 Ordered By: Tera Luis Diet: Advance to usual diet Activity on Discharge: As tolerated Stand Alone Forms: Patient Portal Discharge page, Community Support Care Plan Goals: remain safe, stable, and sober in the outpatient treatment setting Health Concerns: none Plan of Treatment: take medications as prescribed, attend appointments as scheduled Assessment: not at imminent risk of harm to self or others
[2023-04-04 18:00] VITALS: BP 103/55; PULSE 60; RESP 18; TEMP 36.6; O2SAT 97
[2023-04-04] MEDS: guanFACINE HCl ER 2 MG TAB.ER.24H PO (20:49)
[2023-04-04] MEDS: traZODone HCL 50 MG TABLET PO (20:49)
[2023-04-04] MEDS: OXcarbazepine 300 MG TABLET PO (20:49)
[2023-04-04] MEDS: hydrOXYzine HCL 50 MG TABLET PO (20:49)
[2023-04-05 08:15] VITALS: BP 106/62; PULSE 70; RESP 18; TEMP 36.6; O2SAT 98
[2023-04-05] MEDS: methADONE HCl 20 MG/2 ML ORAL.CONC 30 MG PO (09:13)
[2023-04-05] MEDS: QUEtiapine Fumarate 50 MG TABLET PO ×2 (09:13→12:23)
[2023-04-05] MEDS: guanFACINE HCl ER 1 MG TAB.ER.24H PO (09:13)
--- NOTE | 2023-04-05 13:42 | PC.NURSE ---
Pt ready and aware of discharge.He denies, SI/HI/AH/VH at this time. He rates his anxiety 06/04 depression 11/02. he verbalized understanding of medications an need for appointments.
== END 2023-04-05 13:20 | disposition home or self-care (01) | DRG 750 ==
LOC: HO.ED 03-30 01:08 → HO.PADLT16 03-30 15:24
PROVIDERS: Clinical Nurse Specialist Psychiatric/Mental Health, Adult; Physician Assistant; Admitting Provider Psychiatry & Neurology Psychiatry; Emergency Provider Emergency Medicine; Visit Provider Psychiatry & Neurology Psychiatry
DX: F25.9 Schizoaffective disorder, unspecified (principal); Z91.148 Patient's other noncompliance with medication regimen for other reason; F11.20 Opioid dependence, uncomplicated; F19.10 Other psychoactive substance abuse, uncomplicated; Z91.51 Personal history of suicidal behavior; Z20.822 Contact with and (suspected) exposure to COVID-19; Z65.2 Problems related to release from prison; Z87.891 Personal history of nicotine dependence; Z79.899 Other long term (current) drug therapy
CPT/HCPCS: 0353U; 36415; 80053; 80143; 80179; 80307; 81003; 85025; 87635; 93005; 99285; S9485

== ENCOUNTER → 2023-03-30 02:33 | Outpatient (BNV) | payer MEDICAID, SELFPAY | PROVIDERS: Emergency Provider Emergency Medicine; Visit Provider Internal Medicine | DX: R94.31 Abnormal electrocardiogram [ECG] [EKG] (principal) | CPT/HCPCS: 93010 ==

== ENCOUNTER → 2023-03-30 14:21 | Outpatient (BNV) | payer OTHER, SELFPAY | PROVIDERS: Admitting Provider Psychiatry & Neurology Psychiatry; Emergency Provider Emergency Medicine; Visit Provider Psychiatry & Neurology Psychiatry | DX: F25.9 Schizoaffective disorder, unspecified (principal) | CPT/HCPCS: 99231; 99232 ==

== ENCOUNTER 2023-04-11 07:26 | Emergency (ER) | payer MEDICAID, SELFPAY ==
[2023-04-11 07:46] VITALS: BP 113/73; PULSE 87; RESP 16; TEMP 36.5; O2SAT 97; BMI 25.9
[2023-04-11 09:19] VITALS: BP 105/59; PULSE 68; RESP 16; TEMP 36.4; O2SAT 99
--- NOTE | 2023-04-11 09:39 | ED_ITS ---
HPI - General Adult General Chief complaint: General Medical Stated complaint: methadone needed Time Seen by Provider: 04/11/23 09:20 Source: patient Mode of arrival: ambulatory Limitations: no limitations History of Present Illness HPI narrative: 32-year-old male history of polysubstance abuse, cocaine induced psychotic disorder, schizoaffective disorder presents requesting a dose and prescription for methadone, patient reports he was in custodial, was started on methadone then then he was sent to a psychiatric unit, he completed his time at the psychiatric unit he thought there is script was a script at the clinic for methadone however when he went to go pick it up they told him that was not the case. They told him he should come to for evaluation and a new prescription with a last dose letter. Last smoked heroin a few hours prior to arrival. Denies SI and HI. No medical complaints Related Data Home Medications Medication Instructions Recorded Confirmed methadone 5 mg tablet 30 mg PO DAILY 03/30/23 03/30/23 Previous Rx's Medication Instructions Recorded guanfacine 1 mg tablet,extended 1 mg PO DAILY 30 days #30 tabs 04/04/23 release 24 hr guanfacine 2 mg tablet,extended 2 mg PO BEDTIME 30 days #30 tabs 04/04/23 release 24 hr hydroxyzine HCl 50 mg tablet 50 mg PO BID PRN Anxiety 30 days 04/04/23 #60 tabs oxcarbazepine 300 mg tablet 300 mg PO BEDTIME 30 days #30 tabs 04/04/23 quetiapine 50 mg tablet 50 mg PO BEDTIME 30 days #30 tabs 04/04/23 quetiapine 50 mg tablet 50 mg PO QID 30 days #120 tabs 04/04/23 naloxone 4 mg/actuation nasal 4 mg intranasal Q2M PRN opioid 04/11/23 spray (Narcan) overdose #2 ea Allergies Allergy/AdvReac Type Severity Reaction Status Date / Time amoxicillin [AMOXICILLIN] Allergy Severe HIVES Verified 10/05/22 00:01 Penicillins [PENICILLINS] Allergy Severe HIVES Verified 10/05/22 00:01 acetaminophen [From TYLENOL] Allergy Unknown LIVER Verified 10/05/22 00:01 PROBLEMS Review of Systems Review of Systems: Constitutional : No Weight loss, No Fever, No Chills, No Fatigue, No Malaise ENT/Mouth : No sore throat, No Rhinorrhea Eyes: No Eye Pain, No Swelling, No Redness Cardiovascular : No Chest Pain, No SOB, No Dyspnea on Exertion, No Orthopnea, No Edema, No Palpitations Respiratory : No Cough, No Sputum, No Wheezing Gastrointestinal : No Nausea, No Vomiting, No Diarrhea, No Constipation, No abdominal Pain, No Hematochezia, No Melena Genitourinary : No Dysuria, No Urinary Frequency, No Hematuria, Musculoskeletal : No joint pain, No Myalgias, No Joint Swelling Skin : No Skin Lesions, No rash Neuro : No Weakness, No Numbness, No Dizziness, No Headache Psych : No Anxiety/Panic, No Depression Heme/Lymph: No Bruising, No Bleeding,No Lymphadenopathy Endocrine : No Polyuria, No Polydipsia All other systems reviewed and are negative Yes all other systems are reviewed and are negative [facility] Past Medical History Medical History A-fib Depression Depression Major depression with psychotic features Opiate abuse, continuous Opioid use disorder Polysubstance abuse Schizoaffective disorder Social History Social History Household Members: Unknown / Unable to assess Household Members Other:: Patient left custodial on 03/28 Housing: Other Do you presently have visiting nurse or other home services: No Unable to assess alcohol history related to: Refusing to respond Alcohol intake: never Patient Tobacco Use Status: Former Tobacco user Tobacco use type: Cigarette Cigarette Packs Per Day: 1 Cigarettes Per Day: 20.0 Substance Use Type: Crack/Cocaine and Opiates Advance Directives: No service: No Sexual orientation: Straight/Heterosexual Physical Exam ED Vital Signs: Vital Signs - 24 hr 04/11/23 07:46 04/11/23 09:19 Temperature 97.7 F 97.5 F Pulse Rate 87 68 Respiratory Rate 16 16 Blood Pressure 113/73 105/59 L Pulse Oximetry 97 99 Oxygen Delivery Method Room Air Room Air BMI result Body Mass Index 25.9 vss Appearance: Alert.? Oriented X3.? No acute distress.? Head: Normocephalic, atraumatic, no step-offs or deformities Eyes: Pupils equal, round and reactive to light.? CVS: Normal heart rate and rhythm on monitor. Respiratory: No respiratory distress.? Skin: Skin warm and dry.? Normal skin color.? Normal skin turgor.? Extremities:5/5 strength to bilateral upper and lower extremities Neuro: Oriented X 3.? No motor deficit.? No sensory deficit. CN 2-12 intact Course Reevaluation(s) Reevaluation #1: life skills coach nurse practitioner Devora Joseph and RN Lynn Kebede evaluated patient recommend giving 30 mg methadone now, they will reach out to [facility] and give him out patient follow up. They will also provide patient with last dose letter. Will wait to [place] until recovery team speaks to [facility] and ensure patient has follow up. Time: 09:50 Reevaluation #2: Patient given outpatient providers in follow-up for methadone clinic. Educated patient on diagnosis and treatment plan, answered all question, patient verbalizes understanding. At this time patient will be discharged home, advised to return with new or worsening symptoms. Educated on worrisome signs and symptoms and when to return. At this time I feel comfortable discharge home. Time: 11:11 Medications Administered Discontinued Medications Generic Name Dose Route Start Last Admin Trade Name Miroslava PRN Reason Stop Dose Admin Methadone HCl 30 mg 04/11/23 09:46 04/11/23 10:13 Methadone Hcl 20 Mg/2 Ml Oral.Conc PO 04/11/23 09:47 30 mg ONCE ONE Administration Medical Decision Making Medical Decision Making [facility] Narrative: 09 32 year old male presents requesting methadone last dose on 04/05/[address] REPORTER. No SI or HI PE benign Likely polysubstance abuse, No SI or HI. Reached out to debt recovery officer RN and BANKING CENTER MANAGER. Differential Diagnosis Differential Diagnoses: The differential diagnosis associated with the presentation includes Likely polysubstance abuse, No SI or HI. Admission/Observation Consideration of admission/observation: Escalation of care including admission/observation considered Not indicated Consult Healthcare Provider Management of the patient was discussed with: Customer Service And Sales Consultant (recovery ) Core Measures AMI core measures followed: Yes Measure exclusions: not indicated Critical Care Time Critical Care Time Critical Care Time: No Discharge Plan Discharge Clinical Impression: Medication refill, Opioid use disorder Patient Disposition: Home, Self-Care Instructions: Medicine Refill (ED), Opioid Use Disorder (ED), Opioid Withdrawal (ED) Additional Instructions: Take your medications as prescribed. If you were prescribed antibiotics today, it is important that you take your medication to their entirety, do not skip any doses, do not finish them early. Follow-up with your primary care provider this week. Return to the emergency department with new or worsening symptoms. Such as fevers, chills, chest pain, shortness of breath, nausea, vomiting, dizziness, headache, vision changes, lethargy In case of emergency call 911 Follow up with [facility] Prescriptions: New naloxone [Narcan] 4 mg/actuation spray,non-aerosol 4 mg intranasal Q2M PRN (Reason: opioid overdose) Qty: 2 0RF Rx Instructions: spray 1 dose into ONE nostril; alternate nostrils w each dose until help arrives No Action methadone 5 mg Tablet 30 mg PO DAILY Rx Instructions: Last dose letter from [facility]. 03/29/23 @ 0700 hydroxyzine HCl 50 mg Tablet 50 mg PO BID PRN (Reason: Anxiety) 30 Days Qty: 60 0RF oxcarbazepine 300 mg Tablet 300 mg PO BEDTIME 30 Days Qty: 30 0RF quetiapine 50 mg Tablet 50 mg PO BEDTIME 30 Days Qty: 30 0RF quetiapine 50 mg Tablet 50 mg PO QID 30 Days Qty: 120 0RF guanfacine 2 mg Tablet Extended Release 24 Hr 2 mg PO BEDTIME 30 Days Qty: 30 0RF guanfacine 1 mg Tablet Extended Release 24 Hr 1 mg PO DAILY 30 Days Qty: 30 0RF Referrals: Physician,Unknown J [Primary Care Provider] - 2 days Stand Alone Forms: Work/School Release
--- NOTE | 2023-04-11 10:09 | MHC.RECOVRN ---
This marine underwriter met with patient, patient presented to ED seeking to get MTD dose. Pt presents with last dose letter from [facility] 04/05/23, 30mg. Pt reports that was last dose of MTD. Pt states presented to [facility] as walk in today to get dosed, pt states was told could not get dosed at [facility] and to present to [facility] ED. 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 Pt reports no s/s of withdrawal, pt wishes to continue on MTD MAT. This marine underwriter reviewed findings with Provider, pt to get 30mg MTD, get last dose letter. This marine underwriter following up with [facility] in regard to next steps, as Walk IN Hours at OT are 7-9:30am, this marine underwriter sent MTD referral to [facility]. Pt aware of plan.
[2023-04-11] MEDS: methADONE HCl 20 MG/2 ML ORAL.CONC 30 MG PO (10:13)
== END 2023-04-11 11:48 | disposition home or self-care (01) ==
PROVIDERS: Emergency Provider Emergency Medicine
DX: F11.20 Opioid dependence, uncomplicated (principal); Z76.0 Encounter for issue of repeat prescription; F19.10 Other psychoactive substance abuse, uncomplicated; F25.9 Schizoaffective disorder, unspecified
CPT/HCPCS: 99283

== ENCOUNTER 2023-04-29 06:42 | Emergency (ER) | payer MEDICAID, SELFPAY ==
--- NOTE | ~2023-04-29 | XR_ITS ---
EXAMINATION: XR CHEST CLINICAL INFORMATION: Shortness of breath COMPARISON: Previous chest x-ray May 2022 TECHNIQUE: Frontal view of the chest was obtained. FINDINGS: The cardiac and mediastinal contours are stable. The lungs are well inflated. The lungs are clear. No pleural effusion or pneumothorax. Bony structures are unremarkable. XR/XR chest 1V IMPRESSION: No evidence for acute disease in the chest.
[2023-04-29 06:43] VITALS: BP 134/83; PULSE 92; RESP 16; TEMP 36.1; O2SAT 96; BMI 25.0
[2023-04-29 07:03] VITALS: BP 121/72; PULSE 86; RESP 18; TEMP 36.8; O2SAT 92
--- NOTE | 2023-04-29 07:12 | ED_ITS ---
HPI - General Adult General Chief complaint: General Medical Stated complaint: leg infection Time Seen by Provider: 04/29/23 07:04 Source: patient Mode of arrival: ambulatory Limitations: no limitations History of Present Illness HPI narrative: A 32-year-old male history of IV drug abuse ( last IV use was a year ago ) presented with possible cellulitis of left lower extremity, patient confirmed that he did not shoot IV drugs for the past year, patient normally is prone to skin infection in the past, no insect bites, no trauma to the area, no recent travel, no lower extremity swelling, no history of DVT, no calf tenderness or swelling. Patient also is complaining of sore throat goal is awake, nonproductive cough. Related Data Home Medications Medication Instructions Recorded Confirmed methadone 5 mg tablet 30 mg PO DAILY 03/30/23 03/30/23 Previous Rx's Medication Instructions Recorded guanfacine 1 mg tablet,extended 1 mg PO DAILY 30 days #30 tabs 04/04/23 release 24 hr guanfacine 2 mg tablet,extended 2 mg PO BEDTIME 30 days #30 tabs 04/04/23 release 24 hr hydroxyzine HCl 50 mg tablet 50 mg PO BID PRN Anxiety 30 days 04/04/23 #60 tabs oxcarbazepine 300 mg tablet 300 mg PO BEDTIME 30 days #30 tabs 04/04/23 quetiapine 50 mg tablet 50 mg PO BEDTIME 30 days #30 tabs 04/04/23 quetiapine 50 mg tablet 50 mg PO QID 30 days #120 tabs 04/04/23 naloxone 4 mg/actuation nasal 4 mg intranasal Q2M PRN opioid 04/11/23 spray (Narcan) overdose #2 ea doxycycline hyclate 100 mg tablet 100 mg PO BID #14 tabs 04/29/23 Allergies Allergy/AdvReac Type Severity Reaction Status Date / Time amoxicillin [AMOXICILLIN] Allergy Severe HIVES Verified 10/05/22 00:01 Penicillins [PENICILLINS] Allergy Severe HIVES Verified 10/05/22 00:01 acetaminophen [From TYLENOL] Allergy Unknown LIVER Verified 10/05/22 00:01 PROBLEMS Review of Systems Review of Systems: All other systems are reviewed and are negative Constitutional: Reports as per HPI and Reports no additional constitutional complaints Eyes: Reports as per HPI and Reports no additional eye complaints Reports system reviewed and no additional complaints, except as documented Cardiovascular: Reports as per HPI and Reports no additional cardiovascular complaints Respiratory: Reports as per HPI and Reports no additional respiratory complaints Gastrointestinal: Reports as per HPI and Reports no additional gastrointestinal complaints Genitourinary: Reports no additional female genitourinary complaints Musculoskeletal: Reports no additional musculoskeletal complaints Skin/Breast: Reports system reviewed and no additional complaints, except as docu Psychiatric: Reports no additional psychiatric complaints Endocrine: Reports no additional endocrine complaints Hematologic/Lymphatic: Reports no additional hematologic/lymphatic complaints Allergic/Immunologic: Reports no additional allergic/immunologic complaints Reports system reviewed and no additional complaints, except as documented and R eports Abnormal speech present [facility] Past Medical History Medical History A-fib Depression Depression Major depression with psychotic features Opiate abuse, continuous Opioid use disorder Polysubstance abuse Schizoaffective disorder Social History Social History Household Members: Unknown / Unable to assess Household Members Other:: Patient left fdc on 03/28 Housing: Other Do you presently have visiting nurse or other home services: No Unable to assess alcohol history related to: Refusing to respond Alcohol intake: never Patient Tobacco Use Status: Former Tobacco user Tobacco use type: Cigarette Cigarette Packs Per Day: 1 Cigarettes Per Day: 20.0 Substance Use Type: Crack/Cocaine and Opiates Advance Directives: No service: No Sexual orientation: Straight/Heterosexual Physical Exam ED Vital Signs: Vital Signs - 24 hr 04/29/23 06:43 04/29/23 07:03 Temperature 96.9 F 98.2 F Pulse Rate 92 86 Respiratory Rate 16 18 Blood Pressure 134/83 121/72 Pulse Oximetry 96 92 Oxygen Delivery Method Room Air Room Air BMI result Body Mass Index 25.0 Course Course Course Narrative: left lower extremities cellulitis start the patient on doxycycline. Medical Decision Making Differential Diagnosis Differential Diagnoses: The differential diagnosis associated with the presentation includes ( Pneumonia, pneumothorax, pleural effusion, a strep pharyngitis, viral pharyngitis, cellulitis, abscess.) Admission/Observation Consideration of admission/observation: Escalation of care including admission/observation considered Lab Data MDM Lab Attestation statement: I reviewed the patient's lab results. Independent Interpretation I performed an independent interpretation of an: Plain X-Ray ( Chest: No active intrathoracic pathology.) Radiology Impression Discussion of test interpretation with radiology: I have reviewed the radiologist's reading. Chronic Conditions Patient?s care impacted by: Other ( history of IV drug abuse) Discharge Plan Discharge Clinical Impression: Cellulitis, URI, acute Patient Disposition: Home, Self-Care Instructions: Cellulitis (ED) Prescriptions: New doxycycline hyclate 100 mg tablet 100 mg PO BID Qty: 14 0RF No Action methadone 5 mg Tablet 30 mg PO DAILY Rx Instructions: Last dose letter from [facility]. 03/29/23 @ 0700 hydroxyzine HCl 50 mg Tablet 50 mg PO BID PRN (Reason: Anxiety) 30 Days Qty: 60 0RF oxcarbazepine 300 mg Tablet 300 mg PO BEDTIME 30 Days Qty: 30 0RF quetiapine 50 mg Tablet 50 mg PO BEDTIME 30 Days Qty: 30 0RF quetiapine 50 mg Tablet 50 mg PO QID 30 Days Qty: 120 0RF guanfacine 2 mg Tablet Extended Release 24 Hr 2 mg PO BEDTIME 30 Days Qty: 30 0RF guanfacine 1 mg Tablet Extended Release 24 Hr 1 mg PO DAILY 30 Days Qty: 30 0RF naloxone [Narcan] 4 mg/actuation spray,non-aerosol 4 mg intranasal Q2M PRN (Reason: opioid overdose) Qty: 2 0RF Rx Instructions: spray 1 dose into ONE nostril; alternate nostrils w each dose until help arrives
--- NOTE | 2023-04-29 07:13 | PC.NURSE ---
Patient reports 5/10 lung and throat pain that started about 2 days ago and has progressively gotten worse. Patient reports left ankle pain. Left ankle with healing scab, patient reports he thought it may have been poison edi and then it was itchy so he scratched it with something metal and he thinks it is infected. Patient reports drugs use about 1/2 hour ago.
[2023-04-29] MEDS: Doxycycline Monohydrate 100 MG CAPSULE PO (07:17)
[2023-04-29 07:40] LABS: IDNOW Serial# 08D9AD1C; Strep A Nucleic Acid Negative (Negative)
[2023-04-29 08:02] LABS: Influenza A PCR NEGATIVE (Negative); Influenza B PCR NEGATIVE (Negative); Resp Syncy Virus RNA Qual PCR NEGATIVE (Negative); SARS COV2 PCR INHOUSE NEGATIVE (Negative)
--- NOTE | 2023-04-29 08:34 | PC.NURSE ---
Discharge plan reviewed with patient who verbalized understanding , patient aware [facility] is closed today and will scrap picker script tomorrow.
== END 2023-04-29 08:39 | disposition home or self-care (01) ==
PROVIDERS: Emergency Provider Emergency Medicine
DX: J06.9 Acute upper respiratory infection, unspecified (principal); L03.116 Cellulitis of left lower limb; J02.9 Acute pharyngitis, unspecified; R05.9 Cough, unspecified; R06.02 Shortness of breath; F14.10 Cocaine abuse, uncomplicated; F11.10 Opioid abuse, uncomplicated; Z20.822 Contact with and (suspected) exposure to COVID-19; Z20.828 Contact with and (suspected) exposure to other viral communicable diseases; Z79.899 Other long term (current) drug therapy; Z87.891 Personal history of nicotine dependence
CPT/HCPCS: 0241U; 71045; 87651; 99283; 99284

== ENCOUNTER 2023-06-05 09:57 | Emergency (ER) | payer MEDICAID, SELFPAY ==
[2023-06-05 10:14] VITALS: BP 141/93; BP 146/88; PULSE 84; PULSE 96; RESP 16; TEMP 36.7; O2SAT 100; O2SAT 98; BMI 24.6
--- NOTE | 2023-06-05 10:14 | ED.AMS ---
HPI - Altered Mental Status General Chief Complaint: Medical Clearance Stated Complaint: ?DRUG USE,PD ON BOARD PER EMS Time Seen by Provider: 06/05/23 10:06 History of Present Illness HPI narrative: Patient is a 32-year-old male with a history of recreational drug use. History of schizoaffective disorder. Presented today after patient was involved in a house break-in. He was arrested by PD. Sent to the ED for further evaluation. Patient unable by detailed history. Related Data Home Medications Medication Instructions Recorded Confirmed methadone 5 mg tablet 30 mg PO DAILY 03/30/23 03/30/23 Previous Rx's Medication Instructions Recorded guanfacine 1 mg tablet,extended 1 mg PO DAILY 30 days #30 tabs 04/04/23 release 24 hr guanfacine 2 mg tablet,extended 2 mg PO BEDTIME 30 days #30 tabs 04/04/23 release 24 hr hydroxyzine HCl 50 mg tablet 50 mg PO BID PRN Anxiety 30 days 04/04/23 #60 tabs oxcarbazepine 300 mg tablet 300 mg PO BEDTIME 30 days #30 tabs 04/04/23 quetiapine 50 mg tablet 50 mg PO BEDTIME 30 days #30 tabs 04/04/23 quetiapine 50 mg tablet 50 mg PO QID 30 days #120 tabs 04/04/23 naloxone 4 mg/actuation nasal 4 mg intranasal Q2M PRN opioid 04/11/23 spray (Narcan) overdose #2 ea doxycycline hyclate 100 mg tablet 100 mg PO BID #14 tabs 04/29/23 Allergies Allergy/AdvReac Type Severity Reaction Status Date / Time amoxicillin [AMOXICILLIN] Allergy Severe HIVES Verified 10/05/22 00:01 Penicillins [PENICILLINS] Allergy Severe HIVES Verified 10/05/22 00:01 acetaminophen [From TYLENOL] Allergy Unknown LIVER Verified 10/05/22 00:01 PROBLEMS PMFSH Past Medical History Medical History A-fib Depression Depression Major depression with psychotic features Opiate abuse, continuous Opioid use disorder Polysubstance abuse Schizoaffective disorder Social History Social History Household Members: Unknown / Unable to assess Household Members Other:: Patient left residential on 03/28 Housing: Other Do you presently have visiting nurse or other home services: No Unable to assess alcohol history related to: Refusing to respond Alcohol intake: never Patient Tobacco Use Status: Former Tobacco user Tobacco use type: Cigarette Cigarette Packs Per Day: 1 Cigarettes Per Day: 20.0 Smoked in Last 30 Days: Yes Use of substances other than those prescribed or required for medical reasons: Refusing to respond Substance Use Type: Crack/Cocaine and Heroin Advance Directives: No service: No Sexual orientation: Straight/Heterosexual Physical Exam ED Vital Signs: Vital Signs - 24 hr 06/05/23 10:14 Temperature 98.1 F Pulse Rate 84 Respiratory Rate 16 Blood Pressure 141/93 H Pulse Oximetry 100 Oxygen Delivery Method Room Air BMI result Body Mass Index 24.6 Medical Decision Making Medical Decision Making MDM Narrative: Patient is a 32-year-old male with a history of schizoaffective disorder depression patient has a history of polysubstance abuse. Was evaluated by Psychiatry in the past was admitted to Psychiatry Unit in March. Patient was involved in a break-in in [place]. Subsequently patient was arrested. After the arrest patient wants to be evaluated. Patient denies suicidal homicidal ideation. Patient's old note from March was reviewed. The following was paced. Kevan is a 32-year-old, white, single, unemployed, father of 6.? He was discharged from 3 weeks of incarceration in [facility] for stealing a car, last week.? He has history of schizoaffective disorder with both depressive, hypomanic symptoms accompanied by psychotic symptoms, auditory and visual hallucinations.? He also has history of opiate, cocaine dependence/abuse.? Last week he was started on methadone 30 mg.? He states that he has not taken any medications in the past 6 months and did not want to take any while in residential but since his discharge he states that he continues to be quite symptomatic with a lot of anxiety, auditory and visual hallucinations which are not command in nature.? They have been command in nature in the past, telling him to kill himself.? And some of his episodes of decompensation have been quite severe.? He self-referred for getting help to get restate able iced in order to be able to be part of his family again.? In the past he has been on SSRIs, Zyprexa with questionable benefits.? He has never been on a mood stabilizer.? Since his discharge she has used cocaine once and his U tox was positive for cocaine, fentanyl and marijuana.? He states that clonidine in the past has not been that helpful to him.? We discussed options and I will leave the p.r.n. clonidine and place, add Seroquel 50 mg p.r.n. and hydroxyzine 50 mg p.r.n..? I also started him on Trileptal 300 mg daily.? Side effects discussed.? He denies any suicidal or homicidal ideations. Patient was unable to follow-up not been taking medication for last few months. Will check baseline labs. Last Amy to consult on the case and provide patient with additional phone number and outpatient help. Patient is seen by care team will have patient referred for outpatient treatment. U tox positive cocaine positive for fentanyl. Explained to patient in need to stop using recreational drugs. Patient states understanding. Differential Diagnosis Differential Diagnoses: The differential diagnosis associated with the presentation includes Polysubstance abuse, schizoaffective disorder Admission/Observation Consideration of admission/observation: Escalation of care including admission/observation considered Care team will arrange for outpatient follow-up Lab Data MDM Lab Attestation statement: I reviewed the patient's lab results. Labs: Lab Results 06/05/23 Range/Units 10:44 Urine Opiates Screen POSITIVE H (Not Detect) Urine Fentanyl Screen POSITIVE H (Not Detect) Ur Barbiturates Screen Not Detected (Not Detect) Ur Phencyclidine Scrn Not Detected (Not Detect) Ur Amphetamines Screen Not Detected (Not Detect) U Benzodiazepines Scrn Not Detected (Not Detect) Urine Cocaine Screen POSITIVE H (Not Detect) U Marijuana (THC) Screen Not Detected (Not Detect) Independent Historian Clinical information obtained from an independent historian. History obtained from or confirmed by: EMS External Record Review External record reviewed: Inpatient record Patient's inpatient hospital record was reviewed Chronic Conditions Polysubstance abuse, schizoaffective disorder Social Determinants Patient?s care significantly limited by Social Determinants of Health including: Alcoholism and drug addiction in family Discharge Plan Discharge Clinical Impression: Schizoaffective disorder, Polysubstance abuse Patient Disposition: Home, Self-Care Instructions: Schizoaffective Disorder (ED), Polysubstance Abuse (ED) Prescriptions: No Action methadone 5 mg Tablet 30 mg PO DAILY Rx Instructions: Last dose letter from [facility]. 03/29/23 @ 0700 hydroxyzine HCl 50 mg Tablet 50 mg PO BID PRN (Reason: Anxiety) 30 Days Qty: 60 0RF oxcarbazepine 300 mg Tablet 300 mg PO BEDTIME 30 Days Qty: 30 0RF quetiapine 50 mg Tablet 50 mg PO BEDTIME 30 Days Qty: 30 0RF quetiapine 50 mg Tablet 50 mg PO QID 30 Days Qty: 120 0RF guanfacine 2 mg Tablet Extended Release 24 Hr 2 mg PO BEDTIME 30 Days Qty: 30 0RF guanfacine 1 mg Tablet Extended Release 24 Hr 1 mg PO DAILY 30 Days Qty: 30 0RF naloxone [Narcan] 4 mg/actuation spray,non-aerosol 4 mg intranasal Q2M PRN (Reason: opioid overdose) Qty: 2 0RF Rx Instructions: spray 1 dose into ONE nostril; alternate nostrils w each dose until help arrives doxycycline hyclate 100 mg tablet 100 mg PO BID Qty: 14 0RF Referrals: Physician,Unknown J [Primary Care Provider] - (Please follow-up as per care team)
--- NOTE | 2023-06-05 12:24 | MHC.EDTECH ---
AFTER SEVERAL TRIES TO GET LABWORK, PROVIDER ORDERED A FINGER STICK AND POC. PT REFUSED FINGER STICK AND POC.
--- NOTE | 2023-06-05 13:12 | MHC.CARE ---
CARE Team responded to consult request to speak with patient in 6H in police custody about outpatient mental health services as he reported to the MD that he does not have psychiatric medication. Patient refused to engage, shut his eyes and turned away. Officer at bedside stated that patient will be brought to the courthouse for arraignment and likely discharged to the community awaiting trial. ED provider, Dr. Hernandez updated
== END 2023-06-05 13:34 | disposition home or self-care (01) ==
PROVIDERS: Emergency Provider Emergency Medicine Emergency Medical Services
DX: F25.9 Schizoaffective disorder, unspecified (principal); F11.10 Opioid abuse, uncomplicated; F14.10 Cocaine abuse, uncomplicated; Z87.891 Personal history of nicotine dependence; Z79.899 Other long term (current) drug therapy
CPT/HCPCS: 80307; 99284

== ENCOUNTER 2023-12-24 14:44 | Inpatient (IN) | payer MEDICAID, OTHER, SELFPAY ==
[2023-12-24 15:04] VITALS: BP 123/85; PULSE 89; RESP 14; TEMP 36.6; O2SAT 95; BMI 53.8
--- NOTE | 2023-12-24 15:06 | ED_ITS ---
HPI - Psych General Chief Complaint: Psychiatric Symptoms Stated Complaint: Crisis Time Seen by Provider: 12/24/23 16:07 Related Data Allergies Allergy/AdvReac Type Severity Reaction Status Date / Time amoxicillin [AMOXICILLIN] Allergy Severe HIVES Verified 12/24/23 15:11 Penicillins [PENICILLINS] Allergy Severe HIVES Verified 12/24/23 15:11 acetaminophen [From TYLENOL] Allergy Unknown LIVER Verified 12/24/23 15:11 PROBLEMS PMFSH Past Medical History Medical History Schizoaffective disorder Opioid use disorder Major depression with psychotic features Polysubstance abuse Depression Opiate abuse, continuous Depression A-fib Social History Social History Household Members: Unknown / Unable to assess Household Members Other:: Patient left [facility] on 03/28 Housing: Other Do you presently have visiting nurse or other home services: No Unable to assess alcohol history related to: Refusing to respond Alcohol intake: never Patient Tobacco Use Status: Former Tobacco user Tobacco use type: Cigarette Cigarette Packs Per Day: 1 Cigarettes Per Day: 20.0 Smoked in Last 30 Days: No Use of substances other than those prescribed or required for medical reasons: No Substance Use Type: Crack/Cocaine and Heroin Advance Directives: No Advance Directives Information Provided: Yes Do you have a plan to hurt others: Clear and Specific service: No Sexual orientation: Straight/Heterosexual Physical Exam 2 Vital Signs: Vital Signs: Last Vital Signs Temp 97.8 F 12/24/23 15:04 Pulse 89 12/24/23 15:04 Resp 14 12/24/23 16:50 BP 123/85 12/24/23 15:04 Pulse Ox 95 12/24/23 15:04 O2 Del Method Room Air 12/24/23 15:04 BMI result Body Mass Index 53.8 Course Course Course Narrative: This is a rapid medical exam completed by Sydnie MUNOZ: Additional HPI, ROS, PE not included below will be deferred to primary provider. Attempted suicide roughly 10 hours ago by intentionally overdosing on heroin and cocaine. Reports auditory hallucinations telling him that he is a killer. Has a psych appointment coming up but can't wait bc 'he is not doing good'. States he last used heroin about one hour prior to arrival. Denies ETOH use On psych meds but states he has not taken his meds in two days Medical Decision Making Medical Decision Making [facility] Narrative: -my interpretation of labs: Hematology and chemistry at baseline, urine toxicology positive for opiates, methadone, fentanyl, cocaine -the care team evaluated the patient, patient will be an inpatient bed search, likely to go to tomorrow morning. Patient is on a Section 12 Differential Diagnosis Differential Diagnoses: The differential diagnosis associated with the presentation includes (Polysubstance abuse, alcohol abuse, anxiety, depression, schizophrenia) Admission/Observation Consideration of admission/observation: Escalation of care including admission/observation considered (Patient is on a Section 12, inpatient bed search) Lab Data [facility] Lab Attestation statement: I reviewed the patient's lab results. 12/24/23 17:10 12/24/23 17:10 Labs: Lab Results 12/24/23 12/24/23 Range/Units 16:27 17:10 WBC 7.8 (4.8-10.8) X10*3/uL RBC 4.97 (4.60-5.80) X10*6/uL Hgb 12.9 L (14.0-18.0) g/dl Hct 39.8 L (42.0-52.0) % MCV 80.1 (80.0-98.0) fL MCH 26.0 L (27.0-33.0) pg MCHC 32.4 (31.0-36.0) g/dl RDW 15.0 (11.0-16.0) % Plt Count 223 D (160-400) X10*3/uL MPV 9.7 (9.4-12.4) fL Immature Gran % (Auto) 0.3 (0.0-0.4) % Neut % (Auto) 62.8 (45-73) % Lymph % (Auto) 27.6 (20-40) % [place] % (Auto) 8.6 (2-11) % Eos % (Auto) 0.4 (0-4) % Baso % (Auto) 0.3 (0-2) % Lymph # (Auto) 2.2 (1.2-4.9) X10*3/uL [place] # (Auto) 0.7 (0.1-1.2) X10*3/uL Eos # (Auto) 0.0 (0.0-0.4) X10*3/uL Baso # (Auto) 0.0 (0.0-0.2) X10*3/uL Abs Immat Gran (auto) 0.02 (0.00-0.03) X10*3/uL Absolute Neuts (auto) 4.9 (2.0-8.3) x10*3/uL Absolute Nucleated RBC 0.000 (0.0-0.012) X10*3/uL Nucleated RBC % (auto) 0.0 (0.0-0.2) /100WBC Sodium 137 (135-145) mmol/L Potassium 4.1 (3.3-5.1) mmol/L Chloride 103 (96-108) mmol/L Carbon Dioxide 23 (22-29) mmol/L Anion Gap 15 (12-20) BUN 25 H (9-16) mg/dL Creatinine 1.05 (0.5-1.4) mg/dL Estim Creat Clear Calc 175.7 Estimated GFR > 60 Random Glucose 101 (60-115) mg/dL Calcium 9.0 (8.4-10.2) mg/dL Total Bilirubin 0.5 (0.0-1.0) mg/dL AST 95 H (5-37) U/L ALT 122 H (0-40) U/L Alkaline Phosphatase 110 (39-117) U/L Total Protein 8.1 H (6.5-8.0) g/dL Albumin 4.4 (3.5-5.0) g/dL Salicylates < 5.0 L (15-30) mg/dL Urine Opiates Screen POSITIVE H (Not Detect) Ur Buprenorphine Scrn Not Detected (Not Detect) ng/mL Ur Oxycodone Screen Not Detected (Not Detect) ng/mL Urine Methadone Screen Positive H (Not Detect) ng/mL Urine Fentanyl Screen POSITIVE H (Not Detect) Ur Barbiturates Screen Not Detected (Not Detect) Ur Phencyclidine Scrn Not Detected (Not Detect) Ur Amphetamines Screen Not Detected (Not Detect) U Benzodiazepines Scrn Not Detected (Not Detect) Urine Cocaine Screen POSITIVE H (Not Detect) U Marijuana (THC) Screen Not Detected (Not Detect) Ethyl Alcohol < 10 mg/dL Critical Care Time Critical Care Time Critical Care Time: Yes Total Critical Care Time: 35 Attestation: I have personally provided critical care time. Time includes review of lab data, radiology results, discussion with consultants, and monitoring for potential decompensation. Intervention performed as documented. Discharge Plan Discharge Clinical Impression: Suicidal ideation, Polysubstance abuse Patient Disposition: Still a Patient Interventions: [place]-Suicide Risk Severity Scale Last Done: 12/24/23 16:54 Print Language: Choose Not To Answer
--- NOTE | 2023-12-24 16:34 | ED.PSYCH ---
HPI - Psych General Chief Complaint: Psychiatric Symptoms Stated Complaint: Crisis Time Seen by Provider: 12/24/23 16:07 Source: patient Mode of arrival: ambulatory Limitations: no limitations History of Present Illness HPI Narrative: Patient comes to the emergency room complaining of suicidal thoughts and hearing voices. Patient states that he recently left a detox program, and his medications were not returned to him. Patient states that he was doing well with his medications. Patient denies HI. Patient denies any other symptoms. Related Data Home Medications ?Medication ?Instructions ?Recorded ?Confirmed methadone 5 mg tablet 30 mg PO DAILY 03/30/23 03/30/23 Previous Rx's ?Medication ?Instructions ?Recorded guanfacine 1 mg tablet,extended 1 mg PO DAILY 30 days #30 tabs 04/04/23 release 24 hr guanfacine 2 mg tablet,extended 2 mg PO BEDTIME 30 days #30 tabs 04/04/23 release 24 hr hydroxyzine HCl 50 mg tablet 50 mg PO BID PRN Anxiety 30 days 04/04/23 #60 tabs oxcarbazepine 300 mg tablet 300 mg PO BEDTIME 30 days #30 tabs 04/04/23 quetiapine 50 mg tablet 50 mg PO BEDTIME 30 days #30 tabs 04/04/23 quetiapine 50 mg tablet 50 mg PO QID 30 days #120 tabs 04/04/23 naloxone 4 mg/actuation nasal 4 mg intranasal Q2M PRN opioid 04/11/23 spray (Narcan) overdose #2 ea doxycycline hyclate 100 mg tablet 100 mg PO BID #14 tabs 04/29/23 Allergies Allergy/AdvReac Type Severity Reaction Status Date / Time amoxicillin [AMOXICILLIN] Allergy Severe HIVES Verified 12/24/23 15:11 Penicillins [PENICILLINS] Allergy Severe HIVES Verified 12/24/23 15:11 acetaminophen [From TYLENOL] Allergy Unknown LIVER Verified 12/24/23 15:11 PROBLEMS Review of Systems Review of Systems: Constitutional : No Weight loss, No Fever, No Chills, No Night Sweats, No Fatigue, No Malaise ENT/Mouth : No Hearing loss, No Ear Pain, No Nasal Congestion, No Sinus Pain, No Hoarseness, No sore throat, No Rhinorrhea, No Swallowing Difficulty Eyes: No Eye Pain, No Swelling, No Redness, No Foreign Body, No Discharge, No Vision Changes Cardiovascular : No Chest Pain, No SOB, No Dyspnea on Exertion, No Orthopnea, No Edema, No Palpitations Respiratory : No Cough, No Sputum, No Wheezing, No Smoke Exposure, No Dyspnea Gastrointestinal : No Nausea, No Vomiting, No Diarrhea, No Constipation, No abdominal Pain, No Hematochezia, No Melena Genitourinary : no irregular bleeding, No Dysuria, No Urinary Frequency, No Hematuria, No Urinary Incontinence, No Urgency, No Flank Pain, No Urinary Flow Changes, No Hesitancy Musculoskeletal : No joint pain, No Myalgias, No Joint Swelling Skin : No Skin Lesions, No rash Neuro : No Weakness, No Numbness, No Paresthesias, No Loss of Consciousness, No Dizziness, No Headache Psych : No Anxiety/Panic, complaining of suicidal thoughts, hearing voices Heme/Lymph: No Bruising, No Bleeding,No Lymphadenopathy Endocrine : No Polyuria, No Polydipsia, No Temperature Intolerance PMFSH Past Medical History Medical History Schizoaffective disorder Opioid use disorder Major depression with psychotic features Polysubstance abuse Depression Opiate abuse, continuous Depression A-fib Social History Social History Household Members: Unknown / Unable to assess Household Members Other:: Patient left group home on 03/28 Housing: Other Do you presently have visiting nurse or other home services: No Unable to assess alcohol history related to: Refusing to respond Alcohol intake: never Patient Tobacco Use Status: Former Tobacco user Tobacco use type: Cigarette Cigarette Packs Per Day: 1 Cigarettes Per Day: 20.0 Substance Use Type: Crack/Cocaine and Heroin Advance Directives: No Advance Directives Information Provided: Yes Do you have a plan to hurt others: Clear and Specific service: No Sexual orientation: Straight/Heterosexual Physical Exam Vital Signs: Vital Signs: Last Vital Signs Temp 97.8 F 12/24/23 15:04 Pulse 89 12/24/23 15:04 Resp 14 12/24/23 15:04 BP 123/85 12/24/23 15:04 Pulse Ox 95 12/24/23 15:04 O2 Del Method Room Air 12/24/23 15:04 BMI result Body Mass Index 53.8 Const: Other: Appearance: Alert. Oriented X3. No acute distress. Eyes: Pupils equal, round and reactive to light. ENT: Pharynx normal. Neck: Normal inspection. Neck supple. No lymph nodes noted. No crepitus CVS: Normal heart rate and rhythm. Pulses normal. Normal S1 and S2 Respiratory: No respiratory distress. Breath sounds normal. No Wheezing. No rales Abdomen: Soft and nontender. No rigidity. No distention. Skin: Skin warm and dry. Normal skin color. Normal skin turgor. Extremities: No lower extremity edema. No Lacerations. No Rash Neuro: Oriented X 3. No motor deficit. No sensory deficit. Moving all extremities. No slurred speech. CN 2 through 12 grossly intact Psych: calm, cooperative, normal affect HEENT: Other: Appearance: Alert. Oriented X3. No acute distress. Eyes: Pupils equal, round and reactive to light. ENT: Pharynx normal. Neck: Normal inspection. Neck supple. No lymph nodes noted. No crepitus CVS: Normal heart rate and rhythm. Pulses normal. Normal S1 and S2 Respiratory: No respiratory distress. Breath sounds normal. No Wheezing. No rales Abdomen: Soft and nontender. No rigidity. No distention. Skin: Skin warm and dry. Normal skin color. Normal skin turgor. Extremities: No lower extremity edema. No Lacerations. No Rash Neuro: Oriented X 3. No motor deficit. No sensory deficit. Moving all extremities. No slurred speech. CN 2 through 12 grossly intact Psych: calm, cooperative, normal affect Course Course Course Narrative: -all of patient's labs and imaging pending -care team consult pending -physician observation started at 16:50 Discharge Plan Discharge Prescriptions: No Action methadone 5 mg Tablet 30 mg PO DAILY Rx Instructions: Last dose letter from [facility]. 03/29/23 @ 0700 hydroxyzine HCl 50 mg Tablet 50 mg PO BID PRN (Reason: Anxiety) 30 Days Qty: 60 0RF oxcarbazepine 300 mg Tablet 300 mg PO BEDTIME 30 Days Qty: 30 0RF quetiapine 50 mg Tablet 50 mg PO BEDTIME 30 Days Qty: 30 0RF quetiapine 50 mg Tablet 50 mg PO QID 30 Days Qty: 120 0RF guanfacine 2 mg Tablet Extended Release 24 Hr 2 mg PO BEDTIME 30 Days Qty: 30 0RF guanfacine 1 mg Tablet Extended Release 24 Hr 1 mg PO DAILY 30 Days Qty: 30 0RF naloxone [Narcan] 4 mg/actuation spray,non-aerosol 4 mg intranasal Q2M PRN (Reason: opioid overdose) Qty: 2 0RF Rx Instructions: spray 1 dose into ONE nostril; alternate nostrils w each dose until help arrives doxycycline hyclate 100 mg tablet 100 mg PO BID Qty: 14 0RF Print Language: Choose Not To Answer
[2023-12-24 16:47] LABS: Amphetamine Screen Urine Not Detected (Not Detect); Barbiturates, Urine Not Detected (Not Detect); Benzodiazepines Screen Urine Not Detected (Not Detect); Buprenorphine Scr Not Detected (Not Detect); Cannabinoid Screen Urine Not Detected (Not Detect); Cocaine Screen Urine POSITIVE (Not Detect); Fentanyl, urine POSITIVE (Not Detect); Methadone Screen, Urine Positive (Not Detect); Opiate Screen Urine POSITIVE (Not Detect); Oxycodone Screen Urine Not Detected (Not Detect); Phencyclidine Screen Urine Not Detected (Not Detect)
[2023-12-24 16:50] VITALS: RESP 14
[2023-12-24 17:16] LABS: MANUAL DIFF FLAG NO
[2023-12-24 17:19] LABS: Basophils Percent Auto 0.3 % (0-2); Eosinophils Percent Auto 0.4 % (0-4); Hematocrit 39.8 % (42.0-52.0); Hemoglobin 12.9 g/dl (14.0-18.0); Imm Gran Abs Auto 0.02 X10*3/uL (0.00-0.03); Imm Gran Pct Auto 0.3 % (0.0-0.4); Lymphocytes Absolute Auto 2.2 X10*3/uL (1.2-4.9); Lymphocytes Percent Auto 27.6 % (20-40); Mean Corpuscular HGB Conc 32.4 g/dl (31.0-36.0); Mean Corpuscular Volume 80.1 fL (80.0-98.0); Mean Platelet Volume 9.7 fL (9.4-12.4); Monocytes Absolute Auto 0.7 X10*3/uL (0.1-1.2); Monocytes Percent Auto 8.6 % (2-11); Neutrophils Absolute Auto 4.9 x10*3/uL (2.0-8.3); Neutrophils Percent Auto 62.8 % (45-73); Platelet Count 223 X10*3/uL (160-400); Red Blood Count 4.97 X10*6/uL (4.60-5.80); White Blood Count 7.8 X10*3/uL (4.8-10.8)
[2023-12-24 17:36] LABS: Salicylate < 5.0 mg/dL (15-30)
[2023-12-24 17:37] LABS: Alanine Aminotransferase 122 U/L (0-40); Albumin Level 4.4 g/dL (3.5-5.0); Alkaline Phosphatase 110 U/L (39-117); Anion Gap 15 (12-20); Aspartate Amino Transferase 95 U/L (5-37); Bilirubin Total 0.5 mg/dL (0.0-1.0); Blood Urea Nitrogen 25 mg/dL (9-16); Carbon Dioxide 23 mmol/L (22-29); Chloride 103 mmol/L (96-108); Creatinine Clr Calc Pharmacy 175.7; Estimated Glomerular Filt Rate > 60; Ethanol < 10 mg/dL; Glucose Random 101 mg/dL (60-115); Potassium 4.1 mmol/L (3.3-5.1); Sodium 137 mmol/L (135-145); Total Protein 8.1 g/dL (6.5-8.0)
[2023-12-24 18:58] LABS: Acetaminophen LAB < 3 mcg/mL (<30)
--- NOTE | 2023-12-24 19:06 | PC.NURSE ---
patient appears to remain at rest at present respirations are even and unlabored patient appears in no distress.
--- NOTE | 2023-12-25 | ECG_ITS ---
Test Reason : check qt interval Blood Pressure : / mmHG Vent. Rate : 065 BPM Atrial Rate : 065 BPM P-R Int : 172 ms QRS Dur : 112 ms QT Int : 448 ms P-R-T Axes : 010 012 042 degrees QTc Int : 465 ms Normal sinus rhythm Normal ECG When compared with ECG of 30-MAR-2023 02:33, Questionable change in QRS axis Referred By: Tammy Huynh Electronically Signed By:MILO PALMER
[2023-12-25 03:24] VITALS: BP 126/78; PULSE 54; RESP 17; TEMP 36.9; O2SAT 99
--- NOTE | 2023-12-25 04:27 | PC.NURSE ---
late entry-provider asked about meds client stated in bag, which are scripts. patient stated to provider they were only from a few days ago, to me he stated 10 days ago, scripts were from 11/08/23. provider told me to leave them in bag.
[2023-12-25 08:05] VITALS: BP 109/65; PULSE 65; RESP 16; TEMP 36.7; O2SAT 95
--- NOTE | 2023-12-25 08:14 | PC.NURSE ---
Assumed care of patient at 0645, patient appears to be sleeping, respirations even and unlabored, no apparent distress noted. Patient aware of plan of care for inpatient bedsearch
[2023-12-25 09:01] LABS: Appearance Urine Turbid; Color Urine Dark Yellow; Glucose Urine UA Negative (Negative); Leukocyte Esterase Urine Negative (Negative); Nitrite Urine Negative (Negative); Specific Gravity - Urine >= 1.030 (1.005-1.025); UMIC TRIGGER UA YES; Urine Blood Negative (Negative); Urine Ketones Trace mg/dL (Negative); Urine Protein 100 (2+) mg/dL (Neg-Trace)
[2023-12-25 09:16] LABS: Bacteria Urine None Seen (None Seen); Granular Casts Urine Present; RBC Urine 0-2 /HPF (0-2); Squamous Epithelial Cell Urine 0-2 /HPF (0-2); WBC Urine 0-5 /HPF (0-5)
--- NOTE | 2023-12-25 11:42 | PC.NURSE ---
Patient has physical paper scripts in backpack, not physical medications
--- NOTE | 2023-12-25 11:44 | HE.PHANOTE ---
RE: METHADONE DOSING Last dose of methadone 110 mg was given on 12/24/23 @1100 at [facility] per NEFTALI Hall.
[2023-12-25 14:24] VITALS: BMI 32.3
[2023-12-25 15:02] VITALS: BP 139/80; PULSE 76; RESP 16; TEMP 36.1; O2SAT 96
[2023-12-25] MEDS: methADONE HCl 20 MG/2 ML ORAL.CONC 110 MG PO (15:23)
[2023-12-25] MEDS: Nicotine Polacrilex 2 MG GUM 4 MG BUCCAL (17:07)
--- NOTE | 2023-12-25 17:18 | PC.ADMIT ---
Kevan Moura was admitted to M3 on this date at 1408 from the [place] ED Pod on a Conditional Voluntary for treatment of suicidal ideation and polysubstance abuse. Per patient and crisis evaluation, the patient was released from [facility] fdc system approximately 10 days ago and into a sober living home. He was/is scheduled for a follow up appointment with a psychiatric provider in 3 weeks. Despite being discharged from fdc on medication including Olanzapine, the patient began having increased auditory hallucinations, depression, and suicidal ideation. He self presented to [place] ED on 12/24/23, following a reported suicide attempt in which he attempted to OD from a ?speedball? of heroin, cocaine, and fentanyl. Pt stated that he hopes to have his AH brought under control and his medication adjusted. ?I feel like the meds are working anymore.? He is Alert and oriented x 4, with linear and organized thought processes. His mood is reportedly depressed and anxious, with a blunted affect. Pt was initially guarded in his interactions and responses with staff, but became more engaging during the intake process. As stated, he has ongoing auditory hallucinations. Pt denied active suicidal or homicidal ideations and did not appear to be responding to internal stimuli. No diet or sleep disturbances reported. Tox screen was positive for opiates, fentanyl, methadone, and cocaine. Pt denied ongoing substance use. ?I have been sober on Methadone for 9 months.? Methadone dose and medication reconciliation verified in ED, but Methadone not administered in ED. Pt received first dose at [facility] [place] [facility] following admission. Physically, patient has a reported history of Hep C, and A-fib, with allergies to all penicillins. Skin check performed. Pt informed RN of a dry and irritated patch of skin on his L thigh near his groin. Pt attributed this to chaffing and denied treatment at this time. Personal belongings inventoried. [facility] found possible drug paraphernalia in pockets of jeans, including plastic containers that likely contained substances. Security called and security also performed personal belongings review. All contraband disposed of by security at this time. No further issues discovered. Pt placed on 15 minute safety checks at this time. Regular diet ordered. After admission, patient observed quietly sitting in the milieu, watching TV, and keeping to self. No current behavioral issues noted.
[2023-12-25 19:46] VITALS: BP 111/66; PULSE 65; RESP 16; TEMP 36.5; O2SAT 95
[2023-12-25] MEDS: OLANZapine 10 MG TABLET 20 MG PO (20:54)
[2023-12-26 07:00] VITALS: BMI 33.0
[2023-12-26 07:25] VITALS: BP 107/65; PULSE 60; RESP 14; TEMP 37.2; O2SAT 98
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
[2023-12-26] MEDS: methADONE HCl 20 MG/2 ML ORAL.CONC 110 MG PO (09:25)
[2023-12-26] MEDS: Nicotine Polacrilex 2 MG GUM 4 MG BUCCAL (13:03)
[2023-12-26] MEDS: OXcarbazepine 150 MG TABLET PO ×2 (13:30→22:05)
[2023-12-26 20:28] VITALS: BP 117/75; PULSE 74; RESP 18; TEMP 37; O2SAT 100
[2023-12-26] MEDS: OLANZapine 10 MG TABLET 30 MG PO (22:04)
[2023-12-26] MEDS: traZODone HCL 50 MG TABLET PO (22:10)
[2023-12-27 07:39] VITALS: BP 104/67; PULSE 62; RESP 14; TEMP 36.5; O2SAT 97
[2023-12-27] MEDS: methADONE HCl 20 MG/2 ML ORAL.CONC 110 MG PO (09:00)
[2023-12-27] MEDS: OXcarbazepine 150 MG TABLET PO ×2 (09:51→20:09)
[2023-12-27] MEDS: Nicotine Polacrilex 2 MG GUM 4 MG BUCCAL ×2 (12:57→20:09)
--- NOTE | 2023-12-27 12:59 | HO.PSYCHPN ---
Subjective Subjective Date of Service: 12/27/23 Reason For Visit: SI Interim History: calm, cooperative. AH more bearable with zyprexa dose increase. slept well. less anxious. would like to titrate up on trileptal on saturday. per staff, visible, watching TV, slept, no issues. attended at least one group. signed 3-day notice today. Mental Status Exam Mental Status Exam Narrative: Pleasant. Engaged. Organized. mood less anxious. no SI/HI/VH expressed. +AH, derogatory, more bearable. No aggression or agitation. Insight and judgment fair Diagnostics Vital Signs (24Hr): Vital Signs - 24 hr 12/26/23 20:28 12/27/23 07:39 Temperature 98.6 F 97.7 F Pulse Rate 74 62 Respiratory Rate 18 14 Blood Pressure 117/75 104/67 Pulse Oximetry 100 97 Oxygen Delivery Method Room Air Room Air BMI result Body Mass Index 33.0 Labs 12/24/23 17:10 12/24/23 17:10 Medications Medications Current Medications Al Hydroxide/Mg Hydroxide (Magnesium Hydrox/Alum Hydrox 30 Ml Oral.Susp) 30 ml PO Q6H PRN PRN Reason: Heartburn/Nausea Hydroxyzine HCl (Hydroxyzine Hcl 25 Mg Tablet) 25 mg PO Q6H PRN PRN Reason: Anxiety Magnesium Hydroxide (Milk Of Magnesia 30 Ml Oral.Susp) 30 ml PO DAILY PRN PRN Reason: Constipation Methadone HCl (Methadone Hcl 20 Mg/2 Ml Oral.Conc) 110 mg PO DAILY [facility] Last Admin: 12/27/23 09:00 Dose: 110 mg Nicotine Polacrilex (Nicotine Polacrilex 2 Mg Gum) 4 mg BUCCAL Q2H PRN PRN Reason: Nicotine Cravings Last Admin: 12/27/23 12:57 Dose: 4 mg Olanzapine (Olanzapine 10 Mg Tablet) 30 mg PO BEDTIME [facility] Last Admin: 12/26/23 22:04 Dose: 30 mg Oxcarbazepine (Oxcarbazepine 150 Mg Tablet) 150 mg PO BID [facility] Stop: 12/29/23 08:00 Last Admin: 12/27/23 09:51 Dose: 150 mg Oxcarbazepine (Oxcarbazepine 300 Mg Tablet) 300 mg PO BID [facility] Trazodone HCl (Trazodone Hcl 50 Mg Tablet) 50 mg PO BEDTIME MRX1 PRN PRN Reason: Insomnia Last Admin: 12/26/23 22:10 Dose: 50 mg Allergies Allergies Allergy/AdvReac Type Severity Reaction Status Date / Time amoxicillin [AMOXICILLIN] Allergy Severe HIVES Verified 12/24/23 15:11 Penicillins [PENICILLINS] Allergy Severe HIVES Verified 12/24/23 15:11 acetaminophen [From TYLENOL] Allergy Unknown LIVER Verified 12/24/23 15:11 PROBLEMS Assessment & Plan Assessment & Plan (1) Polysubstance abuse: Status: Acute Code(s): F19.10 - Other psychoactive substance abuse, uncomplicated (2) Schizoaffective disorder: Status: Acute Code(s): F25.9 - Schizoaffective disorder, unspecified Plan 12/25: increase zyprexa to 30 mg QHS for AH. start trileptal 150 BID for anxiety. 12/26: AH more bearable, anxiety improved. increase trileptal to 300 BID on 12/28 (already ordered). Reason for continued inpatient stay Substantial Risk for: inability to function and rapid decompensation Time Spent With Patient Time: Total time managing care of this patient today _25___ minutes.
[2023-12-27 20:00] VITALS: BP 127/77; PULSE 86; RESP 16; TEMP 37.1; O2SAT 96
[2023-12-27] MEDS: OLANZapine 10 MG TABLET 30 MG PO (20:09)
[2023-12-27] MEDS: traZODone HCL 50 MG TABLET PO (20:09)
[2023-12-28 07:48] VITALS: BP 133/69; PULSE 66; RESP 16; TEMP 36.4; O2SAT 96
[2023-12-28] MEDS: OXcarbazepine 150 MG TABLET PO ×2 (08:26→20:57)
[2023-12-28] MEDS: methADONE HCl 20 MG/2 ML ORAL.CONC 110 MG PO (08:26)
--- NOTE | 2023-12-28 10:02 | P.PNPSI_ITS ---
Subjective Subjective Date of Service: 12/28/23 Reason For Visit: SI Subjective Notes: 3 Day Interim History: met with patient. Discussed with Nursing. Overall patient reports things are going okay. Hallucinations are getting much less intense. Sleep improving. Anxiety still the same but hopefully will continue to get better. Hopeful for a substance treatment program. Feels positive regarding current medication regimen and Trileptal being titrated. Medication Compliance: Yes Side effects from medications: No Attending Groups: No Review of Systems Acute medical concerns: No Review of Systems Review of Systems Yes all other systems are reviewed and are negative Mental Status Exam Mental Status Exam Narrative: Pleasant. Engaged. Organized. mood less anxious. no SI/HI. +AH, derogatory, more bearable. No aggression or agitation. Insight and judgment fair Diagnostics Vital Signs (24Hr): Vital Signs - 24 hr 12/27/23 20:00 12/28/23 07:48 Temperature 98.8 F 97.5 F Pulse Rate 86 66 Respiratory Rate 16 16 Blood Pressure 127/77 133/69 Pulse Oximetry 96 96 Oxygen Delivery Method Room Air Room Air BMI result Body Mass Index 33.0 Labs 12/24/23 17:10 12/24/23 17:10 Medications Medications Current Medications Al Hydroxide/Mg Hydroxide (Magnesium Hydrox/Alum Hydrox 30 Ml Oral.Susp) 30 ml PO Q6H PRN PRN Reason: Heartburn/Nausea Hydroxyzine HCl (Hydroxyzine Hcl 25 Mg Tablet) 25 mg PO Q6H PRN PRN Reason: Anxiety Magnesium Hydroxide (Milk Of Magnesia 30 Ml Oral.Susp) 30 ml PO DAILY PRN PRN Reason: Constipation Methadone HCl (Methadone Hcl 20 Mg/2 Ml Oral.Conc) 110 mg PO DAILY [facility] Last Admin: 12/28/23 08:26 Dose: 110 mg Nicotine Polacrilex (Nicotine Polacrilex 2 Mg Gum) 4 mg BUCCAL Q2H PRN PRN Reason: Nicotine Cravings Last Admin: 12/27/23 20:09 Dose: 4 mg Olanzapine (Olanzapine 10 Mg Tablet) 30 mg PO BEDTIME [facility] Last Admin: 12/27/23 20:09 Dose: 30 mg Oxcarbazepine (Oxcarbazepine 150 Mg Tablet) 150 mg PO BID [facility] Stop: 12/29/23 08:00 Last Admin: 12/28/23 08:26 Dose: 150 mg Oxcarbazepine (Oxcarbazepine 300 Mg Tablet) 300 mg PO BID [facility] Trazodone HCl (Trazodone Hcl 50 Mg Tablet) 50 mg PO BEDTIME MRX1 PRN PRN Reason: Insomnia Last Admin: 12/27/23 20:09 Dose: 50 mg Allergies Allergies Allergy/AdvReac Type Severity Reaction Status Date / Time amoxicillin [AMOXICILLIN] Allergy Severe HIVES Verified 12/24/23 15:11 Penicillins [PENICILLINS] Allergy Severe HIVES Verified 12/24/23 15:11 acetaminophen [From TYLENOL] Allergy Unknown LIVER Verified 12/24/23 15:11 PROBLEMS Assessment & Plan Assessment & Plan (1) Polysubstance abuse: Status: Acute Code(s): F19.10 - Other psychoactive substance abuse, uncomplicated (2) Schizoaffective disorder: Status: Acute Code(s): F25.9 - Schizoaffective disorder, unspecified Plan 12/25: increase zyprexa to 30 mg QHS for AH. start trileptal 150 BID for anxiety. 12/26: AH more bearable, anxiety improved. increase trileptal to 300 BID on 12/28 (already ordered). 12/27: no changes Reason for continued inpatient stay Substantial Risk for: inability to function and rapid decompensation Time Spent With Patient Time: Total time managing care of this patient today ____ minutes.
[2023-12-28] MEDS: Nicotine Polacrilex 2 MG GUM 4 MG BUCCAL (15:38)
[2023-12-28 20:30] VITALS: BP 116/71; PULSE 61; RESP 16; O2SAT 96
[2023-12-28] MEDS: OLANZapine 10 MG TABLET 30 MG PO (20:57)
[2023-12-28] MEDS: traZODone HCL 50 MG TABLET PO (20:58)
[2023-12-29] MEDS: traZODone HCL 50 MG TABLET PO ×2 (02:30→20:07)
[2023-12-29 08:00] VITALS: BP 125/76; PULSE 60; RESP 16; TEMP 36.7
[2023-12-29] MEDS: OXcarbazepine 300 MG TABLET PO ×2 (08:36→20:07)
[2023-12-29] MEDS: methADONE HCl 20 MG/2 ML ORAL.CONC 110 MG PO (08:36)
--- NOTE | 2023-12-29 10:37 | HO.PSYCHPN ---
Subjective Subjective Date of Service: 12/29/23 Reason For Visit: SI Interim History: Met with patient. Discussed with Nursing. Overall patient reports things are going okay- less intense hallucinations. Sleep improving. Anxiety still present. Hopeful for a substance treatment program. Feels positive regarding current medication regimen and Trileptal being titrated. Medication Compliance: Yes Side effects from medications: No Attending Groups: No Review of Systems Acute medical concerns: No Review of Systems Review of Systems Yes all other systems are reviewed and are negative Mental Status Exam Mental Status Exam Narrative: Pleasant. Engaged. Organized. mood less anxious. no SI/HI. +AH, derogatory, less intense. No aggression or agitation. Insight and judgment fair Diagnostics Vital Signs (24Hr): Vital Signs - 24 hr 12/28/23 20:30 12/29/23 08:00 Temperature 98.1 F Pulse Rate 61 60 Respiratory Rate 16 16 Blood Pressure 116/71 125/76 Pulse Oximetry 96 Oxygen Delivery Method Room Air Room Air BMI result Body Mass Index 33.0 Labs 12/24/23 17:10 12/24/23 17:10 Medications Medications Current Medications Al Hydroxide/Mg Hydroxide (Magnesium Hydrox/Alum Hydrox 30 Ml Oral.Susp) 30 ml PO Q6H PRN PRN Reason: Heartburn/Nausea Hydroxyzine HCl (Hydroxyzine Hcl 25 Mg Tablet) 25 mg PO Q6H PRN PRN Reason: Anxiety Magnesium Hydroxide (Milk Of Magnesia 30 Ml Oral.Susp) 30 ml PO DAILY PRN PRN Reason: Constipation Methadone HCl (Methadone Hcl 20 Mg/2 Ml Oral.Conc) 110 mg PO DAILY [facility] Last Admin: 12/29/23 08:36 Dose: 110 mg Nicotine Polacrilex (Nicotine Polacrilex 2 Mg Gum) 4 mg BUCCAL Q2H PRN PRN Reason: Nicotine Cravings Last Admin: 12/28/23 15:38 Dose: 4 mg Olanzapine (Olanzapine 10 Mg Tablet) 30 mg PO BEDTIME [facility] Last Admin: 12/28/23 20:57 Dose: 30 mg Oxcarbazepine (Oxcarbazepine 300 Mg Tablet) 300 mg PO BID [facility] Last Admin: 12/29/23 08:36 Dose: 300 mg Trazodone HCl (Trazodone Hcl 50 Mg Tablet) 50 mg PO BEDTIME MRX1 PRN PRN Reason: Insomnia Last Admin: 12/29/23 02:30 Dose: 50 mg Allergies Allergies Allergy/AdvReac Type Severity Reaction Status Date / Time amoxicillin [AMOXICILLIN] Allergy Severe HIVES Verified 12/24/23 15:11 Penicillins [PENICILLINS] Allergy Severe HIVES Verified 12/24/23 15:11 acetaminophen [From TYLENOL] Allergy Unknown LIVER Verified 12/24/23 15:11 PROBLEMS Assessment & Plan Assessment & Plan (1) Polysubstance abuse: Status: Acute Code(s): F19.10 - Other psychoactive substance abuse, uncomplicated (2) Schizoaffective disorder: Status: Acute Code(s): F25.9 - Schizoaffective disorder, unspecified Plan 12/25: increase zyprexa to 30 mg QHS for AH. start trileptal 150 BID for anxiety. 12/26: AH more bearable, anxiety improved. increase trileptal to 300 BID on 12/28 (already ordered). 12/27: no changes 12/28: no changes. trileptal being titrated Reason for continued inpatient stay Substantial Risk for: inability to function Time Spent With Patient Time: Total time managing care of this patient today ____ minutes.
[2023-12-29] MEDS: Nicotine Polacrilex 2 MG GUM 4 MG BUCCAL ×2 (13:19→20:07)
[2023-12-29 19:45] VITALS: BP 120/72; PULSE 68; RESP 15; TEMP 36.8; O2SAT 95
[2023-12-29] MEDS: OLANZapine 10 MG TABLET 30 MG PO (20:07)
[2023-12-30 07:56] VITALS: BP 111/61; PULSE 63; RESP 16; TEMP 36.4; O2SAT 96
[2023-12-30] MEDS: OXcarbazepine 300 MG TABLET PO ×2 (08:23→20:05)
[2023-12-30] MEDS: methADONE HCl 20 MG/2 ML ORAL.CONC 110 MG PO (08:24)
--- NOTE | 2023-12-30 09:54 | HO.PSYCHPN ---
Subjective Subjective Date of Service: 12/30/23 Reason For Visit: SI Subjective Notes: 3 Day Interim History: Reviewed with Dr. Coburn. Keeping to self. Pt reports feeling okay today; pt stated, the only issue I have left is my anxiety. The voices are less and manageable. The Zyprexa is helping . Pt denies SI/HI/VH/AH. Pt observed pacing unit hallway and listening to music on unit headphones. Medication Compliance: Yes Side effects from medications: No Attending Groups: No Review of Systems Constitutional: Reports as per HPI Eyes: Reports as per HPI Reports as per HPI Cardiovascular: Reports as per HPI Respiratory: Reports as per HPI Gastrointestinal: Reports as per HPI Genitourinary: Reports as per HPI Musculoskeletal: Reports as per HPI Skin/Breast: Reports as per HPI Reports as per HPI Psychiatric: Reports as per HPI Endocrine: Reports as per HPI Hematologic/Lymphatic: Reports as per HPI Allergic/Immunologic: Reports as per HPI Mental Status Exam Mental Status Exam Narrative: Pt is alert and oriented; behavior is cooperative and calm; dressed in casual attire; mood is described as okay ; eye contact appropriate; Speech is normal rate, volume and prosody and not pressured; thought process is organized; Thought content is on tx; denies SI/HI/VH. Pt reports auditory hallucinations. Diagnostics Vital Signs (24Hr): Vital Signs - 24 hr 12/29/23 19:45 12/30/23 07:56 Temperature 98.3 F 97.6 F Pulse Rate 68 63 Respiratory Rate 15 16 Blood Pressure 120/72 111/61 Pulse Oximetry 95 96 Oxygen Delivery Method Room Air Room Air BMI result Body Mass Index 33.0 Labs 12/24/23 17:10 12/24/23 17:10 Medications Medications Current Medications Al Hydroxide/Mg Hydroxide (Magnesium Hydrox/Alum Hydrox 30 Ml Oral.Susp) 30 ml PO Q6H PRN PRN Reason: Heartburn/Nausea Hydroxyzine HCl (Hydroxyzine Hcl 25 Mg Tablet) 25 mg PO Q6H PRN PRN Reason: Anxiety Magnesium Hydroxide (Milk Of Magnesia 30 Ml Oral.Susp) 30 ml PO DAILY PRN PRN Reason: Constipation Methadone HCl (Methadone Hcl 20 Mg/2 Ml Oral.Conc) 110 mg PO DAILY [facility] Last Admin: 12/30/23 08:24 Dose: 110 mg Nicotine Polacrilex (Nicotine Polacrilex 2 Mg Gum) 4 mg BUCCAL Q2H PRN PRN Reason: Nicotine Cravings Last Admin: 12/29/23 20:07 Dose: 4 mg Olanzapine (Olanzapine 10 Mg Tablet) 30 mg PO BEDTIME [facility] Last Admin: 12/29/23 20:07 Dose: 30 mg Oxcarbazepine (Oxcarbazepine 300 Mg Tablet) 300 mg PO BID [facility] Last Admin: 12/30/23 08:23 Dose: 300 mg Trazodone HCl (Trazodone Hcl 50 Mg Tablet) 50 mg PO BEDTIME MRX1 PRN PRN Reason: Insomnia Last Admin: 12/29/23 20:07 Dose: 50 mg Allergies Allergies Allergy/AdvReac Type Severity Reaction Status Date / Time amoxicillin [AMOXICILLIN] Allergy Severe HIVES Verified 12/24/23 15:11 Penicillins [PENICILLINS] Allergy Severe HIVES Verified 12/24/23 15:11 acetaminophen [From TYLENOL] Allergy Unknown LIVER Verified 12/24/23 15:11 PROBLEMS Assessment & Plan Assessment & Plan (1) Polysubstance abuse: Status: Acute Code(s): F19.10 - Other psychoactive substance abuse, uncomplicated (2) Schizoaffective disorder: Status: Acute Code(s): F25.9 - Schizoaffective disorder, unspecified Plan 12/25: increase zyprexa to 30 mg QHS for AH. start trileptal 150 BID for anxiety. 12/26: AH more bearable, anxiety improved. increase trileptal to 300 BID on 12/28 (already ordered). 12/27: no changes 12/28: no changes. trileptal being titrated 12/29: continue current tx plan. Patient educated on: diagnosis and medication risk/benefits Informed Consent: understands Reason for continued inpatient stay Substantial Risk for: med/psych decompensation Time Spent With Patient Time: Total time managing care of this patient today _20___ minutes.
[2023-12-30] MEDS: Nicotine Polacrilex 2 MG GUM 4 MG BUCCAL ×3 (12:21→19:34)
[2023-12-30 19:35] VITALS: BP 119/65; PULSE 71; RESP 16; TEMP 36.9; O2SAT 95
[2023-12-30] MEDS: OLANZapine 10 MG TABLET 30 MG PO (20:04)
[2023-12-30] MEDS: traZODone HCL 50 MG TABLET PO (20:04)
[2023-12-31 07:39] VITALS: BP 115/67; PULSE 69; RESP 14; TEMP 35.9; O2SAT 94
[2023-12-31] MEDS: methADONE HCl 20 MG/2 ML ORAL.CONC 110 MG PO (09:04)
[2023-12-31] MEDS: OXcarbazepine 300 MG TABLET PO (09:04)
--- NOTE | 2023-12-31 10:42 | P.PNPSI_ITS ---
Subjective Subjective Date of Service: 12/31/23 Reason For Visit: SI Subjective Notes: Conditional Voluntary Healthcare Proxy: No Guardianship: No Medical Problems Affecting Mental Status: No Interim History: discussed in team; pt keeping to self. Pt reports feeling okay today except anxious; pt stated, the only issue I have left is my anxiety. The voices are less frequent and less intense; The Zyprexa is helping . Pt denies SI/HI/VH/AH. Pt observed pacing unit hallway and listening to music on unit headphones. He is agreeable to increase in trileptal. he is feeling ready for discharge tomorrow. Medication Compliance: Yes Side effects from medications: No Attending Groups: No Review of Systems Acute medical concerns: No Medical Review of Systems: unchanged Review of Systems Review of Systems Constitutional : No Weight loss, No Fever, No Chills, No Night Sweats, No Fatigue, No Malaise ENT/Mouth : No Hearing loss, No Ear Pain, No Nasal Congestion, No Sinus Pain, No Hoarseness, No sore throat, No Rhinorrhea, No Swallowing Difficulty Eyes: No Eye Pain, No Swelling, No Redness, No Foreign Body, No Discharge, No Vision Changes Cardiovascular : No Chest Pain, No SOB, No Dyspnea on Exertion, No Orthopnea, No Edema, No Palpitations Respiratory : No Cough, No Sputum, No Wheezing, No Smoke Exposure, No Dyspnea Gastrointestinal : No Nausea, No Vomiting, No Diarrhea, No Constipation, No abdominal Pain, No Hematochezia, No Melena Genitourinary : no irregular bleeding, No Dysuria, No Urinary Frequency, No Hematuria, No Urinary Incontinence, No Urgency, No Flank Pain, No Urinary Flow Changes, No Hesitancy Musculoskeletal : No joint pain, No Myalgias, No Joint Swelling Skin : No Skin Lesions, No rash Neuro : No Weakness, No Numbness, No Paresthesias, No Loss of Consciousness, No Dizziness, No Headache Psych : No Anxiety/Panic, complaining of suicidal thoughts, hearing voices Heme/Lymph: No Bruising, No Bleeding,No Lymphadenopathy Endocrine : No Polyuria, No Polydipsia, No Temperature Intolerance Yes all other systems are reviewed and are negative Constitutional: Reports as per HPI Eyes: Reports as per HPI Reports as per HPI Cardiovascular: Reports as per HPI Respiratory: Reports as per HPI Gastrointestinal: Reports as per HPI Genitourinary: Reports as per HPI Musculoskeletal: Reports as per HPI Skin/Breast: Reports as per HPI Reports as per HPI Psychiatric: Reports as per HPI Endocrine: Reports as per HPI Hematologic/Lymphatic: Reports as per HPI Allergic/Immunologic: Reports as per HPI Mental Status Exam Mental Status Exam Narrative: Pt is alert and oriented; behavior is cooperative and calm; dressed in casual attire; mood is described as okay ; eye contact appropriate; Speech is normal rate, volume and prosody and not pressured; thought process is organized; Thought content is on tx; denies SI/HI/VH. Pt reports auditory hallucinations but more manageable. Diagnostics Vital Signs (24Hr): Vital Signs - 24 hr 12/30/23 19:35 12/31/23 07:39 Temperature 98.5 F 96.6 F L Pulse Rate 71 69 Respiratory Rate 16 14 Blood Pressure 119/65 115/67 Pulse Oximetry 95 94 Oxygen Delivery Method Room Air Room Air BMI result Body Mass Index 33.0 Labs 12/24/23 17:10 12/24/23 17:10 Medications Medications Current Medications Al Hydroxide/Mg Hydroxide (Magnesium Hydrox/Alum Hydrox 30 Ml Oral.Susp) 30 ml PO Q6H PRN PRN Reason: Heartburn/Nausea Hydroxyzine HCl (Hydroxyzine Hcl 25 Mg Tablet) 25 mg PO Q6H PRN PRN Reason: Anxiety Magnesium Hydroxide (Milk Of Magnesia 30 Ml Oral.Susp) 30 ml PO DAILY PRN PRN Reason: Constipation Methadone HCl (Methadone Hcl 20 Mg/2 Ml Oral.Conc) 110 mg PO DAILY [facility] BEDS AT [facility] Last Admin: 12/31/23 09:04 Dose: 110 mg Nicotine Polacrilex (Nicotine Polacrilex 2 Mg Gum) 4 mg BUCCAL Q2H PRN PRN Reason: Nicotine Cravings Last Admin: 12/30/23 19:34 Dose: 4 mg Olanzapine (Olanzapine 10 Mg Tablet) 30 mg PO BEDTIME COUNTS [facility]CLUDE 234 BEDS AT [facility] Last Admin: 12/30/23 20:04 Dose: 30 mg Oxcarbazepine (Oxcarbazepine 300 Mg Tablet) 300 mg PO BID [facility]S [facility]CLUDE 234 BEDS AT [facility] Last Admin: 12/31/23 09:04 Dose: 300 mg Trazodone HCl (Trazodone Hcl 50 Mg Tablet) 50 mg PO BEDTIME MRX1 PRN PRN Reason: Insomnia Last Admin: 12/30/23 20:04 Dose: 50 mg Allergies Allergies Allergy/AdvReac Type Severity Reaction Status Date / Time amoxicillin [AMOXICILLIN] Allergy Severe HIVES Verified 12/24/23 15:11 Penicillins [PENICILLINS] Allergy Severe HIVES Verified 12/24/23 15:11 acetaminophen [From TYLENOL] Allergy Unknown LIVER Verified 12/24/23 15:11 PROBLEMS Assessment & Plan Assessment & Plan (1) Polysubstance abuse: Status: Acute Code(s): F19.10 - Other psychoactive substance abuse, uncomplicated (2) Schizoaffective disorder: Status: Acute Code(s): F25.9 - Schizoaffective disorder, unspecified Plan 12/25: increase zyprexa to 30 mg QHS for AH. start trileptal 150 BID for anxiety. 12/26: AH more bearable, anxiety improved. increase trileptal to 300 BID on 12/28 (already ordered). 12/27: no changes 12/28: no changes. trileptal being titrated 12/29: continue current tx plan. 12/30 increase trilpetal to 300mg in am and 450mg at bedtime; if pt continues to do well he will be discharge tomorrow Patient educated on: diagnosis, medication risk/benefits and therapeutic strategies Informed Consent: understands Reason for continued inpatient stay Substantial Risk for: inability to function Time Spent With Patient Time: Total time managing care of this patient today __30__ minutes.
[2023-12-31] MEDS: Nicotine Polacrilex Lozenge 2 MG LOZENGE BUCCAL ×2 (16:38→20:32)
[2023-12-31 20:00] VITALS: BP 126/79; PULSE 88; RESP 16; TEMP 36.4; O2SAT 97
[2023-12-31] MEDS: OXcarbazepine 150 MG TABLET 450 MG PO (20:31)
[2023-12-31] MEDS: OLANZapine 10 MG TABLET 30 MG PO (20:32)
[2023-12-31] MEDS: traZODone HCL 50 MG TABLET PO (20:35)
[2024-01-01] MEDS: traZODone HCL 50 MG TABLET PO (00:48)
[2024-01-01] MEDS: Nicotine Polacrilex Lozenge 2 MG LOZENGE BUCCAL ×2 (00:49→09:51)
[2024-01-01 08:00] VITALS: BP 115/55; PULSE 68; RESP 14; TEMP 36.8; O2SAT 97
[2024-01-01] MEDS: OXcarbazepine 300 MG TABLET PO (08:42)
[2024-01-01] MEDS: methADONE HCl 20 MG/2 ML ORAL.CONC 110 MG PO (08:42)
--- NOTE | 2024-01-01 11:39 | PC.NURSE ---
Patient easily engaged. Denies depression or sadness. Denies anxiety. Denies SI/HI plan or intent at this time. Reports AH persist, described as noise, no CAH. Planning to return to program. Discharge paperwork reviewed with patient, reports understanding. Medications reviewed with patient, reports understanding. Appointments reviewed with patient, reports understanding. Crisis numbers provided to patient. Last dose letter given to patient. All belongings taken with patient. Information given to patient regarding obtaining PCP at [facility] and walk in clinic if in need of immediate medical attention.
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
== END 2024-01-01 11:33 | disposition home or self-care (01) | DRG 750 ==
LOC: HO.ED 18:48 → HO.PADLT16 12-25 13:31
PROVIDERS: Nurse Practitioner Family; Admitting Provider Psychiatry & Neurology Psychiatry; Emergency Provider Emergency Medicine; Visit Provider Psychiatry & Neurology Psychiatry
DX: F25.9 Schizoaffective disorder, unspecified (principal); R45.851 Suicidal ideations; F11.20 Opioid dependence, uncomplicated; F19.10 Other psychoactive substance abuse, uncomplicated; F17.210 Nicotine dependence, cigarettes, uncomplicated; Z71.6 Tobacco abuse counseling; Z79.899 Other long term (current) drug therapy
CPT/HCPCS: 36415; 80053; 80143; 80179; 80307; 81001; 81003; 85025; 93005; 99285; S9485

== ENCOUNTER → 2023-12-25 08:58 | Outpatient (BNV) | payer MEDICAID, SELFPAY | PROVIDERS: Admitting Provider Psychiatry & Neurology Psychiatry; Emergency Provider Emergency Medicine; Visit Provider Internal Medicine | DX: Z51.81 Encounter for therapeutic drug level monitoring (principal) | CPT/HCPCS: 93010 ==

== ENCOUNTER → 2023-12-25 12:10 | Outpatient (BNV) | payer OTHER, SELFPAY | PROVIDERS: Admitting Provider Psychiatry & Neurology Psychiatry; Emergency Provider Emergency Medicine; Visit Provider Psychiatry & Neurology Psychiatry | DX: F25.1 Schizoaffective disorder, depressive type (principal); F19.10 Other psychoactive substance abuse, uncomplicated | CPT/HCPCS: 99231; 99232; 99233 ==

== ENCOUNTER 2024-06-08 17:36 | Emergency (ER) | payer MEDICAID, SELFPAY ==
--- NOTE | ~2024-06-08 | XR_ITS ---
EXAMINATION: XR FOOT, LEFT CLINICAL INFORMATION: Pain. COMPARISON: None available. TECHNIQUE: AP, lateral, and oblique views of the left foot. FINDINGS: Chronic fracture of the second metatarsal with callus formation. Additional possibly subacute to chronic fracture of the third metatarsal with increased sclerosis but no significant callus formation. Mild hallux valgus. No significant soft tissue abnormality. XR/XR foot LT min 3V IMPRESSION: 1. Chronic fracture of the second metatarsal with callus formation. 2. Additional possibly subacute to chronic fracture of the third metatarsal with increased sclerosis but no significant callus formation. Correlate with point tenderness. Electronically signed by: Audrey Cornejo MD 06/08/2024 10:50 PM EDT
[2024-06-08 17:39] VITALS: BP 141/82; PULSE 95; RESP 20; TEMP 36.1; O2SAT 97; BMI 25.8
--- NOTE | 2024-06-08 17:40 | ED.PSYCH ---
HPI - Psych General Chief Complaint: Psychiatric Symptoms Stated Complaint: crisis Time Seen by Provider: 06/08/24 17:54 History of Present Illness ED Provider: Roge CONRAD Narrative: 33-year-old male with past medical history of polysubstance abuse, schizoaffective disorder presenting for auditory visual hallucinations. Patient states that he has been hearing voices telling him to harm himself with a past few days and he also endorses seeing figures. He denies making any attempts to harm himself however he states that he has been using heroin more frequently as of late. He also has complaints of left foot pain stating that it has been bothering him for a few weeks now however he does not recall whether there was any trauma to the area. Related Data Home Medications ?Medication ?Instructions ?Recorded ?Confirmed methadone 10 mg/mL oral 110 mg PO DAILY 12/25/23 12/25/23 concentrate (Methadone Intensol) Previous Rx's ?Medication ?Instructions ?Recorded hydroxyzine HCl 25 mg tablet 25 mg PO Q6H PRN Anxiety #15 tabs 12/31/23 nicotine (polacrilex) 2 mg buccal 2 mg buccal Q2H PRN Nicotine 12/31/23 lozenge Cravings #30 ea oxcarbazepine 150 mg tablet 450 mg (3 x 150 mg) PO BEDTIME #90 12/31/23 tabs oxcarbazepine 300 mg tablet 300 mg PO DAILY #30 tabs 12/31/23 trazodone 50 mg tablet 50 mg PO BEDTIME MRX1 PRN Insomnia 12/31/23 #15 tabs olanzapine 10 mg tablet 30 mg (3 x 10 mg) PO BEDTIME #90 01/01/24 tabs Allergies Allergy/AdvReac Type Severity Reaction Status Date / Time amoxicillin [AMOXICILLIN] Allergy Severe HIVES Verified 06/08/24 17:42 Penicillins [PENICILLINS] Allergy Severe HIVES Verified 06/08/24 17:42 acetaminophen [From TYLENOL] Allergy Unknown LIVER Verified 06/08/24 17:42 PROBLEMS Review of Systems Review of Systems: Patient endorses auditory and visual hallucinations and foot pain Patient denies head pain, neck pain, chest pain, shortness of breath, abdominal pain, nausea, vomiting, urinary symptoms, fevers, chills Yes all other systems are reviewed and are negative PMFSH Past Medical History Medical History Schizoaffective disorder Opioid use disorder Major depression with psychotic features Polysubstance abuse Depression Opiate abuse, continuous Depression A-fib Social History Social History Household Members: Other Household Members Other:: Pt lives in sober living home Housing: Other Housing Other:: Sober living home Do you presently have visiting nurse or other home services: No Unable to assess alcohol history related to: Refusing to respond Alcohol intake: never Patient Tobacco Use Status: Current everyday Tobacco user Tobacco use type: Cigarette Cigarette Packs Per Day: 1 Cigarettes Per Day: 20.0 Smoked in Last 30 Days: Yes Second Hand Smoke Exposure: Yes Use of substances other than those prescribed or required for medical reasons: Yes Substance Use Type: Crack/Cocaine, Heroin and Methamphetamine Substance Use Frequency: Daily Advance Directives: No Advance Directives Information Provided: No Do you have a plan to hurt others: No Plan service: No Sexual orientation: Straight/Heterosexual Physical Exam Vital Signs: Vital Signs: Last Vital Signs Temp 98.2 F 06/08/24 18:25 Pulse 83 06/08/24 18:25 Resp 18 06/08/24 18:25 BP 129/83 06/08/24 18:25 Pulse Ox 98 06/08/24 18:25 O2 Del Method Room Air 06/08/24 18:25 BMI result Body Mass Index 25.8 Well-appearing 33-year-old male Lungs clear to auscultation bilaterally; normal S1-S2 regular rate rhythm; abdomen is soft nontender nondistended; left foot swelling and tenderness to palpation to the dorsal aspect, neurovascularly intact with good DP pulse Course Course Course Narrative: This is an RME: Additional HPI, ROS, PE not included below will be deferred to primary provider. RME assessment and note performed by: Emelina Cordova PA-C This is a [id number]-male who presents to the ER with a complaint of auditory and visual hallucinations x 3-4 days. Reports he was previously on medications to help with this however has been off for 5-6 months. Reporting he uses 1/2 bundle of heroin and cocaine intranasally. No etoh abuse. he is currently homeless. hx of psych admissions. Also reports hx of a fib > not anticoagulated, not on any medications at this time. Plan: labs, UA, drug screen, care team Medical Decision Making Medical Decision Making MDM Narrative: 33-year-old male presenting for hallucinations, SI and left foot pain. Patient has history of substance abuse and hallucinations could be substance induced however they could also be due to his underlying schizoaffective disorder. Left foot pain could be due to soft tissue trauma versus fracture - labs and imaging studies ordered - labs notable for stable H&H, electrolytes within normal limits and normal creatinine - urine drug screen positive for opiates, fentanyl and marijuana - care team evaluated patient and commencing bed search - I appreciate a left foot fracture on xray and Radiology impression confirmed this finding - walking boot ordered and routine consult placed to ortho - pt is still a patient here Differential Diagnosis Differential Diagnoses: The differential diagnosis associated with the presentation includes Hallucinations, substance use, schizoaffective disorder, psychiatric illness, seeking detox Lab Data 06/08/24 18:40 06/08/24 18:40 Labs: Lab Results 06/08/24 06/08/24 Range/Units 18:40 19:16 WBC 9.2 (4.8-10.8) X10*3/uL RBC 5.88 H (4.60-5.80) X10*6/uL Hgb 14.4 (14.0-18.0) g/dl Hct 44.9 (42.0-52.0) % MCV 76.4 L (80.0-98.0) fL MCH 24.5 L (27.0-33.0) pg MCHC 32.1 (31.0-36.0) g/dl RDW 14.3 (11.0-16.0) % Plt Count 253 (160-400) X10*3/uL MPV 10.7 (9.4-12.4) fL Immature Gran % (Auto) 1.0 H (0.0-0.4) % Neut % (Auto) 58.1 (45-73) % Lymph % (Auto) 33.3 (20-40) % [place] % (Auto) 7.2 (2-11) % Eos % (Auto) 0.1 (0-4) % Baso % (Auto) 0.3 (0-2) % Lymph # (Auto) 3.1 (1.2-4.9) X10*3/uL [place] # (Auto) 0.7 (0.1-1.2) X10*3/uL Eos # (Auto) 0.0 (0.0-0.4) X10*3/uL Baso # (Auto) 0.0 (0.0-0.2) X10*3/uL Abs Immat Gran (auto) 0.09 H (0.00-0.03) X10*3/uL Absolute Neuts (auto) 5.3 (2.0-8.3) x10*3/uL Absolute Nucleated RBC 0.000 (0.0-0.012) X10*3/uL Nucleated RBC % (auto) 0.0 (0.0-0.2) /100WBC Sodium 140 (135-145) mmol/L Potassium 3.9 (3.3-5.1) mmol/L Chloride 106 (96-108) mmol/L Carbon Dioxide 24 (22-29) mmol/L Anion Gap 14 (12-20) BUN 12 (9-16) mg/dL Creatinine 0.79 (0.5-1.4) mg/dL Estim Creat Clear Calc 144.6 Estimated GFR > 60 Random Glucose 88 (60-115) mg/dL Calcium 9.6 D (8.4-10.2) mg/dL Magnesium 2.2 (1.6-2.6) mg/dL Total Bilirubin 0.9 (0.0-1.0) mg/dL Direct Bilirubin 0.4 (0.0-0.5) mg/dL AST 22 (5-37) U/L ALT 26 (0-40) U/L Alkaline Phosphatase 113 (39-117) U/L Total Protein 7.8 (6.5-8.0) g/dL Albumin 4.7 (3.5-5.0) g/dL Urine Color Dark Yellow Urine Appearance Clear Urine pH 5.5 (5.0-9.0) Ur Specific [place] >= 1.030 H (1.005-1.025) Urine Protein 30 (1+) H (Neg-Trace) mg/dL Urine Glucose (UA) Negative (Negative) mg/dL Urine Ketones 15 (Negative) mg/dL Urine Blood Negative (Negative) Urine Nitrite Negative (Negative) Ur Leukocyte Esterase Negative (Negative) Urine RBC 0-2 (0-2) /HPF Urine WBC 0-5 (0-5) /HPF Ur Squamous Epith Cells 3-5 (0-2) /HPF Urine Bacteria None Seen (None Seen) Hyaline Casts 6-10 (0-2) /LPF Urine Opiates Screen POSITIVE H (Not Detect) Ur Buprenorphine Scrn Not Detected (Not Detect) ng/mL Ur Oxycodone Screen Not Detected (Not Detect) ng/mL Urine Methadone Screen Not Detected (Not Detect) ng/mL Urine Fentanyl Screen POSITIVE H (Not Detect) Ur Barbiturates Screen Not Detected (Not Detect) Ur Phencyclidine Scrn Not Detected (Not Detect) Ur Amphetamines Screen Not Detected (Not Detect) U Benzodiazepines Scrn Not Detected (Not Detect) Urine Cocaine Screen Not Detected (Not Detect) U Marijuana (THC) Screen POSITIVE H (Not Detect) Ethyl Alcohol < 10 mg/dL Discharge Plan Discharge Clinical Impression: Polysubstance abuse, Foot fracture, left Patient Disposition: Still a Patient Prescriptions: No Action methadone [Methadone Intensol] 10 mg/mL Concentrate 110 mg PO DAILY oxcarbazepine 150 mg Tablet 450 mg PO BEDTIME Qty: 90 0RF trazodone 50 mg Tablet 50 mg PO BEDTIME MRX1 PRN (Reason: Insomnia) Qty: 15 0RF oxcarbazepine 300 mg Tablet 300 mg PO DAILY Qty: 30 0RF hydroxyzine HCl 25 mg Tablet 25 mg PO Q6H PRN (Reason: Anxiety) Qty: 15 1RF nicotine (polacrilex) 2 mg Lozenge 2 mg buccal Q2H PRN (Reason: Nicotine Cravings) Qty: 30 0RF olanzapine 10 mg Tablet 30 mg PO BEDTIME Qty: 90 0RF Interventions: Brown-Suicide Risk Severity Scale Last Done: 06/08/24 18:22 Print Language: Choose Not To Answer
--- NOTE | 2024-06-08 17:43 | ECG_ITS ---
Test Reason : hx of a fib Blood Pressure : / mmHG Vent. Rate : 092 BPM Atrial Rate : 092 BPM P-R Int : 130 ms QRS Dur : 096 ms QT Int : 362 ms P-R-T Axes : 057 066 048 degrees QTc Int : 447 ms Artifact in tracing Normal sinus rhythm Normal EKG When compared with ECG of 25-DEC-2023 08:58, No significant change was found Referred By: Emelina Cordova Electronically Signed By:MILO PALMER
--- NOTE | 2024-06-08 18:09 | PC.NURSE ---
mindy at bedside (Joe)
--- NOTE | 2024-06-08 18:24 | PC.NURSE ---
Pt. states that he does not feel safe when he is by himself and wants help getting into a program. States that although he is suicidal, he wants to live and wants to get better.
[2024-06-08 18:25] VITALS: BP 129/83; PULSE 83; RESP 18; TEMP 36.8; O2SAT 98
--- NOTE | 2024-06-08 18:40 | PC.NURSE ---
Pt.very difficult stick to arms and hands SAFIA. OK to use foot per Amanda Guan MD. Labs drawn with 23G butterfly from pt.'s L foot. Cleaned well with alcohol and chlorhexidine prior to butterfly insertion.
[2024-06-08 18:46] LABS: MANUAL DIFF FLAG NO
[2024-06-08 18:58] LABS: Basophils Percent Auto 0.3 % (0-2); Eosinophils Percent Auto 0.1 % (0-4); Hematocrit 44.9 % (42.0-52.0); Hemoglobin 14.4 g/dl (14.0-18.0); Imm Gran Abs Auto 0.09 X10*3/uL (0.00-0.03); Lymphocytes Absolute Auto 3.1 X10*3/uL (1.2-4.9); Lymphocytes Percent Auto 33.3 % (20-40); Mean Corpuscular HGB Conc 32.1 g/dl (31.0-36.0); Mean Corpuscular Hemoglobin 24.5 pg (27.0-33.0); Mean Corpuscular Volume 76.4 fL (80.0-98.0); Mean Platelet Volume 10.7 fL (9.4-12.4); Monocytes Absolute Auto 0.7 X10*3/uL (0.1-1.2); Monocytes Percent Auto 7.2 % (2-11); Neutrophils Absolute Auto 5.3 x10*3/uL (2.0-8.3); Neutrophils Percent Auto 58.1 % (45-73); Platelet Count 253 X10*3/uL (160-400); Red Blood Count 5.88 X10*6/uL (4.60-5.80); Red Cell Distribution Width 14.3 % (11.0-16.0); White Blood Count 9.2 X10*3/uL (4.8-10.8)
[2024-06-08 19:03] LABS: Alanine Aminotransferase 26 U/L (0-40); Albumin Level 4.7 g/dL (3.5-5.0); Alkaline Phosphatase 113 U/L (39-117); Anion Gap 14 (12-20); Aspartate Amino Transferase 22 U/L (5-37); Bilirubin Direct 0.4 mg/dL (0.0-0.5); Bilirubin Total 0.9 mg/dL (0.0-1.0); Blood Urea Nitrogen 12 mg/dL (9-16); Calcium 9.6 mg/dL (8.4-10.2); Carbon Dioxide 24 mmol/L (22-29); Chloride 106 mmol/L (96-108); Creatinine Clr Calc Pharmacy 144.6; Estimated Glomerular Filt Rate > 60; Ethanol < 10 mg/dL; Glucose Random 88 mg/dL (60-115); Magnesium 2.2 mg/dL (1.6-2.6); Potassium 3.9 mmol/L (3.3-5.1); Sodium 140 mmol/L (135-145); Total Protein 7.8 g/dL (6.5-8.0)
[2024-06-08 19:27] LABS: Appearance Urine Clear; Color Urine Dark Yellow; Glucose Urine UA Negative (Negative); Leukocyte Esterase Urine Negative (Negative); Nitrite Urine Negative (Negative); PH 5.5 (5.0-9.0); Specific Gravity - Urine >= 1.030 (1.005-1.025); UMIC TRIGGER UACC YES; Urine Blood Negative (Negative); Urine Ketones 15 mg/dL (Negative); Urine Protein 30 (1+) mg/dL (Neg-Trace)
--- NOTE | 2024-06-08 19:28 | PC.NURSE ---
This RN assumed pt care @ 1900. Pt resting in bed, no signs of distress. Pt has sitter. Plan of care ongoing.
[2024-06-08 19:34] LABS: Amphetamine Screen Urine Not Detected (Not Detect); Barbiturates, Urine Not Detected (Not Detect); Benzodiazepines Screen Urine Not Detected (Not Detect); Buprenorphine Scr Not Detected (Not Detect); Cannabinoid Screen Urine POSITIVE (Not Detect); Cocaine Screen Urine Not Detected (Not Detect); Fentanyl, urine POSITIVE (Not Detect); Methadone Screen, Urine Not Detected (Not Detect); Opiate Screen Urine POSITIVE (Not Detect); Oxycodone Screen Urine Not Detected (Not Detect); Phencyclidine Screen Urine Not Detected (Not Detect)
--- NOTE | 2024-06-08 19:56 | MHC.CARE ---
Pt was assessed by CARE team,disposition was discussed with provider. Pt will be a Dual Diagnosis Bed search at this time, if placement is not found Pt will be reassessed for mental status exam tomorrow.
[2024-06-08 19:57] LABS: Bacteria Urine None Seen (None Seen); RBC Urine 0-2 /HPF (0-2); WBC Urine 0-5 /HPF (0-5)
[2024-06-09 10:20] VITALS: BP 131/89; PULSE 88; RESP 16; TEMP 36.4; O2SAT 97
--- NOTE | 2024-06-09 11:21 | PC.NURSE ---
Assumed care of patient at 1100, patient endorsing increased anxiety, PO meds ordered, otherwise resting quietly on recliner at this time, sitter at bedside for patient safety.
[2024-06-09] MEDS: hydrOXYzine HCL 50 MG TABLET PO (11:23)
[2024-06-09] MEDS: OLANZapine 5 MG TABLET PO (14:19)
--- NOTE | 2024-06-09 15:56 | MHC.CARE ---
Patient will remain an IPLOC/Dual bed search
[2024-06-09] MEDS: methADONE HCl 20 MG/2 ML ORAL.CONC 30 MG PO (17:59)
[2024-06-09 19:21] VITALS: BP 156/98; PULSE 60; RESP 20; TEMP 36.9; O2SAT 99
[2024-06-09] MEDS: Ondansetron ODT 4 MG TAB.RAPDIS TRANSLINGU (19:24)
[2024-06-09] MEDS: diphenhydrAMINE HCL 25 MG CAPSULE PO ×2 (19:24→20:44)
[2024-06-09] MEDS: LORazepam 1 MG TABLET 2 MG PO ×2 (19:24→22:31)
--- NOTE | 2024-06-09 20:00 | MHC.EDTECH ---
belongings in closet floor
[2024-06-09] MEDS: Metoclopramide HCl 10 MG TABLET PO (20:44)
[2024-06-09] MEDS: HaloperidoL 5 MG TABLET 10 MG PO (20:44)
--- NOTE | 2024-06-09 21:02 | MHC.EDTECH ---
Patient refused repeat vitals.
--- NOTE | 2024-06-09 22:19 | PHA.MEDREC ---
Addendum entered by Doroteo Rdz [facility] 06/09/24 22:52: med rec reviewed. Suboxone added based on claim history Original Note: Pharmacy Consult ? Medication Reconciliation Pharmacy has completed the medication reconciliation. Was not able to speak to patient when I went down to ED. Spoke to nurse and she thinks the patient is not taking anything in about 6 months since he has not taken his Methadone in about 6 months. I utilized claims to confirm patients med rec.
[2024-06-10 03:07] VITALS: BP 141/86; PULSE 82; RESP 16; TEMP 36.8; O2SAT 97
[2024-06-10] MEDS: LORazepam 1 MG TABLET 2 MG PO (03:10)
[2024-06-10] MEDS: OLANZapine ODT 10 MG TAB.RAPDIS TRANSLINGU (03:10)
--- NOTE | 2024-06-10 03:12 | PC.NURSE ---
pt woke up requesting medication for his severe anxiety and voices talking to me . pt medicated per MAR
[2024-06-10 05:55] VITALS: PULSE 81; RESP 20; TEMP 36.6; O2SAT 99
--- NOTE | 2024-06-10 07:01 | HE.PHANOTE ---
RE: methadone/suboxone Patient was given 30mg methadone around 1700 on 06/09; spoke to Romana about start date for Suboxone, agreed to 72 hour wash out period.
[2024-06-10] MEDS: cloNIDine HCL 0.1 MG TABLET PO (08:40)
[2024-06-10] MEDS: QUEtiapine Fumarate 50 MG TABLET PO (08:40)
--- NOTE | 2024-06-10 10:06 | MHC.RECOVRN ---
Briefly met with pt in [id number] after RN request. Pt currently dual diagnosis bedsearch. Pt sitting in bed, awake, alert, easily engages in conversation, appears slightly diaphoretic. Pt reports heroin/fentanyl use, 1 bundle daily, INH, and is requesting additional methadone. Pt reports feeling clammy. Pt reports he had been on methadone (within the past year) and stable at 80 mg. Pt would like to continue methadone for now but eventually taper off and receive Vivitrol. Pt reports he had received Vivitrol in the past with positive effect. Denies other questions or concerns for t/w. Discussed with ED provider, additional 10 mg methadone ordered for a total of 40 mg today.
[2024-06-10] MEDS: methADONE HCl 20 MG/2 ML ORAL.CONC 10 MG PO (10:20)
--- NOTE | 2024-06-10 12:23 | MHC.CARE ---
Pt was accepted to [facility] by Bernard for today 06/10/24. ETA is 4pm and the accepting provider is Dr. Elliott. The address is [address] [place] [address]. No nurse to nurse is required for the accepting facility. ED RN Payal and CARE team were notified of placement.
[2024-06-10 16:02] VITALS: BP 117/79; PULSE 90; RESP 16; O2SAT 97
--- NOTE | 2024-06-10 16:56 | PC.NURSE ---
belongings returned to ems for tx, reportgiven. patient calm and cooperative/
== END 2024-06-10 16:57 ==
PROVIDERS: Physician Assistant Medical; Emergency Provider Student in an Organized Health Care Education/Training Program
DX: S92.902A Unspecified fracture of left foot, initial encounter for closed fracture (principal); M79.672 Pain in left foot; F11.23 Opioid dependence with withdrawal; F25.9 Schizoaffective disorder, unspecified; F17.210 Nicotine dependence, cigarettes, uncomplicated; F14.10 Cocaine abuse, uncomplicated; F12.10 Cannabis abuse, uncomplicated; I48.91 Unspecified atrial fibrillation; X58.XXXA Exposure to other specified factors, initial encounter; Y93.89 Activity, other specified; Y92.89 Other specified places as the place of occurrence of the external cause; Y99.8 Other external cause status; Z79.899 Other long term (current) drug therapy; Z51.81 Encounter for therapeutic drug level monitoring
CPT/HCPCS: 36415; 73630; 80048; 80076; 80307; 81001; 83735; 85025; 93005; 99285; S9485

== ENCOUNTER → 2024-06-08 17:43 | Outpatient (BNV) | payer MEDICAID, SELFPAY | PROVIDERS: Emergency Provider Student in an Organized Health Care Education/Training Program; Visit Provider Internal Medicine | DX: F19.10 Other psychoactive substance abuse, uncomplicated (principal) | CPT/HCPCS: 93010 ==